=== PATIENT | male | born 1935 | race American Indian/Alaskan Native ===

== ENCOUNTER 2016-12-04 09:32 | Emergency (ER) | payer MEDICARE ==
[2016-12-04 09:52] LABS: BLOOD UREA NITROGEN 25 mg/dL (9-20); CALCIUM 9.3 mg/dL (8.4-10.2); CHLORIDE 109 mmol/L (98-107); CREATINE KINASE 88 U/L (55-170); CREATININE 1.2 mg/dL (0.7-1.3); GLUCOSE 171 mg/dL (70-100); POTASSIUM 4.7 mmol/L (3.5-5.1); SODIUM 138 mmol/L (137-145)
[2016-12-04] MEDS ORDERED: CLOPIDOGREL BISULFATE 75 MG TABLET PO ONE (09:52)
[2016-12-04] MEDS ORDERED: NITROGLYCERIN 0.4 MG TAB.SUBL SUBLINGUAL ONE (09:54)
[2016-12-04 09:55] LABS: BASOPHIL# 0.1 X 10^3uL (0.0-0.1); BASOPHILS 0.8 % (0.0-2.0); EOSINOPHILS 2.2 % (0.0-6.0); EOSINOPHILS# 0.2 X 10^3uL (0.0-0.4); HEMATOCRIT 36.6 % (42.0-54.0); HEMOGLOBIN 12.3 g/dL (14.0-18.0); LYMPHOCYTES 19.5 % (20.0-40.0); LYMPHOCYTES# 1.5 X 10^3uL (0.8-3.8); MEAN CELL VOLUME 93.2 fL (80.0-100.0); MEAN CORPUS. HGB CONCENTRATION 33.5 g/dL (32.0-36.0); MEAN CORPUSCULAR HEMOGLOBIN 31.2 pg (29.0-35.0); MEAN PLATELET VOLUME 8.5 fL (7.4-10.4); MONOCYTES 10.2 % (2.0-10.0); MONOCYTES# 0.8 X 10^3uL (0.2-1.0); NEUTROPHILS 67.3 % (54.0-75.0); NEUTROPHILS# 5.1 X 10^3uL (2.6-6.7); PLATELET COUNT 236 X 10^3uL (130-440); RED BLOOD COUNT 3.92 X 10^6uL (4.20-6.10); RED CELL DISTRIBUTION WIDTH 12.9 % (11.5-14.5); WHITE BLOOD COUNT 7.7 X 10^3uL (3.9-10.7)
[2016-12-04 09:56] LABS: INR 1.1; PARTIAL THROMBOPLASTIN TIME 28 sec (24-38)
[2016-12-04] MEDS ORDERED: ONDANSETRON HCL 4 MG/2 ML VIAL ONE ×2 (09:57→11:15)
[2016-12-04] MEDS ORDERED: MORPHINE SULFATE 2 MG/ML SYR ONE (10:03)
[2016-12-04 10:05] LABS: TROPONIN I < 0.012 ng/mL (0.00-0.034)
[2016-12-04] MEDS ORDERED: HEPARIN SOD PORCINE 5,000 UNITS/ML VIAL ONE (10:09)
--- NOTE | 2016-12-04 10:25 | ER PHYSICIAN DOCUMENTATION ---
Physician Documentation [facility] Name:Micah Diane Age:81 yrs Sex:Male :1935 Arrival Date:12/04/2016 Time:09:32 BedTrauma C Private MD:Milton Martel ED, Scott Disposition: 12/04 10:13 Critical Care: not applicable. nm Disposition: 12/04/16 10:14 Transfer ordered to [facility]. Diagnosis is Chest Pain. - Reason for transfer: Higher level of care. - Accepting physician is Moraima. - Condition is Critical. - Problem is new. - Symptoms are unchanged. COBRA Form completed? Yes Transfer - Mode of Transportation Helicopter HPI: 10:07 This 81 yrs old Male presents to ER with complaints of Chest Pain. sc 10:07 The patient or guardian reports chest pain that is located primarily in the anterior nm chest wall. Onset: 1 hour(s) ago. The pain does not radiate. There has been no movement of pain. Associated signs and symptoms: Pertinent positives: diaphoresis, shortness of breath. The chest pain is described as a pressure. Duration: The patient or guardian reports a single episode, that is still ongoing. Modifying factors: The symptoms are alleviated by nothing. Historical: - Allergies: No known drug Allergies; - Home Meds: 1. meds are not curent 2. Calcium Lactate Oral 3. carvedilol oral 4. Aspirin Oral 5. cholecalciferol (vitamin D3) oral 6. finasteride oral 7. Lisinopril Oral 8. pravastatin oral - PMHx: colon CA; CAD; stent placment; - PSHx: Colon resection; - Tetanus: unable to assess. - Ebola Screening: : Patient denies exposure to infectious person. Patient denies travel to an Ebola-affected area in the 21 days before illness onset. . - Immunization history: Unable to Obtain. - Social history: Smoking status: Patient states was never smoker of tobacco. Patient/guardian denies using alcohol, marijuana. ROS: 10:08 Constitutional: Negative for fever, chills, and weight loss. sc Eyes: Negative for injury, pain, redness, and discharge. ENT: Negative for injury, pain, and discharge. Neck: Negative for injury, pain, and swelling. Respiratory: Negative for shortness of breath, cough, wheezing, and pleuritic chest pain. Abdomen/GI: Negative for abdominal pain, nausea, vomiting, diarrhea, and constipation. Back: Negative for injury and pain. MS/Extremity: Negative for injury and deformity. 10:08 Neuro: Negative for headache, weakness, numbness, tingling, and seizure. sc 10:08 Cardiovascular: Positive for chest pain. 10:08 Skin: Positive for diaphoresis. Exam: Constitutional: This is a well developed, well nourished patient who is awake, alert, and in no acute distress. Head/Face: Normocephalic, atraumatic. Eyes: Pupils equal round and reactive to light, extra-ocular motions intact. Lids and lashes normal. Conjunctiva and sclera are non-icteric and not injected. Cornea within normal limits. Periorbital areas with no swelling, redness, or edema. ENT: Nares patent. No nasal discharge, no septal abnormalities noted. Tympanic membranes are normal and external auditory canals are clear. Oropharynx with no redness, swelling, or masses, exudates, or evidence of obstruction, uvula midline. Mucous membranes moist. Neck: Trachea midline, no thyromegaly or masses palpated, and no cervical lymphadenopathy. Supple, full range of motion without nuchal rigidity, or vertebral point tenderness. No meningismus. Cardiovascular: Regular rate and rhythm with a normal S1 and S2. No gallops, murmurs, or rubs. Normal PMI, no JVD. No pulse deficits. Respiratory: Lungs have equal breath sounds bilaterally, clear to auscultation and percussion. No rales, rhonchi or wheezes noted. No increased work of breathing, no retractions or nasal flaring. Abdomen/GI: Soft, non-tender, with normal bowel sounds. No distension or tympany. No guarding or rebound. No evidence of tenderness throughout. Back: No spinal tenderness. No costovertebral tenderness. Full range of motion. 10:09 Skin: Warm, dry with normal turgor. Normal color with no rashes, no lesions, and no sc evidence of cellulitis. 10:09 Skin: Appearance: normal except for affected area, Temperature: cool, Moisture: diaphoretic. 10:14 Cardiovascular: Rate: bradycardic, Rhythm: regular. nm Vital Signs: 09:37 BP 108 / 44; Pulse 39; st 09:44 BP 93 / 27; Pulse 39; Pulse Ox 93% ; Pain 6/10; st 09:49 BP 96 / 33; Pulse 44; Resp 17; Pulse Ox 93% ; st 09:51 BP 92 / 33; Pulse 40; Pulse Ox 93% ; st 09:54 BP 102 / 39; Pulse 41; Resp 20; Pulse Ox 93% ; st 09:56 Weight 77.11 kg; st 09:58 BP 99 / 38; Pulse 58; Resp 15; Pulse Ox 93% ; Pain 6/10; st 10:01 BP 95 / 35; Pulse 40; Resp 16; Pulse Ox 93% ; Pain 6/10; st MDM: 09:35 Patient medically screened. nm 10:12 Differential diagnosis: abnormal EKG, acute myocardial infarction, anxiety. Patient sc took aspirin per EMS prior to arrival. Patient refused fibrinolytic. Data reviewed: vital signs, nurses notes, lab test result(s), EKG, radiologic studies, and as a result, I will *Transfer Patient. Data interpreted: cardiac monitor technician: rate is 40 beats/min. ECG:. 19:19 EKG attached 12/04 09:54 Order name: BASIC METABOLIC PANEL [facility] 12/04 10:05 Interpretation: Normal Except: BLOOD UREA NITROGEN 25. nm 12/04 09:54 Order name: CREATINE KINASE [facility] 12/04 10:05 Interpretation: Normal. nm 12/04 09:56 Order name: CBC AUTO DIF, MDIF/RMOR IF IND EDAZ 12/04 10:05 Interpretation: Normal Except: HEMOGLOBIN 12.3; HEMATOCRIT 36.6. nm 12/04 09:58 Order name: PROTIME/INR [facility] 12/04 10:05 Interpretation: Normal. nm 12/04 09:58 Order name: PARTIAL THROMBOPLASTIN TIME [facility] 12/04 10:05 Interpretation: Normal. nm 12/04 10:06 Order name: TROPONIN I [facility] 12/04 09:36 Order name: CALL HELICOPTER; Complete Time: 10:43 nm 12/04 09:36 Order name: Continuous Cardiac Monitoring; Complete Time: 10:43 nm 12/04 09:36 Order name: DEFIB PADS - appropriate for specific helicopter nm 12/04 09:36 Order name: EKG - 12 Lead; Complete Time: 10:43 nm 12/04 09:36 Order name: EKG - fax to [phone]; Complete Time: nm 12/04 09:36 Order name: IV saline lock X2; Complete Time: nm 12/04 09:36 Order name: Oxygen; Complete Time: nm 12/04 09:36 Order name: Pulse Ox Continuous; Complete Time: : sc EC:12 Rate is 40 beats/min. Rhythm is regular. QRS [place] is Normal. [place] interval is normal. QRS sc interval is prolonged. QT interval is prolonged. Q waves are Old. T waves are Normal. No ST changes noted. Clinical impression: Abnormal EKG without significant change. Interpreted by me. Reviewed by me. Dispensed Medications: 09:40 Drug: Nitroglycerin 0.4 mg; Route: Sublingual; st 10:45 Follow up: Response: Pain is unchanged, physician notified st 09:40 Drug: Plavix 300 mg PO once for patients <75 years of age - Plavix 300 mg; Route: PO; st 10:45 Follow up: Response: No adverse reaction st 09:45 Drug: Zofran 4 mg; Route: IVP; Infused Over: 2 mins; Site: left antecubital; st 10:46 Follow up: Response: Nausea is decreased st 09:46 Not Given (given airline captain): Aspirin 81 mg, 4 tabs, total of 324 mg - Aspirin 81 mg PO once sc 09:46 Drug: NS 0.9% 500 ml; Route: IV; Rate: bolus; Site: right hand; st 10:46 Follow up: IV Status: Infusing continued upon transfer st 09:50 Drug: morphine 1 mg; Route: IVP; Site: right hand; st 10:46 Follow up: Response: Pain is unchanged, physician notified st 09:55 Drug: heparin 60 units/kg; Route: IVP; Site: right hand; st 10:45 Follow up: Response: No adverse reaction st Signatures: Lali Medina RN RN st Chew, Scott, MD MD sc Bollock, Lynda lb
--- NOTE | 2016-12-04 10:25 | ER NURSING DOCUMENTATION ---
Nurse's Notes [facility] Name:Micah Diane Age:81 yrs Sex:Male :1935 Arrival Date:12/04/2016 Time:09:32 BedTrauma C Private MD:Milton Martel Diagnosis:Chest Pain Presentation: 12/04 09:30 Presenting complaint: EMS states: pt started having chest pain a little before 8:30 st this AM. Chest pain into his back with nausea, SOB and looking pale. Transition of care: Home. AIR CAT ACTIVATION yes. Asprin Given Taken by pt fishing captain 324 mg po. Care prior to arrival: 12 lead EKG IV initiated. gauge and site 20 g in both the left AC and the right hand. Medication(s) given: Zofran 4mg IVP nitro X2. 09:30 Method Of Arrival: EMS: 410 st 09:38 Acuity: TODD 2 st 09:38 Acuity: TODD 1 st Triage Assessment: 09:30 General: Appears ill, Behavior is cooperative, drowsy. Pain: Complains of pain in chest st Pain currently is 6 out of 10 on a pain scale. Pain began 1 hour ago. Neuro: No deficits noted. Cardiovascular: Heart tones present Pulses are all present. Reports lightheadedness, Nausea shortness of breath Rhythm is sinus rhythm BBB. Respiratory: Airway is patent Respiratory effort is even, unlabored, Respiratory pattern is regular, symmetrical, Breath sounds are clear bilaterally. Reports shortness of breath. GI: Reports nausea. Historical: - Allergies: No known drug Allergies; - Home Meds: 1. meds are not curent 2. Calcium Lactate Oral 3. carvedilol oral 4. Aspirin Oral 5. cholecalciferol (vitamin D3) oral 6. finasteride oral 7. Lisinopril Oral 8. pravastatin oral - PMHx: colon CA; CAD; stent placment; - PSHx: Colon resection; - Tetanus: unable to assess. - Ebola Screening: : Patient denies exposure to infectious person. Patient denies travel to an Ebola-affected area in the 21 days before illness onset. . - Immunization history: Unable to Obtain. - Social history: Smoking status: Patient states was never smoker of tobacco. Patient/guardian denies using alcohol, marijuana. Screenin:30 Infectious Disease Risk None. Abuse screen: Unable to Obtain. Nutritional screening: No st deficits noted. Assessment: 09:30 Pain: Pain radiates to back Pain began [address] 09:50 General: pt color is improving sligtly. st Vital Signs: 09:37 BP 108 / 44; Pulse 39; st 09:44 BP 93 / 27; Pulse 39; Pulse Ox 93% ; Pain 6/10; st 09:49 BP 96 / 33; Pulse 44; Resp 17; Pulse Ox 93% ; st 09:51 BP 92 / 33; Pulse 40; Pulse Ox 93% ; st 09:54 BP 102 / 39; Pulse 41; Resp 20; Pulse Ox 93% ; st 09:56 Weight 77.11 kg; st 09:58 BP 99 / 38; Pulse 58; Resp 15; Pulse Ox 93% ; Pain 6/10; st 10:01 BP 95 / 35; Pulse 40; Resp 16; Pulse Ox 93% ; Pain 6/10; st ED Course: 09:30 Valuables Remains with patient Patient has correct armband on for positive st identification. Placed in gown. Bed in low position. Side rails up X2. pvc monitor on. Pulse ox on. NIBP on. Warm blanket given. 09:32 Patient arrived in ED. ama 09:32 Milton Martel MD is Private Physician. ama 09:35 Chaparro Ware MD is Attending Physician. sc 09:38 Lali Medina RN is Primary Nurse. st 09:[address] 09:49 EKG done per protocol. Performed by ED Staff. Shown to ED physician. st 09:50 Oxygen Oxygen administration via nasal cannula @ 2L/min. st 09:52 Port Xray Completed. pm1 17:30 Primary Nurse role handed off by Lali Medina RN st 19:19 EKG attached lb Administered Medications: 09:40 Drug: Nitroglycerin 0.4 mg; Route: Sublingual; st 10:45 Follow up: Response: Pain is unchanged, physician notified st 09:40 Drug: Plavix 300 mg PO once for patients <75 years of age - Plavix 300 mg; Route: PO; st 10:45 Follow up: Response: No adverse reaction st 09:45 Drug: Zofran 4 mg; Route: IVP; Infused Over: 2 mins; Site: left antecubital; st 10:46 Follow up: Response: Nausea is decreased st 09:46 Not Given (given fishing captain): Aspirin 81 mg, 4 tabs, total of 324 mg - Aspirin 81 mg PO once sc 09:46 Drug: NS 0.9% 500 ml; Route: IV; Rate: bolus; Site: right hand; st 10:46 Follow up: IV Status: Infusing continued upon transfer st 09:50 Drug: morphine 1 mg; Route: IVP; Site: right hand; st 10:46 Follow up: Response: Pain is unchanged, physician notified st 09:55 Drug: heparin 60 units/kg; Route: IVP; Site: right hand; st 10:45 Follow up: Response: No adverse reaction st Outcome: 09:32 Report given to Qing REYES st 10:14 ER care complete, transfer ordered by . or 10:21 Transferred: Patient will be transferred to: [facility]. Facility st Acceptance Time: December 04, 2016 at 10:21 Patient will be transported by: [facility]. Report called to: report sheet faxed to labor relations worker Nurse and Physician Charting and Notes were sent to Accepting Facility. All tests and/or procedures with results, if applicable, were sent to accepting facility. 10:21 Condition: guarded 10:21 Instructed on need for transfer 10:24 Patient [address] the ED. st 10:47 Transferred: Report called to: pt did not go to the labor relations worker RN notes faxed to Floor. st Nurse and Physician Charting and Notes were sent to Accepting Facility. 17:32 Patient [address] the ED. st Signatures: Lali Medina, RN RN Chaparro Collado MD MD sc McBride, Philisha pm1 Tip Gordon, Reg Reg Yas Daniels
--- NOTE | 2016-12-07 15:55 | RADIOLOGY REPORT ---
A limited inspiration single portable view of the chest is compared with the prior film dated 04/23/2013. The heart and vessels are stable. Elevation of the right hemidiaphragm is unchanged. The lung asif are otherwise clear. No infiltrate, fluid or pneumothorax is seen. IMPRESSION: Stable elevation of the right hemidiaphragm. No acute cardiopulmonary abnormality is identified. MTDD
== END 2016-12-04 17:32 | disposition short-term general hospital (02) ==
LOC: ER 09:32
DX: R07.9 Chest pain, unspecified (principal); R61 Generalized hyperhidrosis; R06.02 Shortness of breath; R94.31 Abnormal electrocardiogram [ECG] [EKG]; I25.10 Atherosclerotic heart disease of native coronary artery without angina pectoris; Z95.5 Presence of coronary angioplasty implant and graft; Z85.038 Personal history of other malignant neoplasm of large intestine; Z79.899 Other long term (current) drug therapy; Z79.82 Long term (current) use of aspirin; Z74.3 Need for continuous supervision
CPT/HCPCS: 71010; 80048; 82550; 84484; 85025; 85610; 85730; 93005; 96361; 96374; 96375; 99285; A0420; A0425; A0427; J1644; J2270; J2405

== ENCOUNTER 2016-12-14 08:22 | Inpatient (IN) | payer MEDICARE ==
[2017-01-12] MEDS ORDERED: MAG-AL PLUS XS SUSP 30 ML UDC PO PRN (15:54)
[2017-01-12] MEDS ORDERED: MAGNESIUM HYDROXIDE 30 ML UDC PO PRN (15:54)
[2017-01-12] MEDS ORDERED: HOME MEDICATION LIST NEEDED 1 EA EACH MC ONE (15:54)
[2017-01-12] MEDS ORDERED: FAMOTIDINE 20 MG TABLET PO PRN (17:27)
[2017-01-12] MEDS ORDERED: LIDOCAINE HCL 2% 20 ML VIAL MUCOUS MEM PRN (17:27)
[2017-01-12] MEDS ORDERED: DEXTROSE 50% WATER 25 GM/50 ML SYR IV PRN (17:36)
[2017-01-12] MEDS ORDERED: DIPHENHYDRAMINE 25 MG CAPSULE PO PRN (17:38)
[2017-01-12] MEDS ORDERED: NON-FORMULARY MEDICATION (Metolazone 2.5 MG) PO SCH (17:45)
[2017-01-12 18:24] LABS: BLOOD UREA NITROGEN 31 mg/dL (9-20); CALCIUM 8.1 mg/dL (8.4-10.2); CHLORIDE 106 mmol/L (98-107); CREATININE 1.3 mg/dL (0.7-1.3); GLUCOSE 144 mg/dL (70-100); MAGNESIUM 1.8 mg/dL (1.6-2.3); PHOSPHORUS 3.6 mg/dL (2.5-4.5); POTASSIUM 3.3 mmol/L (3.5-5.1); SODIUM 140 mmol/L (137-145)
[2017-01-12] MEDS ORDERED: DEXTROSE 5% IV ONE (18:31)
[2017-01-12] MEDS ORDERED: MAGNESIUM SULFATE IV ONE (18:31)
[2017-01-12] MEDS ORDERED: POTASSIUM CHLORIDE 20 MEQ/15 ML UDC PO ONE (18:32)
[2017-01-12] MEDS: ACETAMINOPHEN 325 MG TABLET PO PRN (18:36)
[2017-01-12] MEDS ORDERED: POTASSIUM CHLORIDE 20 MEQ/100 ML PIGGYBACK IV SCH (19:00)
[2017-01-12 19:04] LABS: ABO GROUP TYPE O; RH TYPE POSITIVE
[2017-01-12 19:05] LABS: ANTIBODY SCREEN NEGATIVE
[2017-01-12] MEDS ORDERED: MAGNESIUM SULFATE 100 ML IV ONE (21:14)
[2017-01-12] MEDS: INSULIN LISPRO 100 UNIT/ML ML SUBCUT SCH (21:17)
[2017-01-12] MEDS: ATORVASTATIN CALCIUIM 40 MG TABLET PO SCH (21:17)
[2017-01-12] MEDS: BISACODYL 10 MG SUPP.RECT PR SCH (21:17)
[2017-01-12] MEDS: metoprolol SUCC ER 25 MG TABLET PO SCH (21:18)
[2017-01-12] MEDS: ASCORBIC ACID 500 MG TABLET PO SCH (21:18)
[2017-01-12] MEDS: MARINOL PO SCH (21:22)
[2017-01-12] MEDS: ELIQUIS 2.5 MG PO SCH (21:22)
[2017-01-12] MEDS ORDERED: NORMAL SALINE 250 ML IV ONE (21:49)
[2017-01-12] MEDS: POTASSIUM CHLORIDE 100 ML IV SCH ×2 (21:50→23:39)
[2017-01-12 22:03] LABS: BASOPHILS 0.3 % (0.0-2.0); EOSINOPHILS 0.7 % (0.0-6.0); EOSINOPHILS# 0.1 X 10^3uL (0.0-0.4); LYMPHOCYTES 4.8 % (20.0-40.0); LYMPHOCYTES# 0.6 X 10^3uL (0.8-3.8); MEAN CELL VOLUME 91.1 fL (80.0-100.0); MEAN PLATELET VOLUME 8.1 fL (7.4-10.4); MONOCYTES 5.5 % (2.0-10.0); MONOCYTES# 0.6 X 10^3uL (0.2-1.0); NEUTROPHILS 88.7 % (54.0-75.0); NEUTROPHILS# 10.3 X 10^3uL (2.6-6.7); RED BLOOD COUNT 2.96 X 10^6uL (4.20-6.10); RED CELL DISTRIBUTION WIDTH 14.8 % (11.5-14.5); WHITE BLOOD COUNT 11.6 X 10^3uL (3.9-10.7)
[2017-01-12 23:20] LABS: HEMOGLOBIN 9.2 g/dL (14.0-18.0)
--- NOTE | 2017-01-13 01:09 | HISTORY & PHYSICAL ---
DATE OF ADMISSION TO SWING BED: 01/12/17 REASON FOR ADMISSION TO SWING BED: Ongoing recovery from protracted hospital course. HISTORY OF PRESENT ILLNESS: Briefly, the patient is an 81-year-old gentleman with past medical history significant for known coronary disease, BPH with lower urinary tract symptoms, anemia, dyslipidemia, hypertension and sleep apnea , as well as prior colon cancer and prior partial small bowel obstructions, who presented to the emergency room December 04 with acute onset of chest pain. His initial troponins were normal. He was subsequently transferred to [facility] where he underwent angiography that demonstrated no left main disease, 40% left anterior descending with 30% left circumflex, 50% RCA and apical hypokinesis. He then underwent evaluations for causes of chest pain which they felt may be pneumonia related and subsequently found that he had biliary colic and acute cholecystitis. He underwent a cholecystectomy which was complicated by an anastomotic leak, then had peritonitis and recurrent partial small bowel obstructions necessitating a right hemicolectomy. He has had persistent fever, high white count and abdominal pain with symptoms of ileus /obstruction. He underwent further imaging which demonstrated abscesses. He has required multiple percutaneous drainages and most recently group Nadia glabrata and was evaluated by both Nolvia Rodríguez, his surgeon, as well Vincenzo Moncada from infectious disease. He initially was on caspofungin but this was changed to Diflucan secondary to sensitivities. His white count has improved though he has become markedly weakened and is being transferred for ongoing physical therapy. What is noted is he has anasarca on presentation today. There is no fever, no rigors. His appetite has improved. He notes fatigue and becomes winded and tachypneic to 30s-40s with mild exertion. Despite this they have been walking 3 times daily and he has remained upright in the chair for an hour 3 times daily as well. He has noted increasing swelling and shortness of breath as well as PND and orthopnea, and is noted to have 3+ edema from his feet through to his midback including his scrotum and on the wounds. Labs on the day of discharged showed that his hemoglobin was 8.2 and white count was 10.5. He was also noted to be hypokalemic at 3.5. No further labs accompany the patient. I did discuss care with Dr. Dobson prior to transfer. The patient does have a right upper quadrant and right lower quadrant drain in place which has been flushed twice daily. A tentative plan was for followup with Dr. Rodríguez and Dr. Moncada in 2 weeks, as well as repeat blood tests with CRP and interval CT scanning in 7-10 days with discontinuation of drains if improvement. The patient also has a right upper extremity power port PICC line with 3 lumens which he has been using for blood draws as well as IV fluids. He denies chest pain or palpitations. He has abdominal pain over the incisions but no else. His last bowel movement was this morning and normal, though he did have a diarrheal stool on presentation to [facility]. There is no dysuria or urinary frequency. PAST MEDICAL HISTORY 1. Bilateral knee arthritis and status post knee arthroplasty. 2. Anemia with prior iron deficiency. 3. Coronary disease on risk modifying medications as described above with an angiogram as described above as well as percutaneous placement in 2010 with stent deployment. 4. Colon cancer status post partial colectomy in 2005 and now status post right hemicolectomy. 5. Umbilical herniorrhaphy. 6. Recurrent partial small bowel obstructions. 7. Left knee replacement. 8. Hypertension. 9. Dyslipidemia. 10. BPH with lower urinary tract symptoms. ALLERGIES: Morphine which causes nightmares. FAMILY HISTORY: Notable for a brother who from leukemia at age 62. His father from colon cancer. His maternal grandmother had rheumatoid arthritis. His mother from coronary disease. SOCIAL HISTORY: He does not drink alcohol. He is . He has 1 son and 3 step children, one of whom from heart disease. 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 He is a nonsmoker. CURRENT MEDICATIONS: Include Aspirin 81 mg daily. Lipitor 80 mg daily. Pepcid 20 mg daily. Fluconazole 400 mg daily. Lantus 10 units nightly with a sliding scale insulin. Lisinopril 20 mg daily. Coreg was recently changed to metoprolol 25 mg twice daily. He is also on vitamin D and vitamin C and B12. He is on apixaban 2.5 mg twice daily. Finasteride 5 mg daily. Marinol 2.5 mg twice daily. REVIEW OF SYSTEMS: Per HPI. PHYSICAL EXAMINATION VITAL SIGNS: Temperature of 36.9, blood pressure 158/54, pulse rate 53, respiratory rate started at 16 but was 30 during my review. Oxygen saturation 92% on room air at rest and currently denies pain. GENERAL: He is pleasant, uncomfortable, laying flat partly from shortness of breath and partly from strain on his wounds. There is no jaundice, cyanosis, clubbing or lymphadenopathy. HEENT: His conjunctiva are pale as well as his oropharynx. NECK: He has jugular venous distention to 4 cm above his clavicle with hepatojugular reflux. CARDIAC: There is a right upper sternal border murmur without radiation and intermittent gallop rhythm. RESPIRATORY: Pressure exam showed good air entry to 2/3 of his lung asif but diminished at the bases. No egophony or adventitial sounds. Percussion note is dull. ABDOMEN: Distended. He has midline dressed wound from prior laparotomy that had been treated partly with wound VAC and drains in his right upper and lower quadrants. There are no masses, no peritonitis. Bowel sounds are active. He does have edema in his lower sternum and midthoracic back that progressively worsens to his buttocks and scrotum down to his feet with 3-4+. IMPRESSION 1. Anasarca. This likely is confounded partly by his anemia as well as malnutrition and the patient will be a risk for repeating syndrome. Will transfuse 2 units and treat with Lasix and metolazone and followup electrolytes including potassium, magnesium and phosphorus for repeating syndrome as well as leaching from diuretics. The patient may require more vigorous replacement of these and may require daily diuretic as well. Will consider additional albumin with a diuretic tomorrow and through there were weekend with more vigorous followup of his electrolytes and replacement as needed. Regarding nutrition, will start a cardiac prudent diet and add whey protein to this and may require a multivitamin and supplementation as well. 2. Noncoronary disease status post stent placement in 2010 and recent angiography showing nonobstructive coronary disease. The patient will continue on medical management. 3. DVT prophylaxis perioperatively. The patient continues on Eliquis with no history of atrial fibrillation. 4. BPH. 5. Hypertension. 6. Dyslipidemia. 7. Sleep apnea. Will continue his CPAP and disease modifying medications as described above. The patient wishes to be a DNR/DNI and this is reflected in the chart and orders. MATT
[2017-01-13] MEDS: ACETAMINOPHEN 325 MG TABLET PO PRN ×2 (03:34→09:12)
[2017-01-13] MEDS: INSULIN LISPRO 100 UNIT/ML ML SUBCUT SCH ×4 (06:10→20:26)
[2017-01-13 06:25] LABS: BASOPHILS 0.2 % (0.0-2.0); EOSINOPHILS 0.4 % (0.0-6.0); EOSINOPHILS# 0.1 X 10^3uL (0.0-0.4); HEMATOCRIT 33.7 % (42.0-54.0); HEMOGLOBIN 11.4 g/dL (14.0-18.0); LYMPHOCYTES 4.4 % (20.0-40.0); LYMPHOCYTES# 0.6 X 10^3uL (0.8-3.8); MEAN CORPUS. HGB CONCENTRATION 33.7 g/dL (32.0-36.0); MEAN PLATELET VOLUME 7.9 fL (7.4-10.4); MONOCYTES 5.6 % (2.0-10.0); MONOCYTES# 0.7 X 10^3uL (0.2-1.0); NEUTROPHILS 89.4 % (54.0-75.0); NEUTROPHILS# 11.1 X 10^3uL (2.6-6.7); PLATELET COUNT 241 X 10^3uL (130-440); RED BLOOD COUNT 3.78 X 10^6uL (4.20-6.10); RED CELL DISTRIBUTION WIDTH 14.5 % (11.5-14.5); WHITE BLOOD COUNT 12.5 X 10^3uL (3.9-10.7)
[2017-01-13 06:27] LABS: ALBUMIN 2.6 g/dL (3.5-5.0); AST 25 U/L (17-59); BILIRUBIN, TOTAL 0.9 mg/dL (0.2-1.3); BLOOD UREA NITROGEN 28 mg/dL (9-20); CREATININE 1.3 mg/dL (0.7-1.3); POTASSIUM 3.7 mmol/L (3.5-5.1)
[2017-01-13 06:49] LABS: ALKALINE PHOSPHATASE 128 U/L (38-126); ALT 25 U/L (21-72); BILIRUBIN, DIRECT 0.2 mg/dL (0.0-0.4); CALCIUM 8.2 mg/dL (8.4-10.2); GLUCOSE 118 mg/dL (70-100); MAGNESIUM 2.1 mg/dL (1.6-2.3); PHOSPHORUS 3.8 mg/dL (2.5-4.5); SODIUM 139 mmol/L (137-145); TOTAL PROTEIN 6.2 g/dL (6.3-8.2)
[2017-01-13 06:54] LABS: CHLORIDE 107 mmol/L (98-107)
[2017-01-13 08:13] LABS: URINE APPEARANCE CLEAR; URINE COLOR YELLOW; URINE LEUKOCYTE ESTERASE NEGATIVE (NEGATIVE); URINE MUCUS NONE SEEN (Up to 25%); URINE NITRITE NEGATIVE (NEGATIVE); URINE PROTEIN NEGATIVE (NEG - TRACE); URINE RBC NONE SEEN (0-5/hpf); URINE SQUAMOUS EPITHELIAL CELL NONE SEEN (<= 15/hpf); URINE WBC NONE SEEN (0-4/hpf)
[2017-01-13 08:14] LABS: URINE BACTERIA NONE SEEN (<10/hpf); URINE BILIRUBIN NEGATIVE (NEGATIVE); URINE BLOOD TRACE (NEGATIVE); URINE GLUCOSE NORMAL (NEGATIVE); URINE KETONE NEGATIVE (NEGATIVE); URINE SPERM NONE SEEN; URINE UROBILINOGEN 0.2mg/dL (Normal) (NEG-1mg/dL)
[2017-01-13] MEDS ORDERED: ALBUMIN HUMAN 12.5 GM/50 ML VIAL IV SCH (09:00)
[2017-01-13] MEDS ORDERED: BUMETANIDE 1 MG TABLET PO SCH (09:00)
[2017-01-13] MEDS ORDERED: HYDROCHLOROTHIAZIDE 25 MG TABLET PO SCH (09:00)
--- NOTE | 2017-01-13 09:09 | PROGRESS NOTE: IM APSO ---
Assessment and Plan - Date of Encounter Date of Encounter: 01/13/17 (1) Anemia Status: Acute Assessment and plan: transfused/diuresed and markedly improved (feels better), likely anemia related to adominal sepsis and difficult surgical course. Current Visit: No (2) CAD in [place] artery Status: Chronic Current Visit: No (3) H/O colon cancer, stage II Status: Chronic Assessment and plan: risk modifying medications with ASA/Eliquis/Lisinopril/Metoprolol/Lipitor, cath in December non obstructive Dz Current Visit: No (4) Generalized edema Status: Acute Assessment and plan: likely from severe malnutrition, mobilized some with transfusion, will give albumin and diuretic today as well, follow electrolytes and replace aggressively Current Visit: Yes (5) Protein-calorie malnutrition, moderate Status: Acute Assessment and plan: starting supplementation and following for refeeding syndrome. Replace potassium/magnesium/phosphorous as needed. Current Visit: Yes (6) Nadia glabrata infection Status: Chronic Assessment and plan: Continue diflucan, suspect improved absorption after anasarca mobiized (help bowel edema) Current Visit: Yes (7) Intra-abdominal abscess post-procedure Status: Acute Assessment and plan: drains place, flushing, will check CRP and CT next week, if improved then request Dr. Esteves to consider removing. Needs f//u Dr.'s Moncada/Marcos in 2 weeks. Current Visit: Yes (8) Generalized weakness Status: Acute Assessment and plan: deconditioning after such long and complicated hospitalization Current Visit: Yes (9) Leukocytosis Status: Acute Assessment and plan: need to follow for sx/sx of infection, will check sputum. Current Visit: Yes - Time Spent With Patient Total time spent with greater than 50% in coordination of care (as documented) at patient's floor/unit and/or counseling patient: Greater than 35 minutes IM: PN Subjective General: fatigue (improved this morning since transfusion), good appetite, no anxiety, no depression, no confusion, no fever, no chills Cardiovascular: no chest pain, no chest pressure, no palpitations Respiratory: cough, sputum (gabriel, started last nocte) Gastrointestinal: abdominal pain (about the same at drain and wound sites), no indigestion, no bloating, no nausea, no diarrhea Genitourinary: other (1500ml in bladder last nocte, requed IO cath, will place dorman with further diuresis. H/O BPH) Musculoskeletal: swelling (both legs but feels less tense today), no pain Integumentary: no rashes Neurological: no headache IM: PN Objective Exam - I&O/Vital Signs I&O: Intake & Output 01/12/17 01/13/17 01/13/17 21:59 05:59 13:59 Intake Total 1650 Output Total 1500 Balance 150 Weight 97 kg 97 kg 97 kg Intake: Oral 250 Blood Product 1400 Output: Urine 1500 Other: Urine Appearance Clear Clear Urine Color Yellow Light Jackie Stool Size Small Stool Characteristics Mucoid Soft Brown Formed Voiding Method Toilet Indwelling Catheter # Voids 3 # Bowel Movements 2 Vital Signs: Last Vital Signs Temp 37.0 C 01/13/17 06:06 Pulse 65 01/13/17 06:06 Resp 22 01/13/17 06:06 BP 158/83 01/13/17 06:06 Pulse Ox 91 01/13/17 08:47 Oxygen Flow Rate 1 Oxygen Delivery Method Nasal Cannula - Lab Labs: Laboratory Last Values WBC 12.5 X 10^3uL (3.9-10.7) H 01/13/17 05:00 RBC 3.78 X 10^6uL (4.20-6.10) L 01/13/17 05:00 Hgb 11.4 g/dL (14.0-18.0) L 01/13/17 05:00 Hct 33.7 % (42.0-54.0) L 01/13/17 05:00 MCV 89.0 fL (80.0-100.0) 01/13/17 05:00 MCH 30.0 pg (29.0-35.0) 01/13/17 05:00 MCHC 33.7 g/dL (32.0-36.0) 01/13/17 05:00 RDW 14.5 % (11.5-14.5) 01/13/17 05:00 Plt Count 241 X 10^3uL (130-440) 01/13/17 05:00 MPV 7.9 fL (7.4-10.4) 01/13/17 05:00 Neutrophils % 89.4 % (54.0-75.0) H 01/13/17 05:00 Lymphocytes % 4.4 % (20.0-40.0) L 01/13/17 05:00 Eosinophils % 0.4 % (0.0-6.0) 01/13/17 05:00 Basophils % 0.2 % (0.0-2.0) 01/13/17 05:00 Neutrophils # 11.1 X 10^3uL (2.6-6.7) H 01/13/17 05:00 Lymphocytes # 0.6 X 10^3uL (0.8-3.8) L 01/13/17 05:00 Monocytes 5.6 % (2.0-10.0) 01/13/17 05:00 Monocytes # 0.7 X 10^3uL (0.2-1.0) 01/13/17 05:00 Eosinophils # 0.1 X 10^3uL (0.0-0.4) 01/13/17 05:00 Basophils # 0.0 X 10^3uL (0.0-0.1) 01/13/17 05:00 Sodium 139 mmol/L (137-145) 01/13/17 05:00 Potassium 3.7 mmol/L (3.5-5.1) 01/13/17 05:00 Chloride 107 mmol/L (98-107) 01/13/17 05:00 Carbon Dioxide 25 mmol/L (22-30) 01/13/17 05:00 BUN 28 mg/dL (9-20) H 01/13/17 05:00 Creatinine 1.3 mg/dL (0.7-1.3) 01/13/17 05:00 GFR Calculation Not Reportable 01/13/17 05:00 Glucose 118 mg/dL (70-100) H 01/13/17 05:00 Calcium 8.2 mg/dL (8.4-10.2) L 01/13/17 05:00 Phosphorus 3.8 mg/dL (2.5-4.5) 01/13/17 05:00 Magnesium 2.1 mg/dL (1.6-2.3) 01/13/17 05:00 Total Bilirubin 0.9 mg/dL (0.2-1.3) 01/13/17 05:00 Direct Bilirubin 0.2 mg/dL (0.0-0.4) 01/13/17 05:00 AST 25 U/L (17-59) 01/13/17 05:00 ALT 25 U/L (21-72) 01/13/17 05:00 Alkaline Phosphatase 128 U/L (38-126) H 01/13/17 05:00 Total Protein 6.2 g/dL (6.3-8.2) L 01/13/17 05:00 Albumin 2.6 g/dL (3.5-5.0) L 01/13/17 05:00 Urine Color Yellow 01/12/17 15:54 Urine Appearance Clear 01/12/17 15:54 Urine pH 6.0 (5-7) 01/12/17 15:54 Ur Specific [place] 1.010 (0.001-1.035) 01/12/17 15:54 Urine Protein Negative (NEG - TRACE) 01/12/17 15:54 Urine Ketones Negative (NEGATIVE) 01/12/17 15:54 Urine Blood Trace (NEGATIVE) A 01/12/17 15:54 Urine Nitrate Negative (NEGATIVE) 01/12/17 15:54 Urine Bilirubin Negative (NEGATIVE) 01/12/17 15:54 Urine Urobilinogen 0.2mg/dl (normal) (NEG-1mg/dL) 01/12/17 15:54 Ur Leukocyte Esterase Negative (NEGATIVE) 01/12/17 15:54 Urine RBC None seen (0-5/hpf) 01/12/17 15:54 Urine WBC None seen (0-4/hpf) 01/12/17 15:54 Ur Squamous Epith Cells None seen (<= 15/hpf) 01/12/17 15:54 Urine Bacteria None seen (<10/hpf) 01/12/17 15:54 Urine Mucus None seen (Up to 25%) 01/12/17 15:54 Urine Sperm None seen 01/12/17 15:54 Urine Glucose Normal (NEGATIVE) 01/12/17 15:54 ABO Group Type o 01/12/17 18:00 Rh Factor Positive 01/12/17 18:00 Antibody Screen Negative 01/12/17 18:00 Quality Questions - VTE Prophylaxis Assessment VTE Present on Admission?: No Patient at risk for venous thromboembolism?: No VTE Risk Level: Very Low Risk Pharmaceutical VTE prophylaxis contraindication reason: N/A- VTE prophylaxsis ordered (7) Intra-abdominal abscess post-procedure Qualifiers: Encounter type: sequela Qualified Code(s): T81.4XXS - Infection following a procedure, sequela; K65.1 - Peritoneal abscess
[2017-01-13] MEDS: ASCORBIC ACID 500 MG TABLET PO SCH ×2 (09:12→20:25)
[2017-01-13] MEDS: LISINOPRIL 20 MG TABLET PO SCH (09:12)
[2017-01-13] MEDS: CYANOCOBALAMIN 1,000 MCG TABLET PO SCH (09:13)
[2017-01-13] MEDS: FINASTERIDE 5 MG TABLET PO SCH (09:13)
[2017-01-13] MEDS: CHOLECALCIFEROL 1,000 UNIT CAPSULE PO SCH (09:14)
[2017-01-13] MEDS: FLUCONAZOLE 100 MG CAPSULE PO SCH (09:14)
[2017-01-13] MEDS: metoprolol SUCC ER 25 MG TABLET PO SCH ×2 (09:27→20:25)
[2017-01-13] MEDS: INSULIN GLARGINE,HUM.REC.ANLOG 100 UNITS/ML ML SUBCUT SCH (09:28)
[2017-01-13] MEDS: BISACODYL 10 MG SUPP.RECT PR SCH ×2 (09:28→20:24)
[2017-01-13] MEDS ORDERED: METALOZONE PO ONE (09:30)
[2017-01-13] MEDS: ELIQUIS 2.5 MG PO SCH ×2 (11:19→20:25)
[2017-01-13] MEDS: MARINOL PO SCH ×2 (11:19→20:25)
[2017-01-13 12:07] LABS: URINE APPEARANCE CLEAR; URINE COLOR YELLOW; URINE LEUKOCYTE ESTERASE NEGATIVE (NEGATIVE); URINE MUCUS NONE SEEN (Up to 25%); URINE NITRITE NEGATIVE (NEGATIVE); URINE SPECIFIC GRAVITY 1.015 (0.001-1.035); URINE SQUAMOUS EPITHELIAL CELL NONE SEEN (<= 15/hpf); URINE WBC NONE SEEN (0-4/hpf)
[2017-01-13 12:08] LABS: URINE BACTERIA NONE SEEN (<10/hpf); URINE BILIRUBIN NEGATIVE (NEGATIVE); URINE BLOOD 250 Ery/uL (3+) (NEGATIVE); URINE GLUCOSE NORMAL (NEGATIVE); URINE KETONE NEGATIVE (NEGATIVE); URINE PH 7.5 (5-7); URINE PROTEIN 30mg/dL (1+) (NEG - TRACE); URINE RBC 50-100/hpf (0-5/hpf); URINE UROBILINOGEN 0.2mg/dL (Normal) (NEG-1mg/dL)
[2017-01-13] MEDS ORDERED: NON-FORMULARY MEDICATION (Eliquis 5 MG) PO ONE (19:45)
[2017-01-13] MEDS: ATORVASTATIN CALCIUIM 40 MG TABLET PO SCH (20:24)
[2017-01-14 05:50] LABS: BASOPHILS 0.3 % (0.0-2.0); EOSINOPHILS 0.4 % (0.0-6.0); HEMATOCRIT 31.4 % (42.0-54.0); HEMOGLOBIN 10.6 g/dL (14.0-18.0); LYMPHOCYTES 6.2 % (20.0-40.0); LYMPHOCYTES# 0.8 X 10^3uL (0.8-3.8); MEAN CELL VOLUME 89.1 fL (80.0-100.0); MEAN CORPUS. HGB CONCENTRATION 33.6 g/dL (32.0-36.0); MEAN PLATELET VOLUME 7.9 fL (7.4-10.4); MONOCYTES 6.5 % (2.0-10.0); MONOCYTES# 0.8 X 10^3uL (0.2-1.0); NEUTROPHILS 86.6 % (54.0-75.0); NEUTROPHILS# 10.8 X 10^3uL (2.6-6.7); PLATELET COUNT 243 X 10^3uL (130-440); RED BLOOD COUNT 3.52 X 10^6uL (4.20-6.10); RED CELL DISTRIBUTION WIDTH 14.5 % (11.5-14.5); WHITE BLOOD COUNT 12.4 X 10^3uL (3.9-10.7)
[2017-01-14 05:54] LABS: BLOOD UREA NITROGEN 25 mg/dL (9-20); CALCIUM 8.2 mg/dL (8.4-10.2); CHLORIDE 105 mmol/L (98-107); CREATININE 1.3 mg/dL (0.7-1.3); GLUCOSE 78 mg/dL (70-100); MAGNESIUM 1.8 mg/dL (1.6-2.3); PHOSPHORUS 4.6 mg/dL (2.5-4.5); POTASSIUM 3.1 mmol/L (3.5-5.1); SODIUM 138 mmol/L (137-145)
[2017-01-14] MEDS: INSULIN LISPRO 100 UNIT/ML ML SUBCUT SCH ×4 (06:06→21:11)
[2017-01-14] MEDS: LISINOPRIL 20 MG TABLET PO SCH (08:33)
[2017-01-14] MEDS: CYANOCOBALAMIN 1,000 MCG TABLET PO SCH (08:33)
[2017-01-14] MEDS: CHOLECALCIFEROL 1,000 UNIT CAPSULE PO SCH (08:34)
[2017-01-14] MEDS: FLUCONAZOLE 100 MG CAPSULE PO SCH (08:35)
[2017-01-14] MEDS: metoprolol SUCC ER 25 MG TABLET PO SCH ×2 (08:35→21:13)
[2017-01-14] MEDS: ASCORBIC ACID 500 MG TABLET PO SCH ×2 (08:36→21:13)
[2017-01-14] MEDS: MARINOL PO SCH ×2 (08:37→21:13)
[2017-01-14] MEDS: FINASTERIDE 5 MG TABLET PO SCH (08:37)
[2017-01-14] MEDS: BISACODYL 10 MG SUPP.RECT PR SCH ×2 (08:38→21:11)
[2017-01-14] MEDS: ELIQUIS 2.5 MG PO SCH (08:39)
[2017-01-14] MEDS: INSULIN GLARGINE,HUM.REC.ANLOG 100 UNITS/ML ML SUBCUT SCH (08:39)
[2017-01-14] MEDS ORDERED: MAGNESIUM SULFATE IV ONE (08:48)
[2017-01-14] MEDS ORDERED: DEXTROSE 5% IV ONE (08:48)
--- NOTE | 2017-01-14 08:59 | PROGRESS NOTE: IM APSO ---
Assessment and Plan - Date of Encounter Date of Encounter: 01/14/17 (1) Anemia Status: Acute Assessment and plan: transfused/diuresed and markedly improved (feels better), likely anemia related to adominal sepsis and difficult surgical course. Current Visit: No (2) CAD in [place] artery Status: Chronic Assessment and plan: risk modifying medications with ASA/Eliquis/Lisinopril/Metoprolol/Lipitor, cath in December non obstructive Dz Current Visit: No (3) H/O colon cancer, stage II Status: Chronic Assessment and plan: then [facility] hospitalization with complicated cholecystectomy and SBO with right hemicolectomy, now drains, protein calorie malnutrition, anemia and anasarca. These risk/issues not conveyed during transfer, adding beneprotein/ensure, diuresing, transfused and f/u studies for CRP and CT next week. Markedly improved but tenuous and low threshold to transfer back to [facility]. Current Visit: No (4) Generalized edema Status: Acute Assessment and plan: likely from severe malnutrition, mobilized some with transfusion, will give albumin and diuretic again today, follow electrolytes and replace aggressively. Has improved pain/drain output and mobility with fluid mobilization Current Visit: Yes (5) Protein-calorie malnutrition, moderate Status: Acute Assessment and plan: starting supplementation and following for refeeding syndrome. Replace potassium/magnesium/phosphorous as needed. Overall very severe malnutrition. Not appear addressed at [facility] and unfortunately, limited parenteral resources at [facility] [place] but attempting to address enterally (limited by poor appetite) Current Visit: Yes (6) Nadia glabrata infection Status: Chronic Assessment and plan: Continue diflucan, suspect improved absorption after anasarca mobiized (help bowel edema) Current Visit: Yes (7) Intra-abdominal abscess post-procedure Status: Acute Assessment and plan: drains place, flushing, will check CRP and CT next week, if improved then request Dr. Esteves to consider removing. Needs f//u Dr.'s Moncada/Marcso in 2 weeks. Persistently elevated WBC concerning though minimal additional symptoms and differential is improving some. Will check CRP tomorrow as baseline before f/u next Wed. Current Visit: Yes (8) Generalized weakness Status: Acute Assessment and plan: deconditioning after such long and complicated hospitalization Current Visit: Yes (9) Leukocytosis Status: Acute Assessment and plan: need to follow for sx/sx of infection, will check sputum. Current Visit: Yes - Time Spent With Patient Total time spent with greater than 50% in coordination of care (as documented) at patient's floor/unit and/or counseling patient: Greater than 35 minutes IM: PN Subjective General: fatigue (improved since transfusion and diuresis), no anxiety, no depression, no confusion, no good appetite (poor appetite but no nausea/ vomiting and pain improving, loose stools, no constipation), no fever, no chills Cardiovascular: other (no PND/orthopnea), no chest pain, no chest pressure, no palpitations Respiratory: cough (almost abated with diuresis for CHF), sputum (cough that is present is largely non produtive now) Gastrointestinal: abdominal pain (about the same at drain and wound sites), no indigestion, no bloating, no nausea, no diarrhea Genitourinary: other (h/o BPH w/ LUTS, had 1.5 liter retention with pain, I&O cath then dorman placed as required continued diuresis, will plan to DC after euvolemic.) Musculoskeletal: swelling (both legs but feels less tense today), no pain Integumentary: no rashes Neurological: no headache IM: PN Objective Exam - I&O/Vital Signs I&O: Intake & Output 01/13/17 01/14/17 01/14/17 21:59 05:59 13:59 Intake Total 540 700 Output Total 4300 1100 Balance -3760 -400 Intake: Oral 540 700 Output: Urine 4300 1100 Other: Urine Appearance Clear Clear Urine Color Yellow Yellow Stool Size Smear Stool Characteristics Soft Voiding Method Indwelling Catheter Indwelling Catheter # Bowel Movements 1 Vital Signs: Last Vital Signs Temp 37.7 C H 01/14/17 06:15 Pulse 59 L 01/14/17 06:15 Resp 26 H 01/14/17 06:15 BP 164/62 01/14/17 06:15 Pulse Ox 86 L 01/14/17 08:19 Oxygen Flow Rate 1 Oxygen Delivery Method Nasal Cannula - Constitutional General appearance: Present: obese - Head Head exam: Present: atraumatic - Eye Eye exam: Present: EOMI, normal appearance - ENT ENT exam: Present: mucous membranes moist - Neck Neck exam: Present: full ROM. Absent: lymphadenopathy - Respiratory Respiratory exam: Present: rales (bases only). Absent: accessory muscle use - Cardiovascular Cardiovascular exam: Present: RRR. Absent: JVD - GI/Abdominal GI/Abdominal exam: Present: hyperactive bowel sounds, soft, tenderness. Absent : organomegaly - External exam: Present: swelling (scrotal and penile edema now improving) - Extremities Exam Extremities exam: Present: edema (to knees but improving, some scrotal edema persists and thoracic/lumbar edema almost abated). Absent: calf tenderness - Neurological Exam Neurological exam: Present: oriented X3 - Allied Health Notes Allied health notes reviewed: nursing - Lab Labs: Laboratory Last Values WBC 12.4 X 10^3uL (3.9-10.7) H 01/14/17 05:25 RBC 3.52 X 10^6uL (4.20-6.10) L 01/14/17 05:25 Hgb 10.6 g/dL (14.0-18.0) L 01/14/17 05:25 Hct 31.4 % (42.0-54.0) L 01/14/17 05:25 MCV 89.1 fL (80.0-100.0) 01/14/17 05:25 MCH 30.0 pg (29.0-35.0) 01/14/17 05:25 MCHC 33.6 g/dL (32.0-36.0) 01/14/17 05:25 RDW 14.5 % (11.5-14.5) 01/14/17 05:25 Plt Count 243 X 10^3uL (130-440) 01/14/17 05:25 MPV 7.9 fL (7.4-10.4) 01/14/17 05:25 Neutrophils % 86.6 % (54.0-75.0) H 01/14/17 05:25 Lymphocytes % 6.2 % (20.0-40.0) L 01/14/17 05:25 Eosinophils % 0.4 % (0.0-6.0) 01/14/17 05:25 Basophils % 0.3 % (0.0-2.0) 01/14/17 05:25 Neutrophils # 10.8 X 10^3uL (2.6-6.7) H 01/14/17 05:25 Lymphocytes # 0.8 X 10^3uL (0.8-3.8) 01/14/17 05:25 Monocytes 6.5 % (2.0-10.0) 01/14/17 05:25 Monocytes # 0.8 X 10^3uL (0.2-1.0) 01/14/17 05:25 Eosinophils # 0.0 X 10^3uL (0.0-0.4) 01/14/17 05:25 Basophils # 0.0 X 10^3uL (0.0-0.1) 01/14/17 05:25 Sodium 138 mmol/L (137-145) 01/14/17 05:25 Potassium 3.1 mmol/L (3.5-5.1) L 01/14/17 05:25 Chloride 105 mmol/L (98-107) 01/14/17 05:25 Carbon Dioxide 29 mmol/L (22-30) 01/14/17 05:25 BUN 25 mg/dL (9-20) H 01/14/17 05:25 Creatinine 1.3 mg/dL (0.7-1.3) 01/14/17 05:25 GFR Calculation Not Reportable 01/14/17 05:25 Glucose 78 mg/dL (70-100) 01/14/17 05:25 Calcium 8.2 mg/dL (8.4-10.2) L 01/14/17 05:25 Phosphorus 4.6 mg/dL (2.5-4.5) H 01/14/17 05:25 Magnesium 1.8 mg/dL (1.6-2.3) 01/14/17 05:25 Total Bilirubin 0.9 mg/dL (0.2-1.3) 01/13/17 05:00 Direct Bilirubin 0.2 mg/dL (0.0-0.4) 01/13/17 05:00 AST 25 U/L (17-59) 01/13/17 05:00 ALT 25 U/L (21-72) 01/13/17 05:00 Alkaline Phosphatase 128 U/L (38-126) H 01/13/17 05:00 Total Protein 6.2 g/dL (6.3-8.2) L 01/13/17 05:00 Albumin 2.6 g/dL (3.5-5.0) L 01/13/17 05:00 Urine Color Yellow 01/13/17 10:49 Urine Appearance Clear 01/13/17 10:49 Urine pH 7.5 (5-7) 01/13/17 10:49 Ur Specific [place] 1.015 (0.001-1.035) 01/13/17 10:49 Urine Protein 30mg/dl (1+) (NEG - TRACE) A 01/13/17 10:49 Urine Ketones Negative (NEGATIVE) 01/13/17 10:49 Urine Blood 250 [place]/ul (3+) (NEGATIVE) A 01/13/17 10:49 Urine Nitrate Negative (NEGATIVE) 01/13/17 10:49 Urine Bilirubin Negative (NEGATIVE) 01/13/17 10:49 Urine Urobilinogen 0.2mg/dl (normal) (NEG-1mg/dL) 01/13/17 10:49 Ur Leukocyte Esterase Negative (NEGATIVE) 01/13/17 10:49 Urine RBC 50-100/hpf (0-5/hpf) 01/13/17 10:49 Urine WBC None seen (0-4/hpf) 01/13/17 10:49 Ur Squamous Epith Cells None seen (<= 15/hpf) 01/13/17 10:49 Urine Bacteria None seen (<10/hpf) 01/13/17 10:49 Urine Mucus None seen (Up to 25%) 01/13/17 10:49 Urine Sperm None seen 01/12/17 15:54 Urine Glucose Normal (NEGATIVE) 01/13/17 10:49 ABO Group Type o 01/12/17 18:00 Rh Factor Positive 01/12/17 18:00 Antibody Screen Negative 01/12/17 18:00 (7) Intra-abdominal abscess post-procedure Qualifiers: Encounter type: sequela Qualified Code(s): T81.4XXS - Infection following a procedure, sequela; K65.1 - Peritoneal abscess
[2017-01-14] MEDS ORDERED: POTASSIUM CHLORIDE 20 MEQ/15 ML UDC PO ONE (09:00)
[2017-01-14] MEDS ORDERED: ALBUMIN HUMAN 12.5 GM/50 ML VIAL IV ONE (10:00)
[2017-01-14] MEDS ORDERED: BUMETANIDE 1 MG TABLET PO ONE (10:00)
[2017-01-14] MEDS ORDERED: POTASSIUM CHLORIDE 20 MEQ/15 ML UDC ONE (10:54)
[2017-01-14] MEDS ORDERED: MAGNESIUM SULFATE 100 ML IV ONE (10:55)
[2017-01-14] MEDS: HYDROCHLOROTHIAZIDE 25 MG TABLET PO SCH (11:03)
[2017-01-14 13:36] LABS: URINE MUCUS NONE SEEN (Up to 25%); URINE SQUAMOUS EPITHELIAL CELL NONE SEEN (<= 15/hpf)
[2017-01-14 13:45] LABS: URINE APPEARANCE SLIGHTLY CLOUDY; URINE COLOR PALE YELLOW
[2017-01-14 13:46] LABS: URINE BACTERIA NONE SEEN (<10/hpf); URINE BILIRUBIN NEGATIVE (NEGATIVE); URINE BLOOD 250 Ery/uL (3+) (NEGATIVE); URINE GLUCOSE NORMAL (NEGATIVE); URINE KETONE NEGATIVE (NEGATIVE); URINE LEUKOCYTE ESTERASE 25 WBC/uL (1+) (NEGATIVE); URINE NITRITE NEGATIVE (NEGATIVE); URINE PROTEIN NEGATIVE (NEG - TRACE); URINE RBC 50-100/hpf (0-5/hpf); URINE UROBILINOGEN 0.2mg/dL (Normal) (NEG-1mg/dL); URINE WBC 0-4/hpf (0-4/hpf)
[2017-01-14] MEDS: APIXABAN 2.5 MG TABLET PO SCH ×2 (14:07→21:11)
[2017-01-14 16:05] LABS: CROSSMATCH IMMEDIATE SPIN COMPATIBLE
[2017-01-14 16:06] LABS: CROSSMATCH IMMEDIATE SPIN COMPATIBLE
[2017-01-14] MEDS: ATORVASTATIN CALCIUIM 40 MG TABLET PO SCH (21:12)
[2017-01-15] MEDS: INSULIN LISPRO 100 UNIT/ML ML SUBCUT SCH ×4 (06:20→20:56)
[2017-01-15 06:29] LABS: BASOPHILS 0.3 % (0.0-2.0); EOSINOPHILS 0.5 % (0.0-6.0); EOSINOPHILS# 0.1 X 10^3uL (0.0-0.4); HEMATOCRIT 34.4 % (42.0-54.0); HEMOGLOBIN 11.7 g/dL (14.0-18.0); LYMPHOCYTES# 0.6 X 10^3uL (0.8-3.8); MEAN CELL VOLUME 88.9 fL (80.0-100.0); MEAN CORPUS. HGB CONCENTRATION 34.1 g/dL (32.0-36.0); MEAN CORPUSCULAR HEMOGLOBIN 30.3 pg (29.0-35.0); MONOCYTES 6.5 % (2.0-10.0); MONOCYTES# 0.8 X 10^3uL (0.2-1.0); NEUTROPHILS# 10.1 X 10^3uL (2.6-6.7); PLATELET COUNT 261 X 10^3uL (130-440); RED BLOOD COUNT 3.87 X 10^6uL (4.20-6.10); RED CELL DISTRIBUTION WIDTH 14.4 % (11.5-14.5); WHITE BLOOD COUNT 11.6 X 10^3uL (3.9-10.7)
[2017-01-15 06:46] LABS: A/G RATIO 0.8; ALBUMIN 2.9 g/dL (3.5-5.0); ALKALINE PHOSPHATASE 143 U/L (38-126); ALT 27 U/L (21-72); AST 25 U/L (17-59); BILIRUBIN, TOTAL 1.1 mg/dL (0.2-1.3); BLOOD UREA NITROGEN 28 mg/dL (9-20); CALCIUM 8.4 mg/dL (8.4-10.2); CHLORIDE 102 mmol/L (98-107); CREATININE 1.8 mg/dL (0.7-1.3); GLUCOSE 94 mg/dL (70-100); MAGNESIUM 1.8 mg/dL (1.6-2.3); POTASSIUM 3.4 mmol/L (3.5-5.1); SODIUM 138 mmol/L (137-145); TOTAL PROTEIN 6.6 g/dL (6.3-8.2)
[2017-01-15 07:05] LABS: NEUTROPHILS 87.7 % (54.0-75.0)
[2017-01-15 07:14] LABS: C-REACTIVE PROTEIN 262.9 mg/L (<10.0)
[2017-01-15] MEDS: BISACODYL 10 MG SUPP.RECT PR SCH ×2 (08:26→21:02)
[2017-01-15] MEDS: FLUCONAZOLE 100 MG CAPSULE PO SCH (08:26)
[2017-01-15] MEDS: APIXABAN 2.5 MG TABLET PO SCH ×2 (08:27→21:00)
[2017-01-15] MEDS: HYDROCHLOROTHIAZIDE 25 MG TABLET PO SCH (08:28)
[2017-01-15] MEDS: INSULIN GLARGINE,HUM.REC.ANLOG 100 UNITS/ML ML SUBCUT SCH ×2 (08:28→20:46)
[2017-01-15] MEDS: LISINOPRIL 20 MG TABLET PO SCH (08:29)
[2017-01-15] MEDS: MARINOL PO SCH ×2 (08:29→20:55)
[2017-01-15] MEDS: FINASTERIDE 5 MG TABLET PO SCH (08:30)
[2017-01-15] MEDS: ASCORBIC ACID 500 MG TABLET PO SCH ×2 (08:31→20:59)
[2017-01-15] MEDS: metoprolol SUCC ER 25 MG TABLET PO SCH ×2 (08:31→20:58)
[2017-01-15] MEDS: CYANOCOBALAMIN 1,000 MCG TABLET PO SCH (08:31)
[2017-01-15] MEDS: CHOLECALCIFEROL 1,000 UNIT CAPSULE PO SCH (08:32)
--- NOTE | 2017-01-15 08:47 | PROGRESS NOTE: IM APSO ---
Assessment and Plan - Date of Encounter Date of Encounter: 01/15/17 (1) Intra-abdominal abscess post-procedure Status: Acute Assessment and plan: Status post cholecystectomy and subsequent hemicolectomy. [address] Afebrile. Mild leukocytosis stable to slightly improved. CRP is elevated as expected and will be followed.He is not currently on antibiotic therapy other than antifungal regimen for Nadia. Continue aggressive supportive care. Reassess labs in the morning. Continues to improve clinically, albeit slowly. Prognosis is improving but still remains high risk. Current Visit: Yes (2) Protein-calorie malnutrition, moderate Status: Acute Assessment and plan: Albumin level remains low, and still with evidence of anasarca with considerable third spacing. Ejection fraction care by recent catheterization. Has responded to administration of IV albumin with concurrent bumetanide. with increase in creatinine today, will administer albumin again and give lower dose of bumetanide. Address blood pressure/afterload as below. Continue to encourage good oral intake. Protein supplementation. Current Visit: Yes (3) Generalized edema Status: Acute Assessment and plan: Considerable third spacing in association with the above. Current Visit: Yes (4) Anemia Status: Acute Assessment and plan: Status post hospitalization at [facility] with multiple procedures/surgeries. Now, status post transfusion. Hematocrit stable.No evidence of acute blood loss. Follow. Current Visit: No (5) CAD in [place] artery Status: Chronic Assessment and plan: No concerning symptoms of ischemia or cardiac decompensation. Recent catheterization showing nonobstructive disease. He remains on aggressive medication regimen. Current Visit: No (6) Hypertension, benign Status: Acute Assessment and plan: Blood pressure remains elevated.Cannot increase RUBÉN inhibitor due to increase in creatinine. Cannot increase beta nir due to relatively low heart rates intermittently. Will add low-dose CCB. Watch for evidence of worsening of bowel function and/or edema. Current Visit: Yes (7) Hypercholesterolemia Status: Acute Assessment and plan: Remains on statin therapy. Current Visit: Yes (8) Hyperglycemia Status: Acute Assessment and plan: I do not see any evidence of history of diabetes. He has had hyperglycemia during his complicated recent medical course. Blood sugars have been normal in the morning for the last 2 days. Decrease Lantus from 10 units to 7 units. Continue supplemental insulin as needed. 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 Remains on Diflucan. Current Visit: Yes (10) H/O colon cancer, stage II Status: Chronic Current Visit: No (11) Generalized weakness Status: Acute Assessment and plan: As above, with complicated medical course. Significant debilitation. Now here for swing bed/rehabilitation stay. He will continue to work with physical therapy. Supportive care. Current Visit: Yes (12) DVT prophylaxis Status: Acute Assessment and plan: He remains on Eliquis. Current Visit: Yes - Time Spent With Patient Total time spent with greater than 50% in coordination of care (as documented) at patient's floor/unit and/or counseling patient: 25 - 35 minutes IM: PN Subjective General: fatigue (improved since transfusion and diuresis), no anxiety, no depression, no confusion, no good appetite (poor appetite but no nausea/vomiting , loose stools, no constipation), no pain, no fever, no chills Cardiovascular: other (no PND/orthopnea), no chest pain, no chest pressure, no palpitations Respiratory: no cough, no sputum, no wheeze Gastrointestinal: diarrhea (yesterday, none yet today), no abdominal pain, no nausea, no vomiting, no constipation Genitourinary: other (Schneider catheter in place) Musculoskeletal: swelling (both legs but feels less tense today), no pain Integumentary: no rashes Neurological: no headache IM: PN Objective Exam - I&O/Vital Signs I&O: Intake & Output 01/14/17 01/15/17 01/15/17 21:59 05:59 13:59 Intake Total 400 200 Output Total 1900 1100 Balance -1500 -900 Weight 97 kg Intake: Oral 400 200 Blood Product 0 Output: Urine 1900 1100 Other: Urine Appearance Clear Urine Color Yellow Stool Size Moderate Stool Characteristics Liquid Brown Voiding Method Indwelling Catheter Indwelling Catheter # Voids 3 # Bowel Movements 0 Vital Signs: Last Vital Signs Temp 37.2 C 01/15/17 06:31 Pulse 74 01/15/17 06:31 Resp 20 01/15/17 06:31 BP 155/90 01/15/17 06:31 Pulse Ox 93 01/15/17 06:31 Oxygen Flow Rate 2 Oxygen Delivery Method Nasal Cannula - Constitutional General appearance: Present: obese. Absent: acute distress - Head Head exam: Present: atraumatic - Eye Eye exam: Present: normal appearance. Absent: scleral icterus - ENT ENT exam: Present: mucous membranes moist - Neck Neck exam: Present: full ROM. Absent: lymphadenopathy - Respiratory Respiratory exam: Present: rales (bases only). Absent: accessory muscle use, rhonchi, wheezes - Cardiovascular Cardiovascular exam: Present: RRR, other (Distant). Absent: JVD, S3, S4 - GI/Abdominal GI/Abdominal exam: Present: distended (Mild), normal bowel sounds, soft, tenderness. Absent: organomegaly - External exam: Present: swelling (scrotal and penile edema now improving) - Extremities Exam Extremities exam: Present: edema (to thighs but improving, some scrotal edema persists and thoracic/lumbar edema almost abated). Absent: calf tenderness - Neurological Exam Neurological exam: Present: alert, oriented X3 - Psychiatric Psychiatric exam: Absent: anxious, depressed - Skin Skin exam: Absent: rash - Allied Health Notes Allied health notes reviewed: nursing - Lab Labs: Laboratory Last Values WBC 11.6 X 10^3uL (3.9-10.7) H 01/15/17 06:05 RBC 3.87 X 10^6uL (4.20-6.10) L 01/15/17 06:05 Hgb 11.7 g/dL (14.0-18.0) L 01/15/17 06:05 Hct 34.4 % (42.0-54.0) L 01/15/17 06:05 MCV 88.9 fL (80.0-100.0) 01/15/17 06:05 MCH 30.3 pg (29.0-35.0) 01/15/17 06:05 MCHC 34.1 g/dL (32.0-36.0) 01/15/17 06:05 RDW 14.4 % (11.5-14.5) 01/15/17 06:05 Plt Count 261 X 10^3uL (130-440) 01/15/17 06:05 MPV 8.0 fL (7.4-10.4) 01/15/17 06:05 Neutrophils % 87.7 % (54.0-75.0) H 01/15/17 06:05 Lymphocytes % 5.0 % (20.0-40.0) L 01/15/17 06:05 Eosinophils % 0.5 % (0.0-6.0) 01/15/17 06:05 Basophils % 0.3 % (0.0-2.0) 01/15/17 06:05 Neutrophils # 10.1 X 10^3uL (2.6-6.7) H 01/15/17 06:05 Lymphocytes # 0.6 X 10^3uL (0.8-3.8) L 01/15/17 06:05 Monocytes 6.5 % (2.0-10.0) 01/15/17 06:05 Monocytes # 0.8 X 10^3uL (0.2-1.0) 01/15/17 06:05 Eosinophils # 0.1 X 10^3uL (0.0-0.4) 01/15/17 06:05 Basophils # 0.0 X 10^3uL (0.0-0.1) 01/15/17 06:05 Sodium 138 mmol/L (137-145) 01/15/17 06:05 Potassium 3.4 mmol/L (3.5-5.1) L 01/15/17 06:05 Chloride 102 mmol/L (98-107) 01/15/17 06:05 Carbon Dioxide 27 mmol/L (22-30) 01/15/17 06:05 BUN 28 mg/dL (9-20) H 01/15/17 06:05 Creatinine 1.8 mg/dL (0.7-1.3) H 01/15/17 06:05 GFR Calculation Not Reportable 01/15/17 06:05 Glucose 94 mg/dL (70-100) 01/15/17 06:05 Calcium 8.4 mg/dL (8.4-10.2) 01/15/17 06:05 Phosphorus 4.6 mg/dL (2.5-4.5) H 01/14/17 05:25 Magnesium 1.8 mg/dL (1.6-2.3) 01/15/17 06:05 Total Bilirubin 1.1 mg/dL (0.2-1.3) 01/15/17 06:05 Direct Bilirubin 0.2 mg/dL (0.0-0.4) 01/13/17 05:00 AST 25 U/L (17-59) 01/15/17 06:05 ALT 27 U/L (21-72) 01/15/17 06:05 Alkaline Phosphatase 143 U/L (38-126) H 01/15/17 06:05 C-Reactive Protein 262.9 mg/L (<10.0) H 01/15/17 06:05 Total Protein 6.6 g/dL (6.3-8.2) 01/15/17 06:05 Albumin 2.9 g/dL (3.5-5.0) L 01/15/17 06:05 Albumin/Globulin Ratio 0.8 01/15/17 06:05 Urine Color Pale yellow 01/14/17 13:25 Urine Appearance Slightly cloudy 01/14/17 13:25 Urine pH 6.0 (5-7) 01/14/17 13:25 Ur Specific [place] 1.010 (0.001-1.035) 01/14/17 13:25 Urine Protein Negative (NEG - TRACE) 01/14/17 13:25 Urine Ketones Negative (NEGATIVE) 01/14/17 13:25 Urine Blood 250 [place]/ul (3+) (NEGATIVE) A 01/14/17 13:25 Urine Nitrate Negative (NEGATIVE) 01/14/17 13:25 Urine Bilirubin Negative (NEGATIVE) 01/14/17 13:25 Urine Urobilinogen 0.2mg/dl (normal) (NEG-1mg/dL) 01/14/17 13:25 Ur Leukocyte Esterase 25 wbc/ul (1+) (NEGATIVE) A 01/14/17 13:25 Urine RBC 50-100/hpf (0-5/hpf) 01/14/17 13:25 Urine WBC 0-4/hpf (0-4/hpf) 01/14/17 13:25 Ur Squamous Epith Cells None seen (<= 15/hpf) 01/14/17 13:25 Urine Bacteria None seen (<10/hpf) 01/14/17 13:25 Urine Mucus None seen (Up to 25%) 01/14/17 13:25 Urine Sperm None seen 01/12/17 15:54 Urine Glucose Normal (NEGATIVE) 01/14/17 13:25 ABO Group Type o 01/12/17 18:00 Rh Factor Positive 01/12/17 18:00 Antibody Screen Negative 01/12/17 18:00 Crossmatch Compatible 01/12/17 10:30 (1) Intra-abdominal abscess post-procedure Qualifiers: Encounter type: sequela Qualified Code(s): T81.4XXS - Infection following a procedure, sequela; K65.1 - Peritoneal abscess (4) Anemia Qualifiers: Anemia type: other cause Other causes of anemia: acute posthemorrhagic Qualified Code(s): D62 - Acute posthemorrhagic anemia
[2017-01-15] MEDS ORDERED: BUMETANIDE 1 MG TABLET PO SCH (09:15)
[2017-01-15] MEDS ORDERED: ALBUMIN HUMAN 12.5 GM/50 ML VIAL IV SCH (10:00)
[2017-01-15] MEDS ORDERED: BUMETANIDE 1 MG TABLET PO ONE (10:37)
[2017-01-15] MEDS: POTASSIUM EFF 25 MEQ TABLET PO SCH ×2 (20:49→20:58)
[2017-01-15] MEDS: ATORVASTATIN CALCIUIM 40 MG TABLET PO SCH (20:59)
[2017-01-15] MEDS: AMLODIPINE BESYLATE 5 MG TABLET PO SCH (21:00)
[2017-01-16 06:34] LABS: BASOPHILS 0.3 % (0.0-2.0); EOSINOPHILS 0.8 % (0.0-6.0); EOSINOPHILS# 0.1 X 10^3uL (0.0-0.4); HEMATOCRIT 32.5 % (42.0-54.0); HEMOGLOBIN 10.9 g/dL (14.0-18.0); LYMPHOCYTES 5.8 % (20.0-40.0); LYMPHOCYTES# 0.6 X 10^3uL (0.8-3.8); MEAN CELL VOLUME 89.1 fL (80.0-100.0); MEAN CORPUS. HGB CONCENTRATION 33.7 g/dL (32.0-36.0); MEAN PLATELET VOLUME 7.7 fL (7.4-10.4); MONOCYTES 6.7 % (2.0-10.0); MONOCYTES# 0.7 X 10^3uL (0.2-1.0); NEUTROPHILS# 9.4 X 10^3uL (2.6-6.7); PLATELET COUNT 289 X 10^3uL (130-440); RED BLOOD COUNT 3.65 X 10^6uL (4.20-6.10); RED CELL DISTRIBUTION WIDTH 14.1 % (11.5-14.5); WHITE BLOOD COUNT 10.8 X 10^3uL (3.9-10.7)
[2017-01-16 06:39] LABS: NEUTROPHILS 86.4 % (54.0-75.0)
[2017-01-16 06:47] LABS: A/G RATIO 0.8; ALBUMIN 2.9 g/dL (3.5-5.0); ALKALINE PHOSPHATASE 119 U/L (38-126); ALT 33 U/L (21-72); AST 25 U/L (17-59); BLOOD UREA NITROGEN 31 mg/dL (9-20); CALCIUM 8.4 mg/dL (8.4-10.2); CHLORIDE 100 mmol/L (98-107); CREATININE 1.9 mg/dL (0.7-1.3); GLUCOSE 103 mg/dL (70-100); POTASSIUM 3.4 mmol/L (3.5-5.1); SODIUM 134 mmol/L (137-145); TOTAL PROTEIN 6.4 g/dL (6.3-8.2)
[2017-01-16] MEDS: INSULIN LISPRO 100 UNIT/ML ML SUBCUT SCH ×4 (06:47→20:36)
[2017-01-16] MEDS: HYDROcodone/APAP 5/325 MG 1 TAB TABLET PO PRN ×2 (08:09→15:07)
[2017-01-16 08:29] VITALS: RESP 18
[2017-01-16] MEDS: MARINOL PO SCH ×2 (08:58→20:35)
[2017-01-16] MEDS: ASCORBIC ACID 500 MG TABLET PO SCH ×2 (09:06→20:35)
[2017-01-16] MEDS: AMLODIPINE BESYLATE 5 MG TABLET PO SCH (09:06)
[2017-01-16] MEDS: metoprolol SUCC ER 25 MG TABLET PO SCH ×2 (09:07→20:34)
[2017-01-16] MEDS: HYDROCHLOROTHIAZIDE 25 MG TABLET PO SCH (09:07)
[2017-01-16] MEDS: LISINOPRIL 20 MG TABLET PO SCH (09:08)
[2017-01-16] MEDS: FINASTERIDE 5 MG TABLET PO SCH (09:08)
[2017-01-16] MEDS: CYANOCOBALAMIN 1,000 MCG TABLET PO SCH (09:08)
[2017-01-16] MEDS: POTASSIUM EFF 25 MEQ TABLET PO SCH ×2 (09:22→20:37)
[2017-01-16] MEDS: APIXABAN 2.5 MG TABLET PO SCH ×2 (09:22→20:36)
[2017-01-16] MEDS: CHOLECALCIFEROL 1,000 UNIT CAPSULE PO SCH (09:23)
[2017-01-16] MEDS: INSULIN GLARGINE,HUM.REC.ANLOG 100 UNITS/ML ML SUBCUT SCH (09:23)
[2017-01-16] MEDS: BISACODYL 10 MG SUPP.RECT PR SCH ×2 (09:23→20:36)
[2017-01-16] MEDS: FLUCONAZOLE 100 MG CAPSULE PO SCH (09:23)
--- NOTE | 2017-01-16 10:02 | PROGRESS NOTE: IM APSO ---
Assessment and Plan - Date of Encounter Date of Encounter: 01/16/17 (1) Intra-abdominal abscess post-procedure Status: Acute Assessment and plan: Status post cholecystectomy and subsequent hemicolectomy. Two pigtail drains in place. Afebrile. Mild leukocytosis stable to slightly improved. CRP is elevated as expected and will be followed. He is not currently on antibiotic therapy other than antifungal regimen for Nadia. Continue aggressive supportive care. Continues to improve clinically, albeit slowly. Prognosis is improving but still remains high risk. Current Visit: Yes (2) Protein-calorie malnutrition, moderate Status: Acute Assessment and plan: Albumin level remains low, and still with evidence of anasarca with considerable third spacing. Ejection fraction fair by recent cardiac catheterization. He has responded to administration of IV albumin with concurrent bumetanide. With Cr still above baseline, will administer albumin again and give lower dose of bumetanide again today. Continue to encourage good oral intake. Protein supplementation. Will check 24-hour calorie intake. May need to consider TPN. Current Visit: Yes (3) Generalized edema Status: Acute Assessment and plan: Considerable third spacing in association with the above. Current Visit: Yes (4) Anemia Status: Acute Assessment and plan: Status post hospitalization at [facility] with multiple procedures/surgeries. Now, status post transfusion. Hematocrit stable. No evidence of acute blood loss. Follow. Current Visit: No (5) CAD in [place] artery Status: Chronic Assessment and plan: No concerning symptoms of ischemia or cardiac decompensation. Recent catheterization showing nonobstructive disease. He remains on appropriate medication regimen. Current Visit: No (6) Hypertension, benign Status: Acute Assessment and plan: Blood pressure better with the addition of low-dose CCB. Cannot increase RUBÉN inhibitor due to increase in creatinine. Cannot increase beta nir due to relatively low heart rates intermittently. Watch for evidence of worsening of bowel function and/or edema with amlodipine. Current Visit: Yes (7) Hypercholesterolemia Status: Acute Assessment and plan: Remains on statin therapy. Current Visit: Yes (8) Hyperglycemia Status: Acute Assessment and plan: I do not see any evidence of history of diabetes. He has had hyperglycemia during his complicated recent medical course. Lantus insulin was decreased slightly yesterday. Blood sugar this morning 103. No changes today. Current Visit: No (9) Nadia glabrata infection Status: Chronic Assessment and plan: Prior cultures showing evidence of Nadia glabrata from one of his pigtail drains. Remains on Diflucan. Current Visit: Yes (10) H/O colon cancer, stage II Status: Chronic Current Visit: No (11) Positive culture findings in sputum Status: Acute Assessment and plan: Sputum culture growing out Klebsiella. However, he remains afebrile, leukocytosis has nearly resolved, and he does not have significant pulmonary symptoms. Based upon this, will follow clinically for now. Current Visit: Yes (12) Generalized weakness Status: Acute Assessment and plan: As above, with complicated medical course. Significant debilitation, but feeling stronger today. Now here for swing bed/rehabilitation stay. He will continue to work with physical therapy. Supportive care. Current Visit: Yes (13) DVT prophylaxis Status: Acute Assessment and plan: He remains on Eliquis. Current Visit: Yes - Time Spent With Patient Total time spent with greater than 50% in coordination of care (as documented) at patient's floor/unit and/or counseling patient: 16-24 minutes IM: PN Subjective General: fatigue (improved since transfusion and diuresis), other (appetite remains poor, tolerating protein shakes), no anxiety, no depression, no confusion, no good appetite (poor appetite but no nausea/vomiting, loose stools , no constipation), no pain, no fever, no chills Cardiovascular: no chest pain, no chest pressure, no palpitations Respiratory: SOB (with exertion), no cough, no sputum, no wheeze Gastrointestinal: no abdominal pain, no nausea, no vomiting, no diarrhea, no constipation (with bowel regimen) Genitourinary: other (Dorman catheter in place) Musculoskeletal: swelling (BLE), no pain Integumentary: no rashes Neurological: no headache IM: PN Objective Exam - I&O/Vital Signs I&O: Intake & Output 01/15/17 01/16/17 01/16/17 21:59 05:59 13:59 Intake Total 420 290 120 Output Total 1950 1050 Balance -1530 -760 120 Intake: Oral 420 290 Oral Supplement 120 Output: Urine 1950 1050 Other: Urine Appearance Clear Clear Clear Urine Color Yellow Yellow Yellow Stool Size Moderate Moderate Stool Characteristics Liquid Liquid Brown Brown Voiding Method Indwelling Catheter Indwelling Catheter Indwelling Catheter # Bowel Movements 3 Vital Signs: Last Vital Signs Temp 37.1 C 01/16/17 08:27 Pulse 78 01/16/17 08:27 Resp 18 01/16/17 09:00 BP 130/52 01/16/17 08:27 Pulse Ox 92 01/16/17 09:00 Oxygen Flow Rate 2 Oxygen Delivery Method Nasal Cannula - Constitutional General appearance: Absent: acute distress - Head Head exam: Present: atraumatic - Eye Eye exam: Present: normal appearance. Absent: scleral icterus - ENT ENT exam: Present: mucous membranes dry - Neck Neck exam: Present: full ROM. Absent: lymphadenopathy - Respiratory Respiratory exam: Present: rales (bibasilar). Absent: accessory muscle use, rhonchi, wheezes - Cardiovascular Cardiovascular exam: Present: RRR, systolic murmur. Absent: JVD, S3 - GI/Abdominal GI/Abdominal exam: Present: distended (Mild), normal bowel sounds, soft, tenderness. Absent: organomegaly - External exam: Present: swelling (scrotal and penile edema now improving), other (dorman) - Extremities Exam Extremities exam: Present: edema (to thighs but improving, some scrotal edema persists and thoracic/lumbar edema almost abated). Absent: calf tenderness - Neurological Exam Neurological exam: Present: alert, oriented X3 - Psychiatric Psychiatric exam: Absent: anxious, depressed - Skin Skin exam: Absent: rash - Allied Health Notes Allied health notes reviewed: nursing - Lab Labs: Laboratory Last Values WBC 10.8 X 10^3uL (3.9-10.7) H 01/16/17 06:10 RBC 3.65 X 10^6uL (4.20-6.10) L 01/16/17 06:10 Hgb 10.9 g/dL (14.0-18.0) L 01/16/17 06:10 Hct 32.5 % (42.0-54.0) L 01/16/17 06:10 MCV 89.1 fL (80.0-100.0) 01/16/17 06:10 MCH 30.0 pg (29.0-35.0) 01/16/17 06:10 MCHC 33.7 g/dL (32.0-36.0) 01/16/17 06:10 RDW 14.1 % (11.5-14.5) 01/16/17 06:10 Plt Count 289 X 10^3uL (130-440) 01/16/17 06:10 MPV 7.7 fL (7.4-10.4) 01/16/17 06:10 Neutrophils % 86.4 % (54.0-75.0) H 01/16/17 06:10 Lymphocytes % 5.8 % (20.0-40.0) L 01/16/17 06:10 Eosinophils % 0.8 % (0.0-6.0) 01/16/17 06:10 Basophils % 0.3 % (0.0-2.0) 01/16/17 06:10 Neutrophils # 9.4 X 10^3uL (2.6-6.7) H 01/16/17 06:10 Lymphocytes # 0.6 X 10^3uL (0.8-3.8) L 01/16/17 06:10 Monocytes 6.7 % (2.0-10.0) 01/16/17 06:10 Monocytes # 0.7 X 10^3uL (0.2-1.0) 01/16/17 06:10 Eosinophils # 0.1 X 10^3uL (0.0-0.4) 01/16/17 06:10 Basophils # 0.0 X 10^3uL (0.0-0.1) 01/16/17 06:10 Sodium 134 mmol/L (137-145) L 01/16/17 06:10 Potassium 3.4 mmol/L (3.5-5.1) L 01/16/17 06:10 Chloride 100 mmol/L (98-107) 01/16/17 06:10 Carbon Dioxide 30 mmol/L (22-30) 01/16/17 06:10 BUN 31 mg/dL (9-20) H 01/16/17 06:10 Creatinine 1.9 mg/dL (0.7-1.3) H 01/16/17 06:10 GFR Calculation Not Reportable 01/16/17 06:10 Glucose 103 mg/dL (70-100) H 01/16/17 06:10 Calcium 8.4 mg/dL (8.4-10.2) 01/16/17 06:10 Phosphorus 4.6 mg/dL (2.5-4.5) H 01/14/17 05:25 Magnesium 1.8 mg/dL (1.6-2.3) 01/15/17 06:05 Total Bilirubin 1.0 mg/dL (0.2-1.3) 01/16/17 06:10 Direct Bilirubin 0.2 mg/dL (0.0-0.4) 01/13/17 05:00 AST 25 U/L (17-59) 01/16/17 06:10 ALT 33 U/L (21-72) 01/16/17 06:10 Alkaline Phosphatase 119 U/L (38-126) 01/16/17 06:10 C-Reactive Protein 262.9 mg/L (<10.0) H 01/15/17 06:05 Total Protein 6.4 g/dL (6.3-8.2) 01/16/17 06:10 Albumin 2.9 g/dL (3.5-5.0) L 01/16/17 06:10 Albumin/Globulin Ratio 0.8 01/16/17 06:10 Urine Color Pale yellow 01/14/17 13:25 Urine Appearance Slightly cloudy 01/14/17 13:25 Urine pH 6.0 (5-7) 01/14/17 13:25 Ur Specific [place] 1.010 (0.001-1.035) 01/14/17 13:25 Urine Protein Negative (NEG - TRACE) 01/14/17 13:25 Urine Ketones Negative (NEGATIVE) 01/14/17 13:25 Urine Blood 250 aleksander/ul (3+) (NEGATIVE) A 01/14/17 13:25 Urine Nitrate Negative (NEGATIVE) 01/14/17 13:25 Urine Bilirubin Negative (NEGATIVE) 01/14/17 13:25 Urine Urobilinogen 0.2mg/dl (normal) (NEG-1mg/dL) 01/14/17 13:25 Ur Leukocyte Esterase 25 wbc/ul (1+) (NEGATIVE) A 01/14/17 13:25 Urine RBC 50-100/hpf (0-5/hpf) 01/14/17 13:25 Urine WBC 0-4/hpf (0-4/hpf) 01/14/17 13:25 Ur Squamous Epith Cells None seen (<= 15/hpf) 01/14/17 13:25 Urine Bacteria None seen (<10/hpf) 01/14/17 13:25 Urine Mucus None seen (Up to 25%) 01/14/17 13:25 Urine Sperm None seen 01/12/17 15:54 Urine Glucose Normal (NEGATIVE) 01/14/17 13:25 ABO Group Type o 01/12/17 18:00 Rh Factor Positive 01/12/17 18:00 Antibody Screen Negative 01/12/17 18:00 Crossmatch Compatible 01/12/17 10:30 (1) Intra-abdominal abscess post-procedure Qualifiers: Encounter type: sequela Qualified Code(s): T81.4XXS - Infection following a procedure, sequela; K65.1 - Peritoneal abscess (4) Anemia Qualifiers: Anemia type: other cause Other causes of anemia: acute posthemorrhagic Qualified Code(s): D62 - Acute posthemorrhagic anemia
[2017-01-16] MEDS ORDERED: ALBUMIN HUMAN 12.5 GM/50 ML VIAL IV SCH (11:00)
[2017-01-16] MEDS ORDERED: BUMETANIDE 1 MG TABLET PO SCH (11:00)
[2017-01-16] MEDS ORDERED: ONDANSETRON HCL 4 MG/2 ML VIAL IV PRN (17:01)
[2017-01-16] MEDS ORDERED: ONDANSETRON HCL 4 MG/2 ML VIAL ONE (17:05)
[2017-01-16] MEDS: ATORVASTATIN CALCIUIM 40 MG TABLET PO SCH (20:35)
[2017-01-17] MEDS: INSULIN LISPRO 100 UNIT/ML ML SUBCUT SCH (06:27)
[2017-01-17 06:47] LABS: BASOPHILS 0.4 % (0.0-2.0); EOSINOPHILS 0.9 % (0.0-6.0); EOSINOPHILS# 0.1 X 10^3uL (0.0-0.4); HEMATOCRIT 33.9 % (42.0-54.0); HEMOGLOBIN 11.1 g/dL (14.0-18.0); LYMPHOCYTES# 0.6 X 10^3uL (0.8-3.8); MEAN CELL VOLUME 89.4 fL (80.0-100.0); MEAN CORPUS. HGB CONCENTRATION 32.8 g/dL (32.0-36.0); MEAN CORPUSCULAR HEMOGLOBIN 29.3 pg (29.0-35.0); MEAN PLATELET VOLUME 7.7 fL (7.4-10.4); MONOCYTES 6.7 % (2.0-10.0); MONOCYTES# 0.8 X 10^3uL (0.2-1.0); NEUTROPHILS# 10.8 X 10^3uL (2.6-6.7); PLATELET COUNT 325 X 10^3uL (130-440); RED BLOOD COUNT 3.79 X 10^6uL (4.20-6.10); RED CELL DISTRIBUTION WIDTH 14.2 % (11.5-14.5)
[2017-01-17 06:54] VITALS: BP 134/79; PULSE 77; TEMP 98.2; O2SAT 929
[2017-01-17 06:58] LABS: WHITE BLOOD COUNT 12.3 X 10^3uL (3.9-10.7)
[2017-01-17 07:14] LABS: BLOOD UREA NITROGEN 32 mg/dL (9-20); CALCIUM 8.2 mg/dL (8.4-10.2); CHLORIDE 97 mmol/L (98-107); CREATININE 1.9 mg/dL (0.7-1.3); GLUCOSE 118 mg/dL (70-100); MAGNESIUM 1.7 mg/dL (1.6-2.3); POTASSIUM 3.9 mmol/L (3.5-5.1); SODIUM 136 mmol/L (137-145)
[2017-01-17] MEDS ORDERED: DEXTROSE 5% IV ONE (08:35)
[2017-01-17] MEDS ORDERED: MAGNESIUM SULFATE IV ONE (08:35)
--- NOTE | 2017-01-17 08:41 | PROGRESS NOTE: IM APSO ---
Assessment and Plan - Date of Encounter Date of Encounter: 01/17/17 (1) Anemia Status: Acute Assessment and plan: transfused/diuresed and markedly improved (feels better), likely anemia related to abdominal sepsis and difficult surgical course. Current Visit: No (2) CAD in [place] artery Status: Chronic Assessment and plan: risk modifying medications with ASA/Eliquis/Lisinopril/Metoprolol/Lipitor, cath in December non obstructive Dz Current Visit: No (3) H/O colon cancer, stage II Status: Chronic Current Visit: No (4) Generalized edema Status: Acute Assessment and plan: likely from severe malnutrition, mobilized some with transfusion, will give albumin, following electrolytes and replacing aggressively. Has improved pain/ drain output (issues right upper quadrat leakage) and mobility with fluid mobilization Current Visit: Yes (5) Protein-calorie malnutrition, moderate Status: Acute Assessment and plan: starting supplementation and following for refeeding syndrome. Replace potassium/magnesium/phosphorous as needed. Overall very severe malnutrition. Not appear addressed at [facility] and unfortunately, limited parenteral resources at [facility] but attempting to address enterally (limited by poor appetite), with family wishes and patient illness, may need transfer to [facility] and TPN Current Visit: Yes (6) Nadia glabrata infection Status: Chronic Assessment and plan: Continue diflucan, suspect improved absorption after anasarca mobiized (help bowel edema) Current Visit: Yes (7) Intra-abdominal abscess post-procedure Status: Acute Assessment and plan: request Dr. Esteves to consult, CT today. Needs f//u 's [facility] but if needed may transfer to [facility] for continuity. Persistently elevated WBC concerning though minimal additional symptoms note tubular BS, broaden Abx for nosocomial pneumnonia, cultures pending and CXR pending. Current Visit: Yes (8) Generalized weakness Status: Acute Assessment and plan: deconditioning after such long and complicated hospitalization Current Visit: Yes (9) Leukocytosis Status: Acute Assessment and plan: CT and CXR, cultures, broaden Abx Current Visit: Yes - Time Spent With Patient Total time spent with greater than 50% in coordination of care (as documented) at patient's floor/unit and/or counseling patient: IM: PN Subjective General: fatigue (still believes he is stronger but frustrated by only able to walk to door and is tired at that point.), other (difficult as presented after complicated hospitalization with cholecstectomy and leak, drain, SBO and right hemicolectomy, leak and then wound dihiscience with wound vac. Presented to [facility] with anasarca/anemia/protein calorie malnutrition. Now eating poorly and nauseated. Pain better. Drains leaking and lap wound no tunnel and ?at risk tissue near umbilicus. Soft mucoid stools though Cdiff negative. Cough now worse and grew klebsiella and white count starting to climb. Family wishes TPN (unable to add at [facility]) and may need transfer for complexity of care and really for continuity.), no anxiety, no depression, no confusion, no good appetite ( poor appetite but no nausea/vomiting, loose stools, no constipation), no pain, no fever, no chills Cardiovascular: no chest pain, no chest pressure, no palpitations Respiratory: cough, SOB (with exertion), no sputum, no wheeze Gastrointestinal: bloating, nausea, diarrhea (soft and mucus), no abdominal pain , no vomiting, no constipation (with bowel regimen) Genitourinary: other (Dorman catheter in place) Musculoskeletal: swelling (BLE and scrotum/back), no pain Integumentary: no rashes Neurological: no headache IM: PN Objective Exam - I&O/Vital Signs I&O: Intake & Output 01/16/17 01/17/17 01/17/17 21:59 05:59 13:59 Intake Total 670 280 Output Total 530 765 Balance 140 -485 Weight 84 kg Intake: IV 100 30 Right Proximal Port Upper 100 30 arm Oral 450 250 Oral Supplement 120 Blood Product 0 Output: Drainage 30 15 Right Lower Lateral 30 15 Abdomen Urine 500 750 Other: Urine Appearance Clear Clear Urine Color Yellow Yellow Stool Size Small Stool Characteristics Soft Soft Voiding Method Indwelling Catheter Indwelling Catheter # Bowel Movements 1 0 Vital Signs: Last Vital Signs Temp 36.8 C 01/17/17 06:53 Pulse 77 01/17/17 06:53 Resp 18 01/17/17 06:53 BP 134/79 01/17/17 06:53 Pulse Ox 929 H 01/17/17 06:53 Oxygen Flow Rate 2 Oxygen Delivery Method Nasal Cannula - Constitutional General appearance: Absent: acute distress - Head Head exam: Present: atraumatic - Eye Eye exam: Present: normal appearance. Absent: scleral icterus - ENT ENT exam: Present: mucous membranes moist - Neck Neck exam: Present: full ROM. Absent: lymphadenopathy - Respiratory Respiratory exam: Present: rales (bibasilar with tubular quality left base and aegophony). Absent: accessory muscle use, rhonchi, wheezes - Cardiovascular Cardiovascular exam: Present: RRR, systolic murmur. Absent: JVD, S3 - GI/Abdominal GI/Abdominal exam: Present: distended (Mild), normal bowel sounds, soft, tenderness. Absent: organomegaly - External exam: Present: swelling (scrotal and penile edema now improving), other (dorman) - Extremities Exam Extremities exam: Present: edema (to thighs but improving, some scrotal edema persists and thoracic/lumbar edema almost abated). Absent: calf tenderness - Neurological Exam Neurological exam: Present: alert, oriented X3 - Psychiatric Psychiatric exam: Absent: anxious, depressed - Skin Skin exam: Absent: rash - Allied Health Notes Allied health notes reviewed: nursing, RT, social work - Lab Labs: Laboratory Last Values WBC 12.3 X 10^3uL (3.9-10.7) H 01/17/17 06:15 RBC 3.79 X 10^6uL (4.20-6.10) L 01/17/17 06:15 Hgb 11.1 g/dL (14.0-18.0) L 01/17/17 06:15 Hct 33.9 % (42.0-54.0) L 01/17/17 06:15 MCV 89.4 fL (80.0-100.0) 01/17/17 06:15 MCH 29.3 pg (29.0-35.0) 01/17/17 06:15 MCHC 32.8 g/dL (32.0-36.0) 01/17/17 06:15 RDW 14.2 % (11.5-14.5) 01/17/17 06:15 Plt Count 325 X 10^3uL (130-440) 01/17/17 06:15 MPV 7.7 fL (7.4-10.4) 01/17/17 06:15 Neutrophils % 87.0 % (54.0-75.0) H 01/17/17 06:15 Lymphocytes % 5.0 % (20.0-40.0) L 01/17/17 06:15 Eosinophils % 0.9 % (0.0-6.0) 01/17/17 06:15 Basophils % 0.4 % (0.0-2.0) 01/17/17 06:15 Neutrophils # 10.8 X 10^3uL (2.6-6.7) H 01/17/17 06:15 Lymphocytes # 0.6 X 10^3uL (0.8-3.8) L 01/17/17 06:15 Monocytes 6.7 % (2.0-10.0) 01/17/17 06:15 Monocytes # 0.8 X 10^3uL (0.2-1.0) 01/17/17 06:15 Eosinophils # 0.1 X 10^3uL (0.0-0.4) 01/17/17 06:15 Basophils # 0.0 X 10^3uL (0.0-0.1) 01/17/17 06:15 Sodium 136 mmol/L (137-145) L 01/17/17 06:15 Potassium 3.9 mmol/L (3.5-5.1) 01/17/17 06:15 Chloride 97 mmol/L (98-107) L 01/17/17 06:15 Carbon Dioxide 33 mmol/L (22-30) H 01/17/17 06:15 BUN 32 mg/dL (9-20) H 01/17/17 06:15 Creatinine 1.9 mg/dL (0.7-1.3) H 01/17/17 06:15 GFR Calculation Not Reportable 01/17/17 06:15 Glucose 118 mg/dL (70-100) H 01/17/17 06:15 Calcium 8.2 mg/dL (8.4-10.2) L 01/17/17 06:15 Phosphorus 4.6 mg/dL (2.5-4.5) H 01/14/17 05:25 Magnesium 1.7 mg/dL (1.6-2.3) 01/17/17 06:15 Total Bilirubin 1.0 mg/dL (0.2-1.3) 01/16/17 06:10 Direct Bilirubin 0.2 mg/dL (0.0-0.4) 01/13/17 05:00 AST 25 U/L (17-59) 01/16/17 06:10 ALT 33 U/L (21-72) 01/16/17 06:10 Alkaline Phosphatase 119 U/L (38-126) 01/16/17 06:10 C-Reactive Protein 262.9 mg/L (<10.0) H 01/15/17 06:05 Total Protein 6.4 g/dL (6.3-8.2) 01/16/17 06:10 Albumin 2.9 g/dL (3.5-5.0) L 01/16/17 06:10 Albumin/Globulin Ratio 0.8 01/16/17 06:10 Urine Color Pale yellow 01/14/17 13:25 Urine Appearance Slightly cloudy 01/14/17 13:25 Urine pH 6.0 (5-7) 01/14/17 13:25 Ur Specific [place] 1.010 (0.001-1.035) 01/14/17 13:25 Urine Protein Negative (NEG - TRACE) 01/14/17 13:25 Urine Ketones Negative (NEGATIVE) 01/14/17 13:25 Urine Blood 250 aleksander/ul (3+) (NEGATIVE) A 01/14/17 13:25 Urine Nitrate Negative (NEGATIVE) 01/14/17 13:25 Urine Bilirubin Negative (NEGATIVE) 01/14/17 13:25 Urine Urobilinogen 0.2mg/dl (normal) (NEG-1mg/dL) 01/14/17 13:25 Ur Leukocyte Esterase 25 wbc/ul (1+) (NEGATIVE) A 01/14/17 13:25 Urine RBC 50-100/hpf (0-5/hpf) 01/14/17 13:25 Urine WBC 0-4/hpf (0-4/hpf) 01/14/17 13:25 Ur Squamous Epith Cells None seen (<= 15/hpf) 01/14/17 13:25 Urine Bacteria None seen (<10/hpf) 01/14/17 13:25 Urine Mucus None seen (Up to 25%) 01/14/17 13:25 Urine Sperm None seen 01/12/17 15:54 Urine Glucose Normal (NEGATIVE) 01/14/17 13:25 ABO Group Type o 01/12/17 18:00 Rh Factor Positive 01/12/17 18:00 Antibody Screen Negative 01/12/17 18:00 Crossmatch Compatible 01/12/17 10:30 (1) Anemia Qualifiers: Anemia type: other cause Other causes of anemia: acute posthemorrhagic Qualified Code(s): D62 - Acute posthemorrhagic anemia (7) Intra-abdominal abscess post-procedure Qualifiers: Encounter type: sequela Qualified Code(s): T81.4XXS - Infection following a procedure, sequela; K65.1 - Peritoneal abscess
[2017-01-17 08:45] LABS: PHOSPHORUS 4.4 mg/dL (2.5-4.5)
[2017-01-17 08:55] LABS: TRANSFERRIN < 80 mg/dL (206-381)
[2017-01-17] MEDS ORDERED: NORMAL SALINE IV SCH (09:00)
[2017-01-17] MEDS ORDERED: VANCOMYCIN HCL IV SCH (09:00)
[2017-01-17] MEDS ORDERED: PIPERACILLIN /TAZO 2.25 GM/10 ML VIAL IV SCH (09:00)
[2017-01-17] MEDS ORDERED: ALBUMIN HUMAN 12.5 GM/50 ML VIAL IV ONE (10:00)
--- NOTE | 2017-01-17 10:24 | DC SUMMARY: IM Note ---
Discharge Summary: IM/Peds Provider: Date of Admission: 01/12/17 Admitting Provider: ARLETTE CAO Attending Provider: ARLETTE CAO Discharging Provider: ARLETTE CAO Primary Care Provider: Discharge Date: 01/17/17 Consults: 01/12/17 15:54 Nutrition/Dietary Consult [CONS] Routine Reason: Swingbed Admission Protocol 01/15/17 13:47 Nutrition/Dietary Consult [CONS] Routine Reason: post-op abdominal surgery, poor intake 01/17/17 08:31 Surgical Consult [CONS] Routine Reason: Please see this gentleman with complicated surgical course at [facility] with cholecystectomy and leak and then SBO required right hemicolectomy, drains now leaking, and lap incision prior dihiscience with wound vac therapy now drainage and tunnel. Protein calorie malnutrition and anasarca. Please assist with evaluation and therapy, CT abdomen pending. - Diagnosis (1) Anemia Status: Acute Qualifiers: Anemia type: other cause Other causes of anemia: acute posthemorrhagic Qualified Code(s): D62 - Acute posthemorrhagic anemia (2) CAD in [place] artery Status: Chronic (3) H/O colon cancer, stage II Status: Chronic (4) Generalized edema Status: Acute (5) Protein-calorie malnutrition, moderate Status: Acute (6) Nadia glabrata infection Status: Chronic (7) Intra-abdominal abscess post-procedure Status: Acute Qualifiers: Encounter type: sequela Qualified Code(s): T81.4XXS - Infection following a procedure, sequela; K65.1 - Peritoneal abscess (8) Generalized weakness Status: Acute (9) Leukocytosis Status: Acute - Time Spent with Patient Total time spent providing and/or coordinating discharge services: Discharge Overall discharge status: patient is not back to baseline Disposition: [facility] Discharge Summary Data - Medication History Medication History: Home Medications Famotidine [Pepcid] 20 mg PO BID 12/14/16 Finasteride [Finasteride*] 5 mg PO DAILY 12/14/16 aspirin CHEW [Aspirin Chew*] 81 mg PO DAILY 12/14/16 Apixaban [Eliquis] 2.5 mg PO BID 01/11/17 Dronabinol [Marinol] 2.5 mg PO BID 01/11/17 Fluconazole* 400 mg PO DAILY 01/11/17 Insulin Glargine,Hum.rec.anlog [Lantus*] 10 unit SUBCUT DAILY 01/11/17 Insulin Lispro [HumaLOG] 1 - 3 unit SUBCUT HS 01/11/17 Insulin Lispro [HumaLOG] 1 - 6 unit SUBCUT 3X DAILY WITH MEALS 01/11/17 metoprolol TARTRATE [Metoprolol Tartrate*] 25 mg PO BID 01/11/17 Procedures and tests throughout hospitalization: Completed Lab Orders 01/12/17 10:30 CROSSMATCH IMMEDIATE SPIN [HEM] Stat CROSSMATCH IMMEDIATE SPIN [HEM] Stat PRBC WITH STORAGE [HEM] Stat PRBC WITH STORAGE [HEM] Stat 01/12/17 15:54 UA W/ MICRO -CULTURE IF IND [URINE] Routine 01/12/17 18:00 ABO GROUP [HEM] Stat ANTIBODY SCREEN [HEM] Stat BASIC METABOLIC PANEL [CHEM] Routine MAGNESIUM [CHEM] Routine PHOSPHORUS [CHEM] Routine RH TYPE [HEM] Stat 01/12/17 21:47 CBC AUTO DIF, MDIF/RMOR IF IND [HEM] Urgent 01/13/17 05:00 BASIC METABOLIC PANEL [CHEM] AMDRAW CBC AUTO DIF, MDIF/RMOR IF IND [HEM] AMDRAW HEPATIC PANEL [CHEM] AMDRAW MAGNESIUM [CHEM] Routine PHOSPHORUS [CHEM] Routine 01/13/17 10:49 UA W/ MICRO -CULTURE IF IND [URINE] Routine 01/14/17 05:25 BASIC METABOLIC PANEL [CHEM] AMDRAW CBC AUTO DIF, MDIF/RMOR IF IND [HEM] AMDRAW MAGNESIUM [CHEM] AMDRAW PHOSPHORUS [CHEM] AMDRAW 01/14/17 13:25 urinalysis [UA W/ MICRO -CULTURE IF IND] [URINE] Routine 01/15/17 06:05 C-REACTIVE PROTEIN [CHEM] Routine CBC AUTO DIF, MDIF/RMOR IF IND [HEM] AMDRAW COMPREHENSIVE METABOLIC PANEL [CHEM] AMDRAW MAGNESIUM [CHEM] AMDRAW 01/16/17 06:10 CBC AUTO DIF, MDIF/RMOR IF IND [HEM] AMDRAW cmp [COMPREHENSIVE METABOLIC PANEL] [CHEM] AMDRAW 01/17/17 06:15 BMP [BASIC METABOLIC PANEL] [CHEM] AMDRAW CBC AUTO DIF, MDIF/RMOR IF IND [HEM] AMDRAW PHOSPHORUS [CHEM] Stat PREALBUMIN [CHEM] Stat TRANSFERRIN [CHEM] Stat mag [MAGNESIUM] [CHEM] AMDRAW Completed Microbiology Orders 01/14/17 09:00 SPUTUM CULTURE AND GRAM STAIN [RM] Routine 01/14/17 13:00 CDIFF [C DIFFICILE BY PCR] [RM] Routine Pending Orders 01/12/17 15:54 Admit: Swing Bed Routine Activity: Ambulate with Assist TID Cleanse minor skin tears w/NS DAILY Obtain weight Q7D Resuscitation Status Routine Titrate Oxygen TITRATE TO >90% Vital Signs DAILY Wedge cushion for positioning PRN Tape Recorder Mechanic Consult [CM] Routine 01/12/17 15:55 Cover minor skin tears with DAILYPRN 01/12/17 17:36 Finger Stick Blood Sugar ACHS FINGER STICK Hypoglycemia treatment... PER PROTOCOL Notify Physician . 01/12/17 17:37 Beneprotein Supplement . 01/12/17 17:42 Flush feeding tube with water. TID 01/12/17 18:06 Miscellaneous Care Order . 01/13/17 08:54 Sputum Specimen Collection by RT [RT] . 01/13/17 08:58 Maintain [place] to [place] . 01/13/17 12:22 Physical Therapy Plan of Care [PT] Routine 01/14/17 08:51 Ensure Plus Supplement . 01/14/17 11:23 Ensure Enlive (Clear) Suppl TID 01/15/17 13:47 Nutrition/Dietary Consult [CONS] Routine 01/16/17 10:12 Dressing Change DAILY 01/17/17 08:31 Surgical Consult [CONS] Routine 01/17/17 09:09 Discharge ONCE Labs on day of discharge: Labs from last 24 hours 01/17/17 01/17/17 01/17/17 06:15 06:15 06:15 WBC 12.3 H RBC 3.79 L Hgb 11.1 L Hct 33.9 L MCV 89.4 MCH 29.3 MCHC 32.8 RDW 14.2 Plt Count 325 MPV 7.7 Neutrophils % 87.0 H Lymphocytes % 5.0 L Eosinophils % 0.9 Basophils % 0.4 Neutrophils # 10.8 H Lymphocytes # 0.6 L Monocytes 6.7 Monocytes # 0.8 Eosinophils # 0.1 Basophils # 0.0 Sodium 136 L Potassium 3.9 Chloride 97 L Carbon Dioxide 33 H BUN 32 H Creatinine 1.9 H GFR Calculation Not Reportable Glucose 118 H Calcium 8.2 L Phosphorus 4.4 Magnesium 1.7 Iron Cancelled TIBC Cancelled Transferrin Cancelled < 80 L Transferrin % Sat Cancelled Ferritin Cancelled Prealbumin 8.6 L IM: Discharge Physical Exam - I&O/Vital Signs I&O: Intake & Output 01/16/17 01/17/17 01/17/17 21:59 05:59 13:59 Intake Total 670 280 Output Total 530 765 Balance 140 -485 Weight 84 kg Intake: IV 100 30 Right Proximal Port Upper 100 30 arm Oral 450 250 Oral Supplement 120 Blood Product 0 Output: Drainage 30 15 Right Lower Lateral 30 15 Abdomen Urine 500 750 Other: Urine Appearance Clear Clear Urine Color Yellow Yellow Stool Size Small Stool Characteristics Soft Soft Voiding Method Indwelling Catheter Indwelling Catheter # Bowel Movements 1 0 Vital Signs: Last Vital Signs Temp 36.8 C 01/17/17 06:53 Pulse 77 01/17/17 06:53 Resp 18 01/17/17 06:53 BP 134/79 01/17/17 06:53 Pulse Ox 929 H 01/17/17 06:53 Oxygen Flow Rate 2 Oxygen Delivery Method Nasal Cannula - Constitutional General appearance: Absent: acute distress - Head Head exam: Present: atraumatic - Eye Eye exam: Present: normal appearance. Absent: scleral icterus - ENT ENT exam: Present: mucous membranes moist - Neck Neck exam: Present: full ROM. Absent: lymphadenopathy - Respiratory Respiratory exam: Present: rales (bibasilar with tubular quality left base and aegophony). Absent: accessory muscle use, rhonchi, wheezes - Cardiovascular Cardiovascular exam: Present: RRR, systolic murmur. Absent: JVD, S3 - GI/Abdominal GI/Abdominal exam: Present: distended (Mild), normal bowel sounds, soft, tenderness. Absent: organomegaly - External exam: Present: swelling (scrotal and penile edema now improving), other ([place]orman) - Extremities Exam Extremities exam: Present: edema (to thighs but improving, some scrotal edema persists and thoracic/lumbar edema almost abated). Absent: calf tenderness - Neurological Exam Neurological exam: Present: alert, oriented X3 - Psychiatric Psychiatric exam: Absent: anxious, depressed - Skin Skin exam: Absent: rash - Allied Health Notes Allied health notes reviewed: nursing, RT, social work
== END 2017-01-17 09:10 | disposition admitted as inpatient to this hospital (09) | DRG 949 ==
LOC: IN 01-12 15:55
PROVIDERS: ADMIT Hospitalist; ATTEND Hospitalist
DX: Z48.812 Encounter for surgical aftercare following surgery on the circulatory system (principal); R53.1 Weakness; E44.0 Moderate protein-calorie malnutrition; B37.89 Other sites of candidiasis; I10 Essential (primary) hypertension; E78.5 Hyperlipidemia, unspecified; I25.10 Atherosclerotic heart disease of native coronary artery without angina pectoris; D50.9 Iron deficiency anemia, unspecified; G47.30 Sleep apnea, unspecified; Z85.038 Personal history of other malignant neoplasm of large intestine; N40.1 Benign prostatic hyperplasia with lower urinary tract symptoms; R60.1 Generalized edema; E87.6 Hypokalemia; D72.829 Elevated white blood cell count, unspecified; Z79.899 Other long term (current) drug therapy
CPT/HCPCS: 36430; 51701; 51702; 80048; 80053; 80076; 81001; 83735; 84100; 84134; 84466; 85025; 86140; 86850; 86900; 86901; 86920; 87070; 87077; 87186; 87205; 87493; J1642; J1815; J2405; J3475; J3480; J7050; P9040-BL; P9047

== ENCOUNTER 2017-01-17 08:49 | Inpatient (IN) | payer MEDICARE ==
[2017-01-17 09:20] LABS: PHOSPHORUS 4.4 mg/dL (2.5-4.5); TRANSFERRIN < 80 mg/dL (206-381)
[2017-01-17] MEDS ORDERED: PIPERACILLIN /TAZO 2.25 GM/10 ML VIAL IV SCH (10:00)
[2017-01-17] MEDS ORDERED: ALBUMIN HUMAN 12.5 GM/50 ML VIAL IV ONE (10:00)
[2017-01-17] MEDS ORDERED: FAMOTIDINE 20 MG TABLET PO PRN (10:08)
[2017-01-17] MEDS ORDERED: DEXTROSE 50% WATER 25 GM/50 ML SYR IV PRN (10:08)
[2017-01-17 10:10] LABS: IRON 13 ug/dL (49-181)
[2017-01-17] MEDS ORDERED: MAGNESIUM SULFATE 100 ML IV ONE (10:18)
[2017-01-17 10:50] LABS: FERRITIN 1240 ng/mL (18-464)
[2017-01-17] MEDS: PIPERACILLIN /TAZO 3.375 GM in NORMAL SALINE MINI-BAG+ 100 ML IV SCH ×2 (10:53→18:04)
[2017-01-17] MEDS ORDERED: MAGNESIUM SULFATE IV ONE (11:00)
[2017-01-17] MEDS ORDERED: NORMAL SALINE IV SCH (11:00)
[2017-01-17] MEDS ORDERED: DEXTROSE 5% IV ONE (11:00)
[2017-01-17] MEDS ORDERED: VANCOMYCIN HCL IV SCH (11:00)
[2017-01-17] MEDS: VANCOMYCIN HCL 1,250 MG in NORMAL SALINE 250 ML IV SCH (13:21)
--- NOTE | 2017-01-17 13:42 | CT REPORT ---
HISTORY: Increasing abdominal pain, question abscess. COMPARISON: 05/31/2016. TECHNIQUE: This examination was performed using automated exposure control, adjustment of mA or kV according to patient size, and/or use of iterative reconstruction technique. Axial contiguous images of the abdome n and pelvis were obtained without oral or IV contrast, coronal reformat images also performed. FINDINGS: There is bilateral lower lobe atelectasis or consolidation with moderate bilateral pleural effusions. Trace pericardial effusion is noted, cardiac structures are otherwise unremarkable. There is a 4 mm right-sided proximal ureteral calculus seen on image 48 of series 2 with moderate pro ximal hydronephrosis and hydroureter. The right and left kidneys are otherwise unremarkable, there is no mass lesion, there is no contralateral calculus. There is a Schneider catheter noted in the lumen of the urinary bladder. There is moderate prostatic enlargement There is a percutaneous drain identified in the right pelvic retroperitoneum with the tip adjacent to the internal iliac vessels, there is no adjacent fluid. There is a percutaneous drain noted in the right upper abdomen with some adjacent gas and fluid adjac ent to the tip of the catheter, the collection is approximately 3.1 x 2.0 cm in dimension on noncontr ast imaging and is seen on image 29 of series 2. There is evidence of previous distal sigmoid colon surgery. There is evidence of right hemicolectomy. There is cholecystectomy, there is a biliary stent present, there is fluid and gas noted in the expec barry location of the gallbladder fossa, correlation with the operative history is advised, the gas and fluid collection noted adjacent to the gallbladder fossa is seen on image 16 of series 2, and is 1.8 x 1.4 cm in dimension. There is a well-circumscribed fluid attenuation structure in the periphery of the liver which is 1.7 cm in dimension, and is also identified on previous imaging, consistent with simple cyst. Spleen, pancreas, adrenal glands, vascularity of the abdomen and pelvis unremarkable, there is no franki e intraperitoneal gas, there is no free intraperitoneal fluid. There is no pathologic adenopathy, no bone lesion is identified. IMPRESSION: Bilateral pleural effusions and trace pericardial effusion with lower lobe consolidation or atelectas is bilaterally. Percutaneous abdominal and pelvic drains as discussed above, with a 3.1 cm gas and fluid collection a djacent to the tip of the abdominal drain. Previous cholecystectomy with 1.8 cm fluid and gas noted in the operative bed. Common duct stent present. Evidence of previous bowel surgery as discussed above. 4 mm right-sided proximal ureteral calculus with hydronephrosis and hydroureter. Final Electronic Signature: This report was electronically signed by Mohsen Griffin MD, FACR on 2016 1:40 PM. viri /
[2017-01-17] MEDS: IRON SUCROSE COMPLEX 100 MG in NORMAL SALINE 100 ML IV SCH (14:01)
[2017-01-17] MEDS: INSULIN LISPRO 100 UNIT/ML ML SUBCUT SCH ×3 (15:13→21:12)
[2017-01-17] MEDS ORDERED: COLLAGENASE OINT 30 APP/30 GM TUBE TOPICAL ONE (15:38)
[2017-01-17] MEDS: COLLAGENASE OINT 30 APP/30 GM TUBE TOPICAL SCH (15:39)
--- NOTE | 2017-01-17 16:57 | HISTORY & PHYSICAL ---
DATE OF ADMISSION: 01/17/17 Recent admission from [facility] December 04 through January 12 and swing bed admission to [facility] from 01/12 to 01/17. HISTORY OF PRESENT ILLNESS: Briefly, the patient is an 81-year-old gentleman with past medical history notable for known coronary disease status post stenting, BPH with lower urinary tract symptoms, prior iron deficiency anemia, dyslipidemia, hypertension and sleep apnea. He also has a prior history of partial small bowel obstructions related to surgery for colon cancer, and presented to the [facility] Emergency Department December 04 with acute onset of chest pain. His troponins were normal. He was subsequently transferred though to [facility] where he underwent angiography and at that time he was noted by coronary angiography to have nonobstructive coronary disease with no left main disease, 40% left anterior descending lesion with 30% left circ lesion and 50% RCA lesion and an apical hypokinesis. It was felt his pain was not cardiac in etiology and he underwent further evaluation and subsequently was diagnosed with cholecystitis. He underwent a cholecystectomy that was complicated by anastomotic leak, had peritonitis and small bowel obstruction, required right hemicolectomy complicated by further leak and wound dehiscence and required wound VAC therapy. Over the course of that hospitalization he had poor oral intake, had not been on TPN and developed severe protein calorie malnutrition with anasarca. He was also diagnosed with multiple intraabdominal abscesses and cultures from drains showed Nadia glabrata. He was started on caspofungin and subsequently changed to Diflucan. He was evaluated by both Nolvia Rodríguez his surgeon, as well as Vincenzo Moncada from infectious disease, and when he was felt to be stable from a surgical standpoint, was subsequently transferred to swing bed. Unfortunately during that initial evaluation at [facility] he was noted to be horribly anemic at 8 with respiratory distress and mild pulmonary edema as well as concomitant anasarca with 3+ pitting edema between his shoulder blades. The edema was significant enough that it exacerbated his lower urinary tract symptoms and he did have an obstructive uropathy as a consequence to penal edema. He required Schneider placement, transfusion, diuretics and subsequent albumin infusion, marked improvement in his edema though continues to have pitting edema in his lower back through scrotum, penis and lower extremities, and Schneider catheter has been continued. He had an initial elevated white count. This improved some though now was exacerbated and he has no fever but feels fatigued. There is a cough that initially was productive and grew klebsiella, then attenuated and now is productive again with new onset left tubular breath sounds as well as a leukocytosis with marked neutrophilia. He initially stated no nausea but does have nausea when he smells food. He notes that his abdominal pain is improved specifically at the right upper and right lower quadrant drain sites wound and his midline laparotomy scar shows a 2 cm tumbling lesion near the umbilicus with some fibrinous exudate and Dr. Esteves has been consulted regarding further evaluation and a CT has been requested, but because of the patients elevated creatinine he will not receive IV contrast and only oral contrast. He continues to have mucoid soft stools but no blood and remainder of review of systems is otherwise unremarkable. PAST MEDICAL HISTORY: Significant for 1. Bilateral knee arthritis and status post left knee arthroplasty. 2. Prior history of iron deficiency anemia. 3. Coronary artery disease status post percutaneous intervention in 2010 and repeat angiography in December of 2016 showing nonobstructive disease as above. 4. Colon cancer status post partial colectomy in 2005 and now status post right hemicolectomy for small bowel obstruction. 5. Umbilical herniorrhaphy. 6. Recurrent partial small bowel obstructions. 7. Left knee replacement. 8. Hypertension. 9. Dyslipidemia. 10. Prostatic hypertrophy with lower urinary tract symptoms. ALLERGIES: Morphine which causes nightmares but does tolerate oral narcotics. FAMILY HISTORY: Notable for his brother passing away from leukemia at age 62 and his father passing away from colon cancer. His maternal grandmother had rheumatoid arthritis and his mother from coronary disease. SOCIAL HISTORY: Does not drink alcohol. He is . He has one son with his Camryn and 3 step children, one of whom from heart disease. 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 He is a life long nonsmoker. CURRENT MEDICATIONS: Include Aspirin 81 mg per day. Lipitor 80 mg per day. Pepcid 20 mg daily. Fluconazole 40 mg daily. Lantus 10 units at night. Lisinopril 20 mg daily. Metoprolol 25 mg b.i.d. Eliquis 2.5 mg twice daily. Finasteride 5 mg daily. Marinol 2.5 mg daily. PHYSICAL EXAMINATION VITAL SIGNS: His blood pressures have ranged 130s-150s systolic/50s-80s diastolic. Heart rate is in the 50s-80s, respiratory rate is 18. He is afebrile at 98.8, and oxygen saturations are largely 88-92% on room air to 2 liters by nasal cannula. GENERAL: He is pleasant though does appear uncomfortable. He is seated, not dyspneic. There is no jaundice, no anemia, cyanosis, clubbing or lymphadenopathy. NECK: Supple. He does have mild jugular venous distention. There is no bruits. CARDIAC: S1, S2 with murmur in the right upper sternal border but without radiation. RESPIRATORY: Shows good air entry to the bases but tubular quality breath sounds with egophony in the left lower third of his lung field. He has 2+ sacral edema but no edema in the thoracic vertebra. ABDOMEN: Distended. He has his midline dressing placed from prior laparotomy and wound dehiscence that required wound VAC. Ninety percent of the wound does look like the granulation tissue though closer to the umbilicus he has some fibrinous exudate and discharge and a small tunnel that is probable at 2-2.5 cm. Bowel sounds are active. He does have scrotal and penal edema as well as lower extremity edema. IMPRESSION 1. Probable nosocomial pneumonia with increasing leukocytosis and worsening fatigue as well as clinical findings. Will request a chest x-ray and have started vancomycin and Zosyn. Will check sputum cultures again as he did grow klebsiella previously and blood cultures. Will continue nebs, incentive spirometry and consider flutter valve treatment. 2. Anasarca likely related to protein calorie malnutrition with markedly low prealbumin and transferrin. A portion of this has been mobilized with diuretics including Lasix, hydrochlorothiazide and bumetanide at a cost of increasing his creatinine. Will continue to encourage enteral diet with additional protein, zinc and vitamin C, however, have a low threshold to transfer the patient with consideration of TPN. We can given D10 Aminosine though this would be insufficient for total caloric needs at [facility]. 3. Nonobstructive coronary disease as described above on medical management. 4. DVT. 5. BPH with obstruction partly related to BPH as well as penal edema with his anasarca fully placed and will surveil for risk of infection. 6. Sleep apnea. Will continue CPAP. 7. Hypertension. 8. Dyslipidemia. Will continue his usual medications for modification of his atherosclerotic coronary disease. 9. Intra-abdominal sepsis with prior wound dehiscence and complicated anastomotic leaks, now growing Nadia glabrata. Will request a CT scan today and continue to flush drains and have requested Dr. Esteves consult as the patient may require further wound management and possible interventional management regarding his prior abscesses. A low threshold for transferring back to the patients primary surgeons as well. Zosyn should cover anaerobes as well as vancomycin for gram positive and will continue the current Diflucan dose. The patient is a DNR. MTDD
[2017-01-17] MEDS ORDERED: MULTIVITAMINS IV SCH (17:00)
[2017-01-17] MEDS ORDERED: [UNRECOGNIZED DRUG - OTHER] IV SCH (17:00)
[2017-01-17] MEDS ORDERED: LYTES IV SCH (17:00)
[2017-01-17] MEDS ORDERED: INSULIN REGULAR HUMAN 100 UNITS/ML ML SUBCUT SCH (17:00)
[2017-01-17] MEDS: ATORVASTATIN CALCIUM 10 MG TABLET PO SCH (21:07)
[2017-01-17] MEDS: APIXABAN 2.5 MG TABLET PO SCH (21:07)
[2017-01-17] MEDS: TAMSULOSIN HCL 0.4 MG CAPSULE PO SCH (21:07)
[2017-01-18] MEDS: PIPERACILLIN /TAZO 3.375 GM in NORMAL SALINE MINI-BAG+ 100 ML IV SCH ×5 (00:21→23:21)
[2017-01-18] MEDS: ACETAMINOPHEN 325 MG TABLET PO PRN ×2 (00:21→12:47)
--- NOTE | 2017-01-18 06:00 | CONSULTATION ---
DATE OF CONSULTATION: 01/17/17 CLINICAL TRIAL ASSISTANT: Chaparro Esteves MD CHIEF COMPLAINT: Multiple medical issues. HISTORY OF PRESENT ILLNESS: I was asked to evaluate this 81-year-old male with a recent complex medical history. Around 12/04/16, he was transferred to [facility] with acute onset of chest pain. He had a previous history of coronary artery disease. He underwent evaluation with angiography and had some findings but none significant to explain his chest pain. He later was found to have acute cholecystitis. He underwent cholecystectomy which was complicated by a bile leak. He later underwent ERCP and placement of a biliary stent. As he was progressing and improving, he developed ischemic colitis and had perforation of the right colon. He subsequently underwent a right hemicolectomy. He had a difficult postoperative course with a right upper quadrant abscess treated with percutaneous drainage. His drains grew out a michelle species. He was treated by his surgeon and the infectious disease financial operations consultant with antifungal therapy. He was improving and it was felt that he was stable enough to come back up here to [place]. On 01/12/17 he was transferred here. It was noted that he had a moderate amount of anasarca. He also was anemic. Today consultation was asked for by Dr. Martel who felt that his status may be worsening. It was noted that his white count had increased from 10.8 to 12.3 today. He has also been noted to have increasing respiratory difficulty and has a Klebsiella pneumonia growing on sputum culture. He underwent CT scanning today which showed large bilateral pleural effusions, a small pericardial effusion, but intraabdominally, he has fairly normal findings. His percutaneous drain in the pelvic region shows no extra fluid. He does have drain in the right upper quadrant, which unfortunately I tried to flush prior to him going over for the CT scan. I therefore, think that the flushing of the drain caused a 2-3 cm area of fluid noted on the CT scan. I was able to get some return of fluid but not the total return of the fluid I flushed. Some of this fluid drained around the catheter. There was only bloody fluid noted. Today he says he is feeling fairly well. He is sore on the right side of the abdomen. He has been able to ambulate. He has not been able to get his bowels to work on a consistent basis. He is not hungry either. He says the thought of food has made him sick. PAST MEDICAL HISTORY 1. Bilateral knee arthritis and has undergone arthroplasties. 2. Iron-deficiency anemia. 3. He has had coronary artery disease and stent placed in 2010. 4. He had colon cancer 2005 and underwent a laparoscopic assisted sigmoid colectomy. 5. History of umbilical herniorrhaphy. 6. History of recurrent small bowel obstruction, he has been able to be treated nonoperatively. 7. Left knee replacement. 8. Hypertension. 9. Dyslipidemia. 10. Benign prostatic hypertrophy. 11. History of laparoscopic cholecystectomy with cystic duct stump leak and biliary stent placement. 12. History of ischemic colitis with right colon perforation, status post right colectomy. ALLERGIES: Morphine. FAMILY HISTORY: Brother with leukemia in his 60s. Father had colon cancer. Mother had coronary artery disease. SOCIAL HISTORY: Does not drink. 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 MEDICATIONS Aspirin 81 mg p.o. daily. Lipitor 80 mg daily. Pepcid 20 mg daily. Fluconazole 400 mg daily. Lantus 10 units each night with a sliding scale. Lisinopril 20 mg daily. Metoprolol 25 mg p.o. b.i.d. Eliquis 2.5 mg b.i.d. Finasteride 5 mg daily. Marinol 2.5 mg b.i.d. REVIEW OF SYSTEMS CONSTITUTIONAL: Right now he feels weak. HEENT: Has no complaints. CARDIAC: Denies chest pain. He is also being treated for his atrial fibrillation with Eliquis. PULMONARY: Slightly short of breath. GI: He is sore on the right side of the abdomen. ABDOMEN: He has very little appetite. : He has a Schneider catheter in place. EXTREMITIES: Has been with peripheral edema which is improving. NEUROLOGIC: No recent new difficulties. ANEMIA: He has been anemic and transfused recently. PHYSICAL EXAMINATION VITAL SIGNS: His temperature is 36.8, blood pressure 134/79. His pulse is 77. His respiratory rate is 18. Saturation 92% on 2 liters nasal cannula. He is awake and alert and does not appear in acute distress. SKIN: Does not appear jaundice. It is mat[place]. NECK: No masses. There is no jugular venous distention noted. HEART: regular rate and rhythm LUNGS: Clear but definitely diminished bilaterally at both bases. ABDOMEN: Hypoactive bowel sounds. There is a midline wound which shows some necrosis in the region of the umbilicus, there was also a small fluid pocket noted in the upper wound. This was opened up and bloody fluid was obtained. There was no evidence of other any dehiscence. There is a percutaneous drain in the right upper quadrant which goes between the rib space. There is also a right lower quadrant percutaneous drain and is putting out an acidic-appearing fluid. The right upper quadrant drain has bloody fluid. EXTREMITIES: Slightly edematous but warm. NEUROLOGIC: Alert and oriented to person, place and time. No gross motor or sensory deficits are elicited. LABS: Todays white count is slightly elevated at 12.3, hemoglobin is 11.1, hematocrit 33.9, platelet count is 325. Chemistries show a BMP which is fairly unchanged in the last few days in the chart. IMAGING: Chest x-ray today shows bilateral pleural effusions and some consolidations in both his bases bilaterally. CT scan shows that there is a percutaneous drain in the right upper quadrant which has about a 2-3 cm of fluid collection associated with it. There is percutaneous drain in the pelvis which shows no fluid collection associated with it. There is air and a slight amount of fluid in the gallbladder fossa with a biliary stent in place. There is a right renal stone. There are no other acute abnormalities viewed. IMPRESSION 1. Anasarca secondary to recent surgery and fluid overload. He is also malnourished, which is contributing to this. 2. History of abscess in the right upper quadrant. A drain is in place at this time. I believe it is close to being able to be removed. Unfortunately I flushed the drain right before he went over for his CT scan. I think the fluid in question is probably when I flushing this, I was not getting a complete return. Plan would be to repeat the abdominal portion of the CT on Tuesday, and if it appears stable to improve, then perhaps discuss the possibility of removal at that time. . 3. History of ischemic colitis of the right colon. 4. History of acute cholecystitis complicated by cystic duct stump leak and a biliary drain placement. Will discuss with Dr. Martel and we will see about buffing up his nutrition, perhaps with TPN. Continue antibiotics as per Dr. Martel. I have ordered a repeat CT scan to evaluate the status of the drain in the right upper quadrant. I am unsure if the residual air in the region of the gallbladder surgery is related to the drains or not. This would seem to be a long time to have this air still present. This may be related to the drains though. We will also begin a modification of the wound care. MATT
[2017-01-18 06:11] LABS: BLOOD UREA NITROGEN 31 mg/dL (9-20); CALCIUM 7.6 mg/dL (8.4-10.2); CHLORIDE 99 mmol/L (98-107); CREATININE 1.9 mg/dL (0.7-1.3); GLUCOSE 97 mg/dL (70-100); MAGNESIUM 1.7 mg/dL (1.6-2.3); PHOSPHORUS 3.8 mg/dL (2.5-4.5); SODIUM 136 mmol/L (137-145)
[2017-01-18] MEDS: INSULIN LISPRO 100 UNIT/ML ML SUBCUT SCH ×4 (06:27→22:14)
--- NOTE | 2017-01-18 07:08 | RADIOLOGY REPORT ---
Two views of the chest are compared with prior films dated 12/04/2016. Examination demonstrates a limited degree of inspiration. Considering this the heart and vessels are stable. There is stable elevation of the right hemidiaphragm. There has been interval development of bibasilar atelectasis and a small amount of bilateral pleural fluid. The mid and upper lung asif are clear. No pneumothorax is seen. IMPRESSION: Limited inspiration examination demonstrates interval development of bibasilar atelectasis and a small amount of bilateral pleural fluid. MTDD
[2017-01-18] MEDS: FLUCONAZOLE 100 MG CAPSULE PO SCH (08:27)
[2017-01-18] MEDS: APIXABAN 2.5 MG TABLET PO SCH ×2 (08:27→20:28)
[2017-01-18] MEDS: FINASTERIDE 5 MG TABLET PO SCH (08:28)
[2017-01-18] MEDS: LISINOPRIL 20 MG TABLET PO SCH (08:28)
[2017-01-18] MEDS: INSULIN GLARGINE,HUM.REC.ANLOG 100 UNITS/ML ML SUBCUT SCH (08:28)
[2017-01-18] MEDS: COLLAGENASE OINT 30 APP/30 GM TUBE TOPICAL SCH (08:30)
[2017-01-18] MEDS: IRON SUCROSE COMPLEX 100 MG in NORMAL SALINE 100 ML IV SCH (08:30)
[2017-01-18] MEDS ORDERED: FAT EMULSION 20% 250 ML BAG IV SCH (09:00)
[2017-01-18] MEDS ORDERED: IRON SUCROSE COMPLEX 100 MG in NORMAL SALINE 100 ML IV SCH (09:00)
--- NOTE | 2017-01-18 09:13 | PROGRESS NOTE: IM APSO ---
Assessment and Plan - Date of Encounter Date of Encounter: 01/18/17 (1) Right upper quadrant abdominal abscess Status: Chronic Assessment and plan: Percutaneous drains Consult Dr Esteves Current Visit: Yes (2) Ischemic colitis Status: Acute Assessment and plan: Right colon with perforation and RUQ abd abscess, Post R Hemicolectomy Consult Dr Esteves Current Visit: Yes (3) Generalized weakness Status: Chronic Assessment and plan: PT, OT Current Visit: Yes (4) Malnutrition Status: Acute Assessment and plan: TPN Dietary consult Current Visit: Yes (5) Hypoalbuminemia Status: Acute Current Visit: Yes (6) Iron deficiency anemia Status: Acute Assessment and plan: Venofer Current Visit: Yes (7) Hypokalemia Status: Acute Assessment and plan: KCl 40meqv PO x2 Current Visit: Yes (8) Generalized edema Status: Chronic Assessment and plan: Anasarca due to malnutrition TPN Dietary consult Current Visit: Yes (9) Pleural effusion, bilateral Status: Acute Assessment and plan: Will need to monitor for now. Hopefully will improve with improved nutrition. Current Visit: Yes (10) CAD in [place] artery Status: Chronic Current Visit: Yes - Time Spent With Patient Total time spent with greater than 50% in coordination of care (as documented) at patient's floor/unit and/or counseling patient: IM: PN Subjective General: fatigue, malaise, no fever, no chills Cardiovascular: no chest pain, no chest pressure, no palpitations Respiratory: no cough, no SOB Gastrointestinal: other (Poor appetite), no abdominal pain, no nausea, no vomiting, no diarrhea, no constipation (Large soft BM) Musculoskeletal: weakness (2 person transfer from bed to chair) IM: PN Objective Exam - I&O/Vital Signs I&O: Intake & Output 01/17/17 01/18/17 01/18/17 21:59 05:59 13:59 Intake Total 870 500 Output Total 750 710 Balance 120 -210 Weight 83.75 kg Intake: IV 650 200 Right Upper arm 650 200 Oral 120 200 Albumin 100 100 Output: Drainage 10 Right Lower Abdomen 10 Urine 750 700 Other: Urine Appearance Clear Cloudy Urine Color Yellow Yellow Stool Size Small Stool Characteristics Soft Voiding Method Indwelling Catheter Indwelling Catheter # Bowel Movements 0 1 Vital Signs: Last Vital Signs Temp 36.9 C 01/18/17 05:23 Pulse 70 01/18/17 05:23 Resp 18 01/18/17 05:23 BP 116/71 01/18/17 05:23 Pulse Ox 92 01/18/17 05:23 Oxygen Flow Rate 2 Oxygen Delivery Method Nasal Cannula - Neck Neck exam: Present: full ROM. Absent: tenderness - Respiratory Respiratory exam: Present: decreased breath sounds (bibasilar), rales (bibasilar ). Absent: rhonchi, wheezes - Cardiovascular Cardiovascular exam: Present: RRR. Absent: systolic murmur - GI/Abdominal GI/Abdominal exam: Present: hypoactive bowel sounds, soft, other (Two percutaneous drains). Absent: tenderness - Extremities Exam Extremities exam: Absent: calf tenderness, Dusty's Sign, edema - Lab Labs: Laboratory Last Values Sodium 136 mmol/L (137-145) L 01/18/17 05:00 Potassium 3.0 mmol/L (3.5-5.1) L D 01/18/17 05:00 Chloride 99 mmol/L (98-107) 01/18/17 05:00 Carbon Dioxide 31 mmol/L (22-30) H 01/18/17 05:00 BUN 31 mg/dL (9-20) H 01/18/17 05:00 Creatinine 1.9 mg/dL (0.7-1.3) H 01/18/17 05:00 GFR Calculation Not Reportable 01/18/17 05:00 Glucose 97 mg/dL (70-100) 01/18/17 05:00 Lactic Acid 0.8 mmol/L (0.7-2.1) 01/17/17 20:10 Calcium 7.6 mg/dL (8.4-10.2) L 01/18/17 05:00 Phosphorus 3.8 mg/dL (2.5-4.5) 01/18/17 05:00 Magnesium 1.7 mg/dL (1.6-2.3) 01/18/17 05:00 Iron 13 ug/dL (49-181) L 01/17/17 06:15 Transferrin < 80 mg/dL (206-381) L 01/17/17 06:15 Ferritin 1240 ng/mL (18-464) H 01/17/17 06:15 Prealbumin 8.6 mg/dL (17.6-36.0) L 01/17/17 06:15
--- NOTE | 2017-01-18 09:57 | PROGRESS NOTE:General Surgery ---
Assessment and Plan - Date of Encounter Date of Encounter: 01/18/17 (1) Right upper quadrant abdominal abscess Status: Chronic Assessment and plan: Will repeat CT tomorrow and see about pulling his drain. Current Visit: Yes (2) Protein-calorie malnutrition, moderate Status: Acute Assessment and plan: I discussed placing a feeding tube. He will try to take in enough calories over the next few days. Dietary has given us recommendations and we will follow these. If this is not working he may need a feeding tube placed. Current Visit: Yes (3) Pleural effusion, bilateral Status: Acute Assessment and plan: Hopefully these will improve but he seems to have worse breathsounds on the right. Will continue to follow Current Visit: Yes - Time Spent With Patient Total time spent with greater than 50% in coordination of care (as documented) at patient's floor/unit and/or counseling patient: ANEL: Gen Surg PN Subjective Patient reports: afebrile, bowel movement, tolerating liquids well (so far has had minimal input), no fever, no nausea, no still having pain ANEL: Gen Surgery PN Obj Exam - Latest Vital Signs and I&O Latest Vital Signs/I&O: Vital Signs Temp 36.9 C 01/18/17 05:23 Pulse 70 01/18/17 05:23 Resp 18 01/18/17 05:23 BP 116/71 01/18/17 05:23 Pulse Ox 87 L 01/18/17 09:25 Intake & Output 01/17/17 01/18/17 01/18/17 17:59 05:59 17:59 Intake Total 1370 Output Total 1460 Balance -90 Weight 84 kg 83.75 kg Intake: IV 850 Right Upper arm 850 Oral 320 Albumin 200 Output: Drainage 10 Right Lower Abdomen 10 Urine 1450 Other: Urine Appearance Cloudy Urine Color Yellow Stool Size Small Stool Characteristics Soft Voiding Method Indwelling Catheter # Bowel Movements 1 - Exam General physical exam: chronically ill Respiratory exam: clear to auscultation, other (breath sounds diminished bilaterally but worse on the right.) Abdomen exam: bowel sounds (hyperactive), distended (seems less distended) - Lab Labs: Laboratory Last Values Sodium 136 mmol/L (137-145) L 01/18/17 05:00 Potassium 3.0 mmol/L (3.5-5.1) L D 01/18/17 05:00 Chloride 99 mmol/L (98-107) 01/18/17 05:00 Carbon Dioxide 31 mmol/L (22-30) H 01/18/17 05:00 BUN 31 mg/dL (9-20) H 01/18/17 05:00 Creatinine 1.9 mg/dL (0.7-1.3) H 01/18/17 05:00 GFR Calculation Not Reportable 01/18/17 05:00 Glucose 97 mg/dL (70-100) 01/18/17 05:00 Lactic Acid 0.8 mmol/L (0.7-2.1) 01/17/17 20:10 Calcium 7.6 mg/dL (8.4-10.2) L 01/18/17 05:00 Phosphorus 3.8 mg/dL (2.5-4.5) 01/18/17 05:00 Magnesium 1.7 mg/dL (1.6-2.3) 01/18/17 05:00 Iron 13 ug/dL (49-181) L 01/17/17 06:15 Transferrin < 80 mg/dL (206-381) L 01/17/17 06:15 Ferritin 1240 ng/mL (18-464) H 01/17/17 06:15 Prealbumin 8.6 mg/dL (17.6-36.0) L 01/17/17 06:15 Quality Questions - VTE Prophylaxis Assessment VTE Present on Admission?: No Patient at risk for venous thromboembolism?: Yes VTE Risk Level: Moderate Risk Pharmaceutical VTE prophylaxis contraindication reason: N/A- VTE prophylaxsis ordered Mechanical VTE prophylaxis contraindication reason: not indicated
[2017-01-18] MEDS: VANCOMYCIN HCL 1,250 MG in NORMAL SALINE 250 ML IV SCH (10:18)
[2017-01-18] MEDS: POTASSIUM CHLORIDE 20 MEQ/15 ML UDC PO SCH ×2 (10:18→15:52)
[2017-01-18] MEDS ORDERED: O2 HUMIDIFIER 650 ML BOTTLE INHALATION ONE (15:05)
[2017-01-18] MEDS: ATORVASTATIN CALCIUM 10 MG TABLET PO SCH (20:29)
[2017-01-18] MEDS: TAMSULOSIN HCL 0.4 MG CAPSULE PO SCH (20:29)
[2017-01-19] MEDS: PIPERACILLIN /TAZO 3.375 GM in NORMAL SALINE MINI-BAG+ 100 ML IV SCH ×4 (04:24→23:58)
[2017-01-19] MEDS: INSULIN LISPRO 100 UNIT/ML ML SUBCUT SCH ×4 (06:00→21:57)
[2017-01-19 06:18] LABS: BASOPHIL# 0.1 X 10^3uL (0.0-0.1); EOSINOPHILS 0.8 % (0.0-6.0); EOSINOPHILS# 0.1 X 10^3uL (0.0-0.4); HEMATOCRIT 29.3 % (42.0-54.0); HEMOGLOBIN 9.3 g/dL (14.0-18.0); LYMPHOCYTES 3.8 % (20.0-40.0); LYMPHOCYTES# 0.5 X 10^3uL (0.8-3.8); MEAN CELL VOLUME 89.3 fL (80.0-100.0); MEAN CORPUS. HGB CONCENTRATION 31.7 g/dL (32.0-36.0); MEAN CORPUSCULAR HEMOGLOBIN 28.4 pg (29.0-35.0); MEAN PLATELET VOLUME 7.8 fL (7.4-10.4); MONOCYTES 5.5 % (2.0-10.0); MONOCYTES# 0.7 X 10^3uL (0.2-1.0); NEUTROPHILS 88.9 % (54.0-75.0); NEUTROPHILS# 10.5 X 10^3uL (2.6-6.7); PLATELET COUNT 274 X 10^3uL (130-440); RED CELL DISTRIBUTION WIDTH 14.7 % (11.5-14.5)
[2017-01-19 06:33] LABS: RED BLOOD COUNT 3.28 X 10^6uL (4.20-6.10); WHITE BLOOD COUNT 11.9 X 10^3uL (3.9-10.7)
[2017-01-19 06:40] LABS: A/G RATIO 0.7; ALBUMIN 2.5 g/dL (3.5-5.0); ALKALINE PHOSPHATASE 144 U/L (38-126); ALT 28 U/L (21-72); AST 25 U/L (17-59); BILIRUBIN, TOTAL 0.4 mg/dL (0.2-1.3); BLOOD UREA NITROGEN 40 mg/dL (9-20); CALCIUM 8.1 mg/dL (8.4-10.2); CHLORIDE 101 mmol/L (98-107); GLUCOSE 146 mg/dL (70-100); SODIUM 136 mmol/L (137-145)
--- NOTE | 2017-01-19 08:43 | PROGRESS NOTE: IM APSO ---
Assessment and Plan - Date of Encounter Date of Encounter: 01/19/17 (1) Protein-calorie malnutrition, moderate Status: Chronic Assessment and plan: likely related to protracted hospital/complicated hospital course with armando/ ischemic bowel/right hemicolectomy and now causing anemia/anasarca. Encourage Ensure, tried to order TPN but wrought with complications and patient not wish Duotube. As starts to improve, will have issues with refeeding syndrome and will require electrolyte adjustment. Current Visit: Yes (2) Generalized weakness Status: Chronic Assessment and plan: from protracted hospitalization/deconditioning and concurrent anemia Current Visit: Yes (3) Pneumonia Status: Suspected Current Visit: Yes (4) Hypoalbuminemia Status: Chronic Current Visit: Yes (5) Hypokalemia Status: Acute Current Visit: Yes (6) Ischemic colitis Status: Resolved Current Visit: Yes (7) Leukocytosis Status: Acute Current Visit: Yes (8) Right nephrolithiasis Status: Chronic Assessment and plan: urine output picking up, flomax started and repeat CT today. Likely DC dorman as well. Current Visit: Yes (9) Anemia Status: Chronic Assessment and plan: on AC for CAD, will check stool guaiac and transfuse today. 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 Moncada next week. Current Visit: Yes (12) Generalized edema Status: Chronic Assessment and plan: and improving Current Visit: Yes (13) H/O colon cancer, stage II Status: Chronic Current Visit: Yes (14) Hypercholesterolemia Status: Chronic Current Visit: Yes (15) Hypertension, benign Status: Chronic Current Visit: Yes (16) Hyperglycemia Status: Suspected Current Visit: Yes (17) Intra-abdominal abscess post-procedure Status: Resolved Current Visit: Yes (18) Periumbilical pain Status: Chronic Current Visit: No - Time Spent With Patient Total time spent with greater than 50% in coordination of care (as documented) at patient's floor/unit and/or counseling patient: IM: PN Subjective General: fatigue (States he is feeling stronger but "just got worked over" with OT), malaise, no fever, no chills Cardiovascular: no chest pain, no chest pressure, no palpitations Respiratory: cough (improving), no SOB Gastrointestinal: other (Poor appetite and only took 2 cans ensure yesterday), no abdominal pain, no nausea, no vomiting, no diarrhea, no constipation (Large soft BM) Musculoskeletal: weakness (2 person transfer from bed to chair) IM: PN Objective Exam - I&O/Vital Signs I&O: Intake & Output 01/18/17 01/19/17 01/19/17 21:59 05:59 13:59 Intake Total 861 250 Output Total 500 310 Balance 361 -60 Weight 83.75 kg Intake: Oral 861 250 Output: Drainage 10 Right Lower Abdomen 10 Urine 500 300 Other: Urine Appearance Cloudy Cloudy Urine Color Yellow Yellow Stool Size Small Small Stool Characteristics Soft Soft Voiding Method Indwelling Catheter Indwelling Catheter Vital Signs: Last Vital Signs Temp 36.3 C L 01/19/17 06:24 Pulse 66 01/19/17 06:24 Resp 16 01/19/17 06:24 BP 137/66 01/19/17 06:24 Pulse Ox 90 01/19/17 06:24 Oxygen Flow Rate 2.5 Oxygen Delivery Method Nasal Cannula - Constitutional General appearance: Present: obese - Head Head exam: Present: atraumatic - Eye Eye exam: Present: EOMI, normal appearance, PERRL - ENT ENT exam: Present: mucous membranes moist - Neck Neck exam: Present: full ROM. Absent: tenderness - Respiratory Respiratory exam: Present: decreased breath sounds (bibasilar with tubular quality and some aegophony right), rales (bibasilar). Absent: rhonchi, wheezes - Cardiovascular Cardiovascular exam: Present: RRR. Absent: systolic murmur - GI/Abdominal GI/Abdominal exam: Present: hypoactive bowel sounds, soft, other (Two percutaneous drains). Absent: tenderness - Extremities Exam Extremities exam: Present: edema (1+ at ankles currently and nil/trace lower back). Absent: calf tenderness, Dusty's Sign - Neurological Exam Neurological exam: Present: alert, oriented X3 - Lab Labs: Laboratory Last Values WBC 11.9 X 10^3uL (3.9-10.7) H 01/19/17 05:00 RBC 3.28 X 10^6uL (4.20-6.10) L 01/19/17 05:00 Hgb 9.3 g/dL (14.0-18.0) L 01/19/17 05:00 Hct 29.3 % (42.0-54.0) L 01/19/17 05:00 MCV 89.3 fL (80.0-100.0) 01/19/17 05:00 MCH 28.4 pg (29.0-35.0) L 01/19/17 05:00 MCHC 31.7 g/dL (32.0-36.0) L 01/19/17 05:00 RDW 14.7 % (11.5-14.5) H 01/19/17 05:00 Plt Count 274 X 10^3uL (130-440) 01/19/17 05:00 MPV 7.8 fL (7.4-10.4) 01/19/17 05:00 Neutrophils % 88.9 % (54.0-75.0) H 01/19/17 05:00 Lymphocytes % 3.8 % (20.0-40.0) L 01/19/17 05:00 Eosinophils % 0.8 % (0.0-6.0) 01/19/17 05:00 Basophils % 1.0 % (0.0-2.0) 01/19/17 05:00 Neutrophils # 10.5 X 10^3uL (2.6-6.7) H 01/19/17 05:00 Lymphocytes # 0.5 X 10^3uL (0.8-3.8) L 01/19/17 05:00 Monocytes 5.5 % (2.0-10.0) 01/19/17 05:00 Monocytes # 0.7 X 10^3uL (0.2-1.0) 01/19/17 05:00 Eosinophils # 0.1 X 10^3uL (0.0-0.4) 01/19/17 05:00 Basophils # 0.1 X 10^3uL (0.0-0.1) 01/19/17 05:00 Sodium 136 mmol/L (137-145) L 01/19/17 05:00 Potassium 4.0 mmol/L (3.5-5.1) D 01/19/17 05:00 Chloride 101 mmol/L (98-107) 01/19/17 05:00 Carbon Dioxide 29 mmol/L (22-30) 01/19/17 05:00 BUN 40 mg/dL (9-20) H 01/19/17 05:00 Creatinine 2.0 mg/dL (0.7-1.3) H 01/19/17 05:00 GFR Calculation Not Reportable 01/19/17 05:00 Glucose 146 mg/dL (70-100) H 01/19/17 05:00 Lactic Acid 0.8 mmol/L (0.7-2.1) 01/17/17 20:10 Calcium 8.1 mg/dL (8.4-10.2) L 01/19/17 05:00 Phosphorus 3.8 mg/dL (2.5-4.5) 01/18/17 05:00 Magnesium 1.7 mg/dL (1.6-2.3) 01/18/17 05:00 Iron 13 ug/dL (49-181) L 01/17/17 06:15 Transferrin < 80 mg/dL (206-381) L 01/17/17 06:15 Ferritin 1240 ng/mL (18-464) H 01/17/17 06:15 Total Bilirubin 0.4 mg/dL (0.2-1.3) D 01/19/17 05:00 AST 25 U/L (17-59) 01/19/17 05:00 ALT 28 U/L (21-72) 01/19/17 05:00 Alkaline Phosphatase 144 U/L (38-126) H 01/19/17 05:00 Total Protein 6.0 g/dL (6.3-8.2) L 01/19/17 05:00 Albumin 2.5 g/dL (3.5-5.0) L 01/19/17 05:00 Albumin/Globulin Ratio 0.7 01/19/17 05:00 Prealbumin 8.6 mg/dL (17.6-36.0) L 01/17/17 06:15 (3) Pneumonia Qualifiers: Pneumonia type: due to Klebsiella pneumoniae Laterality: bilateral (9) Anemia Qualifiers: Anemia type: other cause Other causes of anemia: acute posthemorrhagic Qualified Code(s): D62 - Acute posthemorrhagic anemia (17) Intra-abdominal abscess post-procedure Qualifiers: Encounter type: sequela Qualified Code(s): T81.4XXS - Infection following a procedure, sequela; K65.1 - Peritoneal abscess
[2017-01-19] MEDS ORDERED: FUROSEMIDE 20 MG/2 ML VIAL IV PRN (08:51)
[2017-01-19] MEDS ORDERED: ACETAMINOPHEN 325 MG TABLET PO PRN (08:51)
--- NOTE | 2017-01-19 10:39 | CT REPORT ---
HISTORY: Abdominal pain. History of cholecystectomy with subsequent bile leak and ischemic colitis, status pos t right hemicolectomy, with subsequent percutaneous drainage of abdominal abscesses. Follow-up. COMPARISON: 01/17/2017 TECHNIQUE: This examination was performed using automated exposure control, adjustment of mA or kV according to patient size, and/or use of iterative reconstruction technique. Axial images of the abdomen obtained from dome of the diaphragm through the iliac crest. FINDINGS: LUNGS: There are small to moderate bilateral pleural effusions, with associated dependent airspace op acities in the lower lobes bilaterally, which may reflect relaxation atelectasis or pneumonia. Patchy groundglass opacities in the right middle lobe and lingula appear increased, and may reflect atelect asis or pneumonia. The heart is stable in size. Hepatobiliary:Subcapsular 2.3 cm hypodense lesion in segment 7 of liver appears stable. The patient i s status post cholecystectomy. There is diffuse periportal edema which appears stable. There is no ev idence of biliary ductal dilatation. There is a plastic stent within the common bile duct which exten ds into the duodenum. There is a lentiform 6.4 x 1.0 between segment 8 of the liver and the right hem idiaphragm which may be subcapsular, or may reflect loculated extrahepatic fluid. Spleen: Normal in size and radiographic appearance. Pancreas: No focal pancreatic lesion or pancreatic ductal dilatation. Adrenals:Unremarkable. Kidneys: The kidneys are normal in size bilaterally. There is mild to moderate right hydroureteroneph rosis. Calcifications within the right renal pelvis are likely vascular. There is a 4 mm calculus wit hin the proximal right ureter at the level of the right L5 transverse process, which is advanced slig htly in comparison with the prior study, best seen image 64 of series 2. There is a tiny right renal lower pole calyceal calculus anteriorly. No left renal or ureteral calculus is seen. Peritoneum: There is a small amount of free fluid within the abdomen. There is a right midabdominal p ercutaneous drainage catheter within a right midabdominal abscess cavity which is stable in size and morphology in comparison with the prior study. Pelvic percutaneous drainage catheter is not visualize d on today's examination. 1.8 cm collection of air and fluid in the subhepatic space appears unchange d in comparison with the prior study, best seen image 28 of series 2. No new intra-abdominal collecti on is seen. The stomach is distended with contrast. The visualized small bowel and colon appear unremarkable. Retroperitoneum: Aorta and IVC appear unremarkable except for moderate atherosclerotic disease. There is no evidence of lymphadenopathy. Bones/soft tissues: The vertebral body height and alignment is well maintained. There is no acute fra cture or dislocation. There is diffuse and homogeneous edema. The soft tissues appear otherwise unrem arkable. IMPRESSION: 1. Status post percutaneous drainage of a right midabdominal fluid collection. Catheter in good posit ion with a small amount of associated residual air and phlegmon. No evidence of residual fluid collec tion. 2. 1.8 cm air-fluid collection in the subhepatic space appears stable. 3. 4 mm proximal right ureteral calculus with mild to moderate associated right hydroureteronephrosis , similar the prior study. 4. Juxtadiaphragmatic perihepatic fluid may be loculated or free. Trace free fluid within the abdomen is probably reactive. 5. Stable bilateral pleural effusions and dependent airspace opacities, likely relaxation atelectasis . 6. Subhepatic 2.3 cm hypodensity in the liver is incompletely characterized in this examination. Final Electronic Signature: This report was electronically signed by Rdoo Pierce MD on 01/20/20 17 10:37 AM. marvel /
[2017-01-19] MEDS: IRON SUCROSE COMPLEX 100 MG in NORMAL SALINE 100 ML IV SCH (10:43)
[2017-01-19] MEDS: VANCOMYCIN HCL 1,250 MG in NORMAL SALINE 250 ML IV SCH (10:43)
[2017-01-19] MEDS: APIXABAN 2.5 MG TABLET PO SCH ×2 (10:45→21:20)
[2017-01-19] MEDS: FINASTERIDE 5 MG TABLET PO SCH (10:45)
[2017-01-19] MEDS: FLUCONAZOLE 100 MG CAPSULE PO SCH (10:45)
[2017-01-19] MEDS: LISINOPRIL 20 MG TABLET PO SCH (10:46)
[2017-01-19] MEDS: COLLAGENASE OINT 30 APP/30 GM TUBE TOPICAL SCH (10:46)
[2017-01-19] MEDS: DRONABINOL 2.5 MG CAPSULE PO SCH ×2 (10:46→21:20)
[2017-01-19] MEDS: INSULIN GLARGINE,HUM.REC.ANLOG 100 UNITS/ML ML SUBCUT SCH (10:47)
[2017-01-19 11:04] LABS: ABO GROUP TYPE O; ANTIBODY SCREEN NEGATIVE; RH TYPE POSITIVE
--- NOTE | 2017-01-19 11:04 | PROGRESS NOTE:General Surgery ---
Assessment and Plan - Date of Encounter Date of Encounter: 01/19/17 (1) Right upper quadrant abdominal abscess Status: Resolved Assessment and plan: The area today is stable. There is residual phlegmon but no fluid. The drain was removed. Current Visit: Yes (2) Protein-calorie malnutrition, moderate Status: Chronic Assessment and plan: Will start appetite stimulant and push for 5 cans a day of ensure. He got 3 down yesterday. Current Visit: Yes (3) Pleural effusion, bilateral Status: Chronic Assessment and plan: Noted to be stable on todays CT. Current Visit: Yes (4) Positive culture findings in sputum Status: Acute Assessment and plan: Findings consistent with pneumonia noted on CT today. Current Visit: Yes (5) Renal calculus or stone Status: Acute Assessment and plan: right ureteral stone has moved about a 1cm according to todays CT. Some hydronephrosis noted on the CT but judged to be mild. Current Visit: Yes - Time Spent With Patient Total time spent with greater than 50% in coordination of care (as documented) at patient's floor/unit and/or counseling patient: ANEL: Gen Surg PN Subjective Patient reports: afebrile (was able to drink 3 cans of ensure yesterday. Our goal is 5 per day.), bowel movement, tolerating liquids well (so far has had minimal input), no fever, no nausea, no still having pain ANEL: Gen Surgery PN Obj Exam - Latest Vital Signs and I&O Latest Vital Signs/I&O: Vital Signs Temp 36.3 C L 01/19/17 06:24 Pulse 66 01/19/17 06:24 Resp 16 01/19/17 06:24 BP 137/66 01/19/17 06:24 Pulse Ox 94 01/19/17 09:43 Intake & Output 01/18/17 01/19/17 01/19/17 17:59 05:59 17:59 Intake Total 861 250 Output Total 500 310 Balance 361 -60 Weight 83.75 kg Intake: Oral 861 250 Output: Drainage 10 Right Lower Abdomen 10 Urine 500 300 Other: Urine Appearance Cloudy Cloudy Urine Color Yellow Yellow Stool Size Small Small Stool Characteristics Soft Soft Voiding Method Indwelling Catheter Indwelling Catheter - Exam General physical exam: chronically ill, no distress Respiratory exam: clear to auscultation, other (breath sounds diminished bilaterally but worse on the right.) Abdomen exam: bowel sounds (active), wound (stable ), other (RUQ drain with no output.) - Lab Labs: Laboratory Last Values WBC 11.9 X 10^3uL (3.9-10.7) H 01/19/17 05:00 RBC 3.28 X 10^6uL (4.20-6.10) L 01/19/17 05:00 Hgb 9.3 g/dL (14.0-18.0) L 01/19/17 05:00 Hct 29.3 % (42.0-54.0) L 01/19/17 05:00 MCV 89.3 fL (80.0-100.0) 01/19/17 05:00 MCH 28.4 pg (29.0-35.0) L 01/19/17 05:00 MCHC 31.7 g/dL (32.0-36.0) L 01/19/17 05:00 RDW 14.7 % (11.5-14.5) H 01/19/17 05:00 Plt Count 274 X 10^3uL (130-440) 01/19/17 05:00 MPV 7.8 fL (7.4-10.4) 01/19/17 05:00 Neutrophils % 88.9 % (54.0-75.0) H 01/19/17 05:00 Lymphocytes % 3.8 % (20.0-40.0) L 01/19/17 05:00 Eosinophils % 0.8 % (0.0-6.0) 01/19/17 05:00 Basophils % 1.0 % (0.0-2.0) 01/19/17 05:00 Neutrophils # 10.5 X 10^3uL (2.6-6.7) H 01/19/17 05:00 Lymphocytes # 0.5 X 10^3uL (0.8-3.8) L 01/19/17 05:00 Monocytes 5.5 % (2.0-10.0) 01/19/17 05:00 Monocytes # 0.7 X 10^3uL (0.2-1.0) 01/19/17 05:00 Eosinophils # 0.1 X 10^3uL (0.0-0.4) 01/19/17 05:00 Basophils # 0.1 X 10^3uL (0.0-0.1) 01/19/17 05:00 Sodium 136 mmol/L (137-145) L 01/19/17 05:00 Potassium 4.0 mmol/L (3.5-5.1) D 01/19/17 05:00 Chloride 101 mmol/L (98-107) 01/19/17 05:00 Carbon Dioxide 29 mmol/L (22-30) 01/19/17 05:00 BUN 40 mg/dL (9-20) H 01/19/17 05:00 Creatinine 2.0 mg/dL (0.7-1.3) H 01/19/17 05:00 GFR Calculation Not Reportable 01/19/17 05:00 Glucose 146 mg/dL (70-100) H 01/19/17 05:00 Lactic Acid 0.8 mmol/L (0.7-2.1) 01/17/17 20:10 Calcium 8.1 mg/dL (8.4-10.2) L 01/19/17 05:00 Phosphorus 3.8 mg/dL (2.5-4.5) 01/18/17 05:00 Magnesium 1.7 mg/dL (1.6-2.3) 01/18/17 05:00 Iron 13 ug/dL (49-181) L 01/17/17 06:15 Transferrin < 80 mg/dL (206-381) L 01/17/17 06:15 Ferritin 1240 ng/mL (18-464) H 01/17/17 06:15 Total Bilirubin 0.4 mg/dL (0.2-1.3) D 01/19/17 05:00 AST 25 U/L (17-59) 01/19/17 05:00 ALT 28 U/L (21-72) 01/19/17 05:00 Alkaline Phosphatase 144 U/L (38-126) H 01/19/17 05:00 Total Protein 6.0 g/dL (6.3-8.2) L 01/19/17 05:00 Albumin 2.5 g/dL (3.5-5.0) L 01/19/17 05:00 Albumin/Globulin Ratio 0.7 01/19/17 05:00 Prealbumin 8.6 mg/dL (17.6-36.0) L 01/17/17 06:15 - Imaging CT scan - abdomen: report reviewed (discussed findings with the radiologist)
[2017-01-19] MEDS ORDERED: NORMAL SALINE 250 ML IV ONE ×2 (11:07→11:15)
[2017-01-19] MEDS ORDERED: NORMAL SALINE FLUSH 250 ML ONE (12:57)
[2017-01-19 15:34] LABS: MAGNESIUM 1.7 mg/dL (1.6-2.3); PHOSPHORUS 3.1 mg/dL (2.5-4.5)
[2017-01-19] MEDS: TAMSULOSIN HCL 0.4 MG CAPSULE PO SCH (21:20)
[2017-01-19] MEDS: ATORVASTATIN CALCIUM 10 MG TABLET PO SCH (21:20)
[2017-01-20] MEDS: PIPERACILLIN /TAZO 3.375 GM in NORMAL SALINE MINI-BAG+ 100 ML IV SCH ×4 (05:20→23:33)
[2017-01-20 05:28] LABS: CROSSMATCH IMMEDIATE SPIN COMPATIBLE
[2017-01-20 06:00] LABS: BASOPHIL# 0.1 X 10^3uL (0.0-0.1); BASOPHILS 0.4 % (0.0-2.0); EOSINOPHILS 0.8 % (0.0-6.0); EOSINOPHILS# 0.1 X 10^3uL (0.0-0.4); HEMATOCRIT 30.8 % (42.0-54.0); HEMOGLOBIN 10.2 g/dL (14.0-18.0); LYMPHOCYTES 4.1 % (20.0-40.0); LYMPHOCYTES# 0.5 X 10^3uL (0.8-3.8); MEAN CELL VOLUME 89.2 fL (80.0-100.0); MEAN CORPUSCULAR HEMOGLOBIN 29.5 pg (29.0-35.0); MEAN PLATELET VOLUME 7.7 fL (7.4-10.4); MONOCYTES 5.6 % (2.0-10.0); MONOCYTES# 0.7 X 10^3uL (0.2-1.0); NEUTROPHILS# 11.5 X 10^3uL (2.6-6.7); PLATELET COUNT 320 X 10^3uL (130-440); RED BLOOD COUNT 3.45 X 10^6uL (4.20-6.10); RED CELL DISTRIBUTION WIDTH 14.4 % (11.5-14.5); WHITE BLOOD COUNT 12.9 X 10^3uL (3.9-10.7)
[2017-01-20] MEDS ORDERED: NORMAL SALINE 500 ML IV ONE (06:01)
[2017-01-20 06:19] LABS: BLOOD UREA NITROGEN 41 mg/dL (9-20); CALCIUM 8.1 mg/dL (8.4-10.2); CHLORIDE 101 mmol/L (98-107); CREATININE 1.9 mg/dL (0.7-1.3); GLUCOSE 95 mg/dL (70-100); MAGNESIUM 1.7 mg/dL (1.6-2.3); PHOSPHORUS 2.8 mg/dL (2.5-4.5); POTASSIUM 3.7 mmol/L (3.5-5.1); SODIUM 137 mmol/L (137-145)
[2017-01-20 06:24] LABS: NEUTROPHILS 89.1 % (54.0-75.0)
[2017-01-20] MEDS: INSULIN LISPRO 100 UNIT/ML ML SUBCUT SCH ×4 (08:29→21:58)
--- NOTE | 2017-01-20 08:39 | PROGRESS NOTE: IM APSO ---
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 Encouraged Ensure and did take 3 cans with extra protein, peanut butter sandwich and does have component refeeding syndrome Current Visit: Yes (2) Generalized weakness Status: Chronic Assessment and plan: from protracted hospitalization/deconditioning and concurrent anemia as well malnutrition and now refeeding syndrome Current Visit: Yes (3) Pneumonia Status: Suspected Assessment and plan: Vanco/Zosyn, cough improved, surrogate markers infection not markedly improved but will trend, plan 7 days IV ABX Current Visit: Yes (4) Hypoalbuminemia Status: Chronic Current Visit: Yes (5) Hypokalemia Status: Acute Assessment and plan: part of refeeding syndrome Current Visit: Yes (6) Ischemic colitis Status: Resolved Current Visit: Yes (7) Leukocytosis Status: Acute Current Visit: Yes (8) Right nephrolithiasis Status: Chronic Assessment and plan: urine output picking up, flomax started and repeat CT today. Likely DC dorman as well. f/u CT showed some stone migration and less hydronephrosis Current Visit: Yes (9) Anemia Status: Chronic Assessment and plan: on AC for CAD, will check stool guaiac and transfuse today. (Missed PRBC's yesterday), nutritional and surgical related. 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 Moncada next week. Current Visit: Yes (12) Generalized edema Status: Chronic Assessment and plan: and improving (truly related to Kwashiokor) Current Visit: Yes (13) H/O colon cancer, stage II Status: Chronic Current Visit: Yes (14) Hypercholesterolemia Status: Chronic Current Visit: Yes (15) Hypertension, benign Status: Chronic Current Visit: Yes (16) Hyperglycemia Status: Acute Assessment and plan: likely exacerbated by stress and attempts at hyperalimentation on baseline impaired glucose tolerance Current Visit: Yes (17) Intra-abdominal abscess post-procedure Status: Resolved Current Visit: Yes (18) Periumbilical pain Status: Chronic Current Visit: No (19) Electrolyte disorder Status: Acute Assessment and plan: related to refeeding syndrome, replace and f/u labs Current Visit: Yes - Time Spent With Patient Total time spent with greater than 50% in coordination of care (as documented) at patient's floor/unit and/or counseling patient: Greater than 35 minutes IM: PN Subjective General: fatigue (States he is feeling stronger up with OT), malaise, no fever, no chills Cardiovascular: no chest pain, no chest pressure, no palpitations Respiratory: cough (almost resolved), no SOB Gastrointestinal: other (ate 3 cans Ensure w/ Beneprotein and a peanut butter sandwich yesterday), no abdominal pain, no nausea, no vomiting, no diarrhea, no constipation (Large soft BM) Musculoskeletal: weakness (up with minimal assistance (needed standby)) Neurological: other (spoke about Kwashiorkor and Refeeding syndrome) IM: PN Objective Exam - I&O/Vital Signs I&O: Intake & Output 01/19/17 01/20/17 01/20/17 21:59 05:59 13:59 Intake Total 1550 899 Output Total 500 750 Balance 1050 149 Intake: IV 459 Right Upper arm 459 Oral 1430 120 Oral Supplement 120 Blood Product 320 Output: Urine 500 750 Other: Urine Appearance Clear Clear Urine Color Yellow Yellow Stool Size Large Large Stool Characteristics Soft Soft Liquid Liquid Brown Brown Green Green Voiding Method Indwelling Catheter Indwelling Catheter # Voids 1 # Bowel Movements 5 1 Vital Signs: Last Vital Signs Temp 36.2 C L 01/20/17 07:04 Pulse 93 H 01/20/17 07:04 Resp 24 01/20/17 07:04 BP 126/76 01/20/17 07:04 Pulse Ox 91 01/20/17 07:04 Oxygen Flow Rate 1 Oxygen Delivery Method Nasal Cannula - Constitutional General appearance: Present: obese - Head Head exam: Present: atraumatic - Eye Eye exam: Present: EOMI, normal appearance, PERRL - ENT ENT exam: Present: mucous membranes moist - Neck Neck exam: Present: full ROM. Absent: tenderness - Respiratory Respiratory exam: Present: decreased breath sounds (right with tubular quality but improve), rales (right base). Absent: rhonchi, wheezes - Cardiovascular Cardiovascular exam: Present: RRR. Absent: systolic murmur - GI/Abdominal GI/Abdominal exam: Present: hypoactive bowel sounds, soft, tenderness (left upper quadrant felt from midline wound), other (midline wound dressed, right upper quad drain DC'd and right lower quad drain in place without erythema) - Extremities Exam Extremities exam: Present: edema (1+ at ankles currently and nil/trace lower back persists). Absent: calf tenderness, Dusty's Sign - Neurological Exam Neurological exam: Present: alert, oriented X3 - Lab Labs: Laboratory Last Values WBC 12.9 X 10^3uL (3.9-10.7) H 01/20/17 05:20 RBC 3.45 X 10^6uL (4.20-6.10) L 01/20/17 05:20 Hgb 10.2 g/dL (14.0-18.0) L 01/20/17 05:20 Hct 30.8 % (42.0-54.0) L 01/20/17 05:20 MCV 89.2 fL (80.0-100.0) 01/20/17 05:20 MCH 29.5 pg (29.0-35.0) 01/20/17 05:20 MCHC 33.0 g/dL (32.0-36.0) 01/20/17 05:20 RDW 14.4 % (11.5-14.5) 01/20/17 05:20 Plt Count 320 X 10^3uL (130-440) 01/20/17 05:20 MPV 7.7 fL (7.4-10.4) 01/20/17 05:20 Neutrophils % 89.1 % (54.0-75.0) H 01/20/17 05:20 Lymphocytes % 4.1 % (20.0-40.0) L 01/20/17 05:20 Eosinophils % 0.8 % (0.0-6.0) 01/20/17 05:20 Basophils % 0.4 % (0.0-2.0) 01/20/17 05:20 Neutrophils # 11.5 X 10^3uL (2.6-6.7) H 01/20/17 05:20 Lymphocytes # 0.5 X 10^3uL (0.8-3.8) L 01/20/17 05:20 Monocytes 5.6 % (2.0-10.0) 01/20/17 05:20 Monocytes # 0.7 X 10^3uL (0.2-1.0) 01/20/17 05:20 Eosinophils # 0.1 X 10^3uL (0.0-0.4) 01/20/17 05:20 Basophils # 0.1 X 10^3uL (0.0-0.1) 01/20/17 05:20 Sodium 137 mmol/L (137-145) 01/20/17 05:20 Potassium 3.7 mmol/L (3.5-5.1) 01/20/17 05:20 Chloride 101 mmol/L (98-107) 01/20/17 05:20 Carbon Dioxide 29 mmol/L (22-30) 01/20/17 05:20 BUN 41 mg/dL (9-20) H 01/20/17 05:20 Creatinine 1.9 mg/dL (0.7-1.3) H 01/20/17 05:20 GFR Calculation Not Reportable 01/20/17 05:20 Glucose 95 mg/dL (70-100) 01/20/17 05:20 Lactic Acid 0.8 mmol/L (0.7-2.1) 01/17/17 20:10 Calcium 8.1 mg/dL (8.4-10.2) L 01/20/17 05:20 Phosphorus 2.8 mg/dL (2.5-4.5) 01/20/17 05:20 Magnesium 1.7 mg/dL (1.6-2.3) 01/20/17 05:20 Iron 13 ug/dL (49-181) L 01/17/17 06:15 Transferrin < 80 mg/dL (206-381) L 01/17/17 06:15 Ferritin 1240 ng/mL (18-464) H 01/17/17 06:15 Total Bilirubin 0.4 mg/dL (0.2-1.3) D 01/19/17 05:00 AST 25 U/L (17-59) 01/19/17 05:00 ALT 28 U/L (21-72) 01/19/17 05:00 Alkaline Phosphatase 144 U/L (38-126) H 01/19/17 05:00 Lactate Dehydrogenase See comments (()) 01/18/17 05:00 Total Protein 6.0 g/dL (6.3-8.2) L 01/19/17 05:00 Albumin 2.5 g/dL (3.5-5.0) L 01/19/17 05:00 Albumin/Globulin Ratio 0.7 01/19/17 05:00 Prealbumin 8.6 mg/dL (17.6-36.0) L 01/17/17 06:15 ABO Group Type o 01/19/17 10:20 Rh Factor Positive 01/19/17 10:20 Antibody Screen Negative 01/19/17 10:20 Crossmatch Cancelled 01/20/17 10:20 (3) Pneumonia Qualifiers: Pneumonia type: due to Klebsiella pneumoniae Laterality: bilateral (9) Anemia Qualifiers: Anemia type: other cause Other causes of anemia: acute posthemorrhagic Qualified Code(s): D62 - Acute posthemorrhagic anemia (17) Intra-abdominal abscess post-procedure Qualifiers: Encounter type: sequela Qualified Code(s): T81.4XXS - Infection following a procedure, sequela; K65.1 - Peritoneal abscess
[2017-01-20] MEDS: FLUCONAZOLE 100 MG CAPSULE PO SCH (08:50)
[2017-01-20] MEDS: APIXABAN 2.5 MG TABLET PO SCH ×2 (08:50→21:30)
[2017-01-20] MEDS: DRONABINOL 2.5 MG CAPSULE PO SCH ×2 (08:51→21:30)
[2017-01-20] MEDS: LISINOPRIL 20 MG TABLET PO SCH (08:51)
[2017-01-20] MEDS: FINASTERIDE 5 MG TABLET PO SCH (08:51)
[2017-01-20] MEDS: COLLAGENASE OINT 30 APP/30 GM TUBE TOPICAL SCH (08:52)
[2017-01-20] MEDS: INSULIN GLARGINE,HUM.REC.ANLOG 100 UNITS/ML ML SUBCUT SCH (08:52)
[2017-01-20] MEDS ORDERED: BUMETANIDE 1 MG TABLET PO ONE (08:55)
[2017-01-20] MEDS ORDERED: BUMETANIDE 1 MG TABLET PO SCH (09:00)
[2017-01-20] MEDS ORDERED: DEXTROSE 5% IV SCH (10:00)
[2017-01-20] MEDS ORDERED: MAGNESIUM SULFATE IV SCH (10:00)
[2017-01-20] MEDS: PHOSPHORUS 250 MG TABLET PO SCH ×2 (10:50→21:30)
[2017-01-20] MEDS ORDERED: MAGNESIUM SULFATE 100 ML IV ONE (11:00)
--- NOTE | 2017-01-20 12:13 | PROGRESS NOTE:General Surgery ---
Assessment and Plan - Date of Encounter Date of Encounter: 01/20/17 (1) Protein-calorie malnutrition, moderate Status: Chronic Current Visit: Yes (2) Pleural effusion, bilateral Status: Chronic Current Visit: Yes (3) Positive culture findings in sputum Status: Acute Current Visit: Yes (4) Renal calculus or stone Status: Acute Current Visit: Yes (5) Bile leak, postoperative Status: Resolved Assessment and plan: He will need to have his stent removed in the next few weeks. We will plan to get this scheduled. I discussed with Dr. Bustillo who felt he could do this up here in [facility] [place]. Current Visit: Yes - Time Spent With Patient Total time spent with greater than 50% in coordination of care (as documented) at patient's floor/unit and/or counseling patient: ANEL: Gen Surg PN Subjective Patient reports: afebrile (better po intake), bowel movement, tolerating liquids well (so far has had minimal input), no fever, no nausea, no still having pain ANEL: Gen Surgery PN Obj Exam - Latest Vital Signs and I&O Latest Vital Signs/I&O: Vital Signs Temp 36.6 C 01/20/17 11:00 Pulse 59 L 01/20/17 11:00 Resp 20 01/20/17 11:00 BP 148/40 01/20/17 11:00 Pulse Ox 96 01/20/17 11:00 Intake & Output 01/19/17 01/20/17 01/20/17 17:59 05:59 17:59 Intake Total 480 2449 375 Output Total 1250 Balance 480 1199 375 Intake: IV 459 Right Upper arm 459 Oral 1550 Oral Supplement 480 120 Blood Product 320 375 Output: Urine 1250 Other: Urine Appearance Cloudy Clear Urine Color Yellow Yellow Stool Size Small Large Stool Characteristics Soft Soft Liquid Brown Green Voiding Method Indwelling Catheter Indwelling Catheter # Voids 1 # Bowel Movements 1 - Exam Respiratory exam: clear to auscultation, other (breath sounds diminished bilaterally but worse on the right.) Abdomen exam: bowel sounds (active), wound (stable ), other (LLQ drain with minimal output which continues to be clear and straw colored. The drain was removed at the bedside.) - Lab Labs: Laboratory Last Values WBC 12.9 X 10^3uL (3.9-10.7) H 01/20/17 05:20 RBC 3.45 X 10^6uL (4.20-6.10) L 01/20/17 05:20 Hgb 10.2 g/dL (14.0-18.0) L 01/20/17 05:20 Hct 30.8 % (42.0-54.0) L 01/20/17 05:20 MCV 89.2 fL (80.0-100.0) 01/20/17 05:20 MCH 29.5 pg (29.0-35.0) 01/20/17 05:20 MCHC 33.0 g/dL (32.0-36.0) 01/20/17 05:20 RDW 14.4 % (11.5-14.5) 01/20/17 05:20 Plt Count 320 X 10^3uL (130-440) 01/20/17 05:20 MPV 7.7 fL (7.4-10.4) 01/20/17 05:20 Neutrophils % 89.1 % (54.0-75.0) H 01/20/17 05:20 Lymphocytes % 4.1 % (20.0-40.0) L 01/20/17 05:20 Eosinophils % 0.8 % (0.0-6.0) 01/20/17 05:20 Basophils % 0.4 % (0.0-2.0) 01/20/17 05:20 Neutrophils # 11.5 X 10^3uL (2.6-6.7) H 01/20/17 05:20 Lymphocytes # 0.5 X 10^3uL (0.8-3.8) L 01/20/17 05:20 Monocytes 5.6 % (2.0-10.0) 01/20/17 05:20 Monocytes # 0.7 X 10^3uL (0.2-1.0) 01/20/17 05:20 Eosinophils # 0.1 X 10^3uL (0.0-0.4) 01/20/17 05:20 Basophils # 0.1 X 10^3uL (0.0-0.1) 01/20/17 05:20 Sodium 137 mmol/L (137-145) 01/20/17 05:20 Potassium 3.7 mmol/L (3.5-5.1) 01/20/17 05:20 Chloride 101 mmol/L (98-107) 01/20/17 05:20 Carbon Dioxide 29 mmol/L (22-30) 01/20/17 05:20 BUN 41 mg/dL (9-20) H 01/20/17 05:20 Creatinine 1.9 mg/dL (0.7-1.3) H 01/20/17 05:20 GFR Calculation Not Reportable 01/20/17 05:20 Glucose 95 mg/dL (70-100) 01/20/17 05:20 Lactic Acid 0.8 mmol/L (0.7-2.1) 01/17/17 20:10 Calcium 8.1 mg/dL (8.4-10.2) L 01/20/17 05:20 Phosphorus 2.8 mg/dL (2.5-4.5) 01/20/17 05:20 Magnesium 1.7 mg/dL (1.6-2.3) 01/20/17 05:20 Iron 13 ug/dL (49-181) L 01/17/17 06:15 Transferrin < 80 mg/dL (206-381) L 01/17/17 06:15 Ferritin 1240 ng/mL (18-464) H 01/17/17 06:15 Total Bilirubin 0.4 mg/dL (0.2-1.3) D 01/19/17 05:00 AST 25 U/L (17-59) 01/19/17 05:00 ALT 28 U/L (21-72) 01/19/17 05:00 Alkaline Phosphatase 144 U/L (38-126) H 01/19/17 05:00 Lactate Dehydrogenase See comments (()) 01/18/17 05:00 Total Protein 6.0 g/dL (6.3-8.2) L 01/19/17 05:00 Albumin 2.5 g/dL (3.5-5.0) L 01/19/17 05:00 Albumin/Globulin Ratio 0.7 01/19/17 05:00 Prealbumin 8.6 mg/dL (17.6-36.0) L 01/17/17 06:15 ABO Group Type o 01/19/17 10:20 Rh Factor Positive 01/19/17 10:20 Antibody Screen Negative 01/19/17 10:20 Crossmatch Cancelled 01/20/17 10:20
[2017-01-20] MEDS ORDERED: NORMAL SALINE FLUSH 250 ML ONE (12:30)
[2017-01-20] MEDS: VANCOMYCIN HCL 1,250 MG in NORMAL SALINE 250 ML IV SCH (12:32)
[2017-01-20] MEDS: TAMSULOSIN HCL 0.4 MG CAPSULE PO SCH (21:30)
[2017-01-20] MEDS: ATORVASTATIN CALCIUM 10 MG TABLET PO SCH (21:30)
[2017-01-20] MEDS: VANCOMYCIN HCL 1,000 MG in NORMAL SALINE ADDVANTAGE 250 ML IV SCH (21:34)
[2017-01-21] MEDS: PIPERACILLIN /TAZO 3.375 GM in NORMAL SALINE MINI-BAG+ 100 ML IV SCH ×4 (05:16→23:14)
[2017-01-21 05:27] LABS: BASOPHIL# 0.1 X 10^3uL (0.0-0.1); BASOPHILS 0.5 % (0.0-2.0); EOSINOPHILS 0.6 % (0.0-6.0); EOSINOPHILS# 0.1 X 10^3uL (0.0-0.4); HEMATOCRIT 36.1 % (42.0-54.0); HEMOGLOBIN 12.1 g/dL (14.0-18.0); LYMPHOCYTES# 0.7 X 10^3uL (0.8-3.8); MEAN CELL VOLUME 88.7 fL (80.0-100.0); MEAN CORPUS. HGB CONCENTRATION 33.4 g/dL (32.0-36.0); MEAN CORPUSCULAR HEMOGLOBIN 29.6 pg (29.0-35.0); MEAN PLATELET VOLUME 7.6 fL (7.4-10.4); MONOCYTES 6.1 % (2.0-10.0); MONOCYTES# 0.9 X 10^3uL (0.2-1.0); NEUTROPHILS# 12.3 X 10^3uL (2.6-6.7); PLATELET COUNT 285 X 10^3uL (130-440); RED BLOOD COUNT 4.07 X 10^6uL (4.20-6.10); RED CELL DISTRIBUTION WIDTH 14.8 % (11.5-14.5); WHITE BLOOD COUNT 14.1 X 10^3uL (3.9-10.7)
[2017-01-21 05:28] LABS: NEUTROPHILS 87.8 % (54.0-75.0)
[2017-01-21 05:37] LABS: A/G RATIO 0.7; ALBUMIN 2.7 g/dL (3.5-5.0); ALKALINE PHOSPHATASE 162 U/L (38-126); ALT 35 U/L (21-72); AST 27 U/L (17-59); BILIRUBIN, TOTAL 0.8 mg/dL (0.2-1.3); BLOOD UREA NITROGEN 42 mg/dL (9-20); CALCIUM 8.3 mg/dL (8.4-10.2); CHLORIDE 103 mmol/L (98-107); GLUCOSE 94 mg/dL (70-100); MAGNESIUM 1.9 mg/dL (1.6-2.3); PHOSPHORUS 3.4 mg/dL (2.5-4.5); POTASSIUM 3.7 mmol/L (3.5-5.1); SODIUM 137 mmol/L (137-145); TOTAL PROTEIN 6.4 g/dL (6.3-8.2)
[2017-01-21] MEDS: INSULIN LISPRO 100 UNIT/ML ML SUBCUT SCH ×4 (07:53→20:50)
[2017-01-21] MEDS: FLUCONAZOLE 100 MG CAPSULE PO SCH (08:16)
[2017-01-21] MEDS: LISINOPRIL 20 MG TABLET PO SCH (08:16)
[2017-01-21] MEDS: FINASTERIDE 5 MG TABLET PO SCH (08:16)
[2017-01-21] MEDS: PHOSPHORUS 250 MG TABLET PO SCH ×2 (08:16→20:50)
[2017-01-21] MEDS: APIXABAN 2.5 MG TABLET PO SCH ×2 (08:17→20:50)
[2017-01-21] MEDS: ACETAMINOPHEN 325 MG TABLET PO PRN (08:17)
[2017-01-21] MEDS: DRONABINOL 2.5 MG CAPSULE PO SCH ×2 (08:17→20:49)
[2017-01-21] MEDS: INSULIN GLARGINE,HUM.REC.ANLOG 100 UNITS/ML ML SUBCUT SCH (08:19)
[2017-01-21] MEDS: COLLAGENASE OINT 30 APP/30 GM TUBE TOPICAL SCH (10:44)
[2017-01-21] MEDS ORDERED: [UNRECOGNIZED DRUG - OTHER] IV ONE (11:00)
--- NOTE | 2017-01-21 12:45 | PROGRESS NOTE: IM APSO ---
Assessment and Plan - Date of Encounter Date of Encounter: 01/21/17 (1) Generalized weakness Status: Chronic Assessment and plan: PT, OT Improving Current Visit: Yes (2) Malnutrition Status: Acute Assessment and plan: Dietary consult Shakes, beneprotein, yoghurt, eating some off plate Current Visit: Yes (3) Hypoalbuminemia Status: Chronic Current Visit: Yes (4) Iron deficiency anemia Status: Acute Assessment and plan: Venofer Post transfusion Current Visit: Yes (5) Hypokalemia Status: Resolved Current Visit: Yes (6) Generalized edema Status: Chronic Assessment and plan: Anasarca due to malnutrition Dietary consult Consider Alfredo wraps for legs. Not tolerant of barry hose Current Visit: Yes (7) Pleural effusion, bilateral Status: Chronic Assessment and plan: Will need to monitor for now. Hopefully will improve with improved nutrition. There is concern for possible pneumonia and pt on Vanco and Zosyn. 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 Eat shakes, beneprotein, yoghurt. General: fatigue, no fever, no chills Cardiovascular: no chest pain, no chest pressure, no palpitations Respiratory: no cough, no SOB Gastrointestinal: no abdominal pain, no nausea, no vomiting, no diarrhea (loose stool), no constipation Genitourinary: other (Urinary retention requiring straight caths - pt decline dorman) Musculoskeletal: weakness (Walking with PT into hallway) IM: PN Objective Exam - I&O/Vital Signs I&O: Intake & Output 01/20/17 01/21/17 01/21/17 21:59 05:59 13:59 Intake Total 1446 465 Output Total 200 820 Balance 1246 -355 Intake: IV 1196 105 Right Upper arm 1196 105 Oral 250 Oral Supplement 360 Output: Urine 200 820 Other: Urine Appearance Clear Clear Sediment Urine Color Yellow Yellow Straw [place] Stool Size Small Large Large Stool Characteristics Soft Soft Soft Brown [place] Voiding Method Urinal Diaper Self-Catheterization # Voids 2 1 # Bowel Movements 1 2 Vital Signs: Last Vital Signs Temp 37.0 C 01/21/17 06:52 Pulse 60 01/21/17 06:52 Resp 22 01/21/17 09:00 BP 163/70 01/21/17 06:52 Pulse Ox 93 01/21/17 09:00 Oxygen Flow Rate 2 Oxygen Delivery Method Nasal Cannula - Respiratory Respiratory exam: Present: clear. Absent: rales, rhonchi, wheezes - Cardiovascular Cardiovascular exam: Present: RRR. Absent: systolic murmur - GI/Abdominal GI/Abdominal exam: Present: normal bowel sounds, soft, tenderness (midline wound ), other (drains out, dorman out) - Extremities Exam Extremities exam: Present: edema (2+ edema 3/4 up shins bilat). Absent: calf tenderness, Dusty's Sign - Lab Labs: Laboratory Last Values WBC 14.1 X 10^3uL (3.9-10.7) H 01/21/17 05:10 RBC 4.07 X 10^6uL (4.20-6.10) L 01/21/17 05:10 Hgb 12.1 g/dL (14.0-18.0) L 01/21/17 05:10 Hct 36.1 % (42.0-54.0) L 01/21/17 05:10 MCV 88.7 fL (80.0-100.0) 01/21/17 05:10 MCH 29.6 pg (29.0-35.0) 01/21/17 05:10 MCHC 33.4 g/dL (32.0-36.0) 01/21/17 05:10 RDW 14.8 % (11.5-14.5) H 01/21/17 05:10 Plt Count 285 X 10^3uL (130-440) 01/21/17 05:10 MPV 7.6 fL (7.4-10.4) 01/21/17 05:10 Neutrophils % 87.8 % (54.0-75.0) H 01/21/17 05:10 Lymphocytes % 5.0 % (20.0-40.0) L 01/21/17 05:10 Eosinophils % 0.6 % (0.0-6.0) 01/21/17 05:10 Basophils % 0.5 % (0.0-2.0) 01/21/17 05:10 Neutrophils # 12.3 X 10^3uL (2.6-6.7) H 01/21/17 05:10 Lymphocytes # 0.7 X 10^3uL (0.8-3.8) L 01/21/17 05:10 Monocytes 6.1 % (2.0-10.0) 01/21/17 05:10 Monocytes # 0.9 X 10^3uL (0.2-1.0) 01/21/17 05:10 Eosinophils # 0.1 X 10^3uL (0.0-0.4) 01/21/17 05:10 Basophils # 0.1 X 10^3uL (0.0-0.1) 01/21/17 05:10 Sodium 137 mmol/L (137-145) 01/21/17 05:10 Potassium 3.7 mmol/L (3.5-5.1) 01/21/17 05:10 Chloride 103 mmol/L (98-107) 01/21/17 05:10 Carbon Dioxide 28 mmol/L (22-30) 01/21/17 05:10 BUN 42 mg/dL (9-20) H 01/21/17 05:10 Creatinine 2.0 mg/dL (0.7-1.3) H 01/21/17 05:10 GFR Calculation Not Reportable 01/21/17 05:10 Glucose 94 mg/dL (70-100) 01/21/17 05:10 Lactic Acid 0.8 mmol/L (0.7-2.1) 01/17/17 20:10 Calcium 8.3 mg/dL (8.4-10.2) L 01/21/17 05:10 Phosphorus 3.4 mg/dL (2.5-4.5) 01/21/17 05:10 Magnesium 1.9 mg/dL (1.6-2.3) 01/21/17 05:10 Iron 13 ug/dL (49-181) L 01/17/17 06:15 Transferrin < 80 mg/dL (206-381) L 01/17/17 06:15 Ferritin 1240 ng/mL (18-464) H 01/17/17 06:15 Total Bilirubin 0.8 mg/dL (0.2-1.3) D 01/21/17 05:10 AST 27 U/L (17-59) 01/21/17 05:10 ALT 35 U/L (21-72) 01/21/17 05:10 Alkaline Phosphatase 162 U/L (38-126) H 01/21/17 05:10 Lactate Dehydrogenase See comments (()) 01/18/17 05:00 Total Protein 6.4 g/dL (6.3-8.2) 01/21/17 05:10 Albumin 2.7 g/dL (3.5-5.0) L 01/21/17 05:10 Albumin/Globulin Ratio 0.7 01/21/17 05:10 Prealbumin 8.6 mg/dL (17.6-36.0) L 01/17/17 06:15 Vancomycin Trough 20.2 ug/mL (5.0-20.0) H* 01/20/17 11:45 ABO Group Type o 01/19/17 10:20 Rh Factor Positive 01/19/17 10:20 Antibody Screen Negative 01/19/17 10:20 Crossmatch Cancelled 01/20/17 10:20 (10) Intra-abdominal abscess post-procedure Qualifiers: Encounter type: sequela Qualified Code(s): T81.4XXS - Infection following a procedure, sequela; K65.1 - Peritoneal abscess
[2017-01-21] MEDS: TAMSULOSIN HCL 0.4 MG CAPSULE PO SCH (20:49)
[2017-01-21] MEDS: ATORVASTATIN CALCIUM 10 MG TABLET PO SCH (20:50)
[2017-01-21] MEDS ORDERED: NORMAL SALINE ADDVANTAGE IV ONE (21:24)
[2017-01-21] MEDS ORDERED: VANCOMYCIN HCL IV ONE (21:24)
[2017-01-21] MEDS ORDERED: NORMAL SALINE 250 ML IV ONE (21:44)
[2017-01-21] MEDS ORDERED: VANCOMYCIN HCL 1,000 MG/20 ML VIAL ONE (21:44)
[2017-01-21] MEDS: VANCOMYCIN HCL 1,000 MG in NORMAL SALINE ADDVANTAGE 250 ML IV SCH (21:45)
[2017-01-22] MEDS: PIPERACILLIN /TAZO 3.375 GM in NORMAL SALINE MINI-BAG+ 100 ML IV SCH ×4 (05:48→23:13)
[2017-01-22 06:22] LABS: HEMOGLOBIN 11.7 g/dL (14.0-18.0); MEAN CELL VOLUME 88.4 fL (80.0-100.0); MEAN CORPUS. HGB CONCENTRATION 33.5 g/dL (32.0-36.0); MEAN CORPUSCULAR HEMOGLOBIN 29.6 pg (29.0-35.0); MEAN PLATELET VOLUME 7.3 fL (7.4-10.4); PLATELET COUNT 257 X 10^3uL (130-440); RED BLOOD COUNT 3.96 X 10^6uL (4.20-6.10); WHITE BLOOD COUNT 14.8 X 10^3uL (3.9-10.7)
[2017-01-22 06:52] LABS: A/G RATIO 0.7; ALBUMIN 2.7 g/dL (3.5-5.0); ALKALINE PHOSPHATASE 153 U/L (38-126); ALT 29 U/L (21-72); AST 27 U/L (17-59); BILIRUBIN, TOTAL 0.6 mg/dL (0.2-1.3); BLOOD UREA NITROGEN 40 mg/dL (9-20); CALCIUM 8.5 mg/dL (8.4-10.2); CHLORIDE 105 mmol/L (98-107); CREATININE 1.9 mg/dL (0.7-1.3); GLUCOSE 89 mg/dL (70-100); MAGNESIUM 1.8 mg/dL (1.6-2.3); PHOSPHORUS 3.4 mg/dL (2.5-4.5); POTASSIUM 3.8 mmol/L (3.5-5.1); SODIUM 138 mmol/L (137-145); TOTAL PROTEIN 6.5 g/dL (6.3-8.2)
[2017-01-22 07:10] LABS: BAND% (Manual) 2 % (0.0-1.0); BASOPHIL % (Manual) 2 % (0.0-2.0); EOSINOPHIL % (Manual) 1 % (0.0-6.0); MONOCYTE % (Manual) 2 % (2.0-10.0); NEUTROPHIL % (Manual) 85 % (54.0-75.0)
[2017-01-22 07:11] LABS: PLATELET ESTIMATE ADEQUATE
[2017-01-22] MEDS: INSULIN LISPRO 100 UNIT/ML ML SUBCUT SCH ×4 (07:33→21:31)
[2017-01-22] MEDS: FLUCONAZOLE 100 MG CAPSULE PO SCH (09:10)
[2017-01-22] MEDS: FINASTERIDE 5 MG TABLET PO SCH (09:10)
[2017-01-22] MEDS: DRONABINOL 2.5 MG CAPSULE PO SCH ×2 (09:10→21:43)
[2017-01-22] MEDS: LISINOPRIL 20 MG TABLET PO SCH (09:11)
[2017-01-22] MEDS: APIXABAN 2.5 MG TABLET PO SCH ×2 (09:11→21:41)
[2017-01-22] MEDS: INSULIN GLARGINE,HUM.REC.ANLOG 100 UNITS/ML ML SUBCUT SCH (09:14)
[2017-01-22] MEDS: COLLAGENASE OINT 30 APP/30 GM TUBE TOPICAL SCH (09:36)
--- NOTE | 2017-01-22 13:04 | PROGRESS NOTE: IM APSO ---
Assessment and Plan - Date of Encounter Date of Encounter: 01/22/17 (1) Generalized weakness Status: Chronic Assessment and plan: PT, OT Improving Current Visit: Yes (2) Malnutrition Status: Acute Assessment and plan: Dietary consult Shakes, beneprotein, yoghurt, eating some off plate Improving Current Visit: Yes (3) Hypoalbuminemia Status: Chronic Current Visit: Yes (4) Iron deficiency anemia Status: Acute Assessment and plan: Venofer Post transfusion Current Visit: Yes (5) Generalized edema Status: Chronic Assessment and plan: Anasarca due to malnutrition Dietary consult Consider Alfredo wraps for legs. Not tolerant of barry hose Current Visit: Yes (6) Pleural effusion, bilateral Status: Chronic Assessment and plan: Will need to monitor for now. Hopefully will improve with improved nutrition. There is concern for possible pneumonia and pt on Vanco and Zosyn. Current Visit: Yes (7) CAD in [place] artery Status: Chronic Current Visit: Yes (8) Urinary retention Status: Acute Assessment and plan: Straight caths - pt agreeable to Schneider On proscar and tamsulosin Consider bladder training in one week Current Visit: Yes (9) Leukocytosis Status: Acute Assessment and plan: No left shift. Will monitor for now. Trial of Schneider, IS, ambulation, etc. Current Visit: Yes - Time Spent With Patient Total time spent with greater than 50% in coordination of care (as documented) at patient's floor/unit and/or counseling patient: IM: PN Subjective General: fatigue, no fever, no chills Cardiovascular: no chest pain, no chest pressure, no palpitations Respiratory: no cough, no SOB Gastrointestinal: no abdominal pain, no nausea, no vomiting, no diarrhea, no constipation Genitourinary: other (Urinary retention requiring straight caths - pt agreeable to Schneider) Musculoskeletal: weakness (Walking with PT into hallway) IM: PN Objective Exam - I&O/Vital Signs I&O: Intake & Output 01/21/17 01/22/17 01/22/17 21:59 05:59 13:59 Intake Total 1370 1070 320 Output Total 475 650 Balance 895 420 320 Intake: IV 720 Right Upper arm 720 Oral 1050 350 Oral Supplement 320 320 Output: Urine 475 650 Other: Urine Appearance Clear Clear Urine Color Dark Jackie Dark Jackie Stool Size Moderate Large Stool Characteristics Soft Soft Brown Liquid Brown Green Voiding Method Self-Catheterization Self-Catheterization # Bowel Movements 3 3 Vital Signs: Last Vital Signs Temp 36.5 C 01/22/17 11:00 Pulse 60 01/22/17 11:00 Resp 24 01/22/17 11:00 BP 140/68 01/22/17 11:00 Pulse Ox 95 01/22/17 11:00 Oxygen Flow Rate 1 Oxygen Delivery Method Nasal Cannula - Respiratory Respiratory exam: Present: clear. Absent: rales, rhonchi, wheezes - Cardiovascular Cardiovascular exam: Present: RRR. Absent: systolic murmur - GI/Abdominal GI/Abdominal exam: Present: normal bowel sounds, soft, tenderness (midline wound ) - Extremities Exam Extremities exam: Present: edema (2+ edema 3/4 up shins bilat). Absent: calf tenderness, Dusty's Sign - Lab Labs: Laboratory Last Values WBC 14.8 X 10^3uL (3.9-10.7) H 01/22/17 06:00 RBC 3.96 X 10^6uL (4.20-6.10) L 01/22/17 06:00 Hgb 11.7 g/dL (14.0-18.0) L 01/22/17 06:00 Hct 35.0 % (42.0-54.0) L 01/22/17 06:00 MCV 88.4 fL (80.0-100.0) 01/22/17 06:00 MCH 29.6 pg (29.0-35.0) 01/22/17 06:00 MCHC 33.5 g/dL (32.0-36.0) 01/22/17 06:00 RDW 14.0 % (11.5-14.5) 01/22/17 06:00 Plt Count 257 X 10^3uL (130-440) 01/22/17 06:00 MPV 7.3 fL (7.4-10.4) L 01/22/17 06:00 Total Counted 100 01/22/17 06:00 Neutrophils % 87.8 % (54.0-75.0) H 01/21/17 05:10 Neutrophils % (Manual) 85 % (54.0-75.0) H 01/22/17 06:00 Band Neuts % (Manual) 2 % (0.0-1.0) H 01/22/17 06:00 Lymphocytes % 5.0 % (20.0-40.0) L 01/21/17 05:10 Atypical Lymphs % (Man) 8 % 01/22/17 06:00 Monocytes % (Manual) 2 % (2.0-10.0) 01/22/17 06:00 Eosinophils % 0.6 % (0.0-6.0) 01/21/17 05:10 Eosinophils % (Manual) 1 % (0.0-6.0) 01/22/17 06:00 Basophils % 0.5 % (0.0-2.0) 01/21/17 05:10 Basophils % (Manual) 2 % (0.0-2.0) 01/22/17 06:00 Neutrophils # 12.3 X 10^3uL (2.6-6.7) H 01/21/17 05:10 Lymphocytes # 0.7 X 10^3uL (0.8-3.8) L 01/21/17 05:10 Monocytes 6.1 % (2.0-10.0) 01/21/17 05:10 Monocytes # 0.9 X 10^3uL (0.2-1.0) 01/21/17 05:10 Eosinophils # 0.1 X 10^3uL (0.0-0.4) 01/21/17 05:10 Basophils # 0.1 X 10^3uL (0.0-0.1) 01/21/17 05:10 Platelet Estimate Adequate 01/22/17 06:00 Hypochromic-Microcytic 10-19% of cells 01/22/17 06:00 Anisocytosis 10-19% of cells 01/22/17 06:00 Macrocytosis 10-19% of cells 01/22/17 06:00 Sodium 138 mmol/L (137-145) 01/22/17 06:00 Potassium 3.8 mmol/L (3.5-5.1) 01/22/17 06:00 Chloride 105 mmol/L (98-107) 01/22/17 06:00 Carbon Dioxide 27 mmol/L (22-30) 01/22/17 06:00 BUN 40 mg/dL (9-20) H 01/22/17 06:00 Creatinine 1.9 mg/dL (0.7-1.3) H 01/22/17 06:00 GFR Calculation Not Reportable 01/22/17 06:00 Glucose 89 mg/dL (70-100) 01/22/17 06:00 Lactic Acid 0.8 mmol/L (0.7-2.1) 01/17/17 20:10 Calcium 8.5 mg/dL (8.4-10.2) 01/22/17 06:00 Phosphorus 3.4 mg/dL (2.5-4.5) 01/22/17 06:00 Magnesium 1.8 mg/dL (1.6-2.3) 01/22/17 06:00 Iron 13 ug/dL (49-181) L 01/17/17 06:15 Transferrin < 80 mg/dL (206-381) L 01/17/17 06:15 Ferritin 1240 ng/mL (18-464) H 01/17/17 06:15 Total Bilirubin 0.6 mg/dL (0.2-1.3) 01/22/17 06:00 AST 27 U/L (17-59) 01/22/17 06:00 ALT 29 U/L (21-72) 01/22/17 06:00 Alkaline Phosphatase 153 U/L (38-126) H 01/22/17 06:00 Lactate Dehydrogenase See comments (()) 01/18/17 05:00 Total Protein 6.5 g/dL (6.3-8.2) 01/22/17 06:00 Albumin 2.7 g/dL (3.5-5.0) L 01/22/17 06:00 Albumin/Globulin Ratio 0.7 01/22/17 06:00 Prealbumin 8.6 mg/dL (17.6-36.0) L 01/17/17 06:15 Vancomycin Trough 21.0 ug/mL (5.0-20.0) H* 01/21/17 20:30 ABO Group Type o 01/19/17 10:20 Rh Factor Positive 01/19/17 10:20 Antibody Screen Negative 01/19/17 10:20 Crossmatch Cancelled 01/20/17 10:20
[2017-01-22 14:27] LABS: URINE APPEARANCE SLIGHTLY CLOUDY; URINE COLOR YELLOW; URINE LEUKOCYTE ESTERASE NEGATIVE (NEGATIVE); URINE MUCUS NONE SEEN (Up to 25%); URINE NITRITE NEGATIVE (NEGATIVE); URINE SPECIFIC GRAVITY 1.015 (0.001-1.035)
[2017-01-22 14:28] LABS: URINE BACTERIA NONE SEEN (<10/hpf); URINE BILIRUBIN NEGATIVE (NEGATIVE); URINE BLOOD 250 Ery/uL (3+) (NEGATIVE); URINE GLUCOSE NORMAL (NEGATIVE); URINE KETONE NEGATIVE (NEGATIVE); URINE PROTEIN 100mg/dL (2+) (NEG - TRACE); URINE SQUAMOUS EPITHELIAL CELL 0-5/hpf (<= 15/hpf); URINE UROBILINOGEN NORMAL (NEG-1mg/dL); URINE WBC 0-4/hpf (0-4/hpf)
[2017-01-22] MEDS: ATORVASTATIN CALCIUM 10 MG TABLET PO SCH (21:42)
[2017-01-22] MEDS: TAMSULOSIN HCL 0.4 MG CAPSULE PO SCH (21:42)
[2017-01-22] MEDS: NORMAL SALINE MINI IV SCH (21:43)
[2017-01-22] MEDS: VANCOMYCIN HCL IV SCH (21:43)
[2017-01-22] MEDS ORDERED: NORMAL SALINE 100 ML IV ONE (21:57)
[2017-01-23] MEDS: PIPERACILLIN /TAZO 3.375 GM in NORMAL SALINE MINI-BAG+ 100 ML IV SCH ×4 (05:02→23:29)
[2017-01-23 06:52] LABS: HEMATOCRIT 31.5 % (42.0-54.0); HEMOGLOBIN 10.3 g/dL (14.0-18.0); MEAN CELL VOLUME 88.5 fL (80.0-100.0); MEAN CORPUS. HGB CONCENTRATION 32.7 g/dL (32.0-36.0); MEAN PLATELET VOLUME 7.3 fL (7.4-10.4); PLATELET COUNT 220 X 10^3uL (130-440); RED BLOOD COUNT 3.56 X 10^6uL (4.20-6.10); RED CELL DISTRIBUTION WIDTH 14.2 % (11.5-14.5); WHITE BLOOD COUNT 12.5 X 10^3uL (3.9-10.7)
[2017-01-23 07:12] LABS: A/G RATIO 0.7; ALBUMIN 2.7 g/dL (3.5-5.0); ALKALINE PHOSPHATASE 159 U/L (38-126); ALT 33 U/L (21-72); AST 28 U/L (17-59); BILIRUBIN, TOTAL 0.8 mg/dL (0.2-1.3); BLOOD UREA NITROGEN 34 mg/dL (9-20); CALCIUM 8.3 mg/dL (8.4-10.2); CHLORIDE 108 mmol/L (98-107); CREATININE 1.7 mg/dL (0.7-1.3); GLUCOSE 86 mg/dL (70-100); MAGNESIUM 1.7 mg/dL (1.6-2.3); POTASSIUM 3.5 mmol/L (3.5-5.1); SODIUM 141 mmol/L (137-145); TOTAL PROTEIN 6.6 g/dL (6.3-8.2)
[2017-01-23 08:32] LABS: BAND% (Manual) 3 % (0.0-1.0); LYMPHOCYTE % (Manual) 7 % (20.0-40.0); MONOCYTE % (Manual) 5 % (2.0-10.0); NEUTROPHIL % (Manual) 85 % (54.0-75.0); PLATELET ESTIMATE ADEQUATE
[2017-01-23] MEDS: INSULIN LISPRO 100 UNIT/ML ML SUBCUT SCH ×4 (09:19→21:08)
[2017-01-23] MEDS: FLUCONAZOLE 100 MG CAPSULE PO SCH (09:19)
[2017-01-23] MEDS: DRONABINOL 2.5 MG CAPSULE PO SCH ×2 (09:19→20:58)
[2017-01-23] MEDS: INSULIN GLARGINE,HUM.REC.ANLOG 100 UNITS/ML ML SUBCUT SCH (09:20)
[2017-01-23] MEDS: LISINOPRIL 20 MG TABLET PO SCH (09:20)
[2017-01-23] MEDS: APIXABAN 2.5 MG TABLET PO SCH ×2 (09:20→20:58)
[2017-01-23] MEDS: FINASTERIDE 5 MG TABLET PO SCH (09:20)
[2017-01-23] MEDS: COLLAGENASE OINT 30 APP/30 GM TUBE TOPICAL SCH (09:22)
[2017-01-23] MEDS ORDERED: NORMAL SALINE FLUSH 250 ML ONE (13:56)
--- NOTE | 2017-01-23 14:02 | PROGRESS NOTE: IM APSO ---
Assessment and Plan - Date of Encounter Date of Encounter: 01/23/17 (1) Generalized weakness Status: Chronic Assessment and plan: PT, OT Improving Current Visit: Yes (2) Malnutrition Status: Acute Assessment and plan: Dietary consult Shakes, beneprotein, yoghurt, eating some off plate Improving Current Visit: Yes (3) Hypoalbuminemia Status: Chronic Current Visit: Yes (4) Iron deficiency anemia Status: Acute Assessment and plan: Venofer Post transfusion Current Visit: Yes (5) Generalized edema Status: Chronic Assessment and plan: Anasarca due to malnutrition Dietary consult Consider Alfredo wraps for legs. Not tolerant of barry hose Current Visit: Yes (6) Pleural effusion, bilateral Status: Chronic Assessment and plan: Will need to monitor for now. Hopefully will improve with improved nutrition. There is concern for possible pneumonia and pt on Vanco and Zosyn. IS Current Visit: Yes (7) CAD in [place] artery Status: Chronic Current Visit: Yes (8) Urinary retention Status: Acute Assessment and plan: Schneider On proscar and tamsulosin Consider bladder training in one week Current Visit: Yes (9) Leukocytosis Status: Acute Assessment and plan: Improving No left shift. Will monitor for now. Trial of Schneider, IS, ambulation, etc. may be helping. Current Visit: Yes - Time Spent With Patient Total time spent with greater than 50% in coordination of care (as documented) at patient's floor/unit and/or counseling patient: IM: PN Subjective General: fatigue, no fever, no chills Cardiovascular: no chest pain, no chest pressure, no palpitations Respiratory: no cough, no SOB Gastrointestinal: no abdominal pain, no nausea, no vomiting, no diarrhea, no constipation Genitourinary: other (Schneider for urinary retention) Musculoskeletal: weakness (Walking with PT down hallway) IM: PN Objective Exam - I&O/Vital Signs I&O: Intake & Output 01/22/17 01/23/17 01/23/17 21:59 05:59 13:59 Intake Total 900 800 360 Output Total 1050 850 Balance -150 -50 360 Intake: IV 800 Right Upper arm 800 Oral 900 Oral Supplement 360 Output: Urine 1050 850 Other: Urine Appearance Clear Clear Clear Urine Color Yellow Dark Jackie Yellow Uretheral (Schneider) Yellow Yellow Stool Size Large Stool Characteristics Green Voiding Method Indwelling Catheter Indwelling Catheter Indwelling Catheter # Voids 1 # Bowel Movements 3 Vital Signs: Last Vital Signs Temp 36.6 C 01/23/17 11:00 Pulse 97 H 01/23/17 11:00 Resp 32 H 01/23/17 11:00 BP 163/86 01/23/17 11:00 Pulse Ox 92 01/23/17 11:00 Oxygen Flow Rate 1 Oxygen Delivery Method Nasal Cannula - Respiratory Respiratory exam: Present: clear. Absent: rales, rhonchi, wheezes - Cardiovascular Cardiovascular exam: Present: RRR. Absent: systolic murmur - GI/Abdominal GI/Abdominal exam: Present: normal bowel sounds, soft, tenderness (midline wound ) - Extremities Exam Extremities exam: Present: edema (1+ edema ). Absent: calf tenderness, Dusty's Sign - Lab Labs: Laboratory Last Values WBC 12.5 X 10^3uL (3.9-10.7) H 01/23/17 06:25 RBC 3.56 X 10^6uL (4.20-6.10) L 01/23/17 06:25 Hgb 10.3 g/dL (14.0-18.0) L 01/23/17 06:25 Hct 31.5 % (42.0-54.0) L 01/23/17 06:25 MCV 88.5 fL (80.0-100.0) 01/23/17 06:25 MCH 29.0 pg (29.0-35.0) 01/23/17 06:25 MCHC 32.7 g/dL (32.0-36.0) 01/23/17 06:25 RDW 14.2 % (11.5-14.5) 01/23/17 06:25 Plt Count 220 X 10^3uL (130-440) 01/23/17 06:25 MPV 7.3 fL (7.4-10.4) L 01/23/17 06:25 Total Counted 100 01/23/17 06:25 Neutrophils % 87.8 % (54.0-75.0) H 01/21/17 05:10 Neutrophils % (Manual) 85 % (54.0-75.0) H 01/23/17 06:25 Band Neuts % (Manual) 3 % (0.0-1.0) H 01/23/17 06:25 Lymphocytes % 5.0 % (20.0-40.0) L 01/21/17 05:10 Lymphocytes % (Manual) 7 % (20.0-40.0) L 01/23/17 06:25 Atypical Lymphs % (Man) 8 % 01/22/17 06:00 Monocytes % (Manual) 5 % (2.0-10.0) 01/23/17 06:25 Eosinophils % 0.6 % (0.0-6.0) 01/21/17 05:10 Eosinophils % (Manual) 1 % (0.0-6.0) 01/22/17 06:00 Basophils % 0.5 % (0.0-2.0) 01/21/17 05:10 Basophils % (Manual) 2 % (0.0-2.0) 01/22/17 06:00 Neutrophils # 12.3 X 10^3uL (2.6-6.7) H 01/21/17 05:10 Lymphocytes # 0.7 X 10^3uL (0.8-3.8) L 01/21/17 05:10 Monocytes 6.1 % (2.0-10.0) 01/21/17 05:10 Monocytes # 0.9 X 10^3uL (0.2-1.0) 01/21/17 05:10 Eosinophils # 0.1 X 10^3uL (0.0-0.4) 01/21/17 05:10 Basophils # 0.1 X 10^3uL (0.0-0.1) 01/21/17 05:10 Platelet Estimate Adequate 01/23/17 06:25 Hypochromic-Microcytic 10-19% of cells 01/22/17 06:00 Anisocytosis 10-19% of cells 01/22/17 06:00 Macrocytosis 10-19% of cells 01/22/17 06:00 Sodium 141 mmol/L (137-145) 01/23/17 06:25 Potassium 3.5 mmol/L (3.5-5.1) 01/23/17 06:25 Chloride 108 mmol/L (98-107) H 01/23/17 06:25 Carbon Dioxide 26 mmol/L (22-30) 01/23/17 06:25 BUN 34 mg/dL (9-20) H 01/23/17 06:25 Creatinine 1.7 mg/dL (0.7-1.3) H 01/23/17 06:25 GFR Calculation Not Reportable 01/23/17 06:25 Glucose 86 mg/dL (70-100) 01/23/17 06:25 Lactic Acid 0.8 mmol/L (0.7-2.1) 01/17/17 20:10 Calcium 8.3 mg/dL (8.4-10.2) L 01/23/17 06:25 Phosphorus 3.0 mg/dL (2.5-4.5) 01/23/17 06:25 Magnesium 1.7 mg/dL (1.6-2.3) 01/23/17 06:25 Iron 13 ug/dL (49-181) L 01/17/17 06:15 Transferrin < 80 mg/dL (206-381) L 01/17/17 06:15 Ferritin 1240 ng/mL (18-464) H 01/17/17 06:15 Total Bilirubin 0.8 mg/dL (0.2-1.3) 01/23/17 06:25 AST 28 U/L (17-59) 01/23/17 06:25 ALT 33 U/L (21-72) 01/23/17 06:25 Alkaline Phosphatase 159 U/L (38-126) H 01/23/17 06:25 Lactate Dehydrogenase See comments (()) 01/18/17 05:00 Total Protein 6.6 g/dL (6.3-8.2) 01/23/17 06:25 Albumin 2.7 g/dL (3.5-5.0) L 01/23/17 06:25 Albumin/Globulin Ratio 0.7 01/23/17 06:25 Prealbumin 8.6 mg/dL (17.6-36.0) L 01/17/17 06:15 Urine Color Yellow 01/22/17 13:05 Urine Appearance Slightly cloudy 01/22/17 13:05 Urine pH 7.0 (5-7) 01/22/17 13:05 Ur Specific [place] 1.015 (0.001-1.035) 01/22/17 13:05 Urine Protein 100mg/dl (2+) (NEG - TRACE) A 01/22/17 13:05 Urine Ketones Negative (NEGATIVE) 01/22/17 13:05 Urine Blood 250 [place]/ul (3+) (NEGATIVE) A 01/22/17 13:05 Urine Nitrate Negative (NEGATIVE) 01/22/17 13:05 Urine Bilirubin Negative (NEGATIVE) 01/22/17 13:05 Urine Urobilinogen Normal (NEG-1mg/dL) 01/22/17 13:05 Ur Leukocyte Esterase Negative (NEGATIVE) 01/22/17 13:05 Urine RBC 25-50/hpf (0-5/hpf) 01/22/17 13:05 Urine WBC 0-4/hpf (0-4/hpf) 01/22/17 13:05 Ur Squamous Epith Cells 0-5/hpf (<= 15/hpf) 01/22/17 13:05 Urine Bacteria None seen (<10/hpf) 01/22/17 13:05 Hyaline Casts 0-2/lpf (0-5/lpf) 01/22/17 13:05 Urine Mucus None seen (Up to 25%) 01/22/17 13:05 Urine Glucose Normal (NEGATIVE) 01/22/17 13:05 Vancomycin Trough 21.0 ug/mL (5.0-20.0) H* 01/21/17 20:30 ABO Group Type o 01/19/17 10:20 Rh Factor Positive 01/19/17 10:20 Antibody Screen Negative 01/19/17 10:20 Crossmatch Cancelled 01/20/17 10:20
[2017-01-23] MEDS: TAMSULOSIN HCL 0.4 MG CAPSULE PO SCH (20:58)
[2017-01-23] MEDS: ATORVASTATIN CALCIUM 10 MG TABLET PO SCH (20:59)
[2017-01-23] MEDS: NORMAL SALINE MINI IV SCH (21:35)
[2017-01-23] MEDS: VANCOMYCIN HCL IV SCH (21:35)
[2017-01-23] MEDS ORDERED: NORMAL SALINE 250 ML IV ONE (23:36)
[2017-01-24] MEDS: PIPERACILLIN /TAZO 3.375 GM in NORMAL SALINE MINI-BAG+ 100 ML IV SCH (05:06)
[2017-01-24 06:14] LABS: A/G RATIO 0.7; ALBUMIN 2.9 g/dL (3.5-5.0); ALKALINE PHOSPHATASE 192 U/L (38-126); ALT 30 U/L (21-72); AST 28 U/L (17-59); BILIRUBIN, TOTAL 0.7 mg/dL (0.2-1.3); BLOOD UREA NITROGEN 33 mg/dL (9-20); CALCIUM 8.7 mg/dL (8.4-10.2); CHLORIDE 108 mmol/L (98-107); CREATININE 1.8 mg/dL (0.7-1.3); GLUCOSE 120 mg/dL (70-100); MAGNESIUM 1.8 mg/dL (1.6-2.3); POTASSIUM 3.5 mmol/L (3.5-5.1); SODIUM 139 mmol/L (137-145); TOTAL PROTEIN 6.9 g/dL (6.3-8.2)
[2017-01-24] MEDS: INSULIN LISPRO 100 UNIT/ML ML SUBCUT SCH ×4 (08:08→22:10)
[2017-01-24] MEDS: FLUCONAZOLE 100 MG CAPSULE PO SCH (08:37)
[2017-01-24] MEDS: LISINOPRIL 20 MG TABLET PO SCH (08:37)
[2017-01-24] MEDS: INSULIN GLARGINE,HUM.REC.ANLOG 100 UNITS/ML ML SUBCUT SCH (08:38)
[2017-01-24] MEDS: APIXABAN 2.5 MG TABLET PO SCH ×2 (08:38→22:10)
[2017-01-24] MEDS: DRONABINOL 2.5 MG CAPSULE PO SCH ×2 (08:38→22:10)
[2017-01-24] MEDS: FINASTERIDE 5 MG TABLET PO SCH (08:38)
[2017-01-24] MEDS: COLLAGENASE OINT 30 APP/30 GM TUBE TOPICAL SCH (08:39)
--- NOTE | 2017-01-24 08:41 | PROGRESS NOTE: IM APSO ---
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 Encouraged nutrition with yogurt/Ensure w component refeeding syndrome will replace lytes Current Visit: Yes (2) Generalized weakness Status: Chronic Assessment and plan: from protracted hospitalization/deconditioning and concurrent anemia as well malnutrition and now refeeding syndrome Current Visit: Yes (3) Pneumonia Status: Suspected Assessment and plan: Vanco/Zosyn, cough improved, surrogate markers infection not markedly improved but symptoms completely abated, stop Abx Current Visit: Yes (4) Hypoalbuminemia Status: Chronic Assessment and plan: malnutrition Current Visit: Yes (5) Hypokalemia Status: Resolved Assessment and plan: part of refeeding syndrome along with hypomagnesemia/hypophosphotemia Current Visit: Yes (6) Ischemic colitis Status: Resolved Current Visit: Yes (7) Leukocytosis Status: Chronic Assessment and plan: not much change, does have hydronephrosis left but without flank pain and stone did move some. May need urology consult (will request) and may need cystoscopy. Current Visit: Yes (8) Right nephrolithiasis Status: Chronic Assessment and plan: urine output picking up, flomax started and repeat CT showed some migration in stone. Current Visit: Yes (9) Anemia Status: Chronic Assessment and plan: on AC for CAD, will check stool guaiac and transfuse today. (Missed PRBC's yesterday), nutritional and surgical related. 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 Moncada next week. Current Visit: Yes (12) Generalized edema Status: Chronic Assessment and plan: and improving (truly related to Kwashiokor) Current Visit: Yes (13) H/O colon cancer, stage II Status: Chronic Current Visit: Yes (14) Hypercholesterolemia Status: Chronic Current Visit: Yes (15) Hypertension, benign Status: Chronic Current Visit: Yes (16) Hyperglycemia Status: Acute Assessment and plan: likely exacerbated by stress and attempts at hyperalimentation on baseline impaired glucose tolerance Current Visit: Yes (17) Intra-abdominal abscess post-procedure Status: Resolved Current Visit: Yes (18) Periumbilical pain Status: Chronic Current Visit: No (19) Electrolyte disorder Status: Acute Assessment and plan: related to refeeding syndrome, replace and f/u labs Current Visit: Yes - Time Spent With Patient Total time spent with greater than 50% in coordination of care (as documented) at patient's floor/unit and/or counseling patient: Greater than 35 minutes IM: PN Subjective General: fatigue (Patient notes that he was improving then night had vague abdominal complaint/fullness that "just sapped my energy", couldn't eat well and was tired/fatigued overnight and through most of weekend, then yesterday, he had improved appetite and was able to walk. he notes he is better than when he came up from [facility] but more weak than last week. No fever/ cough/CP/palp. No vomiting, some nausea AP improved but water diarrhea without blood/mucus, no cramps/tenesmus. Slept well without PND/orthopnea.), no fever, no chills Cardiovascular: no chest pain, no chest pressure, no palpitations Respiratory: no cough, no SOB Gastrointestinal: nausea, no abdominal pain, no vomiting, no diarrhea, no constipation Genitourinary: other (Schneider for urinary retention) Musculoskeletal: weakness (had been doing better but weak over weekend) IM: PN Objective Exam - I&O/Vital Signs I&O: Intake & Output 01/23/17 01/24/17 01/24/17 21:59 05:59 13:59 Intake Total 870 670 Output Total 1350 950 Balance -480 -280 Intake: IV 420 Right Upper arm 420 Oral 870 250 Output: Urine 1350 950 Other: Urine Appearance Clear Clear Urine Color Yellow Yellow Uretheral (Schneider) Straw Yellow Stool Size Large Stool Characteristics Soft Soft Voiding Method Indwelling Catheter Indwelling Catheter # Bowel Movements 1 2 Vital Signs: Last Vital Signs Temp 36.5 C 01/24/17 06:37 Pulse 79 01/24/17 06:37 Resp 32 H 01/24/17 06:37 BP 162/79 01/24/17 06:37 Pulse Ox 93 01/24/17 06:37 Oxygen Flow Rate 1 Oxygen Delivery Method Nasal Cannula - Constitutional General appearance: Present: obese - Head Head exam: Present: atraumatic - Eye Eye exam: Present: EOMI, normal appearance, PERRL - ENT ENT exam: Present: mucous membranes moist - Neck Neck exam: Present: full ROM. Absent: tenderness - Respiratory Respiratory exam: Present: clear (diminished at bases). Absent: rales, rhonchi , wheezes - Cardiovascular Cardiovascular exam: Present: RRR (intermittent skipped beat). Absent: systolic murmur - GI/Abdominal GI/Abdominal exam: Present: normal bowel sounds, soft, tenderness (midline wound ) - Extremities Exam Extremities exam: Present: edema (sacral edema 2+ and 1+ pedal edema with TEDS in placed). Absent: calf tenderness, Dusty's Sign - Neurological Exam Neurological exam: Present: alert, oriented X3 - Lab Labs: Laboratory Last Values WBC 12.5 X 10^3uL (3.9-10.7) H 01/23/17 06:25 RBC 3.56 X 10^6uL (4.20-6.10) L 01/23/17 06:25 Hgb 10.3 g/dL (14.0-18.0) L 01/23/17 06:25 Hct 31.5 % (42.0-54.0) L 01/23/17 06:25 MCV 88.5 fL (80.0-100.0) 01/23/17 06:25 MCH 29.0 pg (29.0-35.0) 01/23/17 06:25 MCHC 32.7 g/dL (32.0-36.0) 01/23/17 06:25 RDW 14.2 % (11.5-14.5) 01/23/17 06:25 Plt Count 220 X 10^3uL (130-440) 01/23/17 06:25 MPV 7.3 fL (7.4-10.4) L 01/23/17 06:25 Total Counted 100 01/23/17 06:25 Neutrophils % 87.8 % (54.0-75.0) H 01/21/17 05:10 Neutrophils % (Manual) 85 % (54.0-75.0) H 01/23/17 06:25 Band Neuts % (Manual) 3 % (0.0-1.0) H 01/23/17 06:25 Lymphocytes % 5.0 % (20.0-40.0) L 01/21/17 05:10 Lymphocytes % (Manual) 7 % (20.0-40.0) L 01/23/17 06:25 Atypical Lymphs % (Man) 8 % 01/22/17 06:00 Monocytes % (Manual) 5 % (2.0-10.0) 01/23/17 06:25 Eosinophils % 0.6 % (0.0-6.0) 01/21/17 05:10 Eosinophils % (Manual) 1 % (0.0-6.0) 01/22/17 06:00 Basophils % 0.5 % (0.0-2.0) 01/21/17 05:10 Basophils % (Manual) 2 % (0.0-2.0) 01/22/17 06:00 Neutrophils # 12.3 X 10^3uL (2.6-6.7) H 01/21/17 05:10 Lymphocytes # 0.7 X 10^3uL (0.8-3.8) L 01/21/17 05:10 Monocytes 6.1 % (2.0-10.0) 01/21/17 05:10 Monocytes # 0.9 X 10^3uL (0.2-1.0) 01/21/17 05:10 Eosinophils # 0.1 X 10^3uL (0.0-0.4) 01/21/17 05:10 Basophils # 0.1 X 10^3uL (0.0-0.1) 01/21/17 05:10 Platelet Estimate Adequate 01/23/17 06:25 Hypochromic-Microcytic 10-19% of cells 01/22/17 06:00 Anisocytosis 10-19% of cells 01/22/17 06:00 Macrocytosis 10-19% of cells 01/22/17 06:00 Sodium 139 mmol/L (137-145) 01/24/17 05:05 Potassium 3.5 mmol/L (3.5-5.1) 01/24/17 05:05 Chloride 108 mmol/L (98-107) H 01/24/17 05:05 Carbon Dioxide 25 mmol/L (22-30) 01/24/17 05:05 BUN 33 mg/dL (9-20) H 01/24/17 05:05 Creatinine 1.8 mg/dL (0.7-1.3) H 01/24/17 05:05 GFR Calculation Not Reportable 01/24/17 05:05 Glucose 120 mg/dL (70-100) H 01/24/17 05:05 Lactic Acid 0.8 mmol/L (0.7-2.1) 01/17/17 20:10 Calcium 8.7 mg/dL (8.4-10.2) 01/24/17 05:05 Phosphorus 3.0 mg/dL (2.5-4.5) 01/24/17 05:05 Magnesium 1.8 mg/dL (1.6-2.3) 01/24/17 05:05 Iron 13 ug/dL (49-181) L 01/17/17 06:15 Transferrin < 80 mg/dL (206-381) L 01/17/17 06:15 Ferritin 1240 ng/mL (18-464) H 01/17/17 06:15 Total Bilirubin 0.7 mg/dL (0.2-1.3) 01/24/17 05:05 AST 28 U/L (17-59) 01/24/17 05:05 ALT 30 U/L (21-72) 01/24/17 05:05 Alkaline Phosphatase 192 U/L (38-126) H 01/24/17 05:05 Lactate Dehydrogenase See comments (()) 01/18/17 05:00 Total Protein 6.9 g/dL (6.3-8.2) 01/24/17 05:05 Albumin 2.9 g/dL (3.5-5.0) L 01/24/17 05:05 Albumin/Globulin Ratio 0.7 01/24/17 05:05 Prealbumin 8.6 mg/dL (17.6-36.0) L 01/17/17 06:15 Urine Color Yellow 01/22/17 13:05 Urine Appearance Slightly cloudy 01/22/17 13:05 Urine pH 7.0 (5-7) 01/22/17 13:05 Ur Specific [place] 1.015 (0.001-1.035) 01/22/17 13:05 Urine Protein 100mg/dl (2+) (NEG - TRACE) A 01/22/17 13:05 Urine Ketones Negative (NEGATIVE) 01/22/17 13:05 Urine Blood 250 aleksander/ul (3+) (NEGATIVE) A 01/22/17 13:05 Urine Nitrate Negative (NEGATIVE) 01/22/17 13:05 Urine Bilirubin Negative (NEGATIVE) 01/22/17 13:05 Urine Urobilinogen Normal (NEG-1mg/dL) 01/22/17 13:05 Ur Leukocyte Esterase Negative (NEGATIVE) 01/22/17 13:05 Urine RBC 25-50/hpf (0-5/hpf) 01/22/17 13:05 Urine WBC 0-4/hpf (0-4/hpf) 01/22/17 13:05 Ur Squamous Epith Cells 0-5/hpf (<= 15/hpf) 01/22/17 13:05 Urine Bacteria None seen (<10/hpf) 01/22/17 13:05 Hyaline Casts 0-2/lpf (0-5/lpf) 01/22/17 13:05 Urine Mucus None seen (Up to 25%) 01/22/17 13:05 Urine Glucose Normal (NEGATIVE) 01/22/17 13:05 Vancomycin Trough 22.3 ug/mL (5.0-20.0) H* 01/23/17 20:40 ABO Group Type o 01/19/17 10:20 Rh Factor Positive 01/19/17 10:20 Antibody Screen Negative 01/19/17 10:20 Crossmatch Cancelled 01/20/17 10:20 (3) Pneumonia Qualifiers: Pneumonia type: due to Klebsiella pneumoniae Laterality: bilateral (9) Anemia Qualifiers: Anemia type: other cause Other causes of anemia: acute posthemorrhagic Qualified Code(s): D62 - Acute posthemorrhagic anemia (17) Intra-abdominal abscess post-procedure Qualifiers: Encounter type: sequela Qualified Code(s): T81.4XXS - Infection following a procedure, sequela; K65.1 - Peritoneal abscess
[2017-01-24] MEDS ORDERED: BUMETANIDE 1 MG TABLET PO ONE (09:00)
[2017-01-24] MEDS: HYDROCHLOROTHIAZIDE 25 MG TABLET PO SCH (09:24)
[2017-01-24] MEDS ORDERED: MAGNESIUM SULFATE 100 ML IV ONE (09:35)
[2017-01-24] MEDS ORDERED: MAGNESIUM SULFATE IV ONE (10:00)
[2017-01-24] MEDS ORDERED: DEXTROSE 5% IV ONE (10:00)
[2017-01-24] MEDS ORDERED: SILVER NITRATE 1 APP APP TOPICAL ONE (10:46)
[2017-01-24] MEDS ORDERED: POTASSIUM PHOSPHATE IV ONE (11:00)
[2017-01-24] MEDS ORDERED: NORMAL SALINE IV ONE (11:00)
--- NOTE | 2017-01-24 13:22 | PROGRESS NOTE:General Surgery ---
Assessment and Plan - Date of Encounter Date of Encounter: 01/24/17 (1) Protein-calorie malnutrition, moderate Status: Chronic Current Visit: Yes (2) Pleural effusion, bilateral Status: Chronic Current Visit: Yes (3) Positive culture findings in sputum Status: Acute Current Visit: Yes (4) Renal calculus or stone Status: Acute Current Visit: Yes (5) Non-healing surgical wound Status: Acute Assessment and plan: The wound is better. The upper wound has nearly healed in. There was necrosis of the wound near the umbilicus. The lower wound is granulating but has more separation. Will continue using silver nitrate M-F of each week. Current Visit: Yes - Time Spent With Patient Total time spent with greater than 50% in coordination of care (as documented) at patient's floor/unit and/or counseling patient: ANEL: Gen Surg PN Subjective Patient reports: afebrile (still not taking adequate amounts but closer.), bowel movement, tolerating liquids well (so far has had minimal input), no fever , no nausea, no still having pain ANEL: Gen Surgery PN Obj Exam - Latest Vital Signs and I&O Latest Vital Signs/I&O: Vital Signs Temp 97.3 C H 01/24/17 11:00 Pulse 51 L 01/24/17 11:00 Resp 24 01/24/17 11:00 BP 154/72 01/24/17 11:00 Pulse Ox 98 01/24/17 12:33 Intake & Output 01/23/17 01/24/17 01/24/17 17:59 05:59 17:59 Intake Total 1590 670 480 Output Total 1350 950 Balance 240 -280 480 Weight 83.5 kg Intake: IV 420 Right Upper arm 420 Oral 870 250 Oral Supplement 720 480 Output: Urine 1350 950 Other: Urine Appearance Clear Clear Clear Urine Color Dark Jackie Yellow Yellow Uretheral (Schneider) Straw Yellow Yellow Stool Size Large Large Stool Characteristics Soft Soft Soft Voiding Method Indwelling Catheter Indwelling Catheter Indwelling Catheter # Bowel Movements 1 2 - Exam Respiratory exam: clear to auscultation, other (breath sounds diminished bilaterally but worse on the right.) Abdomen exam: bowel sounds (active), wound (The wound is granulating in well. It has been treated with silver nitrate and almost closed above the umbilicus. Around the umbilicus was necrosis of about 1cm by 3cm. This was debrided. The lower wound is granulating well. The entire wound was treated with silver nitrate.), other (LLQ drain with minimal output which continues to be clear and straw colored. The drain was removed at the bedside.) - Lab Labs: Laboratory Last Values WBC 12.5 X 10^3uL (3.9-10.7) H 01/23/17 06:25 RBC 3.56 X 10^6uL (4.20-6.10) L 01/23/17 06:25 Hgb 10.3 g/dL (14.0-18.0) L 01/23/17 06:25 Hct 31.5 % (42.0-54.0) L 01/23/17 06:25 MCV 88.5 fL (80.0-100.0) 01/23/17 06:25 MCH 29.0 pg (29.0-35.0) 01/23/17 06:25 MCHC 32.7 g/dL (32.0-36.0) 01/23/17 06:25 RDW 14.2 % (11.5-14.5) 01/23/17 06:25 Plt Count 220 X 10^3uL (130-440) 01/23/17 06:25 MPV 7.3 fL (7.4-10.4) L 01/23/17 06:25 Total Counted 100 01/23/17 06:25 Neutrophils % 87.8 % (54.0-75.0) H 01/21/17 05:10 Neutrophils % (Manual) 85 % (54.0-75.0) H 01/23/17 06:25 Band Neuts % (Manual) 3 % (0.0-1.0) H 01/23/17 06:25 Lymphocytes % 5.0 % (20.0-40.0) L 01/21/17 05:10 Lymphocytes % (Manual) 7 % (20.0-40.0) L 01/23/17 06:25 Atypical Lymphs % (Man) 8 % 01/22/17 06:00 Monocytes % (Manual) 5 % (2.0-10.0) 01/23/17 06:25 Eosinophils % 0.6 % (0.0-6.0) 01/21/17 05:10 Eosinophils % (Manual) 1 % (0.0-6.0) 01/22/17 06:00 Basophils % 0.5 % (0.0-2.0) 01/21/17 05:10 Basophils % (Manual) 2 % (0.0-2.0) 01/22/17 06:00 Neutrophils # 12.3 X 10^3uL (2.6-6.7) H 01/21/17 05:10 Lymphocytes # 0.7 X 10^3uL (0.8-3.8) L 01/21/17 05:10 Monocytes 6.1 % (2.0-10.0) 01/21/17 05:10 Monocytes # 0.9 X 10^3uL (0.2-1.0) 01/21/17 05:10 Eosinophils # 0.1 X 10^3uL (0.0-0.4) 01/21/17 05:10 Basophils # 0.1 X 10^3uL (0.0-0.1) 01/21/17 05:10 Platelet Estimate Adequate 01/23/17 06:25 Hypochromic-Microcytic 10-19% of cells 01/22/17 06:00 Anisocytosis 10-19% of cells 01/22/17 06:00 Macrocytosis 10-19% of cells 01/22/17 06:00 Sodium 139 mmol/L (137-145) 01/24/17 05:05 Potassium 3.5 mmol/L (3.5-5.1) 01/24/17 05:05 Chloride 108 mmol/L (98-107) H 01/24/17 05:05 Carbon Dioxide 25 mmol/L (22-30) 01/24/17 05:05 BUN 33 mg/dL (9-20) H 01/24/17 05:05 Creatinine 1.8 mg/dL (0.7-1.3) H 01/24/17 05:05 GFR Calculation Not Reportable 01/24/17 05:05 Glucose 120 mg/dL (70-100) H 01/24/17 05:05 Lactic Acid 0.8 mmol/L (0.7-2.1) 01/17/17 20:10 Calcium 8.7 mg/dL (8.4-10.2) 01/24/17 05:05 Phosphorus 3.0 mg/dL (2.5-4.5) 01/24/17 05:05 Magnesium 1.8 mg/dL (1.6-2.3) 01/24/17 05:05 Iron 13 ug/dL (49-181) L 01/17/17 06:15 Transferrin < 80 mg/dL (206-381) L 01/17/17 06:15 Ferritin 1240 ng/mL (18-464) H 01/17/17 06:15 Total Bilirubin 0.7 mg/dL (0.2-1.3) 01/24/17 05:05 AST 28 U/L (17-59) 01/24/17 05:05 ALT 30 U/L (21-72) 01/24/17 05:05 Alkaline Phosphatase 192 U/L (38-126) H 01/24/17 05:05 Lactate Dehydrogenase See comments (()) 01/18/17 05:00 Total Protein 6.9 g/dL (6.3-8.2) 01/24/17 05:05 Albumin 2.9 g/dL (3.5-5.0) L 01/24/17 05:05 Albumin/Globulin Ratio 0.7 01/24/17 05:05 Prealbumin 8.6 mg/dL (17.6-36.0) L 01/17/17 06:15 Urine Color Yellow 01/22/17 13:05 Urine Appearance Slightly cloudy 01/22/17 13:05 Urine pH 7.0 (5-7) 01/22/17 13:05 Ur Specific [place] 1.015 (0.001-1.035) 01/22/17 13:05 Urine Protein 100mg/dl (2+) (NEG - TRACE) A 01/22/17 13:05 Urine Ketones Negative (NEGATIVE) 01/22/17 13:05 Urine Blood 250 aleksander/ul (3+) (NEGATIVE) A 01/22/17 13:05 Urine Nitrate Negative (NEGATIVE) 01/22/17 13:05 Urine Bilirubin Negative (NEGATIVE) 01/22/17 13:05 Urine Urobilinogen Normal (NEG-1mg/dL) 01/22/17 13:05 Ur Leukocyte Esterase Negative (NEGATIVE) 01/22/17 13:05 Urine RBC 25-50/hpf (0-5/hpf) 01/22/17 13:05 Urine WBC 0-4/hpf (0-4/hpf) 01/22/17 13:05 Ur Squamous Epith Cells 0-5/hpf (<= 15/hpf) 01/22/17 13:05 Urine Bacteria None seen (<10/hpf) 01/22/17 13:05 Hyaline Casts 0-2/lpf (0-5/lpf) 01/22/17 13:05 Urine Mucus None seen (Up to 25%) 01/22/17 13:05 Urine Glucose Normal (NEGATIVE) 01/22/17 13:05 Vancomycin Trough 22.3 ug/mL (5.0-20.0) H* 01/23/17 20:40 ABO Group Type o 01/19/17 10:20 Rh Factor Positive 01/19/17 10:20 Antibody Screen Negative 01/19/17 10:20 Crossmatch Cancelled 01/20/17 10:20
[2017-01-24] MEDS: ATORVASTATIN CALCIUM 10 MG TABLET PO SCH (22:10)
[2017-01-24] MEDS: TAMSULOSIN HCL 0.4 MG CAPSULE PO SCH (22:10)
[2017-01-25 06:42] LABS: BASOPHIL# 0.1 X 10^3uL (0.0-0.1); BASOPHILS 0.4 % (0.0-2.0); EOSINOPHILS 1.1 % (0.0-6.0); EOSINOPHILS# 0.1 X 10^3uL (0.0-0.4); HEMATOCRIT 35.8 % (42.0-54.0); HEMOGLOBIN 12.1 g/dL (14.0-18.0); LYMPHOCYTES 5.4 % (20.0-40.0); LYMPHOCYTES# 0.7 X 10^3uL (0.8-3.8); MEAN CELL VOLUME 88.4 fL (80.0-100.0); MEAN CORPUS. HGB CONCENTRATION 33.9 g/dL (32.0-36.0); MEAN PLATELET VOLUME 7.9 fL (7.4-10.4); MONOCYTES 6.2 % (2.0-10.0); MONOCYTES# 0.8 X 10^3uL (0.2-1.0); NEUTROPHILS# 11.3 X 10^3uL (2.6-6.7); PLATELET COUNT 247 X 10^3uL (130-440); RED BLOOD COUNT 4.05 X 10^6uL (4.20-6.10); RED CELL DISTRIBUTION WIDTH 14.3 % (11.5-14.5)
[2017-01-25 06:45] LABS: A/G RATIO 0.7; ALBUMIN 2.9 g/dL (3.5-5.0); ALKALINE PHOSPHATASE 169 U/L (38-126); ALT 34 U/L (21-72); AST 28 U/L (17-59); BILIRUBIN, TOTAL 0.6 mg/dL (0.2-1.3); BLOOD UREA NITROGEN 33 mg/dL (9-20); CHLORIDE 104 mmol/L (98-107); CREATININE 1.4 mg/dL (0.7-1.3); GLUCOSE 103 mg/dL (70-100); MAGNESIUM 1.9 mg/dL (1.6-2.3); PHOSPHORUS 3.9 mg/dL (2.5-4.5); POTASSIUM 3.5 mmol/L (3.5-5.1); SODIUM 139 mmol/L (137-145); TOTAL PROTEIN 6.8 g/dL (6.3-8.2)
[2017-01-25 06:49] LABS: NEUTROPHILS 86.9 % (54.0-75.0)
[2017-01-25] MEDS: HYDROCHLOROTHIAZIDE 25 MG TABLET PO SCH (08:46)
[2017-01-25] MEDS: DRONABINOL 2.5 MG CAPSULE PO SCH ×2 (08:46→20:47)
[2017-01-25] MEDS: INSULIN GLARGINE,HUM.REC.ANLOG 100 UNITS/ML ML SUBCUT SCH (08:46)
[2017-01-25] MEDS: APIXABAN 2.5 MG TABLET PO SCH ×2 (08:46→20:49)
[2017-01-25] MEDS: FINASTERIDE 5 MG TABLET PO SCH (08:46)
[2017-01-25] MEDS: FLUCONAZOLE 100 MG CAPSULE PO SCH (08:46)
[2017-01-25] MEDS: LISINOPRIL 20 MG TABLET PO SCH (08:46)
[2017-01-25] MEDS: INSULIN LISPRO 100 UNIT/ML ML SUBCUT SCH ×4 (08:47→20:54)
--- NOTE | 2017-01-25 10:12 | PROGRESS NOTE: IM APSO ---
Assessment and Plan - Date of Encounter Date of Encounter: 01/25/17 (1) Generalized weakness Status: Chronic Assessment and plan: PT, OT Improving Current Visit: Yes (2) Malnutrition Status: Acute Assessment and plan: Dietary consult Shakes, beneprotein, yoghurt, improving appetite Improving Current Visit: Yes (3) Hypoalbuminemia Status: Chronic Current Visit: Yes (4) Iron deficiency anemia Status: Acute Assessment and plan: Venofer Post transfusion for 2 additional units pRBC yest Current Visit: Yes (5) Generalized edema Status: Chronic Assessment and plan: Anasarca due to malnutrition Dietary consult Stephon hosyoel Good diuresis last 24 hrs Current Visit: Yes (6) Pleural effusion, bilateral Status: Chronic Assessment and plan: Will need to monitor for now. Hopefully will improve with improved nutrition. IS Off oxygen. RA pulse ox 92%. Current Visit: Yes (7) CAD in [place] artery Status: Chronic Current Visit: Yes (8) Urinary retention Status: Acute Assessment and plan: Schneider On proscar and tamsulosin Consider bladder training in next week Current Visit: Yes (9) Leukocytosis Status: Chronic Assessment and plan: Improving Off antibiotics No left shift. Will monitor for now. Trial of Schneider, IS, ambulation, etc. may be helping. Current Visit: Yes - Time Spent With Patient Total time spent with greater than 50% in coordination of care (as documented) at patient's floor/unit and/or counseling patient: IM: PN Subjective General: fatigue (improving), no fever, no chills Cardiovascular: no chest pain, no chest pressure, no palpitations Respiratory: no cough, no SOB Gastrointestinal: no abdominal pain, no nausea, no vomiting, no diarrhea, no constipation Genitourinary: other (Schneider for urinary retention) Musculoskeletal: weakness (improving) IM: PN Objective Exam - I&O/Vital Signs I&O: Intake & Output 01/24/17 01/25/17 01/25/17 21:59 05:59 13:59 Intake Total 730 350 Output Total 2049 2079 Balance -1320 -1730 Intake: Oral 730 350 Output: Urine 2049 2079 Other: Urine Appearance Clear Clear Clear Urine Color Yellow Yellow Yellow Uretheral (Schneider) Yellow Yellow Yellow Stool Size Copious Stool Characteristics Soft Formed Liquid Green Voiding Method Indwelling Catheter Indwelling Catheter Indwelling Catheter # Bowel Movements 1 Vital Signs: Last Vital Signs Temp 36.5 C 01/25/17 06:26 Pulse 64 01/25/17 06:26 Resp 30 H 01/25/17 09:00 BP 156/69 01/25/17 06:26 Pulse Ox 92 01/25/17 09:00 Oxygen Flow Rate 1.5 Oxygen Delivery Method Room Air - Neck Neck exam: Absent: tenderness - Respiratory Respiratory exam: Present: clear (diminished at bases). Absent: rales, rhonchi , wheezes - Cardiovascular Cardiovascular exam: Present: RRR. Absent: systolic murmur - GI/Abdominal GI/Abdominal exam: Present: normal bowel sounds, soft, tenderness, other ( surgical wounds followed by Dr Esteves) - Extremities Exam Extremities exam: Absent: calf tenderness, Dusty's Sign, edema - Lab Labs: Laboratory Last Values WBC 13.0 X 10^3uL (3.9-10.7) H 01/25/17 05:00 RBC 4.05 X 10^6uL (4.20-6.10) L 01/25/17 05:00 Hgb 12.1 g/dL (14.0-18.0) L 01/25/17 05:00 Hct 35.8 % (42.0-54.0) L 01/25/17 05:00 MCV 88.4 fL (80.0-100.0) 01/25/17 05:00 MCH 30.0 pg (29.0-35.0) 01/25/17 05:00 MCHC 33.9 g/dL (32.0-36.0) 01/25/17 05:00 RDW 14.3 % (11.5-14.5) 01/25/17 05:00 Plt Count 247 X 10^3uL (130-440) 01/25/17 05:00 MPV 7.9 fL (7.4-10.4) 01/25/17 05:00 Total Counted 100 01/23/17 06:25 Neutrophils % 86.9 % (54.0-75.0) H 01/25/17 05:00 Neutrophils % (Manual) 85 % (54.0-75.0) H 01/23/17 06:25 Band Neuts % (Manual) 3 % (0.0-1.0) H 01/23/17 06:25 Lymphocytes % 5.4 % (20.0-40.0) L 01/25/17 05:00 Lymphocytes % (Manual) 7 % (20.0-40.0) L 01/23/17 06:25 Atypical Lymphs % (Man) 8 % 01/22/17 06:00 Monocytes % (Manual) 5 % (2.0-10.0) 01/23/17 06:25 Eosinophils % 1.1 % (0.0-6.0) 01/25/17 05:00 Eosinophils % (Manual) 1 % (0.0-6.0) 01/22/17 06:00 Basophils % 0.4 % (0.0-2.0) 01/25/17 05:00 Basophils % (Manual) 2 % (0.0-2.0) 01/22/17 06:00 Neutrophils # 11.3 X 10^3uL (2.6-6.7) H 01/25/17 05:00 Lymphocytes # 0.7 X 10^3uL (0.8-3.8) L 01/25/17 05:00 Monocytes 6.2 % (2.0-10.0) 01/25/17 05:00 Monocytes # 0.8 X 10^3uL (0.2-1.0) 01/25/17 05:00 Eosinophils # 0.1 X 10^3uL (0.0-0.4) 01/25/17 05:00 Basophils # 0.1 X 10^3uL (0.0-0.1) 01/25/17 05:00 Platelet Estimate Adequate 01/23/17 06:25 Hypochromic-Microcytic 10-19% of cells 01/22/17 06:00 Anisocytosis 10-19% of cells 01/22/17 06:00 Macrocytosis 10-19% of cells 01/22/17 06:00 Sodium 139 mmol/L (137-145) 01/25/17 05:00 Potassium 3.5 mmol/L (3.5-5.1) 01/25/17 05:00 Chloride 104 mmol/L (98-107) 01/25/17 05:00 Carbon Dioxide 27 mmol/L (22-30) 01/25/17 05:00 BUN 33 mg/dL (9-20) H 01/25/17 05:00 Creatinine 1.4 mg/dL (0.7-1.3) H 01/25/17 05:00 GFR Calculation Not Reportable 01/25/17 05:00 Glucose 103 mg/dL (70-100) H 01/25/17 05:00 Lactic Acid 0.8 mmol/L (0.7-2.1) 01/17/17 20:10 Calcium 9.0 mg/dL (8.4-10.2) 01/25/17 05:00 Phosphorus 3.9 mg/dL (2.5-4.5) 01/25/17 05:00 Magnesium 1.9 mg/dL (1.6-2.3) 01/25/17 05:00 Iron 13 ug/dL (49-181) L 01/17/17 06:15 Transferrin < 80 mg/dL (206-381) L 01/17/17 06:15 Ferritin 1240 ng/mL (18-464) H 01/17/17 06:15 Total Bilirubin 0.6 mg/dL (0.2-1.3) 01/25/17 05:00 AST 28 U/L (17-59) 01/25/17 05:00 ALT 34 U/L (21-72) 01/25/17 05:00 Alkaline Phosphatase 169 U/L (38-126) H 01/25/17 05:00 Lactate Dehydrogenase See comments (()) 01/18/17 05:00 Total Protein 6.8 g/dL (6.3-8.2) 01/25/17 05:00 Albumin 2.9 g/dL (3.5-5.0) L 01/25/17 05:00 Albumin/Globulin Ratio 0.7 01/25/17 05:00 Prealbumin 8.6 mg/dL (17.6-36.0) L 01/17/17 06:15 Urine Color Yellow 01/22/17 13:05 Urine Appearance Slightly cloudy 01/22/17 13:05 Urine pH 7.0 (5-7) 01/22/17 13:05 Ur Specific [place] 1.015 (0.001-1.035) 01/22/17 13:05 Urine Protein 100mg/dl (2+) (NEG - TRACE) A 01/22/17 13:05 Urine Ketones Negative (NEGATIVE) 01/22/17 13:05 Urine Blood 250 [place]/ul (3+) (NEGATIVE) A 01/22/17 13:05 Urine Nitrate Negative (NEGATIVE) 01/22/17 13:05 Urine Bilirubin Negative (NEGATIVE) 01/22/17 13:05 Urine Urobilinogen Normal (NEG-1mg/dL) 01/22/17 13:05 Ur Leukocyte Esterase Negative (NEGATIVE) 01/22/17 13:05 Urine RBC 25-50/hpf (0-5/hpf) 01/22/17 13:05 Urine WBC 0-4/hpf (0-4/hpf) 01/22/17 13:05 Ur Squamous Epith Cells 0-5/hpf (<= 15/hpf) 01/22/17 13:05 Urine Bacteria None seen (<10/hpf) 01/22/17 13:05 Hyaline Casts 0-2/lpf (0-5/lpf) 01/22/17 13:05 Urine Mucus None seen (Up to 25%) 01/22/17 13:05 Urine Glucose Normal (NEGATIVE) 01/22/17 13:05 Vancomycin Trough 22.3 ug/mL (5.0-20.0) H* 01/23/17 20:40 ABO Group Type o 01/19/17 10:20 Rh Factor Positive 01/19/17 10:20 Antibody Screen Negative 01/19/17 10:20 Crossmatch Cancelled 01/20/17 10:20
[2017-01-25] MEDS: ACETAMINOPHEN 325 MG TABLET PO PRN (14:19)
[2017-01-25 19:00] LABS: BASOPHIL# 0.1 X 10^3uL (0.0-0.1); BASOPHILS 0.4 % (0.0-2.0); EOSINOPHILS 0.8 % (0.0-6.0); EOSINOPHILS# 0.1 X 10^3uL (0.0-0.4); HEMATOCRIT 38.1 % (42.0-54.0); HEMOGLOBIN 12.7 g/dL (14.0-18.0); LYMPHOCYTES# 0.8 X 10^3uL (0.8-3.8); MEAN CELL VOLUME 89.6 fL (80.0-100.0); MEAN CORPUS. HGB CONCENTRATION 33.3 g/dL (32.0-36.0); MEAN CORPUSCULAR HEMOGLOBIN 29.9 pg (29.0-35.0); MONOCYTES 3.5 % (2.0-10.0); MONOCYTES# 0.5 X 10^3uL (0.2-1.0); NEUTROPHILS 90.3 % (54.0-75.0); NEUTROPHILS# 14.1 X 10^3uL (2.6-6.7); PLATELET COUNT 239 X 10^3uL (130-440); RED BLOOD COUNT 4.25 X 10^6uL (4.20-6.10); RED CELL DISTRIBUTION WIDTH 14.9 % (11.5-14.5); WHITE BLOOD COUNT 15.6 X 10^3uL (3.9-10.7)
[2017-01-25] MEDS: ATORVASTATIN CALCIUM 10 MG TABLET PO SCH (20:48)
[2017-01-25] MEDS: TAMSULOSIN HCL 0.4 MG CAPSULE PO SCH (20:48)
[2017-01-26] MEDS: INSULIN LISPRO 100 UNIT/ML ML SUBCUT SCH ×4 (06:22→21:02)
[2017-01-26] MEDS: LISINOPRIL 20 MG TABLET PO SCH (08:48)
[2017-01-26] MEDS: DRONABINOL 2.5 MG CAPSULE PO SCH ×2 (08:48→20:46)
[2017-01-26] MEDS: APIXABAN 2.5 MG TABLET PO SCH (08:49)
[2017-01-26] MEDS: FINASTERIDE 5 MG TABLET PO SCH (08:49)
[2017-01-26] MEDS: HYDROCHLOROTHIAZIDE 25 MG TABLET PO SCH (08:49)
[2017-01-26] MEDS: FLUCONAZOLE 100 MG CAPSULE PO SCH (08:50)
[2017-01-26] MEDS: INSULIN GLARGINE,HUM.REC.ANLOG 100 UNITS/ML ML SUBCUT SCH (08:51)
--- NOTE | 2017-01-26 08:57 | PROGRESS NOTE: IM APSO ---
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 Encouraged nutrition with yogurt/Ensure w component refeeding syndrome will replace lytes, overall markedly improved and will recheck surrogate markers (prealbumin and transferrin tomorrow) Current Visit: Yes (2) Generalized weakness Status: Chronic Assessment and plan: from protracted hospitalization/deconditioning and concurrent anemia as well malnutrition and now refeeding syndrome (nutrition and refeeding improving) Current Visit: Yes (3) Pneumonia Status: Suspected Assessment and plan: Vanco/Zosyn, cough improved, surrogate markers infection not markedly improved ( white count still elevated though CRP improved from 260 to 80) but symptoms completely abated, Ax stopped though will need area operations manager Abx for stent removal tomorrow. Current Visit: Yes (4) Hypoalbuminemia Status: Chronic Assessment and plan: malnutrition related but improving Current Visit: Yes (5) Hypokalemia Status: Resolved Assessment and plan: part of refeeding syndrome along with hypomagnesemia/hypophosphotemia, seems to be attenuating but will continue to monitor Current Visit: Yes (6) Ischemic colitis Status: Resolved Current Visit: Yes (7) Leukocytosis Status: Chronic Assessment and plan: not much change, did have hydronephrosis left but without flank pain and stone did move some on interval CT scan. May need urology consult (will request) and may need cystoscopy. Will consider repeat CT before transferring back to [facility] Current Visit: Yes (8) Right nephrolithiasis Status: Chronic Assessment and plan: urine output picking up, flomax started and repeat CT showed some migration in stone and symptoms abated, likely passed stone Current Visit: Yes (9) Anemia Status: Chronic Assessment and plan: on AC for CAD, stool guaiac negative and Hgb stable. nutritional and surgical related. 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 Current Visit: Yes (12) Generalized edema Status: Chronic Assessment and plan: and improving (truly related to Kwashiokor) Current Visit: Yes (13) H/O colon cancer, stage II Status: Chronic Current Visit: Yes (14) Hypercholesterolemia Status: Chronic Current Visit: Yes (15) Hypertension, benign Status: Chronic Current Visit: Yes (16) Hyperglycemia Status: Acute Assessment and plan: likely exacerbated by stress and attempts at hyperalimentation on baseline impaired glucose tolerance but have been able to wean lantus and may be able to DC altogether Current Visit: Yes (17) Intra-abdominal abscess post-procedure Status: Resolved Assessment and plan: complicated armando and stenting, will make npo tongiht for stent extraction tomorrow, should have area operations manager abx, may have fever after procedure and is risk for cholangits, low threshold to resume Zosyn and may delay transition back to [facility]. Current Visit: Yes (18) Periumbilical pain Status: Chronic Current Visit: No (19) Electrolyte disorder Status: Acute Assessment and plan: related to refeeding syndrome, replacing and following labs Current Visit: Yes - Time Spent With Patient Total time spent with greater than 50% in coordination of care (as documented) at patient's floor/unit and/or counseling patient: Greater than 35 minutes IM: PN Subjective General: fatigue (improving, he was able to ambulate the length of hallway several times and states he feels stronger.), no fever, no chills Cardiovascular: no chest pain, no chest pressure, no palpitations Respiratory: no cough, no SOB Gastrointestinal: no abdominal pain (had abdominal fullness but this radiated to groin then abated and may have been nephrolithiasis related and c/w passing the stone), no nausea, no vomiting, no diarrhea, no constipation Genitourinary: other (Schneider for urinary retention) Musculoskeletal: weakness (improving, as above for fatigue, markedly improved) Neurological: other (multiple caregivers concerned about apthetic appearance, he states his mood is good, he has less stress as Camryn () has care/support at home, sleeping well, not feelingsad, feels as he improves he has less worry/ concern.) IM: PN Objective Exam - I&O/Vital Signs I&O: Intake & Output 01/25/17 01/26/17 01/26/17 21:59 05:59 13:59 Intake Total 1632 390 Output Total 2950 1550 Balance -1318 -1160 Weight 78.5 kg 78.5 kg Intake: Oral 1632 150 Oral Supplement 240 Output: Urine 2950 1550 Uretheral (Schneider) 1425 Other: Urine Appearance Clear Clear Urine Color Yellow Yellow Uretheral (Schneider) Yellow Yellow Stool Size Small Large Stool Characteristics Soft Soft Liquid Brown Voiding Method Indwelling Catheter Indwelling Catheter # Voids 2 # Bowel Movements 1 2 Vital Signs: Last Vital Signs Temp 36.6 C 01/26/17 08:20 Pulse 85 01/26/17 08:20 Resp 28 H 01/26/17 08:20 BP 131/72 01/26/17 08:20 Pulse Ox 91 01/26/17 08:20 Oxygen Flow Rate 0.5 Oxygen Delivery Method Nasal Cannula - Constitutional General appearance: Present: obese - Head Head exam: Present: atraumatic - Eye Eye exam: Present: EOMI, normal appearance, PERRL - ENT ENT exam: Present: mucous membranes moist - Neck Neck exam: Absent: tenderness - Respiratory Respiratory exam: Present: clear (diminished at bases). Absent: rales, rhonchi , wheezes - Cardiovascular Cardiovascular exam: Present: RRR (occasional skipped beat). Absent: systolic murmur - GI/Abdominal GI/Abdominal exam: Present: normal bowel sounds, soft, tenderness, other ( surgical wounds improving per nursing/Dr Esteves, did not remove dressing this morning) - Extremities Exam Extremities exam: Present: edema (1+ at bases). Absent: calf tenderness, Dusty' s Sign - Neurological Exam Neurological exam: Present: alert, oriented X3 - Psychiatric Psychiatric exam: Present: flat affect - Allied Health Notes Allied health notes reviewed: case management, nursing - Lab Labs: Laboratory Last Values WBC 13.0 X 10^3uL (3.9-10.7) H 01/25/17 05:00 RBC 4.05 X 10^6uL (4.20-6.10) L 01/25/17 05:00 Hgb 12.1 g/dL (14.0-18.0) L 01/25/17 05:00 Hct 35.8 % (42.0-54.0) L 01/25/17 05:00 MCV 88.4 fL (80.0-100.0) 01/25/17 05:00 MCH 30.0 pg (29.0-35.0) 01/25/17 05:00 MCHC 33.9 g/dL (32.0-36.0) 01/25/17 05:00 RDW 14.3 % (11.5-14.5) 01/25/17 05:00 Plt Count 247 X 10^3uL (130-440) 01/25/17 05:00 MPV 7.9 fL (7.4-10.4) 01/25/17 05:00 Total Counted 100 01/23/17 06:25 Neutrophils % 86.9 % (54.0-75.0) H 01/25/17 05:00 Neutrophils % (Manual) 85 % (54.0-75.0) H 01/23/17 06:25 Band Neuts % (Manual) 3 % (0.0-1.0) H 01/23/17 06:25 Lymphocytes % 5.4 % (20.0-40.0) L 01/25/17 05:00 Lymphocytes % (Manual) 7 % (20.0-40.0) L 01/23/17 06:25 Atypical Lymphs % (Man) 8 % 01/22/17 06:00 Monocytes % (Manual) 5 % (2.0-10.0) 01/23/17 06:25 Eosinophils % 1.1 % (0.0-6.0) 01/25/17 05:00 Eosinophils % (Manual) 1 % (0.0-6.0) 01/22/17 06:00 Basophils % 0.4 % (0.0-2.0) 01/25/17 05:00 Basophils % (Manual) 2 % (0.0-2.0) 01/22/17 06:00 Neutrophils # 11.3 X 10^3uL (2.6-6.7) H 01/25/17 05:00 Lymphocytes # 0.7 X 10^3uL (0.8-3.8) L 01/25/17 05:00 Monocytes 6.2 % (2.0-10.0) 01/25/17 05:00 Monocytes # 0.8 X 10^3uL (0.2-1.0) 01/25/17 05:00 Eosinophils # 0.1 X 10^3uL (0.0-0.4) 01/25/17 05:00 Basophils # 0.1 X 10^3uL (0.0-0.1) 01/25/17 05:00 Platelet Estimate Adequate 01/23/17 06:25 Hypochromic-Microcytic 10-19% of cells 01/22/17 06:00 Anisocytosis 10-19% of cells 01/22/17 06:00 Macrocytosis 10-19% of cells 01/22/17 06:00 Sodium 139 mmol/L (137-145) 01/25/17 05:00 Potassium 3.5 mmol/L (3.5-5.1) 01/25/17 05:00 Chloride 104 mmol/L (98-107) 01/25/17 05:00 Carbon Dioxide 27 mmol/L (22-30) 01/25/17 05:00 BUN 33 mg/dL (9-20) H 01/25/17 05:00 Creatinine 1.4 mg/dL (0.7-1.3) H 01/25/17 05:00 GFR Calculation Not Reportable 01/25/17 05:00 Glucose 103 mg/dL (70-100) H 01/25/17 05:00 Lactic Acid 0.8 mmol/L (0.7-2.1) 01/17/17 20:10 Calcium 9.0 mg/dL (8.4-10.2) 01/25/17 05:00 Phosphorus 3.9 mg/dL (2.5-4.5) 01/25/17 05:00 Magnesium 1.9 mg/dL (1.6-2.3) 01/25/17 05:00 Iron 13 ug/dL (49-181) L 01/17/17 06:15 Transferrin < 80 mg/dL (206-381) L 01/17/17 06:15 Ferritin 1240 ng/mL (18-464) H 01/17/17 06:15 Total Bilirubin 0.6 mg/dL (0.2-1.3) 01/25/17 05:00 AST 28 U/L (17-59) 01/25/17 05:00 ALT 34 U/L (21-72) 01/25/17 05:00 Alkaline Phosphatase 169 U/L (38-126) H 01/25/17 05:00 Lactate Dehydrogenase See comments (()) 01/18/17 05:00 C-Reactive Protein 85.9 mg/L (<10.0) H 01/26/17 05:05 Total Protein 6.8 g/dL (6.3-8.2) 01/25/17 05:00 Albumin 2.9 g/dL (3.5-5.0) L 01/25/17 05:00 Albumin/Globulin Ratio 0.7 01/25/17 05:00 Prealbumin 8.6 mg/dL (17.6-36.0) L 01/17/17 06:15 Urine Color Yellow 01/22/17 13:05 Urine Appearance Slightly cloudy 01/22/17 13:05 Urine pH 7.0 (5-7) 01/22/17 13:05 Ur Specific Ama 1.015 (0.001-1.035) 01/22/17 13:05 Urine Protein 100mg/dl (2+) (NEG - TRACE) A 01/22/17 13:05 Urine Ketones Negative (NEGATIVE) 01/22/17 13:05 Urine Blood 250 aleksander/ul (3+) (NEGATIVE) A 01/22/17 13:05 Urine Nitrate Negative (NEGATIVE) 01/22/17 13:05 Urine Bilirubin Negative (NEGATIVE) 01/22/17 13:05 Urine Urobilinogen Normal (NEG-1mg/dL) 01/22/17 13:05 Ur Leukocyte Esterase Negative (NEGATIVE) 01/22/17 13:05 Urine RBC 25-50/hpf (0-5/hpf) 01/22/17 13:05 Urine WBC 0-4/hpf (0-4/hpf) 01/22/17 13:05 Ur Squamous Epith Cells 0-5/hpf (<= 15/hpf) 01/22/17 13:05 Urine Bacteria None seen (<10/hpf) 01/22/17 13:05 Hyaline Casts 0-2/lpf (0-5/lpf) 01/22/17 13:05 Urine Mucus None seen (Up to 25%) 01/22/17 13:05 Urine Glucose Normal (NEGATIVE) 01/22/17 13:05 Vancomycin Trough 22.3 ug/mL (5.0-20.0) H* 01/23/17 20:40 ABO Group Type o 01/19/17 10:20 Rh Factor Positive 01/19/17 10:20 Antibody Screen Negative 01/19/17 10:20 Crossmatch Cancelled 01/20/17 10:20 (3) Pneumonia Qualifiers: Pneumonia type: due to Klebsiella pneumoniae Laterality: bilateral (9) Anemia Qualifiers: Anemia type: other cause Other causes of anemia: acute posthemorrhagic Qualified Code(s): D62 - Acute posthemorrhagic anemia (17) Intra-abdominal abscess post-procedure Qualifiers: Encounter type: sequela Qualified Code(s): T81.4XXS - Infection following a procedure, sequela; K65.1 - Peritoneal abscess
[2017-01-26] MEDS: TAMSULOSIN HCL 0.4 MG CAPSULE PO SCH (20:46)
[2017-01-26] MEDS: ATORVASTATIN CALCIUM 10 MG TABLET PO SCH (20:47)
[2017-01-27 05:34] LABS: BASOPHIL# 0.1 X 10^3uL (0.0-0.1); BASOPHILS 0.6 % (0.0-2.0); EOSINOPHILS 0.8 % (0.0-6.0); EOSINOPHILS# 0.1 X 10^3uL (0.0-0.4); HEMATOCRIT 35.3 % (42.0-54.0); HEMOGLOBIN 11.8 g/dL (14.0-18.0); LYMPHOCYTES 7.6 % (20.0-40.0); MEAN CELL VOLUME 88.2 fL (80.0-100.0); MEAN CORPUS. HGB CONCENTRATION 33.4 g/dL (32.0-36.0); MEAN CORPUSCULAR HEMOGLOBIN 29.5 pg (29.0-35.0); MEAN PLATELET VOLUME 7.8 fL (7.4-10.4); MONOCYTES 6.9 % (2.0-10.0); MONOCYTES# 0.9 X 10^3uL (0.2-1.0); NEUTROPHILS 84.1 % (54.0-75.0); NEUTROPHILS# 10.6 X 10^3uL (2.6-6.7); PLATELET COUNT 262 X 10^3uL (130-440); RED CELL DISTRIBUTION WIDTH 14.2 % (11.5-14.5); WHITE BLOOD COUNT 12.7 X 10^3uL (3.9-10.7)
[2017-01-27 05:42] LABS: A/G RATIO 0.8; ALKALINE PHOSPHATASE 150 U/L (38-126); ALT 38 U/L (21-72); AST 27 U/L (17-59); BILIRUBIN, TOTAL 0.6 mg/dL (0.2-1.3); BLOOD UREA NITROGEN 36 mg/dL (9-20); CALCIUM 9.1 mg/dL (8.4-10.2); CHLORIDE 103 mmol/L (98-107); CREATININE 1.3 mg/dL (0.7-1.3); GLUCOSE 99 mg/dL (70-100); POTASSIUM 3.3 mmol/L (3.5-5.1); SODIUM 141 mmol/L (137-145); TOTAL PROTEIN 6.9 g/dL (6.3-8.2)
[2017-01-27 05:58] LABS: TRANSFERRIN 113 mg/dL (206-381)
[2017-01-27] MEDS ORDERED: NORMAL SALINE FLUSH 40 ML ONE (08:17)
--- NOTE | 2017-01-27 08:33 | PROGRESS NOTE: IM APSO ---
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 Encouraged nutrition with yogurt/Ensure w component refeeding syndrome will replace lytes (potassium today) overall markedly improved and will recheck surrogate markers (prealbumin has improved to almost 13 and transferrin pending) Current Visit: Yes (2) Generalized weakness Status: Chronic Assessment and plan: from protracted hospitalization/deconditioning and concurrent anemia as well malnutrition and now refeeding syndrome (nutrition and refeeding improving) Current Visit: Yes (3) Pneumonia Status: Resolved Assessment and plan: Vanco/Zosyn, cough improved, surrogate markers infection not markedly improved ( white count still elevated though CRP improved from 260 to 80) but symptoms completely abated, Ax stopped though will need salesperson sheet music Abx for stent removal today and culture and resume Abx if spikes temp. Current Visit: Yes (4) Hypoalbuminemia Status: Chronic Assessment and plan: malnutrition related but improving with prealbumin now almost 13 Current Visit: Yes (5) Hypokalemia Status: Resolved Assessment and plan: part of refeeding syndrome along with hypomagnesemia/hypophosphotemia, seems to be attenuating but will continue to monitor Current Visit: Yes (6) Ischemic colitis Status: Resolved Current Visit: Yes (7) Leukocytosis Status: Chronic Assessment and plan: not much change, did have hydronephrosis but without flank pain and stone did move some on interval CT scan. May need urology consult (will request) and may need cystoscopy. Will consider repeat CT before transferring back to [facility]. Pain today in flank is new and could be related to procedure, urine output has improved and likely related to stone passing. Current Visit: Yes (8) Right nephrolithiasis Status: Chronic Assessment and plan: urine output picking up, flomax started and repeat CT showed some migration in stone and symptoms abated, likely passed stone Current Visit: Yes (9) Anemia Status: Chronic Assessment and plan: on AC for CAD, stool guaiac negative and Hgb stable. nutritional and surgical related. 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 Moncada next week. Current Visit: Yes (12) Generalized edema Status: Chronic Assessment and plan: and improving (truly related to Kwashiokor) Current Visit: Yes (13) H/O colon cancer, stage II Status: Chronic Current Visit: Yes (14) Hypercholesterolemia Status: Chronic Current Visit: Yes (15) Hypertension, benign Status: Chronic Current Visit: Yes (16) Hyperglycemia Status: Acute Assessment and plan: likely exacerbated by stress and attempts at hyperalimentation on baseline impaired glucose tolerance but have been able to wean lantus and may be able to DC altogether Current Visit: Yes (17) Intra-abdominal abscess post-procedure Status: Resolved Assessment and plan: may have fever after procedure and is risk for cholangits, low threshold to resume Zosyn and may delay transition back to [facility]. Current Visit: Yes (18) Periumbilical pain Status: Chronic Current Visit: No (19) Electrolyte disorder Status: Acute Assessment and plan: related to refeeding syndrome, replacing and following labs Current Visit: Yes - Time Spent With Patient Total time spent with greater than 50% in coordination of care (as documented) at patient's floor/unit and/or counseling patient: Greater than 35 minutes IM: PN Subjective General: fatigue (Post Procedure, stent extraction this morning, no fever/rigors , feels well and able to hold congent conversation, denies pain to history but exam with pain right flank), no fever, no chills Cardiovascular: no chest pain, no chest pressure, no palpitations Respiratory: no cough, no SOB Gastrointestinal: no abdominal pain (had abdominal fullness but this radiated to groin then abated and may have been nephrolithiasis related and c/w passing the stone), no nausea, no vomiting, no diarrhea, no constipation Genitourinary: other (Schneider for urinary retention, urine concentrated and cloudy ) Musculoskeletal: weakness (improving, as above for fatigue, markedly improved) Neurological: other (multiple caregivers concerned about apthetic appearance, he states his mood is good, he has less stress as Camryn () has care/support at home, sleeping well, not feelingsad, feels as he improves he has less worry/ concern.) IM: PN Objective Exam - I&O/Vital Signs I&O: Intake & Output 01/26/17 01/27/17 01/27/17 21:59 05:59 13:59 Intake Total 857 230 Output Total 1200 800 Balance -343 -570 Intake: IV 30 Right Upper arm 30 Oral 857 200 Output: Urine 1200 800 Uretheral (Schneider) 400 Other: Urine Appearance Clear Clear Urine Color Yellow Yellow Uretheral (Schneider) Yellow Yellow Stool Size Moderate Stool Characteristics Soft Brown Voiding Method Indwelling Catheter Indwelling Catheter # Bowel Movements 1 Vital Signs: Last Vital Signs Temp 36.6 C 01/26/17 22:55 Pulse 58 L 01/26/17 22:55 Resp 16 01/26/17 22:55 BP 109/52 01/26/17 22:55 Pulse Ox 92 01/26/17 22:55 Oxygen Flow Rate 1 Oxygen Delivery Method Nasal Cannula - Constitutional General appearance: Present: obese - Head Head exam: Present: atraumatic - Eye Eye exam: Present: EOMI, normal appearance, PERRL - ENT ENT exam: Present: mucous membranes moist - Neck Neck exam: Absent: tenderness - Respiratory Respiratory exam: Present: clear (diminished right base). Absent: rales, rhonchi, wheezes - Cardiovascular Cardiovascular exam: Present: RRR (occasional skipped beat). Absent: systolic murmur - GI/Abdominal GI/Abdominal exam: Present: normal bowel sounds, soft, tenderness (right flank) , other (surgical wounds improving per nursing/Dr Esteves, did not remove dressing this morning) - Extremities Exam Extremities exam: Present: edema (trace sacral and pedal). Absent: calf tenderness, Dusty's Sign - Back Exam Back exam: Present: CVA tenderness (R) - Neurological Exam Neurological exam: Present: alert, oriented X3 - Psychiatric Psychiatric exam: Present: flat affect - Allied Health Notes Allied health notes reviewed: case management, nursing - Lab Labs: Laboratory Last Values WBC 12.7 X 10^3uL (3.9-10.7) H 01/27/17 05:15 RBC 4.00 X 10^6uL (4.20-6.10) L 01/27/17 05:15 Hgb 11.8 g/dL (14.0-18.0) L 01/27/17 05:15 Hct 35.3 % (42.0-54.0) L 01/27/17 05:15 MCV 88.2 fL (80.0-100.0) 01/27/17 05:15 MCH 29.5 pg (29.0-35.0) 01/27/17 05:15 MCHC 33.4 g/dL (32.0-36.0) 01/27/17 05:15 RDW 14.2 % (11.5-14.5) 01/27/17 05:15 Plt Count 262 X 10^3uL (130-440) 01/27/17 05:15 MPV 7.8 fL (7.4-10.4) 01/27/17 05:15 Total Counted 100 01/23/17 06:25 Neutrophils % 84.1 % (54.0-75.0) H 01/27/17 05:15 Neutrophils % (Manual) 85 % (54.0-75.0) H 01/23/17 06:25 Band Neuts % (Manual) 3 % (0.0-1.0) H 01/23/17 06:25 Lymphocytes % 7.6 % (20.0-40.0) L 01/27/17 05:15 Lymphocytes % (Manual) 7 % (20.0-40.0) L 01/23/17 06:25 Atypical Lymphs % (Man) 8 % 01/22/17 06:00 Monocytes % (Manual) 5 % (2.0-10.0) 01/23/17 06:25 Eosinophils % 0.8 % (0.0-6.0) 01/27/17 05:15 Eosinophils % (Manual) 1 % (0.0-6.0) 01/22/17 06:00 Basophils % 0.6 % (0.0-2.0) 01/27/17 05:15 Basophils % (Manual) 2 % (0.0-2.0) 01/22/17 06:00 Neutrophils # 10.6 X 10^3uL (2.6-6.7) H 01/27/17 05:15 Lymphocytes # 1.0 X 10^3uL (0.8-3.8) 01/27/17 05:15 Monocytes 6.9 % (2.0-10.0) 01/27/17 05:15 Monocytes # 0.9 X 10^3uL (0.2-1.0) 01/27/17 05:15 Eosinophils # 0.1 X 10^3uL (0.0-0.4) 01/27/17 05:15 Basophils # 0.1 X 10^3uL (0.0-0.1) 01/27/17 05:15 Platelet Estimate Adequate 01/23/17 06:25 Hypochromic-Microcytic 10-19% of cells 01/22/17 06:00 Anisocytosis 10-19% of cells 01/22/17 06:00 Macrocytosis 10-19% of cells 01/22/17 06:00 Sodium 141 mmol/L (137-145) 01/27/17 05:15 Potassium 3.3 mmol/L (3.5-5.1) L 01/27/17 05:15 Chloride 103 mmol/L (98-107) 01/27/17 05:15 Carbon Dioxide 26 mmol/L (22-30) 01/27/17 05:15 BUN 36 mg/dL (9-20) H 01/27/17 05:15 Creatinine 1.3 mg/dL (0.7-1.3) 01/27/17 05:15 GFR Calculation Not Reportable 01/27/17 05:15 Glucose 99 mg/dL (70-100) 01/27/17 05:15 Lactic Acid 0.8 mmol/L (0.7-2.1) 01/17/17 20:10 Calcium 9.1 mg/dL (8.4-10.2) 01/27/17 05:15 Phosphorus 3.9 mg/dL (2.5-4.5) 01/25/17 05:00 Magnesium 1.9 mg/dL (1.6-2.3) 01/25/17 05:00 Iron 13 ug/dL (49-181) L 01/17/17 06:15 Transferrin 113 mg/dL (206-381) L 01/27/17 05:15 Ferritin 1240 ng/mL (18-464) H 01/17/17 06:15 Total Bilirubin 0.6 mg/dL (0.2-1.3) 01/27/17 05:15 AST 27 U/L (17-59) 01/27/17 05:15 ALT 38 U/L (21-72) 01/27/17 05:15 Alkaline Phosphatase 150 U/L (38-126) H 01/27/17 05:15 Lactate Dehydrogenase See comments (()) 01/18/17 05:00 C-Reactive Protein 85.9 mg/L (<10.0) H 01/26/17 05:05 Total Protein 6.9 g/dL (6.3-8.2) 01/27/17 05:15 Albumin 3.0 g/dL (3.5-5.0) L 01/27/17 05:15 Albumin/Globulin Ratio 0.8 01/27/17 05:15 Prealbumin 12.8 mg/dL (17.6-36.0) L 01/27/17 05:15 Urine Color Yellow 01/22/17 13:05 Urine Appearance Slightly cloudy 01/22/17 13:05 Urine pH 7.0 (5-7) 01/22/17 13:05 Ur Specific Tyler 1.015 (0.001-1.035) 01/22/17 13:05 Urine Protein 100mg/dl (2+) (NEG - TRACE) A 01/22/17 13:05 Urine Ketones Negative (NEGATIVE) 01/22/17 13:05 Urine Blood 250 aleksander/ul (3+) (NEGATIVE) A 01/22/17 13:05 Urine Nitrate Negative (NEGATIVE) 01/22/17 13:05 Urine Bilirubin Negative (NEGATIVE) 01/22/17 13:05 Urine Urobilinogen Normal (NEG-1mg/dL) 01/22/17 13:05 Ur Leukocyte Esterase Negative (NEGATIVE) 01/22/17 13:05 Urine RBC 25-50/hpf (0-5/hpf) 01/22/17 13:05 Urine WBC 0-4/hpf (0-4/hpf) 01/22/17 13:05 Ur Squamous Epith Cells 0-5/hpf (<= 15/hpf) 01/22/17 13:05 Urine Bacteria None seen (<10/hpf) 01/22/17 13:05 Hyaline Casts 0-2/lpf (0-5/lpf) 01/22/17 13:05 Urine Mucus None seen (Up to 25%) 01/22/17 13:05 Urine Glucose Normal (NEGATIVE) 01/22/17 13:05 Vancomycin Trough 22.3 ug/mL (5.0-20.0) H* 01/23/17 20:40 ABO Group Type o 01/19/17 10:20 Rh Factor Positive 01/19/17 10:20 Antibody Screen Negative 01/19/17 10:20 Crossmatch Cancelled 01/20/17 10:20 (3) Pneumonia Qualifiers: Pneumonia type: due to Klebsiella pneumoniae Laterality: bilateral (9) Anemia Qualifiers: Anemia type: other cause Other causes of anemia: acute posthemorrhagic Qualified Code(s): D62 - Acute posthemorrhagic anemia (17) Intra-abdominal abscess post-procedure Qualifiers: Encounter type: sequela Qualified Code(s): T81.4XXS - Infection following a procedure, sequela; K65.1 - Peritoneal abscess
[2017-01-27] MEDS ORDERED: POTASSIUM CHLORIDE 20 MEQ/15 ML UDC PO SCH (09:00)
[2017-01-27] MEDS: INSULIN LISPRO 100 UNIT/ML ML SUBCUT SCH ×4 (09:20→21:04)
[2017-01-27] MEDS: FINASTERIDE 5 MG TABLET PO SCH (09:54)
[2017-01-27] MEDS: DRONABINOL 2.5 MG CAPSULE PO SCH ×2 (09:54→21:08)
[2017-01-27] MEDS: HYDROCHLOROTHIAZIDE 25 MG TABLET PO SCH (09:54)
[2017-01-27] MEDS: FLUCONAZOLE 100 MG CAPSULE PO SCH (09:54)
[2017-01-27] MEDS: LISINOPRIL 20 MG TABLET PO SCH (09:54)
[2017-01-27] MEDS: INSULIN GLARGINE,HUM.REC.ANLOG 100 UNITS/ML ML SUBCUT SCH (09:55)
[2017-01-27] MEDS ORDERED: POTASSIUM CHLORIDE ER 20 MEQ TABLET PO SCH (10:00)
--- NOTE | 2017-01-27 10:36 | CT REPORT ---
HISTORY: Abdominal pain. TECHNIQUE: Contiguous axial images were acquired from the lung bases to the ischial tuberosities without the adm inistration of oral and IV contrast. Lack of IV contrast limits evaluation of solid organs. Lack of e nteric contrast limits evaluation of bowel. Coronal reformatted images were also acquired. This exam ination was performed using automated exposure control, adjustment of mA or kV according to patient s ize, and/or use of iterative reconstruction technique. FINDINGS: Comparison: Comparison is made to prior exam dated January 19, 2017. Nuclear Weapons Specialist localizer shows postoperative change within the right upper quadrant. There has been interval r emoval of right upper quadrant multipurpose drainage catheter. Lungs show persistent layering bilateral pleural effusions with bibasilar consolidations. Coronary ar jules disease is noted. Liver shows an oval subcapsular hypodensity within the dome, unchanged. Intrahepatic lesions cannot b e assessed on noncontrast enhanced exam. Trace free fluid is seen within the right upper quadrant con sistent with ascites. Gallbladder is surgically absent. Irregular hypodensity is seen within the gall bladder fossa, unchanged. No fluid collections are seen adjacent to the spleen or pancreas. The stomach is intact. Kidneys show no nephrolithiasis. There is persistent right hydronephrosis and hydroureter. Adrenal gl ands are anatomically normal. Focal calcification is seen within the dependent portion the urinary bl adder, best demonstrated on series 2 image 125. It measures 6 mm. Schneider catheter is also noted. Prost atic hypertrophy is noted. Bowel shows no obstruction. There is no discrete drainable collection within the limits of a noncontr ast enhanced exam. Surgical suture with mesenteric stranding is seen within the right upper quadrant consistent with iatrogenic change. Retroperitoneum shows aortoiliac atherosclerotic disease, without aneurysm. Osseous structures show stable degenerative change within the lumbar spine. Results were communicated to the referring care provider concerning these findings at the time of dic tation. IMPRESSION: 1. Interval removal of right upper quadrant multipurpose drainage catheter, with no new discrete connie inable collections within the limits of a noncontrast enhanced exam. 2. Persistent right hydronephrosis and hydroureter with findings consistent with bladder calculus. 3. Persistent bilateral pleural effusions with consolidation. 4. Trace ascites. Final Electronic Signature: This report was electronically signed by Albino Ortega MD on 01/27/2017 1 0:33 AM. shumes /
[2017-01-27] MEDS: APIXABAN 2.5 MG TABLET PO SCH ×2 (12:15→21:09)
[2017-01-27] MEDS: TAMSULOSIN HCL 0.4 MG CAPSULE PO SCH (21:08)
[2017-01-27] MEDS: ATORVASTATIN CALCIUM 10 MG TABLET PO SCH (21:08)
[2017-01-28 05:12] LABS: BASOPHIL# 0.1 X 10^3uL (0.0-0.1); BASOPHILS 0.6 % (0.0-2.0); EOSINOPHILS 0.8 % (0.0-6.0); EOSINOPHILS# 0.1 X 10^3uL (0.0-0.4); HEMATOCRIT 34.4 % (42.0-54.0); HEMOGLOBIN 11.7 g/dL (14.0-18.0); LYMPHOCYTES 6.1 % (20.0-40.0); LYMPHOCYTES# 0.8 X 10^3uL (0.8-3.8); MEAN CELL VOLUME 87.5 fL (80.0-100.0); MEAN CORPUSCULAR HEMOGLOBIN 29.8 pg (29.0-35.0); MEAN PLATELET VOLUME 7.9 fL (7.4-10.4); MONOCYTES 6.4 % (2.0-10.0); MONOCYTES# 0.8 X 10^3uL (0.2-1.0); NEUTROPHILS 86.1 % (54.0-75.0); NEUTROPHILS# 11.2 X 10^3uL (2.6-6.7); PLATELET COUNT 233 X 10^3uL (130-440); RED BLOOD COUNT 3.93 X 10^6uL (4.20-6.10); RED CELL DISTRIBUTION WIDTH 14.2 % (11.5-14.5)
[2017-01-28 05:51] LABS: CHLORIDE 102 mmol/L (98-107); POTASSIUM 3.3 mmol/L (3.5-5.1); SODIUM 142 mmol/L (137-145)
[2017-01-28 05:52] LABS: BLOOD UREA NITROGEN 39 mg/dL (9-20); CALCIUM 12.3 mg/dL (8.4-10.2); CREATININE 1.2 mg/dL (0.7-1.3); GLUCOSE 94 mg/dL (70-100)
[2017-01-28 06:57] VITALS: BP 140/64; PULSE 53; RESP 18; TEMP 97.3
[2017-01-28] MEDS: INSULIN LISPRO 100 UNIT/ML ML SUBCUT SCH (07:54)
--- NOTE | 2017-01-28 08:42 | PROGRESS NOTE: IM APSO ---
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 Encouraged nutrition with yogurt/Ensure w component refeeding syndrome will replace lytes (potassium today) overall markedly improved and will recheck surrogate markers (prealbumin has improved to almost 13 and transferrin pending) Current Visit: Yes (2) Generalized weakness Status: Chronic Assessment and plan: from protracted hospitalization/deconditioning and concurrent anemia as well malnutrition and now refeeding syndrome (nutrition and refeeding improving) Current Visit: Yes (3) Pneumonia Status: Resolved Assessment and plan: Vanco/Zosyn, cough improved, surrogate markers infection not markedly improved ( white count still elevated though CRP improved from 260 to 80) but symptoms completely abated Current Visit: Yes (4) Hypoalbuminemia Status: Chronic Assessment and plan: malnutrition related but improving with prealbumin now almost 13 Current Visit: Yes (5) Hypokalemia Status: Resolved Assessment and plan: part of refeeding syndrome along with hypomagnesemia/hypophosphotemia, seems to be attenuating but will continue to monitor Current Visit: Yes (6) Ischemic colitis Status: Resolved Current Visit: Yes (7) Leukocytosis Status: Chronic Assessment and plan: persists but without symptoms of infection, did pass kidney stone by CT and did note stranding in FAY by CT that has persisted Current Visit: Yes (8) Right nephrolithiasis Status: Chronic Assessment and plan: stone now in bladder Current Visit: Yes (9) Anemia Status: Chronic Assessment and plan: on AC for CAD, stool guaiac negative and Hgb stable. nutritional and surgical related. 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 Assessment and plan: follow up labs and continue diflucan, missed f/u with Dr Moncada will need to reschedule Current Visit: Yes (12) Generalized edema Status: Chronic Assessment and plan: markedl improved (truly related to Kwashiokor) Current Visit: Yes (13) H/O colon cancer, stage II Status: Chronic Current Visit: Yes (14) Hypercholesterolemia Status: Chronic Current Visit: Yes (15) Hypertension, benign Status: Chronic Current Visit: Yes (16) Hyperglycemia Status: Acute Assessment and plan: likely exacerbated by stress and attempts at hyperalimentation on baseline impaired glucose tolerance but have been able to wean lantus and may be able to DC altogether Current Visit: Yes (17) Intra-abdominal abscess post-procedure Status: Resolved Assessment and plan: Improving symptoms though inflammatory stranding persists Current Visit: Yes (18) Periumbilical pain Status: Chronic Current Visit: No (19) Electrolyte disorder Status: Acute Assessment and plan: related to refeeding syndrome, replacing and following labs Current Visit: Yes (20) Urinary retention due to benign prostatic hyperplasia Status: Chronic Assessment and plan: Noted 1.5 liter residual without much urge/discomfort, likely chronic issue. DC dorman, scheduled and prompted voiding with bladder scan after and if residual is persistently elevated will need to teach I&O cath bid. Current Visit: Yes - Time Spent With Patient Total time spent with greater than 50% in coordination of care (as documented) at patient's floor/unit and/or counseling patient: Greater than 35 minutes IM: PN Subjective General: fatigue (Post Procedure, stent extraction this morning, no fever/rigors , feels well and able to hold congent conversation, denies pain to history but exam with pain right flank), no fever, no chills Cardiovascular: no chest pain, no chest pressure, no palpitations Respiratory: no cough, no SOB Gastrointestinal: no abdominal pain (had abdominal fullness but this radiated to groin then abated and may have been nephrolithiasis related and c/w passing the stone), no nausea, no vomiting, no diarrhea, no constipation Genitourinary: other (Dorman for urinary retention, urine concentrated and cloudy ) Musculoskeletal: weakness (improving, as above for fatigue, markedly improved) Neurological: other (multiple caregivers concerned about apthetic appearance, he states his mood is good, he has less stress as Camryn () has care/support at home, sleeping well, not feelingsad, feels as he improves he has less worry/ concern.) IM: PN Objective Exam - I&O/Vital Signs I&O: Intake & Output 01/27/17 01/28/17 01/28/17 21:59 05:59 13:59 Intake Total 800 650 Output Total 1100 800 Balance -300 -150 Intake: Oral 800 650 Output: Urine 1100 800 Other: Urine Appearance Clear Clear Urine Color Yellow Yellow Uretheral (Dorman) Yellow Yellow Voiding Method Indwelling Catheter Vital Signs: Last Vital Signs Temp 36.3 C L 01/28/17 06:55 Pulse 53 L 01/28/17 06:55 Resp 18 01/28/17 06:55 BP 140/64 01/28/17 06:55 Pulse Ox 95 01/28/17 06:55 Oxygen Flow Rate 1.5 Oxygen Delivery Method Nasal Cannula - Constitutional General appearance: Present: obese - Head Head exam: Present: atraumatic - Eye Eye exam: Present: EOMI, normal appearance, PERRL - ENT ENT exam: Present: mucous membranes moist - Neck Neck exam: Absent: tenderness - Respiratory Respiratory exam: Present: clear (diminished right base). Absent: rales, rhonchi, wheezes - Cardiovascular Cardiovascular exam: Present: RRR (occasional skipped beat). Absent: systolic murmur - GI/Abdominal GI/Abdominal exam: Present: normal bowel sounds, soft, tenderness (right flank) , other (increased bloody drainage from wound, scant fibous exudate at umbilicus , remainder of wound closing nicely with some granulation and bloody discharge, no cellulitis) - Extremities Exam Extremities exam: Present: edema (trace sacral and pedal). Absent: calf tenderness, Dusty's Sign - Back Exam Back exam: Present: CVA tenderness (R) - Neurological Exam Neurological exam: Present: alert, oriented X3 - Psychiatric Psychiatric exam: Present: normal affect, normal mood - Allied Health Notes Allied health notes reviewed: case management, nursing - Lab Labs: Laboratory Last Values WBC 13.0 X 10^3uL (3.9-10.7) H 01/28/17 05:00 RBC 3.93 X 10^6uL (4.20-6.10) L 01/28/17 05:00 Hgb 11.7 g/dL (14.0-18.0) L 01/28/17 05:00 Hct 34.4 % (42.0-54.0) L 01/28/17 05:00 MCV 87.5 fL (80.0-100.0) 01/28/17 05:00 MCH 29.8 pg (29.0-35.0) 01/28/17 05:00 MCHC 34.0 g/dL (32.0-36.0) 01/28/17 05:00 RDW 14.2 % (11.5-14.5) 01/28/17 05:00 Plt Count 233 X 10^3uL (130-440) 01/28/17 05:00 MPV 7.9 fL (7.4-10.4) 01/28/17 05:00 Total Counted 100 01/23/17 06:25 Neutrophils % 86.1 % (54.0-75.0) H 01/28/17 05:00 Neutrophils % (Manual) 85 % (54.0-75.0) H 01/23/17 06:25 Band Neuts % (Manual) 3 % (0.0-1.0) H 01/23/17 06:25 Lymphocytes % 6.1 % (20.0-40.0) L 01/28/17 05:00 Lymphocytes % (Manual) 7 % (20.0-40.0) L 01/23/17 06:25 Atypical Lymphs % (Man) 8 % 01/22/17 06:00 Monocytes % (Manual) 5 % (2.0-10.0) 01/23/17 06:25 Eosinophils % 0.8 % (0.0-6.0) 01/28/17 05:00 Eosinophils % (Manual) 1 % (0.0-6.0) 01/22/17 06:00 Basophils % 0.6 % (0.0-2.0) 01/28/17 05:00 Basophils % (Manual) 2 % (0.0-2.0) 01/22/17 06:00 Neutrophils # 11.2 X 10^3uL (2.6-6.7) H 01/28/17 05:00 Lymphocytes # 0.8 X 10^3uL (0.8-3.8) 01/28/17 05:00 Monocytes 6.4 % (2.0-10.0) 01/28/17 05:00 Monocytes # 0.8 X 10^3uL (0.2-1.0) 01/28/17 05:00 Eosinophils # 0.1 X 10^3uL (0.0-0.4) 01/28/17 05:00 Basophils # 0.1 X 10^3uL (0.0-0.1) 01/28/17 05:00 Platelet Estimate Adequate 01/23/17 06:25 Hypochromic-Microcytic 10-19% of cells 01/22/17 06:00 Anisocytosis 10-19% of cells 01/22/17 06:00 Macrocytosis 10-19% of cells 01/22/17 06:00 Sodium 142 mmol/L (137-145) 01/28/17 05:00 Potassium 3.3 mmol/L (3.5-5.1) L 01/28/17 05:00 Chloride 102 mmol/L (98-107) 01/28/17 05:00 Carbon Dioxide 27 mmol/L (22-30) 01/28/17 05:00 BUN 39 mg/dL (9-20) H 01/28/17 05:00 Creatinine 1.2 mg/dL (0.7-1.3) 01/28/17 05:00 GFR Calculation Not Reportable 01/28/17 05:00 Glucose 94 mg/dL (70-100) 01/28/17 05:00 Lactic Acid 0.8 mmol/L (0.7-2.1) 01/17/17 20:10 Calcium 12.3 mg/dL (8.4-10.2) H 01/28/17 05:00 Phosphorus 3.9 mg/dL (2.5-4.5) 01/25/17 05:00 Magnesium 1.9 mg/dL (1.6-2.3) 01/25/17 05:00 Iron 13 ug/dL (49-181) L 01/17/17 06:15 Transferrin 113 mg/dL (206-381) L 01/27/17 05:15 Ferritin 1240 ng/mL (18-464) H 01/17/17 06:15 Total Bilirubin 0.6 mg/dL (0.2-1.3) 01/27/17 05:15 AST 27 U/L (17-59) 01/27/17 05:15 ALT 38 U/L (21-72) 01/27/17 05:15 Alkaline Phosphatase 150 U/L (38-126) H 01/27/17 05:15 Lactate Dehydrogenase See comments (()) 01/18/17 05:00 C-Reactive Protein 85.9 mg/L (<10.0) H 01/26/17 05:05 Total Protein 6.9 g/dL (6.3-8.2) 01/27/17 05:15 Albumin 3.0 g/dL (3.5-5.0) L 01/27/17 05:15 Albumin/Globulin Ratio 0.8 01/27/17 05:15 Prealbumin 12.8 mg/dL (17.6-36.0) L 01/27/17 05:15 Urine Color Yellow 01/22/17 13:05 Urine Appearance Slightly cloudy 01/22/17 13:05 Urine pH 7.0 (5-7) 01/22/17 13:05 Ur Specific [place] 1.015 (0.001-1.035) 01/22/17 13:05 Urine Protein 100mg/dl (2+) (NEG - TRACE) A 01/22/17 13:05 Urine Ketones Negative (NEGATIVE) 01/22/17 13:05 Urine Blood 250 aleksander/ul (3+) (NEGATIVE) A 01/22/17 13:05 Urine Nitrate Negative (NEGATIVE) 01/22/17 13:05 Urine Bilirubin Negative (NEGATIVE) 01/22/17 13:05 Urine Urobilinogen Normal (NEG-1mg/dL) 01/22/17 13:05 Ur Leukocyte Esterase Negative (NEGATIVE) 01/22/17 13:05 Urine RBC 25-50/hpf (0-5/hpf) 01/22/17 13:05 Urine WBC 0-4/hpf (0-4/hpf) 01/22/17 13:05 Ur Squamous Epith Cells 0-5/hpf (<= 15/hpf) 01/22/17 13:05 Urine Bacteria None seen (<10/hpf) 01/22/17 13:05 Hyaline Casts 0-2/lpf (0-5/lpf) 01/22/17 13:05 Urine Mucus None seen (Up to 25%) 01/22/17 13:05 Urine Glucose Normal (NEGATIVE) 01/22/17 13:05 Vancomycin Trough 22.3 ug/mL (5.0-20.0) H* 01/23/17 20:40 ABO Group Type o 01/19/17 10:20 Rh Factor Positive 01/19/17 10:20 Antibody Screen Negative 01/19/17 10:20 Crossmatch Cancelled 01/20/17 10:20 (3) Pneumonia Qualifiers: Pneumonia type: due to Klebsiella pneumoniae Laterality: bilateral (9) Anemia Qualifiers: Anemia type: other cause Other causes of anemia: acute posthemorrhagic Qualified Code(s): D62 - Acute posthemorrhagic anemia (17) Intra-abdominal abscess post-procedure Qualifiers: Encounter type: sequela Qualified Code(s): T81.4XXS - Infection following a procedure, sequela; K65.1 - Peritoneal abscess
[2017-01-28] MEDS ORDERED: POTASSIUM CHLORIDE 20 MEQ/15 ML UDC PO ONE (09:00)
[2017-01-28] MEDS ORDERED: POTASSIUM CHLORIDE 20 MEQ/15 ML UDC PO SCH (09:00)
--- NOTE | 2017-01-28 09:11 | DC SUMMARY: IM Note ---
Discharge Summary: IM/Peds Provider: Date of Admission: 01/17/17 Admitting Provider: ARLETTE CAO Attending Provider: ARLETTE CAO Discharging Provider: ARLETTE CAO Primary Care Provider: Discharge Date: 01/28/17 - Diagnosis (1) Protein-calorie malnutrition, moderate Status: Chronic (2) Generalized weakness Status: Chronic (3) Pneumonia Status: Resolved Qualifiers: Pneumonia type: due to Klebsiella pneumoniae Laterality: bilateral (4) Hypoalbuminemia Status: Chronic (5) Hypokalemia Status: Resolved (6) Ischemic colitis Status: Resolved (7) Leukocytosis Status: Chronic (8) Right nephrolithiasis Status: Chronic (9) Anemia Status: Chronic Qualifiers: Anemia type: other cause Other causes of anemia: acute posthemorrhagic Qualified Code(s): D62 - Acute posthemorrhagic anemia (10) CAD in [place] artery Status: Chronic (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 (12) Generalized edema Status: Chronic (13) H/O colon cancer, stage II Status: Chronic (14) Hypercholesterolemia Status: Chronic (15) Hypertension, benign Status: Chronic (16) Hyperglycemia Status: Acute (17) Intra-abdominal abscess post-procedure Status: Resolved Qualifiers: Encounter type: sequela Qualified Code(s): T81.4XXS - Infection following a procedure, sequela; K65.1 - Peritoneal abscess (18) Periumbilical pain Status: Chronic (19) Electrolyte disorder Status: Acute (20) Urinary retention due to benign prostatic hyperplasia Status: Chronic - Time Spent with Patient Total time spent providing and/or coordinating discharge services: Discharge Overall discharge status: patient is progressing back to baseline Disposition: [facility] Discharge Summary Data - Medication History Medication History: Home Medications Finasteride [Finasteride*] 5 mg PO DAILY 12/14/16 Apixaban [Eliquis] 2.5 mg PO BID 01/11/17 Dronabinol [Marinol] 2.5 mg PO BID 01/11/17 Insulin Glargine,Hum.rec.anlog [Lantus*] 8 unit SUBCUT DAILY 01/11/17 Insulin Lispro [Humalog*] 0 unit SUBCUT ACHS 01/11/17 metoprolol TARTRATE [Metoprolol Tartrate*] 25 mg PO BID 01/11/17 Acetaminophen [Tylenol*] 650 mg PO Q6H PRN 01/17/17 Amlodipine Besylate [Norvasc*] 2.5 mg PO DAILY 01/17/17 Ascorbic Acid [Vitamin C*] 500 mg PO BID 01/17/17 Cholecalciferol [Vitamin D*] 2,000 unit PO DAILY 01/17/17 Cyanocobalamin [VITAMIN B-12*] 1,000 mcg PO DAILY 01/17/17 Fluconazole [Diflucan] 400 mg PO DAILY 01/17/17 Lisinopril [Prinivil*] 20 mg PO DAILY 01/17/17 Atorvastatin Calcium [Lipitor*] 20 mg PO HS 01/27/17 Dextrose 50 % in Water [Dextrose 50%-Water Syringe] 50 ml IV PRN PRN 01/27/17 Famotidine [Pepcid] 20 mg PO Q12H PRN 01/27/17 Hydrochlorothiazide [Hydrodiuril*] 25 mg PO DAILY 01/27/17 Tamsulosin HCl [Flomax*] 0.4 mg PO HS 01/27/17 aspirin EC [Aspirin EC*] 81 mg PO DAILY 01/27/17 proMETHazine HCL [Phenergan Inj*] 12.5 mg IV Q6H PRN 01/27/17 Acetaminophen [Tylenol*] 650 mg PO Q6H PRN #0 tablet 01/28/17 Apixaban [Eliquis] 2.5 mg PO BID tablet 01/28/17 Atorvastatin Calcium [Lipitor*] 20 mg PO HS tablet 01/28/17 Dextrose 50% Water [D50%*] 50 gm IV PRN PRN #0 syr 01/28/17 Dronabinol [Marinol] 2.5 mg PO BID capsule 01/28/17 Famotidine [Pepcid] 20 mg PO Q12H PRN #0 tablet 01/28/17 Finasteride [Finasteride*] 5 mg PO DAILY tablet 01/28/17 Fluconazole [Fluconazole*] 400 mg PO DAILY capsule 01/28/17 Hydrochlorothiazide [Hydrodiuril*] 25 mg PO DAILY tablet 01/28/17 Insulin Glargine,Hum.rec.anlog [Lantus*] 8 units SUBCUT DAILY ml 01/28/17 Insulin Lispro [Humalog*] 0 unit SUBCUT ACHS ml 01/28/17 Lisinopril [Prinivil*] 20 mg PO DAILY tablet 01/28/17 Potassium Chloride [KCl Oral Nae*] 80 meq PO ONCE@0900 udc 01/28/17 Tamsulosin HCl [Flomax*] 0.4 mg PO HS cap 01/28/17 aspirin EC [Aspirin EC*] 81 mg PO DAILY tablet 01/28/17 metoprolol TARTRATE [Metoprolol Tartrate*] 25 mg PO BID tablet 01/28/17 proMETHazine HCL [Phenergan Inj*] 12.5 mg IV Q6H PRN #0 vial 01/28/17 Inpatient Medications 01/17/17 09:04 proMETHazine HCL [Phenergan Inj] 12.5 mg IV Q6H PRN 01/17/17 10:08 Dextrose 50% Water [D50%] 50 gm IV PRN PRN Famotidine [Pepcid] 20 mg PO Q12H PRN 01/17/17 11:30 Insulin Lispro [HumaLOG] See Protocol SUBCUT ACHS 01/17/17 21:00 Atorvastatin Calcium [Lipitor] 20 mg PO HS Tamsulosin HCl [Flomax] 0.4 mg PO HS metoprolol TARTRATE [Lopressor] 25 mg PO BID 01/17/17 21:06 Acetaminophen [Tylenol] 650 mg PO Q6H PRN 01/18/17 09:00 Finasteride [Proscar] 5 mg PO DAILY Fluconazole [Diflucan] 400 mg PO DAILY Lisinopril [Prinivil] 20 mg PO DAILY 01/19/17 10:00 Dronabinol [Marinol] 2.5 mg PO BID 01/24/17 09:00 Hydrochlorothiazide [Hydrodiuril] 25 mg PO DAILY 01/25/17 10:24 Insulin Glargine,Hum.rec.anlog [Lantus] 8 units SUBCUT DAILY 01/27/17 12:00 Apixaban [Eliquis] 2.5 mg PO BID aspirin EC [Ecotrin 81 mg] 81 mg PO DAILY 01/28/17 09:00 Potassium Chloride [KCl Soln] 80 meq PO ONCE@0900 Procedures and tests throughout hospitalization: Completed Lab Orders 01/17/17 06:15 FERRITIN [CHEM] Stat IRON [CHEM] Stat PHOSPHORUS [CHEM] Stat PREALBUMIN [CHEM] Stat TRANSFERRIN [CHEM] Stat 01/17/17 20:10 LACTATE [CHEM] DAILY 01/18/17 05:00 BMP [BASIC METABOLIC PANEL] [CHEM] AMDRAW LDH [SEND] AMDRAW MAGNESIUM [CHEM] Routine PHOSPHORUS [CHEM] Routine 01/19/17 05:00 CBC AUTO DIF, MDIF/RMOR IF IND [HEM] AMDRAW cmp [COMPREHENSIVE METABOLIC PANEL] [CHEM] AMDRAW 01/19/17 10:20 ABO GROUP [HEM] Routine ANTIBODY SCREEN [HEM] Routine CROSSMATCH IMMEDIATE SPIN [HEM] Routine CROSSMATCH IMMEDIATE SPIN [HEM] Routine PRBC WITH STORAGE [HEM] Routine PRBC WITH STORAGE [HEM] Routine RH TYPE [HEM] Routine 01/19/17 14:59 MAGNESIUM [CHEM] Routine PHOSPHORUS [CHEM] Routine 01/20/17 05:20 BASIC METABOLIC PANEL [CHEM] AMDRAW CBC AUTO DIF, MDIF/RMOR IF IND [HEM] AMDRAW MAGNESIUM [CHEM] AMDRAW PHOSPHORUS [CHEM] AMDRAW 01/20/17 11:45 vanco tr [VANCOMYCIN TROUGH] [CHEM] Routine 01/21/17 05:10 CBC AUTO DIF, MDIF/RMOR IF IND [HEM] AMDRAW COMPREHENSIVE METABOLIC PANEL [CHEM] AMDRAW MAGNESIUM [CHEM] AMDRAW PHOSPHORUS [CHEM] AMDRAW 01/21/17 20:30 VANCOMYCIN TROUGH [CHEM] Routine 01/22/17 06:00 CBC W/ MANUAL DIFFERENTIAL [HEM] AMDRAW COMPREHENSIVE METABOLIC PANEL [CHEM] AMDRAW MAGNESIUM [CHEM] AMDRAW PHOSPHORUS [CHEM] AMDRAW 01/22/17 13:05 UA W/ MICRO -CULTURE IF IND [URINE] Routine 01/23/17 06:25 CBC W/ MANUAL DIFFERENTIAL [HEM] AMDRAW COMPREHENSIVE METABOLIC PANEL [CHEM] AMDRAW MAGNESIUM [CHEM] AMDRAW PHOSPHORUS [CHEM] AMDRAW 01/23/17 20:40 VANCOMYCIN TROUGH [CHEM] Routine 01/24/17 05:05 CBC AUTO DIF, MDIF/RMOR IF IND [HEM] AMDRAW COMPREHENSIVE METABOLIC PANEL [CHEM] AMDRAW MAGNESIUM [CHEM] AMDRAW PHOSPHORUS [CHEM] AMDRAW 01/25/17 05:00 CBC AUTO DIF, MDIF/RMOR IF IND [HEM] AMDRAW COMPREHENSIVE METABOLIC PANEL [CHEM] AMDRAW MAGNESIUM [CHEM] AMDRAW PHOSPHORUS [CHEM] AMDRAW 01/26/17 05:05 crp [C-REACTIVE PROTEIN] [CHEM] AMDRAW 01/27/17 05:15 CBC AUTO DIF, MDIF/RMOR IF IND [HEM] AMDRAW COMPREHENSIVE METABOLIC PANEL [CHEM] AMDRAW PREALBUMIN [CHEM] AMDRAW TRANSFERRIN [CHEM] AMDRAW Completed Imaging Orders 01/17/17 08:59 CAT SCAN; [place] [address] [CT] Stat 01/17/17 09:00 CXR 2V 40552 [RAD] Stat 01/19/17 09:00 ct [CAT SCAN; ABDOMEN W/JOHN 85763] [CT] Stat 01/27/17 08:36 ct [CAT SCAN; [place] [address]] [CT] Stat Completed Microbiology Orders 01/17/17 09:01 BLOOD CULTURE [BC] Routine 01/19/17 17:21 SPUTUM CULTURE AND GRAM STAIN [RM] Stat 01/20/17 21:36 Hemoccult [OCCULT BLOOD (1-3 SAMPLES)] [RM] Pending Orders 01/17/17 09:04 proMETHazine HCL [Phenergan Inj] 12.5 mg IV Q6H PRN 01/17/17 09:05 Admit: Inpatient Routine 01/17/17 09:23 Resuscitation Status Routine Occupation Therapy Eval and Treat [OT] Routine Physical Therapy Eval and Treatment [PT] Routine 01/17/17 09:30 Hypoglycemia treatment... PER PROTOCOL 01/17/17 09:43 Miscellaneous Care Order ACHS FINGER STICK 01/17/17 09:49 Finger Stick Blood Sugar ACHS FINGER STICK 01/17/17 10:08 Dextrose 50% Water [D50%] 50 gm IV PRN PRN Famotidine [Pepcid] 20 mg PO Q12H PRN 01/17/17 11:30 Insulin Lispro [HumaLOG] See Protocol SUBCUT ACHS 01/17/17 14:05 Occupational Therapy Plan of Care [OT] Routine 01/17/17 18:15 Intake and Output QSHIFT I&O 01/17/17 21:00 Atorvastatin Calcium [Lipitor] 20 mg PO HS Tamsulosin HCl [Flomax] 0.4 mg PO HS metoprolol TARTRATE [Lopressor] 25 mg PO BID 01/17/17 21:06 Acetaminophen [Tylenol] 650 mg PO Q6H PRN 01/17/17 Lunch High Protein Low Salt (2 gm Na) 01/18/17 09:00 Finasteride [Proscar] 5 mg PO DAILY Fluconazole [Diflucan] 400 mg PO DAILY Lisinopril [Prinivil] 20 mg PO DAILY 01/18/17 12:35 Beneprotein Supplement TID Ensure Plus Supplement TID 01/19/17 10:00 Dronabinol [Marinol] 2.5 mg PO BID 01/21/17 13:40 NARDA Hose . 01/22/17 13:04 Schneider [Maintain Schneider to [place]] . 01/22/17 13:05 IS [Incentive Spirometry] Q12H 01/24/17 09:00 Hydrochlorothiazide [Hydrodiuril] 25 mg PO DAILY 01/24/17 11:11 Wound Care [Dressing Change] DAILY 01/25/17 10:17 Obtain weight 0600 01/25/17 10:24 Insulin Glargine,Hum.rec.anlog [Lantus] 8 units SUBCUT DAILY 01/27/17 07:00 Miscellaneous Care Order . 01/27/17 12:00 Apixaban [Eliquis] 2.5 mg PO BID aspirin EC [Ecotrin 81 mg] 81 mg PO DAILY 01/28/17 05:00 BASIC METABOLIC PANEL [CHEM] AMDRAW CBC AUTO DIF, MDIF/RMOR IF IND [HEM] AMDRAW HEPATIC PANEL [CHEM] AMDRAW LIPASE [CHEM] AMDRAW 01/28/17 08:54 Bladder Scan/ PVR . Remove urinary catheter ONCE 01/28/17 09:00 Potassium Chloride [KCl Soln] 80 meq PO ONCE@0900 01/31/17 06:00 crp [C-REACTIVE PROTEIN] [CHEM] Routine Labs on day of discharge: Labs from last 24 hours 01/28/17 05:00 WBC 13.0 H RBC 3.93 L Hgb 11.7 L Hct 34.4 L MCV 87.5 MCH 29.8 MCHC 34.0 RDW 14.2 Plt Count 233 MPV 7.9 Neutrophils % 86.1 H Lymphocytes % 6.1 L Eosinophils % 0.8 Basophils % 0.6 Neutrophils # 11.2 H Lymphocytes # 0.8 Monocytes 6.4 Monocytes # 0.8 Eosinophils # 0.1 Basophils # 0.1 Sodium 142 Potassium 3.3 L Chloride 102 Carbon Dioxide 27 BUN 39 H Creatinine 1.2 GFR Calculation Not Reportable Glucose 94 Calcium 12.3 H Total Bilirubin Pending Direct Bilirubin Pending AST Pending ALT Pending Alkaline Phosphatase Pending Total Protein Pending Albumin Pending Lipase Pending IM: Discharge Physical Exam - I&O/Vital Signs I&O: Intake & Output 01/27/17 01/28/17 01/28/17 21:59 05:59 13:59 Intake Total 800 650 Output Total 1100 800 Balance -300 -150 Intake: Oral 800 650 Output: Urine 1100 800 Other: Urine Appearance Clear Clear Urine Color Yellow Yellow Uretheral (Schneider) Yellow Yellow Voiding Method Indwelling Catheter Vital Signs: Last Vital Signs Temp 36.3 C L 01/28/17 06:55 Pulse 53 L 01/28/17 06:55 Resp 18 01/28/17 06:55 BP 140/64 01/28/17 06:55 Pulse Ox 95 01/28/17 06:55 Oxygen Flow Rate 1.5 Oxygen Delivery Method Nasal Cannula - Constitutional General appearance: Present: obese - Head Head exam: Present: atraumatic - Eye Eye exam: Present: EOMI, normal appearance, PERRL - ENT ENT exam: Present: mucous membranes moist - Neck Neck exam: Absent: tenderness - Respiratory Respiratory exam: Present: clear (diminished right base). Absent: rales, rhonchi, wheezes - Cardiovascular Cardiovascular exam: Present: RRR (occasional skipped beat). Absent: systolic murmur - GI/Abdominal GI/Abdominal exam: Present: normal bowel sounds, soft, tenderness (right flank) , other (increased bloody drainage from wound, scant fibous exudate at umbilicus , remainder of wound closing nicely with some granulation and bloody discharge, no cellulitis) - Extremities Exam Extremities exam: Present: edema (trace sacral and pedal). Absent: calf tenderness, Dusty's Sign - Back Exam Back exam: Present: CVA tenderness (R) - Neurological Exam Neurological exam: Present: alert, oriented X3 - Psychiatric Psychiatric exam: Present: normal affect, normal mood - Allied Health Notes Allied health notes reviewed: case management, nursing
[2017-01-28] MEDS ORDERED: POTASSIUM CHLORIDE ER 20 MEQ TABLET PO SCH (09:30)
[2017-01-28] MEDS: FLUCONAZOLE 100 MG CAPSULE PO SCH (09:32)
[2017-01-28] MEDS: INSULIN GLARGINE,HUM.REC.ANLOG 100 UNITS/ML ML SUBCUT SCH (09:33)
[2017-01-28] MEDS: DRONABINOL 2.5 MG CAPSULE PO SCH (09:33)
[2017-01-28] MEDS: APIXABAN 2.5 MG TABLET PO SCH (09:34)
[2017-01-28] MEDS: FINASTERIDE 5 MG TABLET PO SCH (09:34)
[2017-01-28] MEDS: HYDROCHLOROTHIAZIDE 25 MG TABLET PO SCH (09:34)
[2017-01-28] MEDS: LISINOPRIL 20 MG TABLET PO SCH (09:34)
[2017-01-28 10:33] LABS: ALKALINE PHOSPHATASE 160 U/L (38-126); ALT 43 U/L (21-72); AST 37 U/L (17-59); BILIRUBIN, DIRECT 0.1 mg/dL (0.0-0.4); BILIRUBIN, TOTAL 0.6 mg/dL (0.2-1.3); LIPASE 199 U/L (23-300); TOTAL PROTEIN 6.8 g/dL (6.3-8.2)
[2017-01-28 10:35] VITALS: O2SAT 94
== END 2017-01-28 10:46 | disposition swing bed (61) | DRG 922 ==
LOC: IN 09:11
PROVIDERS: ADMIT Hospitalist; ATTEND Hospitalist
PROC: 0DC98ZZ Extirpation of Matter from Duodenum, Via Natural or Artificial Opening Endoscopic (ICD-10-PCS; principal; 2017-01-27)
DX: T81.4XXS Infection following a procedure, sequela (principal); K65.1 Peritoneal abscess; J15.8 Pneumonia due to other specified bacteria; E44.0 Moderate protein-calorie malnutrition; C18.9 Malignant neoplasm of colon, unspecified; T18.2XXA Foreign body in stomach, initial encounter; D50.0 Iron deficiency anemia secondary to blood loss (chronic); E88.09 Other disorders of plasma-protein metabolism, not elsewhere classified; N20.0 Calculus of kidney; B99.8 Other infectious disease; R53.1 Weakness; R73.9 Hyperglycemia, unspecified; N40.1 Benign prostatic hyperplasia with lower urinary tract symptoms; E87.8 Other disorders of electrolyte and fluid balance, not elsewhere classified; R33.8 Other retention of urine; I12.9 Hypertensive chronic kidney disease with stage 1 through stage 4 chronic kidney disease, or unspecified chronic kidney disease; I25.10 Atherosclerotic heart disease of native coronary artery without angina pectoris; Z95.5 Presence of coronary angioplasty implant and graft; G47.30 Sleep apnea, unspecified; Z79.82 Long term (current) use of aspirin; Z79.899 Other long term (current) drug therapy
CPT/HCPCS: 36415; 36430; 43251; 71020; 74150; 74176; 80048; 80053; 80076; 80202; 81001; 82270; 82728; 83540; 83605; 83615; 83690; 83735; 84100; 84134; 84466; 85007; 85025; 85027; 86140; 86850; 86900; 86901; 86920; 87040; 87070; 87205; 94760; E0555; J1642; J1756; J1815; J2543; J2550; J3370; J3475; J7040; J7050; P9040-BL; P9047

== ENCOUNTER 2017-01-28 08:52 | Inpatient (IN) | payer MEDICARE ==
[2017-01-28] MEDS ORDERED: HOME MEDICATION LIST NEEDED 1 EA EACH MC ONE (08:59)
[2017-01-28] MEDS ORDERED: DEXTROSE 50% WATER 25 GM/50 ML SYR IV PRN (09:05)
[2017-01-28] MEDS ORDERED: FAMOTIDINE 20 MG TABLET PO PRN (09:05)
[2017-01-28] MEDS ORDERED: LISINOPRIL 20 MG TABLET PO SCH (10:00)
[2017-01-28] MEDS ORDERED: POTASSIUM CHLORIDE 20 MEQ/15 ML UDC PO SCH (10:00)
[2017-01-28] MEDS ORDERED: INSULIN LISPRO 100 UNIT/ML ML SUBCUT SCH (11:30)
--- NOTE | 2017-01-28 12:20 | HISTORY & PHYSICAL ---
DATE OF ADMISSION TO SWING BED: 01/28/17 ATTENDING PHYSICIAN: Milton Martel MD HISTORY OF PRESENT ILLNESS: Patient admitted to [facility] -01/12/17 with unstable angina, subsequent angiography showing a nonobstructive coronary disease and medically managed. He subsequently was diagnosed with acute cholecystitis, underwent a complicated laparoscopic cholecystectomy with biliary leak requiring ERCP and stent placement as well percutaneous drainage after he developed peritonitis and abscesses. He then developed ischemic colitis and underwent a right hemicolectomy. During that 5 week hospital course, he received optimal nutrition and was noted to have kwashiorkor on presentation for swing bed admission to [facility] on 01/12/17. Because of complications on swing bed he was subsequently transferred to inpatient hospitalization 01/17/17, underwent multiple CT scans, wound care for midline laparotomy scar that was dehiscing, reconstitution of his nutrition, management of his electrolytes with refeeding syndrome, a hospital-acquired pneumonia and urinary retention. At this time, his Schneider is being discontinued. His nutrition is markedly improved with prealbumin of 13 and transferrin of 120, which both markedly increased his anasarca. He now has trace sacral and pedal edema. A kidney stone has passed into his bladder, and he has had increased urinary output, though on most recent CT scan did have persistent hydronephrosis that is excepted to improve. He had continued right upper quadrant inflammatory stranding at place of prior biliary drain. Both his right upper and lower quadrant drains have been removed without evidence of recurrence and effusions. He has been ambulating with standby assistance 3 times daily. Nutrition has improved with Ensure and added Beneprotein as well as Japanese yogurt and appetite has improved to solid foods as well. He continues on Diflucan for michelle infection, but because of his hospitalization, did miss follow up with Dr. Vincenzo Moncada his infectious disease specialist. He has no fever. No cough, cold, congestion. His weakness is markedly attenuated. He is less apathetic in ambulating or participating with therapy services including Occupational Therapy and Physical Therapy. At this time he is felt stable for transition back to swing bed status. PAST MEDICAL HISTORY 1. Knee arthritis and status post left knee arthroplasty. 2. Prior history of iron-deficiency anemia. 3. Coronary artery disease with percutaneous intervention in 2010 and repeat angiography in 12/2016 showing nonobstructive coronary disease, now with medical management. 4. History of colon cancer and was status post left hemicolectomy 2005 and now is status post right hemicolectomy for ischemic colitis. 5. Umbilical herniorrhaphy and most recently had a midline laparotomy scar for his hemicolectomy with wound dehiscence and tunneling at the distal umbilical portion of the open wound. This is growing by secondary intention and is markedly improved with minimal fibrinous exudate at the umbilicus and no further tunneling. 6. He has recurrent small bowel obstructions. 7. Hypertension. 8. Dyslipidemia. 9. Benign prostatic hypertrophy with lower urinary tract symptoms. ALLERGIES: Morphine which causes nightmares, but does tolerate other oral narcotics. FAMILY HISTORY: Notable for leukemia in his brother who at age 62 and his father passing away from colon cancer. He has a family history of rheumatoid arthritis in his paternal grandmother and she subsequently from coronary disease. SOCIAL HISTORY: He does not drink alcohol. He is to [place] who has increased medical complications and is home bound with home health care. In the interim, their son Micah has been caring for both Camryn and assisting with his management. 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 He is a life long nonsmoker. MEDICATIONS Aspirin 81 mg p.o. daily. Lipitor 80 mg per day. Pepcid 20 mg daily. Fluconazole 400 mg daily. Lantus 8 units nightly. Novolin sliding scale. Lisinopril 20 mg daily. Metoprolol 25 mg b.i.d. Eliquis 2.5 mg daily. Finasteride 5 mg daily. Marinol 2.5 mg daily. Flomax 0.4 mg daily. PHYSICAL EXAMINATION VITAL SIGNS: His blood pressures have ranged in the 120s-150s/50s-80s, heart rate 50s-80s, respiratory rate 14. He is afebrile at 98.8. Oxygen saturations are largely above 90% with 0-1 liter of nasal cannula. GENERAL: Pleasant. In no apparent distress. No jaundice, anemia, cyanosis, clubbing or lymphadenopathy. NECK: supple. No masses or bruits appreciated. CARDIAC: S1, S2 without murmur. No gallops or rhythm appreciated. RESPIRATORY: Good air entry in the upper 2/3 of his lung field and somewhat diminished in the lower 1/3 of his lung asif but without egophony or adventitial sounds. ABDOMEN: Distended. Soft. Nontender. He has 2 percutaneous ostomies from drainages with no exudate and no surrounding erythema. Shows a midline laparotomy scar. Shows granulation tissue throughout. Minimal fibrinous exudate at the umbilicus. He has trace sacral and pedal edema. ASSESSMENT 1. Deconditioning with prolonged hospitalization and protein-calorie malnutrition. This is improving with Physical Therapy, Occupational Therapy and nutritional management with Ensure and added Beneprotein as well as Japanese yogurt. Patient's appetite as started to improve, and he is tolerating some of his regularly scheduled diet, amenable to wean his Marinol off prior to transition home. 2. Generalized edema with anasarca. This was related to kwashiorkor and has improved with improvement in his malnutrition. 3. Nonobstructive coronary disease on medical management with aspirin, statin, beta-nir and Alfredo inhibitor as well as concomitant Eliquis for history of paroxysmal atrial fibrillation. 4. Benign prostatic hypertrophy with urinary retention. Patient was noted to have 1.5 liters of urinary retention without discomfort. This was likely a component of chronic urinary retention. A Schneider catheter had been placed, but will be discontinued. Will bladder scan q.2-3 hours after prompted voids and teach patient I&O catheterization twice daily. 5. Sleep apnea. Will continue his CPAP. 6. Hypertension. 7. Dyslipidemia. 8. Intraabdominal sepsis with michelle glabrata, now on Diflucan. Will continue patients Diflucan and follow up with Dr. Moncada. Have requested CRP next week. Noted the CRP had decreased from 260 to 80 with marked improvement. He has a persistent leukocytosis, though differential is starting to improve in his anemia. Has required transfusions, but hemoglobin is currently stable. Will continue therapy services, nutritional management, will reconstitute his nutrition prior to discharge home. Will continue to monitor electrolytes and replace with refeeding syndrome and persistent hypokalemia likely related to refeeding syndrome. [facility]
[2017-01-28] MEDS: INSULIN LISPRO 100 UNIT/ML ML SUBCUT SCH ×3 (13:00→21:09)
[2017-01-28] MEDS: FLUCONAZOLE 100 MG CAPSULE PO SCH (13:00)
[2017-01-28] MEDS: HYDROCHLOROTHIAZIDE 25 MG TABLET PO SCH (13:00)
[2017-01-28] MEDS ORDERED: NON-FORMULARY MEDICATION (Apixaban [Eliquis] 2.5 MG) PO SCH (21:00)
[2017-01-28] MEDS: ATORVASTATIN CALCIUM 10 MG TABLET PO SCH (21:00)
[2017-01-28] MEDS ORDERED: DRONABINOL 2.5 MG PO SCH (21:00)
[2017-01-28] MEDS ORDERED: TAMSULOSIN HCL 0.4 MG CAPSULE PO SCH (21:00)
[2017-01-28] MEDS: TAMSULOSIN HCL 0.4 MG CAPSULE PO SCH (21:08)
[2017-01-28] MEDS: ASCORBIC ACID 500 MG TABLET PO SCH (21:08)
[2017-01-29 06:01] LABS: BASOPHIL# 0.1 X 10^3uL (0.0-0.1); BASOPHILS 0.8 % (0.0-2.0); EOSINOPHILS 0.7 % (0.0-6.0); EOSINOPHILS# 0.1 X 10^3uL (0.0-0.4); HEMATOCRIT 36.5 % (42.0-54.0); HEMOGLOBIN 12.3 g/dL (14.0-18.0); LYMPHOCYTES 6.2 % (20.0-40.0); LYMPHOCYTES# 0.9 X 10^3uL (0.8-3.8); MEAN CELL VOLUME 87.9 fL (80.0-100.0); MEAN CORPUS. HGB CONCENTRATION 33.7 g/dL (32.0-36.0); MEAN CORPUSCULAR HEMOGLOBIN 29.6 pg (29.0-35.0); MEAN PLATELET VOLUME 7.9 fL (7.4-10.4); MONOCYTES 5.8 % (2.0-10.0); MONOCYTES# 0.8 X 10^3uL (0.2-1.0); NEUTROPHILS# 11.9 X 10^3uL (2.6-6.7); PLATELET COUNT 280 X 10^3uL (130-440); RED BLOOD COUNT 4.15 X 10^6uL (4.20-6.10); RED CELL DISTRIBUTION WIDTH 14.1 % (11.5-14.5); WHITE BLOOD COUNT 13.8 X 10^3uL (3.9-10.7)
[2017-01-29 06:04] LABS: NEUTROPHILS 86.5 % (54.0-75.0)
[2017-01-29 06:13] LABS: ALBUMIN 3.2 g/dL (3.5-5.0); ALKALINE PHOSPHATASE 169 U/L (38-126); ALT 44 U/L (21-72); AST 36 U/L (17-59); BILIRUBIN, DIRECT 0.1 mg/dL (0.0-0.4); BILIRUBIN, TOTAL 0.7 mg/dL (0.2-1.3); BLOOD UREA NITROGEN 32 mg/dL (9-20); CALCIUM 9.5 mg/dL (8.4-10.2); CHLORIDE 103 mmol/L (98-107); CREATININE 1.1 mg/dL (0.7-1.3); GLUCOSE 100 mg/dL (70-100); SODIUM 141 mmol/L (137-145); TOTAL PROTEIN 7.4 g/dL (6.3-8.2)
[2017-01-29] MEDS: INSULIN LISPRO 100 UNIT/ML ML SUBCUT SCH ×4 (08:18→21:33)
[2017-01-29] MEDS: AMLODIPINE BESYLATE 5 MG TABLET PO SCH (08:37)
[2017-01-29] MEDS: ASCORBIC ACID 500 MG TABLET PO SCH ×2 (08:39→21:01)
[2017-01-29] MEDS: CYANOCOBALAMIN 1,000 MCG TABLET PO SCH (08:39)
[2017-01-29] MEDS: LISINOPRIL 20 MG TABLET PO SCH (08:39)
[2017-01-29] MEDS: CHOLECALCIFEROL 1,000 UNIT CAPSULE PO SCH (08:39)
[2017-01-29] MEDS: FINASTERIDE 5 MG TABLET PO SCH (08:39)
[2017-01-29] MEDS: HYDROCHLOROTHIAZIDE 25 MG TABLET PO SCH ×2 (08:39→13:51)
[2017-01-29] MEDS: FLUCONAZOLE 100 MG CAPSULE PO SCH (08:39)
[2017-01-29] MEDS: INSULIN GLARGINE,HUM.REC.ANLOG 100 UNITS/ML ML SUBCUT SCH (08:40)
[2017-01-29] MEDS ORDERED: FLUCONAZOLE 400 MG PO SCH (09:00)
[2017-01-29] MEDS: DRONABINOL 2.5 MG CAPSULE PO SCH ×2 (09:20→21:02)
[2017-01-29] MEDS: APIXABAN 2.5 MG TABLET PO SCH ×2 (09:20→21:01)
--- NOTE | 2017-01-29 10:27 | PROGRESS NOTE: IM APSO ---
Assessment and Plan - Date of Encounter Date of Encounter: 01/29/17 (1) Protein-calorie malnutrition, moderate Status: Chronic Assessment and plan: improving and refeeding syndrome now attenuating, continue to monitor but less frequently and replace lytes as indicated Current Visit: No (2) Urinary retention due to benign prostatic hyperplasia Status: Chronic Assessment and plan: will need I&O cath, if unable to perform safely/sterile fashion by self may need dorman (silver impregnated) and f/u urology for consideration of TURP as he continues to improve from such a protracted and complicated hospital course. Already takes flomax and finasteride. Current Visit: No (3) Electrolyte disorder Status: Acute Assessment and plan: improving and partly post obstructive diuresis and refeeding syndrome. Current Visit: No (4) Hyperglycemia Status: Acute Assessment and plan: improving and may be able to DC lantus Current Visit: No (5) Non-healing surgical wound Status: Acute Assessment and plan: improving, continue nutrition and wound care/dressings. some granulation and serosanguinous drainage Current Visit: No (6) Urinary retention Status: Acute Current Visit: No (7) Anemia Status: Chronic Current Visit: No (8) CAD in [place] artery Status: Chronic Assessment and plan: med management, recent cath with non obstructive dz Current Visit: No (9) Nadia glabrata infection Status: Chronic Current Visit: No (10) Hypercholesterolemia Status: Chronic Current Visit: No (11) Hypertension, benign Status: Chronic Current Visit: No - Time Spent With Patient Total time spent with greater than 50% in coordination of care (as documented) at patient's floor/unit and/or counseling patient: Greater than 35 minutes IM: PN Subjective General: good appetite, no fatigue, no anxiety, no depression, no confusion, no fever, no chills Cardiovascular: no chest pain, no chest pressure, no palpitations Respiratory: no cough, no sputum Gastrointestinal: no abdominal pain, no nausea, no vomiting, no diarrhea Genitourinary: other (feels full and can't void, did require strait cath, spoke about probable TURP but for now I&O cath verses dorman with leg bag and risk/ benefit of each. he wishes to try to learn I&O cath but amenable to Dorman if too difficult and understands risks etc, discussed with Katrina randhawa patients nurse) Musculoskeletal: no pain, no swelling Integumentary: no rashes Neurological: other (feels stronger) IM: PN Objective Exam - I&O/Vital Signs I&O: Intake & Output 01/28/17 01/29/17 01/29/17 21:59 05:59 13:59 Intake Total 1170 400 Output Total 550 0 1175 Balance 620 0 -775 Weight 76.5 kg Intake: Oral 1170 200 Oral Supplement 200 Output: Urine 550 0 1175 Other: Urine Appearance Clear Clear Urine Color Yellow Yellow Stool Size Smear Voiding Method Indwelling Catheter Self-Catheterization # Voids 1 Vital Signs: Last Vital Signs Temp 36.4 C L 01/29/17 06:21 Pulse 70 01/29/17 09:00 Resp 16 01/29/17 06:21 BP 121/79 01/29/17 06:21 Pulse Ox 93 01/29/17 06:21 Oxygen Delivery Method Room Air - Constitutional General appearance: Present: cooperative, obese - Head Head exam: Present: atraumatic, normal inspection - Eye Eye exam: Present: normal appearance - ENT ENT exam: Present: mucous membranes moist - Neck Neck exam: Present: full ROM - Respiratory Respiratory exam: Present: CTAB (diminished in bases but improving) - Cardiovascular Cardiovascular exam: Present: RRR - GI/Abdominal GI/Abdominal exam: Present: normal bowel sounds, soft, tenderness (right upper quad), other (did not take down dressing today) - Extremities Exam Extremities exam: Present: edema (trace). Absent: calf tenderness - Psychiatric Psychiatric exam: Present: normal mood - Allied Health Notes Allied health notes reviewed: nursing - Lab Labs: Laboratory Last Values WBC 13.8 X 10^3uL (3.9-10.7) H 01/29/17 05:40 RBC 4.15 X 10^6uL (4.20-6.10) L 01/29/17 05:40 Hgb 12.3 g/dL (14.0-18.0) L 01/29/17 05:40 Hct 36.5 % (42.0-54.0) L 01/29/17 05:40 MCV 87.9 fL (80.0-100.0) 01/29/17 05:40 MCH 29.6 pg (29.0-35.0) 01/29/17 05:40 MCHC 33.7 g/dL (32.0-36.0) 01/29/17 05:40 RDW 14.1 % (11.5-14.5) 01/29/17 05:40 Plt Count 280 X 10^3uL (130-440) 01/29/17 05:40 MPV 7.9 fL (7.4-10.4) 01/29/17 05:40 Neutrophils % 86.5 % (54.0-75.0) H 01/29/17 05:40 Lymphocytes % 6.2 % (20.0-40.0) L 01/29/17 05:40 Eosinophils % 0.7 % (0.0-6.0) 01/29/17 05:40 Basophils % 0.8 % (0.0-2.0) 01/29/17 05:40 Neutrophils # 11.9 X 10^3uL (2.6-6.7) H 01/29/17 05:40 Lymphocytes # 0.9 X 10^3uL (0.8-3.8) 01/29/17 05:40 Monocytes 5.8 % (2.0-10.0) 01/29/17 05:40 Monocytes # 0.8 X 10^3uL (0.2-1.0) 01/29/17 05:40 Eosinophils # 0.1 X 10^3uL (0.0-0.4) 01/29/17 05:40 Basophils # 0.1 X 10^3uL (0.0-0.1) 01/29/17 05:40 Sodium 141 mmol/L (137-145) 01/29/17 05:40 Potassium 4.0 mmol/L (3.5-5.1) D 01/29/17 05:40 Chloride 103 mmol/L (98-107) 01/29/17 05:40 Carbon Dioxide 27 mmol/L (22-30) 01/29/17 05:40 BUN 32 mg/dL (9-20) H 01/29/17 05:40 Creatinine 1.1 mg/dL (0.7-1.3) 01/29/17 05:40 GFR Calculation Not Reportable 01/29/17 05:40 Glucose 100 mg/dL (70-100) 01/29/17 05:40 Calcium 9.5 mg/dL (8.4-10.2) 01/29/17 05:40 Total Bilirubin 0.7 mg/dL (0.2-1.3) 01/29/17 05:40 Direct Bilirubin 0.1 mg/dL (0.0-0.4) 01/29/17 05:40 AST 36 U/L (17-59) 01/29/17 05:40 ALT 44 U/L (21-72) 01/29/17 05:40 Alkaline Phosphatase 169 U/L (38-126) H 01/29/17 05:40 Total Protein 7.4 g/dL (6.3-8.2) 01/29/17 05:40 Albumin 3.2 g/dL (3.5-5.0) L 01/29/17 05:40 Quality Questions - VTE Prophylaxis Assessment VTE Present on Admission?: No Patient at risk for venous thromboembolism?: Yes VTE Risk Level: Low Risk Pharmaceutical VTE prophylaxis contraindication reason: N/A- VTE prophylaxsis ordered Mechanical VTE prophylaxis contraindication reason: N/A- VTE prophylaxsis ordered (5) Non-healing surgical wound Qualifiers: Encounter type: sequela Qualified Code(s): T81.89XS - Other complications of procedures, not elsewhere classified, sequela (7) Anemia Qualifiers: Anemia type: other cause Other causes of anemia: acute posthemorrhagic Qualified Code(s): D62 - Acute posthemorrhagic anemia
[2017-01-29 13:11] LABS: URINE APPEARANCE SLIGHTLY CLOUDY; URINE COLOR YELLOW; URINE GLUCOSE NORMAL (NEGATIVE); URINE KETONE NEGATIVE (NEGATIVE); URINE LEUKOCYTE ESTERASE NEGATIVE (NEGATIVE); URINE MUCUS NONE SEEN (Up to 25%); URINE NITRITE NEGATIVE (NEGATIVE); URINE PROTEIN 30mg/dL (1+) (NEG - TRACE); URINE RBC NONE SEEN (0-5/hpf); URINE SPECIFIC GRAVITY 1.015 (0.001-1.035); URINE SQUAMOUS EPITHELIAL CELL NONE SEEN (<= 15/hpf)
[2017-01-29 13:12] LABS: URINE BACTERIA NONE SEEN (<10/hpf); URINE BILIRUBIN NEGATIVE (NEGATIVE); URINE BLOOD 50 Ery/uL (2+) (NEGATIVE); URINE SPERM NONE SEEN; URINE UROBILINOGEN 0.2mg/dL (Normal) (NEG-1mg/dL); URINE WBC 0-4/hpf (0-4/hpf)
[2017-01-29] MEDS: TAMSULOSIN HCL 0.4 MG CAPSULE PO SCH (21:00)
[2017-01-29] MEDS ORDERED: ATORVASTATIN CALCIUIM 40 MG TABLET ONE (21:26)
[2017-01-29] MEDS: ATORVASTATIN CALCIUM 10 MG TABLET PO SCH (21:32)
[2017-01-30] MEDS: INSULIN LISPRO 100 UNIT/ML ML SUBCUT SCH ×4 (06:49→20:57)
[2017-01-30] MEDS: INSULIN GLARGINE,HUM.REC.ANLOG 100 UNITS/ML ML SUBCUT SCH (09:18)
[2017-01-30] MEDS: ASCORBIC ACID 500 MG TABLET PO SCH ×2 (09:19→20:31)
[2017-01-30] MEDS: FLUCONAZOLE 100 MG CAPSULE PO SCH (09:19)
[2017-01-30] MEDS: LISINOPRIL 20 MG TABLET PO SCH (09:20)
[2017-01-30] MEDS: HYDROCHLOROTHIAZIDE 25 MG TABLET PO SCH (09:20)
[2017-01-30] MEDS: APIXABAN 2.5 MG TABLET PO SCH ×2 (09:21→20:33)
[2017-01-30] MEDS: AMLODIPINE BESYLATE 5 MG TABLET PO SCH (09:21)
[2017-01-30] MEDS: DRONABINOL 2.5 MG CAPSULE PO SCH ×2 (09:21→20:32)
[2017-01-30] MEDS: CHOLECALCIFEROL 1,000 UNIT CAPSULE PO SCH (09:21)
[2017-01-30] MEDS: FINASTERIDE 5 MG TABLET PO SCH (09:22)
[2017-01-30] MEDS: CYANOCOBALAMIN 1,000 MCG TABLET PO SCH (09:22)
[2017-01-30] MEDS: ATORVASTATIN CALCIUM 10 MG TABLET PO SCH (20:31)
[2017-01-30] MEDS: TAMSULOSIN HCL 0.4 MG CAPSULE PO SCH (20:32)
[2017-01-30] MEDS ORDERED: ATORVASTATIN CALCIUIM 40 MG TABLET ONE (20:40)
[2017-01-31 05:20] LABS: MEAN PLATELET VOLUME 8.3 fL (7.4-10.4)
[2017-01-31 05:25] LABS: EOSINOPHILS# 0.1 X 10^3uL (0.0-0.4); LYMPHOCYTES# 0.9 X 10^3uL (0.8-3.8); MONOCYTES# 0.8 X 10^3uL (0.2-1.0)
[2017-01-31 05:28] LABS: BASOPHILS 0.2 % (0.0-2.0); EOSINOPHILS 0.7 % (0.0-6.0); HEMATOCRIT 36.3 % (42.0-54.0); HEMOGLOBIN 12.5 g/dL (14.0-18.0); LYMPHOCYTES 7.1 % (20.0-40.0); MEAN CELL VOLUME 87.4 fL (80.0-100.0); MEAN CORPUS. HGB CONCENTRATION 34.4 g/dL (32.0-36.0); MONOCYTES 5.9 % (2.0-10.0); NEUTROPHILS# 11.1 X 10^3uL (2.6-6.7); PLATELET COUNT 307 X 10^3uL (130-440); RED BLOOD COUNT 4.15 X 10^6uL (4.20-6.10); RED CELL DISTRIBUTION WIDTH 14.2 % (11.5-14.5); WHITE BLOOD COUNT 12.9 X 10^3uL (3.9-10.7)
[2017-01-31 05:32] LABS: BLOOD UREA NITROGEN 38 mg/dL (9-20); CALCIUM 9.7 mg/dL (8.4-10.2); CHLORIDE 102 mmol/L (98-107); CREATININE 1.1 mg/dL (0.7-1.3); GLUCOSE 103 mg/dL (70-100); POTASSIUM 3.7 mmol/L (3.5-5.1); SODIUM 140 mmol/L (137-145)
[2017-01-31 06:33] LABS: NEUTROPHILS 86.1 % (54.0-75.0)
[2017-01-31] MEDS: INSULIN LISPRO 100 UNIT/ML ML SUBCUT SCH ×4 (06:34→20:36)
--- NOTE | 2017-01-31 08:44 | PROGRESS NOTE: IM APSO ---
Assessment and Plan - Date of Encounter Date of Encounter: 01/31/17 (1) Physical deconditioning Status: Acute Assessment and plan: Markedly improving, still need some therapy and if DC'd to home will need HHC with RN or mediation management, teach and monitor of I&O cath, cardiopulm assessments as well PT/OT for gait training/strengthening and functional mobility as well ?assess for DME; may DC to [place] sister Amanda to [place] though he is reticent. Current Visit: Yes (2) Protein-calorie malnutrition, moderate Status: Chronic Assessment and plan: improving and refeeding syndrome now attenuating, continue to monitor but less frequently and replace lytes as indicated Current Visit: No (3) Urinary retention due to benign prostatic hyperplasia Status: Chronic Assessment and plan: will need I&O cath, if unable to perform safely/sterile fashion by self may need dorman (silver impregnated) and f/u urology for consideration of TURP as he continues to improve from such a protracted and complicated hospital course. Already takes flomax and finasteride. Current Visit: No (4) Electrolyte disorder Status: Acute Assessment and plan: improving and partly post obstructive diuresis and refeeding syndrome. Current Visit: No (5) Hyperglycemia Status: Acute Assessment and plan: improving and may be able to DC lantus, will start metformin low doses with recent renal issues and soft stools, if this improves glycemic control, will wean lantus Current Visit: No (6) Non-healing surgical wound Status: Acute Assessment and plan: improving, continue nutrition and wound care/dressings. 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 Current Visit: No (11) Hypercholesterolemia Status: Chronic Current Visit: No (12) Hypertension, benign Status: Chronic Current Visit: No - Time Spent With Patient Total time spent with greater than 50% in coordination of care (as documented) at patient's floor/unit and/or counseling patient: IM: PN Subjective General: good appetite (appetite improved though not great, he is making himself eat and take health/protein shakes, no nausea), no fatigue, no anxiety, no depression, no confusion, no fever, no chills Cardiovascular: no chest pain, no chest pressure, no palpitations Respiratory: no cough, no sputum Gastrointestinal: diarrhea (No cramping/pain wiht BM, now emiformed with some urgency but no blood/mucus), no abdominal pain, no nausea, no vomiting Genitourinary: other (He is learning to do self cath and was able to insert cath this morning with some assistance, massage bladder and empty bladder as well removed and clean afterward, needing only help with nsertion, Twin RN feels patient will be able to manage this wiht a bit more education/tteaching over next day or so) Musculoskeletal: no pain, no swelling Integumentary: no rashes Neurological: other (feels stronger) IM: PN Objective Exam - I&O/Vital Signs I&O: Intake & Output 01/30/17 01/31/17 01/31/17 21:59 05:59 13:59 Intake Total 1532 200 Output Total 1500 750 Balance 32 -550 Weight 75.5 kg Intake: Oral 1292 200 Oral Supplement 240 Output: Urine 1500 750 Straight 750 Other: Urine Appearance Clear Urine Color Straw Straw Straight Yellow Stool Size Moderate Stool Characteristics Formed Voiding Method Self-Catheterization Self-Catheterization # Voids 1 # Bowel Movements 1 Vital Signs: Last Vital Signs Temp 36.2 C L 01/31/17 06:00 Pulse 58 L 01/31/17 06:00 Resp 21 01/31/17 06:00 BP 133/58 01/31/17 06:00 Pulse Ox 90 01/31/17 06:00 Oxygen Delivery Method Room Air - Constitutional General appearance: Present: cooperative, obese - Head Head exam: Present: atraumatic, normal inspection - Eye Eye exam: Present: normal appearance - ENT ENT exam: Present: mucous membranes moist - Neck Neck exam: Present: full ROM - Respiratory Respiratory exam: Present: CTAB (left side good air entry to base, right markedly improved though diminished at base) - Cardiovascular Cardiovascular exam: Present: RRR - GI/Abdominal GI/Abdominal exam: Present: normal bowel sounds, soft, tenderness (right upper quad), other (did not take down dressing today) - Extremities Exam Extremities exam: Present: edema (trace at sacrum a leg but markedly improved). Absent: calf tenderness - Psychiatric Psychiatric exam: Present: normal mood - Allied Health Notes Allied health notes reviewed: nursing - Lab Labs: Laboratory Last Values WBC 12.9 X 10^3uL (3.9-10.7) H 01/31/17 05:00 RBC 4.15 X 10^6uL (4.20-6.10) L 01/31/17 05:00 Hgb 12.5 g/dL (14.0-18.0) L 01/31/17 05:00 Hct 36.3 % (42.0-54.0) L 01/31/17 05:00 MCV 87.4 fL (80.0-100.0) 01/31/17 05:00 MCH 30.0 pg (29.0-35.0) 01/31/17 05:00 MCHC 34.4 g/dL (32.0-36.0) 01/31/17 05:00 RDW 14.2 % (11.5-14.5) 01/31/17 05:00 Plt Count 307 X 10^3uL (130-440) 01/31/17 05:00 MPV 8.3 fL (7.4-10.4) 01/31/17 05:00 Neutrophils % 86.1 % (54.0-75.0) H 01/31/17 05:00 Lymphocytes % 7.1 % (20.0-40.0) L 01/31/17 05:00 Eosinophils % 0.7 % (0.0-6.0) 01/31/17 05:00 Basophils % 0.2 % (0.0-2.0) 01/31/17 05:00 Neutrophils # 11.1 X 10^3uL (2.6-6.7) H 01/31/17 05:00 Lymphocytes # 0.9 X 10^3uL (0.8-3.8) 01/31/17 05:00 Monocytes 5.9 % (2.0-10.0) 01/31/17 05:00 Monocytes # 0.8 X 10^3uL (0.2-1.0) 01/31/17 05:00 Eosinophils # 0.1 X 10^3uL (0.0-0.4) 01/31/17 05:00 Basophils # 0.0 X 10^3uL (0.0-0.1) 01/31/17 05:00 Sodium 140 mmol/L (137-145) 01/31/17 05:00 Potassium 3.7 mmol/L (3.5-5.1) 01/31/17 05:00 Chloride 102 mmol/L (98-107) 01/31/17 05:00 Carbon Dioxide 26 mmol/L (22-30) 01/31/17 05:00 BUN 38 mg/dL (9-20) H 01/31/17 05:00 Creatinine 1.1 mg/dL (0.7-1.3) 01/31/17 05:00 GFR Calculation Not Reportable 01/31/17 05:00 Glucose 103 mg/dL (70-100) H 01/31/17 05:00 Calcium 9.7 mg/dL (8.4-10.2) 01/31/17 05:00 Total Bilirubin 0.7 mg/dL (0.2-1.3) 01/29/17 05:40 Direct Bilirubin 0.1 mg/dL (0.0-0.4) 01/29/17 05:40 AST 36 U/L (17-59) 01/29/17 05:40 ALT 44 U/L (21-72) 01/29/17 05:40 Alkaline Phosphatase 169 U/L (38-126) H 01/29/17 05:40 Total Protein 7.4 g/dL (6.3-8.2) 01/29/17 05:40 Albumin 3.2 g/dL (3.5-5.0) L 01/29/17 05:40 Urine Color Yellow 01/29/17 10:45 Urine Appearance Slightly cloudy 01/29/17 10:45 Urine pH 7.0 (5-7) 01/29/17 10:45 Ur Specific [place] 1.015 (0.001-1.035) 01/29/17 10:45 Urine Protein 30mg/dl (1+) (NEG - TRACE) A 01/29/17 10:45 Urine Ketones Negative (NEGATIVE) 01/29/17 10:45 Urine Blood 50 aleksander/ul (2+) (NEGATIVE) A 01/29/17 10:45 Urine Nitrate Negative (NEGATIVE) 01/29/17 10:45 Urine Bilirubin Negative (NEGATIVE) 01/29/17 10:45 Urine Urobilinogen 0.2mg/dl (normal) (NEG-1mg/dL) 01/29/17 10:45 Ur Leukocyte Esterase Negative (NEGATIVE) 01/29/17 10:45 Urine RBC None seen (0-5/hpf) 01/29/17 10:45 Urine WBC 0-4/hpf (0-4/hpf) 01/29/17 10:45 Ur Squamous Epith Cells None seen (<= 15/hpf) 01/29/17 10:45 Urine Bacteria None seen (<10/hpf) 01/29/17 10:45 Urine Mucus None seen (Up to 25%) 01/29/17 10:45 Urine Sperm None seen 01/29/17 10:45 Urine Glucose Normal (NEGATIVE) 01/29/17 10:45 (6) Non-healing surgical wound Qualifiers: Encounter type: sequela Qualified Code(s): T81.89XS - Other complications of procedures, not elsewhere classified, sequela (8) Anemia Qualifiers: Anemia type: other cause Other causes of anemia: acute posthemorrhagic Qualified Code(s): D62 - Acute posthemorrhagic anemia
[2017-01-31] MEDS: FLUCONAZOLE 100 MG CAPSULE PO SCH (09:04)
[2017-01-31] MEDS: APIXABAN 2.5 MG TABLET PO SCH ×2 (09:05→20:33)
[2017-01-31] MEDS: CHOLECALCIFEROL 1,000 UNIT CAPSULE PO SCH (09:05)
[2017-01-31] MEDS: FINASTERIDE 5 MG TABLET PO SCH (09:05)
[2017-01-31] MEDS: DRONABINOL 2.5 MG CAPSULE PO SCH ×2 (09:06→20:34)
[2017-01-31] MEDS: metFORMIN 500 MG TABLET PO SCH ×2 (09:06→20:35)
[2017-01-31] MEDS: CYANOCOBALAMIN 1,000 MCG TABLET PO SCH (09:06)
[2017-01-31] MEDS: LISINOPRIL 20 MG TABLET PO SCH (09:06)
[2017-01-31] MEDS: HYDROCHLOROTHIAZIDE 25 MG TABLET PO SCH (09:08)
[2017-01-31] MEDS: AMLODIPINE BESYLATE 5 MG TABLET PO SCH (09:09)
[2017-01-31] MEDS: ASCORBIC ACID 500 MG TABLET PO SCH ×2 (09:10→20:34)
[2017-01-31] MEDS: INSULIN GLARGINE,HUM.REC.ANLOG 100 UNITS/ML ML SUBCUT SCH (09:11)
[2017-01-31] MEDS ORDERED: SODIUM CHLORIDE ONE (16:26)
[2017-01-31] MEDS ORDERED: NORMAL SALINE FLUSH ONE (16:27)
[2017-01-31] MEDS: TAMSULOSIN HCL 0.4 MG CAPSULE PO SCH (20:34)
[2017-01-31] MEDS: ATORVASTATIN CALCIUM 10 MG TABLET PO SCH (20:35)
[2017-02-01] MEDS: INSULIN LISPRO 100 UNIT/ML ML SUBCUT SCH ×4 (06:38→21:45)
[2017-02-01] MEDS: FLUCONAZOLE 100 MG CAPSULE PO SCH (08:19)
[2017-02-01] MEDS: AMLODIPINE BESYLATE 5 MG TABLET PO SCH (08:20)
[2017-02-01] MEDS: CYANOCOBALAMIN 1,000 MCG TABLET PO SCH (08:20)
[2017-02-01] MEDS: APIXABAN 2.5 MG TABLET PO SCH ×2 (08:21→21:45)
[2017-02-01] MEDS: metFORMIN 500 MG TABLET PO SCH ×2 (08:21→21:44)
[2017-02-01] MEDS: HYDROCHLOROTHIAZIDE 25 MG TABLET PO SCH (08:22)
[2017-02-01] MEDS: CHOLECALCIFEROL 1,000 UNIT CAPSULE PO SCH (08:22)
[2017-02-01] MEDS: LISINOPRIL 20 MG TABLET PO SCH (08:23)
[2017-02-01] MEDS: FINASTERIDE 5 MG TABLET PO SCH (08:23)
[2017-02-01] MEDS: ASCORBIC ACID 500 MG TABLET PO SCH ×2 (08:23→21:43)
[2017-02-01] MEDS: DRONABINOL 2.5 MG CAPSULE PO SCH ×2 (08:23→21:43)
[2017-02-01] MEDS: INSULIN GLARGINE,HUM.REC.ANLOG 100 UNITS/ML ML SUBCUT SCH (08:24)
[2017-02-01] MEDS: TAMSULOSIN HCL 0.4 MG CAPSULE PO SCH (21:44)
[2017-02-01] MEDS: ATORVASTATIN CALCIUM 10 MG TABLET PO SCH (21:45)
[2017-02-02 05:58] LABS: BLOOD UREA NITROGEN 57 mg/dL (9-20); CALCIUM 9.7 mg/dL (8.4-10.2); CHLORIDE 100 mmol/L (98-107); CREATININE 1.4 mg/dL (0.7-1.3); GLUCOSE 130 mg/dL (70-100); POTASSIUM 3.7 mmol/L (3.5-5.1); SODIUM 139 mmol/L (137-145)
[2017-02-02] MEDS: INSULIN LISPRO 100 UNIT/ML ML SUBCUT SCH ×4 (06:38→22:13)
--- NOTE | 2017-02-02 08:40 | PROGRESS NOTE: IM APSO ---
Assessment and Plan - Date of Encounter Date of Encounter: 02/02/17 (1) Physical deconditioning Status: Acute Assessment and plan: Markedly improving, still need some therapy and if DC'd to home will need HHC with RN for medication management, teach and monitor of I&O cath, cardiopulm assessments as well PT/OT for gait training/strengthening and functional mobility as well ?assess for DME; may DC to Priti sister Amanda to [place] Tuesday morning. Current Visit: Yes (2) Protein-calorie malnutrition, moderate Status: Chronic Assessment and plan: improving and refeeding syndrome now attenuating, continue to monitor but less frequently and replace lytes as indicated. Prealbumin now almost 15 Current Visit: No (3) Urinary retention due to benign prostatic hyperplasia Status: Chronic Assessment and plan: will need I&O cath, if unable to perform safely/sterile fashion by self may need dorman (silver impregnated) and f/u urology for consideration of TURP as he continues to improve from such a protracted and complicated hospital course. Already takes flomax and finasteride. Does seem to be gaining proficiency with I&O cath Current Visit: No (4) Electrolyte disorder Status: Acute Assessment and plan: improving and partly post obstructive diuresis and refeeding syndrome. Current Visit: No (5) Hyperglycemia Status: Acute Assessment and plan: improving and may be able to DC lantus, will start metformin low doses with recent renal issues and soft stools, if this improves glycemic control, will wean lantus Current Visit: No (6) Non-healing surgical wound Status: Acute Assessment and plan: improving, continue nutrition and wound care/dressings. 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 Current Visit: No (11) Hypercholesterolemia Status: Chronic Current Visit: No (12) Hypertension, benign Status: Chronic Current Visit: No (13) Acute renal failure (ARF) Status: Acute Assessment and plan: gassy, watery diarrhea and queasy, increased bun/creatine coincides with starting low dose metformin, will DC metformin and plan for home with insulin, recheck labs in morning Current Visit: Yes - Time Spent With Patient Total time spent with greater than 50% in coordination of care (as documented) at patient's floor/unit and/or counseling patient: Greater than 35 minutes IM: PN Subjective General: good appetite (he has persistently poor appetite but eating some and drinking ensure, prealbumin up to almost 15. Notes some nausea this morning, some queasy in tummy and watery stool without tenesum/pain/blood/mucus), no fatigue, no anxiety, no depression, no confusion, no fever, no chills Cardiovascular: no chest pain, no chest pressure, no palpitations Respiratory: no cough, no sputum Gastrointestinal: diarrhea (No cramping/pain with BM, semiformed with some urgency ), no abdominal pain, no nausea, no vomiting Genitourinary: other (he did self cath this morning) Musculoskeletal: no pain, no swelling Integumentary: no rashes Neurological: other (feels stronger) IM: PN Objective Exam - I&O/Vital Signs I&O: Intake & Output 02/01/17 02/02/17 02/02/17 21:59 05:59 13:59 Intake Total 634 590 Output Total 1100 Balance -466 590 Weight 74.5 kg Intake: Oral 474 590 Oral Supplement 160 Output: Urine 1100 Straight 500 Other: Urine Color Evangelista Straight Evangelista Stool Size Small Stool Characteristics Soft Formed Liquid Brown Voiding Method Self-Catheterization # Voids 1 Vital Signs: Last Vital Signs Temp 36.3 C L 02/02/17 05:30 Pulse 65 02/02/17 05:30 Resp 32 H 02/02/17 05:30 BP 123/59 02/02/17 05:30 Pulse Ox 93 02/02/17 05:30 Oxygen Delivery Method Room Air - Constitutional General appearance: Present: cooperative, obese - Head Head exam: Present: atraumatic, normal inspection - Eye Eye exam: Present: normal appearance - ENT ENT exam: Present: mucous membranes moist - Neck Neck exam: Present: full ROM - Respiratory Respiratory exam: Present: CTAB (left side good air entry to base, right markedly improved though diminished at base) - Cardiovascular Cardiovascular exam: Present: RRR - GI/Abdominal GI/Abdominal exam: Present: hyperactive bowel sounds, soft, tenderness (right upper quad), other (did not take down dressing today) - Extremities Exam Extremities exam: Present: edema (trace at sacrum a leg but markedly improved). Absent: calf tenderness - Psychiatric Psychiatric exam: Present: normal mood - Allied Health Notes Allied health notes reviewed: nursing - Lab Labs: Laboratory Last Values WBC 12.9 X 10^3uL (3.9-10.7) H 01/31/17 05:00 RBC 4.15 X 10^6uL (4.20-6.10) L 01/31/17 05:00 Hgb 12.5 g/dL (14.0-18.0) L 01/31/17 05:00 Hct 36.3 % (42.0-54.0) L 01/31/17 05:00 MCV 87.4 fL (80.0-100.0) 01/31/17 05:00 MCH 30.0 pg (29.0-35.0) 01/31/17 05:00 MCHC 34.4 g/dL (32.0-36.0) 01/31/17 05:00 RDW 14.2 % (11.5-14.5) 01/31/17 05:00 Plt Count 307 X 10^3uL (130-440) 01/31/17 05:00 MPV 8.3 fL (7.4-10.4) 01/31/17 05:00 Neutrophils % 86.1 % (54.0-75.0) H 01/31/17 05:00 Lymphocytes % 7.1 % (20.0-40.0) L 01/31/17 05:00 Eosinophils % 0.7 % (0.0-6.0) 01/31/17 05:00 Basophils % 0.2 % (0.0-2.0) 01/31/17 05:00 Neutrophils # 11.1 X 10^3uL (2.6-6.7) H 01/31/17 05:00 Lymphocytes # 0.9 X 10^3uL (0.8-3.8) 01/31/17 05:00 Monocytes 5.9 % (2.0-10.0) 01/31/17 05:00 Monocytes # 0.8 X 10^3uL (0.2-1.0) 01/31/17 05:00 Eosinophils # 0.1 X 10^3uL (0.0-0.4) 01/31/17 05:00 Basophils # 0.0 X 10^3uL (0.0-0.1) 01/31/17 05:00 Sodium 139 mmol/L (137-145) 02/02/17 05:15 Potassium 3.7 mmol/L (3.5-5.1) 02/02/17 05:15 Chloride 100 mmol/L (98-107) 02/02/17 05:15 Carbon Dioxide 25 mmol/L (22-30) 02/02/17 05:15 BUN 57 mg/dL (9-20) H 02/02/17 05:15 Creatinine 1.4 mg/dL (0.7-1.3) H 02/02/17 05:15 GFR Calculation Not Reportable 02/02/17 05:15 Glucose 130 mg/dL (70-100) H 02/02/17 05:15 Calcium 9.7 mg/dL (8.4-10.2) 02/02/17 05:15 Transferrin 127 mg/dL (206-381) L 02/02/17 05:15 Total Bilirubin 0.7 mg/dL (0.2-1.3) 01/29/17 05:40 Direct Bilirubin 0.1 mg/dL (0.0-0.4) 01/29/17 05:40 AST 36 U/L (17-59) 01/29/17 05:40 ALT 44 U/L (21-72) 01/29/17 05:40 Alkaline Phosphatase 169 U/L (38-126) H 01/29/17 05:40 C-Reactive Protein 175.1 mg/L (<10.0) H 02/02/17 05:00 Total Protein 7.4 g/dL (6.3-8.2) 01/29/17 05:40 Albumin 3.2 g/dL (3.5-5.0) L 01/29/17 05:40 Prealbumin 14.3 mg/dL (17.6-36.0) L 02/02/17 05:15 Urine Color Yellow 01/29/17 10:45 Urine Appearance Slightly cloudy 01/29/17 10:45 Urine pH 7.0 (5-7) 01/29/17 10:45 Ur Specific [place] 1.015 (0.001-1.035) 01/29/17 10:45 Urine Protein 30mg/dl (1+) (NEG - TRACE) A 01/29/17 10:45 Urine Ketones Negative (NEGATIVE) 01/29/17 10:45 Urine Blood 50 aleksander/ul (2+) (NEGATIVE) A 01/29/17 10:45 Urine Nitrate Negative (NEGATIVE) 01/29/17 10:45 Urine Bilirubin Negative (NEGATIVE) 01/29/17 10:45 Urine Urobilinogen 0.2mg/dl (normal) (NEG-1mg/dL) 01/29/17 10:45 Ur Leukocyte Esterase Negative (NEGATIVE) 01/29/17 10:45 Urine RBC None seen (0-5/hpf) 01/29/17 10:45 Urine WBC 0-4/hpf (0-4/hpf) 01/29/17 10:45 Ur Squamous Epith Cells None seen (<= 15/hpf) 01/29/17 10:45 Urine Bacteria None seen (<10/hpf) 01/29/17 10:45 Urine Mucus None seen (Up to 25%) 01/29/17 10:45 Urine Sperm None seen 01/29/17 10:45 Urine Glucose Normal (NEGATIVE) 01/29/17 10:45 (6) Non-healing surgical wound Qualifiers: Encounter type: sequela Qualified Code(s): T81.89XS - Other complications of procedures, not elsewhere classified, sequela (8) Anemia Qualifiers: Anemia type: other cause Other causes of anemia: acute posthemorrhagic Qualified Code(s): D62 - Acute posthemorrhagic anemia
[2017-02-02] MEDS: APIXABAN 2.5 MG TABLET PO SCH ×2 (08:41→21:01)
[2017-02-02] MEDS: LISINOPRIL 20 MG TABLET PO SCH (08:41)
[2017-02-02] MEDS: FINASTERIDE 5 MG TABLET PO SCH (08:41)
[2017-02-02] MEDS: CYANOCOBALAMIN 1,000 MCG TABLET PO SCH (08:41)
[2017-02-02] MEDS: AMLODIPINE BESYLATE 5 MG TABLET PO SCH (08:42)
[2017-02-02] MEDS: CHOLECALCIFEROL 1,000 UNIT CAPSULE PO SCH (08:42)
[2017-02-02] MEDS: ASCORBIC ACID 500 MG TABLET PO SCH ×2 (08:42→21:00)
[2017-02-02] MEDS: HYDROCHLOROTHIAZIDE 25 MG TABLET PO SCH (08:42)
[2017-02-02] MEDS: FLUCONAZOLE 100 MG CAPSULE PO SCH (08:43)
[2017-02-02] MEDS: DRONABINOL 2.5 MG CAPSULE PO SCH ×2 (08:43→21:00)
[2017-02-02] MEDS: INSULIN GLARGINE,HUM.REC.ANLOG 100 UNITS/ML ML SUBCUT SCH (08:43)
[2017-02-02] MEDS: ACETAMINOPHEN 325 MG TABLET PO PRN (08:43)
[2017-02-02 11:55] LABS: HEMOGLOBIN 11.8 g/dL (14.0-18.0)
[2017-02-02 11:57] LABS: BASOPHIL# 0.1 X 10^3uL (0.0-0.1); BASOPHILS 0.4 % (0.0-2.0); EOSINOPHILS 0.4 % (0.0-6.0); EOSINOPHILS# 0.1 X 10^3uL (0.0-0.4); HEMATOCRIT 34.7 % (42.0-54.0); LYMPHOCYTES 3.6 % (20.0-40.0); LYMPHOCYTES# 0.6 X 10^3uL (0.8-3.8); MEAN CORPUSCULAR HEMOGLOBIN 29.9 pg (29.0-35.0); MEAN PLATELET VOLUME 8.7 fL (7.4-10.4); MONOCYTES 5.4 % (2.0-10.0); MONOCYTES# 0.9 X 10^3uL (0.2-1.0); NEUTROPHILS# 14.5 X 10^3uL (2.6-6.7); RED BLOOD COUNT 3.94 X 10^6uL (4.20-6.10); RED CELL DISTRIBUTION WIDTH 14.4 % (11.5-14.5); WHITE BLOOD COUNT 16.2 X 10^3uL (3.9-10.7)
[2017-02-02 12:25] LABS: NEUTROPHILS 90.2 % (54.0-75.0)
[2017-02-02] MEDS: LEVOFLOXACIN 250 MG TABLET PO SCH (15:59)
[2017-02-02 16:16] LABS: URINE MUCUS NONE SEEN (Up to 25%); URINE RBC NONE SEEN (0-5/hpf); URINE SQUAMOUS EPITHELIAL CELL NONE SEEN (<= 15/hpf)
[2017-02-02 16:29] LABS: URINE APPEARANCE CLOUDY; URINE COLOR YELLOW; URINE LEUKOCYTE ESTERASE 500 WBC/uL (3+) (NEGATIVE); URINE NITRITE POSITIVE (NEGATIVE); URINE PH 5.5 (5-7); URINE SPECIFIC GRAVITY 1.015 (0.001-1.035)
[2017-02-02 16:30] LABS: URINE BILIRUBIN NEGATIVE (NEGATIVE); URINE BLOOD 50 Ery/uL (2+) (NEGATIVE); URINE GLUCOSE NORMAL (NEGATIVE); URINE KETONE NEGATIVE (NEGATIVE); URINE PROTEIN 100mg/dL (2+) (NEG - TRACE); URINE UROBILINOGEN 0.2mg/dL (Normal) (NEG-1mg/dL)
[2017-02-02 16:31] LABS: URINE BACTERIA >50 ORGANISMS/hpf (<10/hpf); URINE SPERM NONE SEEN
--- NOTE | 2017-02-02 19:06 | RADIOLOGY REPORT ---
A single view of the chest is compared with a prior film dated 01/17/2017. The heart and vessels are stable. There has been interval significant clearing of both lung bases. Minimal scarring and/or atelectasis remains at both lung bases. No infiltrate, fluid or pneumothorax is seen. Views of the abdomen demonstrate post surgical changes. Bowel gas pattern is unremarkable. No pathologic calcifications or free air are identified. IMPRESSION: Significant partial clearing of both lung bases. No acute abnormality is identified within the chest or abdomen. MTDD
[2017-02-02] MEDS: TAMSULOSIN HCL 0.4 MG CAPSULE PO SCH (21:00)
[2017-02-02] MEDS: ATORVASTATIN CALCIUM 10 MG TABLET PO SCH (21:01)
[2017-02-03 05:58] LABS: BASOPHILS 0.3 % (0.0-2.0); EOSINOPHILS 0.2 % (0.0-6.0); HEMOGLOBIN 10.8 g/dL (14.0-18.0); LYMPHOCYTES# 0.7 X 10^3uL (0.8-3.8); MEAN CORPUS. HGB CONCENTRATION 32.8 g/dL (32.0-36.0); MEAN CORPUSCULAR HEMOGLOBIN 28.6 pg (29.0-35.0); MEAN PLATELET VOLUME 8.3 fL (7.4-10.4); MONOCYTES 7.2 % (2.0-10.0); NEUTROPHILS 87.3 % (54.0-75.0); NEUTROPHILS# 12.8 X 10^3uL (2.6-6.7); PLATELET COUNT 279 X 10^3uL (130-440); WHITE BLOOD COUNT 14.5 X 10^3uL (3.9-10.7)
[2017-02-03 06:15] LABS: BLOOD UREA NITROGEN 65 mg/dL (9-20); CALCIUM 9.8 mg/dL (8.4-10.2); CHLORIDE 100 mmol/L (98-107); CREATININE 1.5 mg/dL (0.7-1.3); GLUCOSE 109 mg/dL (70-100); POTASSIUM 3.8 mmol/L (3.5-5.1); SODIUM 138 mmol/L (137-145)
[2017-02-03] MEDS: INSULIN LISPRO 100 UNIT/ML ML SUBCUT SCH ×4 (06:29→21:02)
[2017-02-03] MEDS ORDERED: MAGNESIUM HYDROXIDE 30 ML UDC PO PRN (06:30)
[2017-02-03] MEDS: DRONABINOL 2.5 MG CAPSULE PO SCH ×2 (08:31→20:58)
[2017-02-03] MEDS: AMLODIPINE BESYLATE 5 MG TABLET PO SCH (08:31)
[2017-02-03] MEDS: FINASTERIDE 5 MG TABLET PO SCH (08:31)
[2017-02-03] MEDS: APIXABAN 2.5 MG TABLET PO SCH ×2 (08:31→20:55)
[2017-02-03] MEDS: FLUCONAZOLE 100 MG CAPSULE PO SCH (08:31)
[2017-02-03] MEDS: CYANOCOBALAMIN 1,000 MCG TABLET PO SCH (08:32)
[2017-02-03] MEDS: LEVOFLOXACIN 250 MG TABLET PO SCH (08:32)
[2017-02-03] MEDS: CHOLECALCIFEROL 1,000 UNIT CAPSULE PO SCH (08:33)
[2017-02-03] MEDS: HYDROCHLOROTHIAZIDE 25 MG TABLET PO SCH (08:33)
[2017-02-03] MEDS: LISINOPRIL 20 MG TABLET PO SCH (08:33)
[2017-02-03] MEDS: ASCORBIC ACID 500 MG TABLET PO SCH ×2 (08:34→20:58)
--- NOTE | 2017-02-03 08:38 | PROGRESS NOTE: IM APSO ---
Assessment and Plan - Date of Encounter Date of Encounter: 02/03/17 (1) Physical deconditioning Status: Acute Assessment and plan: Markedly improving, still need some therapy and if DC'd to home will need HHC with RN for medication management, teach and monitor of I&O cath, cardiopulm assessments as well PT/OT for gait training/strengthening and functional mobility as well ?assess for DME; may DC to [facility]riti sister Amanda to [place] Tuesday. Current Visit: Yes (2) Protein-calorie malnutrition, moderate Status: Chronic Assessment and plan: improving and refeeding syndrome now attenuating, continue to monitor but less frequently and replace lytes as indicated. Prealbumin now almost 15 Current Visit: No (3) Urinary retention due to benign prostatic hyperplasia Status: Chronic Assessment and plan: will need I&O cath, if unable to perform safely/sterile fashion by self may need dorman (silver impregnated) and f/u urology for consideration of TURP as he continues to improve from such a protracted and complicated hospital course. Already takes flomax and finasteride. Does seem to be gaining proficiency with I&O cath. Has UTI, prefers I&O over indwelling dorman, will treat current UTI and then start prophylaxis. Will need f/u [address] Esteves and I as well Dr. Hernandez. Will start macrodantin after completes Levaquin 7D Current Visit: No (4) Electrolyte disorder Status: Acute Assessment and plan: improving and partly post obstructive diuresis and refeeding syndrome. Current Visit: No (5) Hyperglycemia Status: Acute Assessment and plan: improving and may be able to DC lantus, will start metformin low doses with recent renal issues and soft stools, if this improves glycemic control, will wean lantus Current Visit: No (6) Non-healing surgical wound Status: Acute Assessment and plan: improving, continue nutrition and wound care/dressings. 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 Current Visit: No (11) Hypercholesterolemia Status: Chronic Current Visit: No (12) Hypertension, benign Status: Chronic Current Visit: No (13) Acute renal failure (ARF) Status: Acute Assessment and plan: gassy, watery diarrhea and queasy, increased bun/creatine coincides with starting low dose metformin, will DC metformin and plan for home with insulin, recheck labs in morning Current Visit: Yes (14) Urinary tract infection Status: Acute Assessment and plan: GNB Levaquin for 7 days and thern Macrodantin Current Visit: Yes - Time Spent With Patient Total time spent with greater than 50% in coordination of care (as documented) at patient's floor/unit and/or counseling patient: Greater than 35 minutes IM: PN Subjective General: good appetite (he has persistently poor appetite but eating some and drinking ensure, prealbumin up to almost 15. Notes some nausea this morning, some queasy in tummy and watery stool without tenesum/pain/blood/mucus), no fatigue, no anxiety, no depression, no confusion, no fever, no chills Cardiovascular: no chest pain, no chest pressure, no palpitations Respiratory: no cough, no sputum Gastrointestinal: diarrhea (No cramping/pain with BM, semiformed with some urgency ), no abdominal pain, no nausea, no vomiting Genitourinary: other (he did self cath last few days, does have GNB UTI, did have prostate surgery past with Dr. Mueller, spoke about dorman verses I&O cath and treatment UTI then prophylactic Abx, he would prefer I&O cath and prophylacitc Abx) Musculoskeletal: no pain, no swelling Integumentary: no rashes Neurological: other (feels stronger) IM: PN Objective Exam - I&O/Vital Signs I&O: Intake & Output 02/02/17 02/03/17 02/03/17 21:59 05:59 13:59 Intake Total 898 200 Output Total 840 0 Balance 58 200 Weight 75.5 kg Intake: Oral 898 200 Output: Urine 840 0 Straight 320 Other: Urine Color Straight Dark Jackie Dark Red Voiding Method Self-Catheterization # Bowel Movements 1 0 Vital Signs: Last Vital Signs Temp 36.2 C L 02/03/17 06:00 Pulse 65 02/03/17 06:00 Resp 22 02/03/17 06:00 BP 118/58 02/03/17 06:00 Pulse Ox 90 02/03/17 06:00 Oxygen Delivery Method Room Air - Constitutional General appearance: Present: cooperative, obese - Head Head exam: Present: atraumatic, normal inspection - Eye Eye exam: Present: normal appearance - ENT ENT exam: Present: mucous membranes moist - Neck Neck exam: Present: full ROM - Respiratory Respiratory exam: Present: CTAB (left side good air entry to base, right markedly improved though diminished at base) - Cardiovascular Cardiovascular exam: Present: RRR - GI/Abdominal GI/Abdominal exam: Present: hyperactive bowel sounds, soft, tenderness (right upper quad), other (dressing removed, marked improvement lapartomy scar, all granulation and wound cleaning.) - Extremities Exam Extremities exam: Present: edema (trace at sacrum a leg but markedly improved). Absent: calf tenderness - Psychiatric Psychiatric exam: Present: normal mood - Allied Health Notes Allied health notes reviewed: nursing - Lab Labs: Laboratory Last Values WBC 14.5 X 10^3uL (3.9-10.7) H 02/03/17 05:25 RBC 3.80 X 10^6uL (4.20-6.10) L 02/03/17 05:25 Hgb 10.8 g/dL (14.0-18.0) L 02/03/17 05:25 Hct 33.0 % (42.0-54.0) L 02/03/17 05:25 MCV 87.0 fL (80.0-100.0) 02/03/17 05:25 MCH 28.6 pg (29.0-35.0) L 02/03/17 05:25 MCHC 32.8 g/dL (32.0-36.0) 02/03/17 05:25 RDW 14.0 % (11.5-14.5) 02/03/17 05:25 Plt Count 279 X 10^3uL (130-440) 02/03/17 05:25 MPV 8.3 fL (7.4-10.4) 02/03/17 05:25 Neutrophils % 87.3 % (54.0-75.0) H 02/03/17 05:25 Lymphocytes % 5.0 % (20.0-40.0) L 02/03/17 05:25 Eosinophils % 0.2 % (0.0-6.0) 02/03/17 05:25 Basophils % 0.3 % (0.0-2.0) 02/03/17 05:25 Neutrophils # 12.8 X 10^3uL (2.6-6.7) H 02/03/17 05:25 Lymphocytes # 0.7 X 10^3uL (0.8-3.8) L 02/03/17 05:25 Monocytes 7.2 % (2.0-10.0) 02/03/17 05:25 Monocytes # 1.0 X 10^3uL (0.2-1.0) 02/03/17 05:25 Eosinophils # 0.0 X 10^3uL (0.0-0.4) 02/03/17 05:25 Basophils # 0.0 X 10^3uL (0.0-0.1) 02/03/17 05:25 Sodium 138 mmol/L (137-145) 02/03/17 05:25 Potassium 3.8 mmol/L (3.5-5.1) 02/03/17 05:25 Chloride 100 mmol/L (98-107) 02/03/17 05:25 Carbon Dioxide 25 mmol/L (22-30) 02/03/17 05:25 BUN 65 mg/dL (9-20) H 02/03/17 05:25 Creatinine 1.5 mg/dL (0.7-1.3) H 02/03/17 05:25 GFR Calculation Not Reportable 02/03/17 05:25 Glucose 109 mg/dL (70-100) H 02/03/17 05:25 Hemoglobin A1c 6.3 % 02/02/17 05:00 Calcium 9.8 mg/dL (8.4-10.2) 02/03/17 05:25 Transferrin 127 mg/dL (206-381) L 02/02/17 05:15 Total Bilirubin 0.7 mg/dL (0.2-1.3) 01/29/17 05:40 Direct Bilirubin 0.1 mg/dL (0.0-0.4) 01/29/17 05:40 AST 36 U/L (17-59) 01/29/17 05:40 ALT 44 U/L (21-72) 01/29/17 05:40 Alkaline Phosphatase 169 U/L (38-126) H 01/29/17 05:40 C-Reactive Protein 175.1 mg/L (<10.0) H 02/02/17 05:00 Total Protein 7.4 g/dL (6.3-8.2) 01/29/17 05:40 Albumin 3.2 g/dL (3.5-5.0) L 01/29/17 05:40 Prealbumin 14.3 mg/dL (17.6-36.0) L 02/02/17 05:15 Urine Color Yellow 02/02/17 14:04 Urine Appearance Cloudy A 02/02/17 14:04 Urine pH 5.5 (5-7) 02/02/17 14:04 Ur Specific [place] 1.015 (0.001-1.035) 02/02/17 14:04 Urine Protein 100mg/dl (2+) (NEG - TRACE) A 02/02/17 14:04 Urine Ketones Negative (NEGATIVE) 02/02/17 14:04 Urine Blood 50 aleksander/ul (2+) (NEGATIVE) A 02/02/17 14:04 Urine Nitrate Positive (NEGATIVE) A 02/02/17 14:04 Urine Bilirubin Negative (NEGATIVE) 02/02/17 14:04 Urine Urobilinogen 0.2mg/dl (normal) (NEG-1mg/dL) 02/02/17 14:04 Ur Leukocyte Esterase 500 wbc/ul (3+) (NEGATIVE) A 02/02/17 14:04 Urine RBC None seen (0-5/hpf) 02/02/17 14:04 Urine WBC >100/hpf (0-4/hpf) 02/02/17 14:04 Ur Squamous Epith Cells None seen (<= 15/hpf) 02/02/17 14:04 Urine Bacteria >50 organisms/hpf (<10/hpf) 02/02/17 14:04 Urine Mucus None seen (Up to 25%) 02/02/17 14:04 Urine Sperm None seen 02/02/17 14:04 Urine Glucose Normal (NEGATIVE) 02/02/17 14:04 (6) Non-healing surgical wound Qualifiers: Encounter type: sequela Qualified Code(s): T81.89XS - Other complications of procedures, not elsewhere classified, sequela (8) Anemia Qualifiers: Anemia type: other cause Other causes of anemia: acute posthemorrhagic Qualified Code(s): D62 - Acute posthemorrhagic anemia
[2017-02-03] MEDS: INSULIN GLARGINE,HUM.REC.ANLOG 100 UNITS/ML ML SUBCUT SCH (08:41)
--- NOTE | 2017-02-03 08:58 | DC SUMMARY: IM Note ---
Discharge Summary: IM/Peds Provider: Date of Admission: 01/28/17 Admitting Provider: ARLETTE CAO Attending Provider: ARLETTE CAO Discharging Provider: ARLETTE CAO Primary Care Provider: Discharge Date: 02/03/17 Consults: 01/28/17 08:59 Nutrition/Dietary Consult [CONS] Routine Reason: Swingbed Admission Protocol - Diagnosis (1) Physical deconditioning Status: Acute (2) Protein-calorie malnutrition, moderate Status: Chronic (3) Urinary retention due to benign prostatic hyperplasia Status: Chronic (4) Electrolyte disorder Status: Acute (5) Hyperglycemia Status: Acute (6) Non-healing surgical wound Status: Acute Qualifiers: Encounter type: sequela Qualified Code(s): T81.89XS - Other complications of procedures, not elsewhere classified, sequela (7) Urinary retention Status: Acute (8) Anemia Status: Chronic Qualifiers: Anemia type: other cause Other causes of anemia: acute posthemorrhagic Qualified Code(s): D62 - Acute posthemorrhagic anemia (9) CAD in [place] artery Status: Chronic (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 Head in [place] on February 21 @ 10am ) MANPREET HOLLY MD [ACTIVE (Staff Physician)] - 02/17/17 10:00 am Overall discharge status: patient is progressing back to baseline Home Medications: Sulfamethoxazole/Tmp 800/160Mg [Bactrim Ds*] 1 ea PO DAILY #30 tablet Levofloxacin [Levaquin*] 500 mg PO DAILY #5 tablet Orders: CAT SCAN; ABD/PEL W/WO [id number] [CT] Time Frame: 2 Weeks, Location: Determined By Patient C-REACTIVE PROTEIN [CHEM] Time Frame: 2 Weeks, Location: Determined By Patient CBC AUTO DIF, MDIF/RMOR IF IND [HEM] Time Frame: 2 Weeks, Location: Determined By Patient COMPREHENSIVE METABOLIC PANEL [CHEM] Time Frame: 2 Weeks, Location: Determined By Patient PREALBUMIN [CHEM] Time Frame: 2 Weeks, Location: Determined By Patient TRANSFERRIN [CHEM] Time Frame: 2 Weeks, Location: Determined By Patient Disposition: HOME HEALTH CARE Discharge Summary Data - Medication History Medication History: Home Medications Finasteride [Finasteride*] 5 mg PO DAILY 12/14/16 Apixaban [Eliquis] 2.5 mg PO BID 01/11/17 Dronabinol [Marinol] 2.5 mg PO BID 01/11/17 Insulin Glargine,Hum.rec.anlog [Lantus*] 8 unit SUBCUT DAILY 01/11/17 Insulin Lispro [Humalog*] 0 unit SUBCUT ACHS 01/11/17 metoprolol TARTRATE [Metoprolol Tartrate*] 25 mg PO BID 01/11/17 Acetaminophen [Tylenol*] 650 mg PO Q6H PRN 01/17/17 Amlodipine Besylate [Norvasc*] 2.5 mg PO DAILY 01/17/17 Ascorbic Acid [Vitamin C*] 500 mg PO BID 01/17/17 Cholecalciferol [Vitamin D*] 2,000 unit PO DAILY 01/17/17 Cyanocobalamin [VITAMIN B-12*] 1,000 mcg PO DAILY 01/17/17 Fluconazole [Diflucan] 400 mg PO DAILY 01/17/17 Lisinopril [Prinivil*] 20 mg PO DAILY 01/17/17 Atorvastatin Calcium [Lipitor*] 20 mg PO HS 01/27/17 Dextrose 50 % in Water [Dextrose 50%-Water Syringe] 50 ml IV PRN PRN 01/27/17 Famotidine [Pepcid] 20 mg PO Q12H PRN 01/27/17 Hydrochlorothiazide [Hydrodiuril*] 25 mg PO DAILY 01/27/17 Tamsulosin HCl [Flomax*] 0.4 mg PO HS 01/27/17 aspirin EC [Aspirin EC*] 81 mg PO DAILY 01/27/17 proMETHazine HCL [Phenergan Inj*] 12.5 mg IV Q6H PRN 01/27/17 Acetaminophen [Tylenol*] 650 mg PO Q6H PRN #0 tablet 01/28/17 Apixaban [Eliquis] 2.5 mg PO BID tablet 01/28/17 Atorvastatin Calcium [Lipitor*] 20 mg PO HS tablet 01/28/17 Dextrose 50% Water [D50%*] 50 gm IV PRN PRN #0 syr 01/28/17 Dronabinol [Marinol] 2.5 mg PO BID capsule 01/28/17 Famotidine [Pepcid] 20 mg PO Q12H PRN #0 tablet 01/28/17 Finasteride [Finasteride*] 5 mg PO DAILY tablet 01/28/17 Fluconazole [Fluconazole*] 400 mg PO DAILY capsule 01/28/17 Hydrochlorothiazide [Hydrodiuril*] 25 mg PO DAILY tablet 01/28/17 Insulin Glargine,Hum.rec.anlog [Lantus*] 8 units SUBCUT DAILY ml 01/28/17 Insulin Lispro [Humalog*] 0 unit SUBCUT ACHS ml 01/28/17 Lisinopril [Prinivil*] 20 mg PO DAILY tablet 01/28/17 Potassium Chloride [KCl Oral Nae*] 80 meq PO ONCE@0900 udc 01/28/17 Tamsulosin HCl [Flomax*] 0.4 mg PO HS cap 01/28/17 aspirin EC [Aspirin EC*] 81 mg PO DAILY tablet 01/28/17 metoprolol TARTRATE [Metoprolol Tartrate*] 25 mg PO BID tablet 01/28/17 proMETHazine HCL [Phenergan Inj*] 12.5 mg IV Q6H PRN #0 vial 01/28/17 Inpatient Medications 01/28/17 09:05 Acetaminophen [Tylenol] 650 mg PO Q6H PRN Dextrose 50% Water [D50%] 50 gm IV PRN PRN Famotidine [Pepcid] 20 mg PO Q12H PRN proMETHazine HCL [Phenergan Inj] 12.5 mg IV Q6H PRN 01/28/17 11:30 Insulin Lispro [HumaLOG] See Protocol SUBCUT ACHS 01/28/17 12:50 Fluconazole [Diflucan] 400 mg PO DAILY 01/28/17 21:00 Ascorbic Acid [Vitamin C] 500 mg PO BID Atorvastatin Calcium [Lipitor] 20 mg PO HS Tamsulosin HCl [Flomax] 0.4 mg PO HS metoprolol TARTRATE [Lopressor] 25 mg PO BID 01/29/17 09:00 Amlodipine Besylate [Norvasc] 2.5 mg PO DAILY Apixaban [Eliquis] 2.5 mg PO BID Cholecalciferol [Vitamin D3] 2,000 unit PO DAILY Cyanocobalamin [Vitamin B12] 1,000 mcg PO DAILY Dronabinol [Marinol] 2.5 mg PO BID Finasteride [Proscar] 5 mg PO DAILY Insulin Glargine,Hum.rec.anlog [Lantus] 8 units SUBCUT DAILY Lisinopril [Prinivil] 20 mg PO DAILY aspirin EC [Ecotrin 81 mg] 81 mg PO DAILY 01/29/17 11:00 Hydrochlorothiazide [Hydrodiuril] 12.5 mg PO DAILY 02/02/17 15:00 Levofloxacin [Levaquin] 500 mg PO DAILY 02/03/17 06:30 Magnesium Hydroxide [Milk of Magnesia] 30 ml PO PRN PRN 02/03/17 09:00 Nitrofurantoin Macrocrystal [Macrobid] 100 mg PO DAILY Procedures and tests throughout hospitalization: Completed Lab Orders 01/28/17 09:00 UA W/ MICRO -CULTURE IF IND [URINE] Routine 01/29/17 05:40 BASIC METABOLIC PANEL [CHEM] AMDRAW CBC AUTO DIF, MDIF/RMOR IF IND [HEM] AMDRAW HEPATIC PANEL [CHEM] AMDRAW 01/31/17 05:00 BMP [BASIC METABOLIC PANEL] [CHEM] AMDRAW CBC AUTO DIF, MDIF/RMOR IF IND [HEM] AMDRAW 02/02/17 05:00 Hemoglobin A1c [GLYCOSYLATED HGB] [CHEM] AMDRAW crp [C-REACTIVE PROTEIN] [CHEM] AMDRAW 02/02/17 05:15 BMP [BASIC METABOLIC PANEL] [CHEM] AMDRAW PREALBUMIN [CHEM] AMDRAW TRANSFERRIN [CHEM] AMDRAW 02/02/17 08:38 CBC AUTO DIF, MDIF/RMOR IF IND [HEM] Routine 02/02/17 14:04 UA W/ MICRO -CULTURE IF IND [URINE] Routine 02/03/17 05:25 BMP [BASIC METABOLIC PANEL] [CHEM] AMDRAW CBC AUTO DIF, MDIF/RMOR IF IND [HEM] AMDRAW Completed Imaging Orders 02/02/17 08:37 ABDOMEN; COMPLET W/CHEST [id number] [RAD] Routine Pending Orders 01/28/17 08:59 Admit: Swing Bed Routine Activity: Ambulate with Assist TID Cleanse minor skin tears w/NS PRN Obtain weight QSHIFT Resuscitation Status Routine Titrate Oxygen TITRATE TO >90% Vital Signs Q12H Wedge cushion for positioning PRN Service Now Developer Consult [CM] Routine Nutrition/Dietary Consult [CONS] Routine UA W/ MICRO -CULTURE IF IND [URINE] Routine 01/28/17 09:01 Cover minor skin tears with DAILYPRN 01/28/17 09:02 Beneprotein Supplement TID Ensure Plus Supplement TID Occupation Therapy Eval and Treat [OT] Routine 01/28/17 09:05 Acetaminophen [Tylenol] 650 mg PO Q6H PRN Dextrose 50% Water [D50%] 50 gm IV PRN PRN Famotidine [Pepcid] 20 mg PO Q12H PRN proMETHazine HCL [Phenergan Inj] 12.5 mg IV Q6H PRN 01/28/17 11:30 Insulin Lispro [HumaLOG] See Protocol SUBCUT ACHS 01/28/17 12:50 Fluconazole [Diflucan] 400 mg PO DAILY 01/28/17 15:51 Physical Therapy Plan of Care [PT] Routine 01/28/17 21:00 Ascorbic Acid [Vitamin C] 500 mg PO BID Atorvastatin Calcium [Lipitor] 20 mg PO HS Tamsulosin HCl [Flomax] 0.4 mg PO HS metoprolol TARTRATE [Lopressor] 25 mg PO BID 01/28/17 Breakfast Diabetic [DIET] 01/28/17 Lunch Cardiac [DIET] 01/29/17 09:00 Straight Cath Q12H Amlodipine Besylate [Norvasc] 2.5 mg PO DAILY Apixaban [Eliquis] 2.5 mg PO BID Cholecalciferol [Vitamin D3] 2,000 unit PO DAILY Cyanocobalamin [Vitamin B12] 1,000 mcg PO DAILY Dronabinol [Marinol] 2.5 mg PO BID Finasteride [Proscar] 5 mg PO DAILY Insulin Glargine,Hum.rec.anlog [Lantus] 8 units SUBCUT DAILY Lisinopril [Prinivil] 20 mg PO DAILY aspirin EC [Ecotrin 81 mg] 81 mg PO DAILY 01/29/17 11:00 Hydrochlorothiazide [Hydrodiuril] 12.5 mg PO DAILY 01/31/17 07:34 Occupational Therapy Plan of Care [OT] Routine 02/02/17 08:38 CDIFF [C DIFFICILE BY PCR] [RM] Routine FECAL LEUKS (LACTOFERRIN) [RM] Routine STOOL CULTURE PANEL [RM] Routine 02/02/17 14:04 BLOOD CULTURE [BC] Routine URINE CULTURE [RM] Routine 02/02/17 15:00 Levofloxacin [Levaquin] 500 mg PO DAILY 02/03/17 06:30 Magnesium Hydroxide [Milk of Magnesia] 30 ml PO PRN PRN 02/03/17 09:00 Nitrofurantoin Macrocrystal [Macrobid] 100 mg PO DAILY Labs on day of discharge: Labs from last 24 hours 02/03/17 02/02/17 02/02/17 05:25 14:04 08:38 WBC 14.5 H 16.2 H RBC 3.80 L 3.94 L Hgb 10.8 L 11.8 L Hct 33.0 L 34.7 L MCV 87.0 88.0 MCH 28.6 L 29.9 MCHC 32.8 34.0 RDW 14.0 14.4 Plt Count 279 292 MPV 8.3 8.7 Neutrophils % 87.3 H 90.2 H Lymphocytes % 5.0 L 3.6 L Eosinophils % 0.2 0.4 Basophils % 0.3 0.4 Neutrophils # 12.8 H 14.5 H Lymphocytes # 0.7 L 0.6 L Monocytes 7.2 5.4 Monocytes # 1.0 0.9 Eosinophils # 0.0 0.1 Basophils # 0.0 0.1 Sodium 138 Potassium 3.8 Chloride 100 Carbon Dioxide 25 BUN 65 H Creatinine 1.5 H GFR Calculation Not Reportable Glucose 109 H Hemoglobin A1c Calcium 9.8 Urine Color Yellow Urine Appearance Cloudy A Urine pH 5.5 Ur Specific [place] 1.015 Urine Protein 100mg/dl (2+) A Urine Ketones Negative Urine Blood 50 ale[place]/ul (2+) A Urine Nitrate Positive A Urine Bilirubin Negative Urine Urobilinogen 0.2mg/dl (normal) Ur Leukocyte Esterase 500 wbc/ul (3+) A Urine RBC None seen Urine WBC >100/hpf Ur Squamous Epith Cells None seen Urine Bacteria >50 organisms/hpf Urine Mucus None seen Urine Sperm None seen Urine Glucose Normal 02/02/17 05:00 WBC RBC Hgb Hct MCV MCH MCHC RDW Plt Count MPV Neutrophils % Lymphocytes % Eosinophils % Basophils % Neutrophils # Lymphocytes # Monocytes Monocytes # Eosinophils # Basophils # Sodium Potassium Chloride Carbon Dioxide BUN Creatinine GFR Calculation Glucose Hemoglobin A1c 6.3 Calcium Urine Color Urine Appearance Urine pH Ur Specific [place] Urine Protein Urine Ketones Urine Blood Urine Nitrate Urine Bilirubin Urine Urobilinogen Ur Leukocyte Esterase Urine RBC Urine WBC Ur Squamous Epith Cells Urine Bacteria Urine Mucus Urine Sperm Urine Glucose Preliminary micro results at discharge 02/02/17 14:04 Urine Culture - Preliminary Urine,Catheterized Gram Negative Bacillus IM: Discharge Physical Exam - I&O/Vital Signs I&O: Intake & Output 02/02/17 02/03/17 02/03/17 21:59 05:59 13:59 Intake Total 898 200 Output Total 840 0 Balance 58 200 Weight 75.5 kg Intake: Oral 898 200 Output: Urine 840 0 Straight 320 Other: Urine Color Straight Dark Jackie Dark Red Voiding Method Self-Catheterization # Bowel Movements 1 0 Vital Signs: Last Vital Signs Temp 36.2 C L 02/03/17 06:00 Pulse 65 02/03/17 06:00 Resp 22 02/03/17 06:00 BP 118/58 02/03/17 06:00 Pulse Ox 90 02/03/17 06:00 Oxygen Delivery Method Room Air - Constitutional General appearance: Present: cooperative, obese - Head Head exam: Present: atraumatic, normal inspection - Eye Eye exam: Present: normal appearance - ENT ENT exam: Present: mucous membranes moist - Neck Neck exam: Present: full ROM - Respiratory Respiratory exam: Present: CTAB (left side good air entry to base, right markedly improved though diminished at base) - Cardiovascular Cardiovascular exam: Present: RRR - GI/Abdominal GI/Abdominal exam: Present: hyperactive bowel sounds, soft, tenderness (right upper quad), other (dressing removed, marked improvement lapartomy scar, all granulation and wound cleaning.) - Extremities Exam Extremities exam: Present: edema (trace at sacrum a leg but markedly improved). Absent: calf tenderness - Psychiatric Psychiatric exam: Present: normal mood - Allied Health Notes Allied health notes reviewed: nursing
[2017-02-03] MEDS ORDERED: NITROFURANTOIN MACROCRYSTAL 100 MG CAPSULE PO SCH (09:00)
[2017-02-03] MEDS: SULFAMETHOXAZOLE/TMP 800/160MG 1 EA TABLET PO SCH (14:45)
[2017-02-03] MEDS: TAMSULOSIN HCL 0.4 MG CAPSULE PO SCH (20:55)
[2017-02-03] MEDS: ATORVASTATIN CALCIUM 10 MG TABLET PO SCH (20:57)
[2017-02-04] MEDS: INSULIN LISPRO 100 UNIT/ML ML SUBCUT SCH ×4 (07:40→21:10)
--- NOTE | 2017-02-04 08:45 | PROGRESS NOTE: IM APSO ---
Assessment and Plan - Date of Encounter Date of Encounter: 02/04/17 (1) Physical deconditioning Status: Acute Assessment and plan: Had been improving (significantly) but now set back likely related to UTI, still need some therapy and if DC'd to home will need HHC with RN for medication management, teach and monitor of I&O cath, cardiopulm assessments as well PT/OT for gait training/strengthening and functional mobility as well ? assess for DME; plan had been to stay with sister Amanda for 5 days in [place] then Rafaela in [place] for another week before returning home and f/u labs/ CT and surgery in 2 weeks.. Current Visit: Yes (2) Protein-calorie malnutrition, moderate Status: Chronic Assessment and plan: improving and refeeding syndrome now attenuating, continue to monitor but less frequently and replace lytes as indicated. Prealbumin now almost 15 Current Visit: No (3) Urinary retention due to benign prostatic hyperplasia Status: Chronic Assessment and plan: will need I&O cath, if unable to perform safely/sterile fashion by self may need dorman (silver impregnated) and f/u urology for consideration of TURP as he continues to improve from such a protracted and complicated hospital course. Already takes flomax and finasteride. Does seem to be gaining proficiency with I&O cath. Has UTI, prefers I&O over indwelling dorman, will treat current UTI and then start prophylaxis. Will need f/u [address] Esteves and I as well Dr. Hernandez. Will start bactrim after completes Levaquin 7D Current Visit: Yes (4) Electrolyte disorder Status: Acute Assessment and plan: improving and partly post obstructive diuresis and refeeding syndrome. Current Visit: Yes (5) Hyperglycemia Status: Acute Assessment and plan: improving and may be able to DC lantus, will start metformin low doses with recent renal issues and soft stools, if this improves glycemic control, will wean lantus Current Visit: Yes (6) Non-healing surgical wound Status: Acute Assessment and plan: improving, continue nutrition and wound care/dressings. 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 Current Visit: Yes (11) Hypercholesterolemia Status: Chronic Current Visit: Yes (12) Hypertension, benign Status: Chronic Current Visit: Yes (13) Acute renal failure (ARF) Status: Acute Assessment and plan: gassy, watery diarrhea and queasy, increased bun/creatine coincides with starting low dose metformin, will DC metformin and plan for home with insulin, recheck labs in morning Current Visit: Yes (14) Urinary tract infection Status: Acute Assessment and plan: GNB Levaquin for 7 days and thern Bactrim Current Visit: Yes - Time Spent With Patient Total time spent with greater than 50% in coordination of care (as documented) at patient's floor/unit and/or counseling patient: Greater than 35 minutes (Hold planned DC today, labs, remove PICC and consider Ba or gastrografin uppreGI verses CT with oral contrast) IM: PN Subjective General: fatigue (worse today), good appetite (more nausea and some dry heaves this morning, no fever/chills, some abdominal discomfort, soft semiformed stools ), no anxiety, no depression, no confusion, no fever, no chills Cardiovascular: no chest pain, no chest pressure, no palpitations Respiratory: no cough, no sputum Gastrointestinal: diarrhea (No cramping/pain with BM, semiformed with some urgency ), no abdominal pain, no nausea, no vomiting Genitourinary: other (indwelling dorman) Musculoskeletal: no pain, no swelling Integumentary: no rashes Neurological: other (had been feeling stronger but now more weak and a bit discouraged) IM: PN Objective Exam - I&O/Vital Signs I&O: Intake & Output 02/03/17 02/04/17 02/04/17 21:59 05:59 13:59 Intake Total 550 100 Output Total 500 Balance 550 -400 Weight 74.5 kg Intake: Oral 550 100 Output: Urine 500 Straight 200 Other: Urine Appearance Cloudy Clear Clots Urine Color Yellow Straight Yellow Yellow Voiding Method Self-Catheterization Indwelling Catheter # Bowel Movements 0 Vital Signs: Last Vital Signs Temp 37.0 C 02/04/17 06:15 Pulse 72 02/04/17 06:15 Resp 23 02/04/17 06:15 BP 102/50 02/04/17 06:15 Pulse Ox 92 02/04/17 06:15 Oxygen Delivery Method Room Air - Constitutional General appearance: Present: cooperative, obese - Head Head exam: Present: atraumatic, normal inspection - Eye Eye exam: Present: normal appearance - ENT ENT exam: Present: mucous membranes moist - Neck Neck exam: Present: full ROM - Respiratory Respiratory exam: Present: CTAB (both sides seem improved) - Cardiovascular Cardiovascular exam: Present: RRR - GI/Abdominal GI/Abdominal exam: Present: hyperactive bowel sounds, soft, tenderness (right upper quad), other (dressing removed, marked improvement lapartomy scar, all granulation and wound cleaning.) - Extremities Exam Extremities exam: Present: edema (trace at sacrum a leg but markedly improved). Absent: calf tenderness - Psychiatric Psychiatric exam: Present: normal mood - Allied Health Notes Allied health notes reviewed: nursing - Lab Labs: Laboratory Last Values WBC 14.5 X 10^3uL (3.9-10.7) H 02/03/17 05:25 RBC 3.80 X 10^6uL (4.20-6.10) L 02/03/17 05:25 Hgb 10.8 g/dL (14.0-18.0) L 02/03/17 05:25 Hct 33.0 % (42.0-54.0) L 02/03/17 05:25 MCV 87.0 fL (80.0-100.0) 02/03/17 05:25 MCH 28.6 pg (29.0-35.0) L 02/03/17 05:25 MCHC 32.8 g/dL (32.0-36.0) 02/03/17 05:25 RDW 14.0 % (11.5-14.5) 02/03/17 05:25 Plt Count 279 X 10^3uL (130-440) 02/03/17 05:25 MPV 8.3 fL (7.4-10.4) 02/03/17 05:25 Neutrophils % 87.3 % (54.0-75.0) H 02/03/17 05:25 Lymphocytes % 5.0 % (20.0-40.0) L 02/03/17 05:25 Eosinophils % 0.2 % (0.0-6.0) 02/03/17 05:25 Basophils % 0.3 % (0.0-2.0) 02/03/17 05:25 Neutrophils # 12.8 X 10^3uL (2.6-6.7) H 02/03/17 05:25 Lymphocytes # 0.7 X 10^3uL (0.8-3.8) L 02/03/17 05:25 Monocytes 7.2 % (2.0-10.0) 02/03/17 05:25 Monocytes # 1.0 X 10^3uL (0.2-1.0) 02/03/17 05:25 Eosinophils # 0.0 X 10^3uL (0.0-0.4) 02/03/17 05:25 Basophils # 0.0 X 10^3uL (0.0-0.1) 02/03/17 05:25 Sodium 138 mmol/L (137-145) 02/03/17 05:25 Potassium 3.8 mmol/L (3.5-5.1) 02/03/17 05:25 Chloride 100 mmol/L (98-107) 02/03/17 05:25 Carbon Dioxide 25 mmol/L (22-30) 02/03/17 05:25 BUN 65 mg/dL (9-20) H 02/03/17 05:25 Creatinine 1.5 mg/dL (0.7-1.3) H 02/03/17 05:25 GFR Calculation Not Reportable 02/03/17 05:25 Glucose 109 mg/dL (70-100) H 02/03/17 05:25 Hemoglobin A1c 6.3 % 02/02/17 05:00 Calcium 9.8 mg/dL (8.4-10.2) 02/03/17 05:25 Transferrin 127 mg/dL (206-381) L 02/02/17 05:15 Total Bilirubin 0.7 mg/dL (0.2-1.3) 01/29/17 05:40 Direct Bilirubin 0.1 mg/dL (0.0-0.4) 01/29/17 05:40 AST 36 U/L (17-59) 01/29/17 05:40 ALT 44 U/L (21-72) 01/29/17 05:40 Alkaline Phosphatase 169 U/L (38-126) H 01/29/17 05:40 C-Reactive Protein 175.1 mg/L (<10.0) H 02/02/17 05:00 Total Protein 7.4 g/dL (6.3-8.2) 01/29/17 05:40 Albumin 3.2 g/dL (3.5-5.0) L 01/29/17 05:40 Prealbumin 14.3 mg/dL (17.6-36.0) L 02/02/17 05:15 Urine Color Yellow 02/02/17 14:04 Urine Appearance Cloudy A 02/02/17 14:04 Urine pH 5.5 (5-7) 02/02/17 14:04 Ur Specific [place] 1.015 (0.001-1.035) 02/02/17 14:04 Urine Protein 100mg/dl (2+) (NEG - TRACE) A 02/02/17 14:04 Urine Ketones Negative (NEGATIVE) 02/02/17 14:04 Urine Blood 50 ale[place]ander/ul (2+) (NEGATIVE) A 02/02/17 14:04 Urine Nitrate Positive (NEGATIVE) A 02/02/17 14:04 Urine Bilirubin Negative (NEGATIVE) 02/02/17 14:04 Urine Urobilinogen 0.2mg/dl (normal) (NEG-1mg/dL) 02/02/17 14:04 Ur Leukocyte Esterase 500 wbc/ul (3+) (NEGATIVE) A 02/02/17 14:04 Urine RBC None seen (0-5/hpf) 02/02/17 14:04 Urine WBC >100/hpf (0-4/hpf) 02/02/17 14:04 Ur Squamous Epith Cells None seen (<= 15/hpf) 02/02/17 14:04 Urine Bacteria >50 organisms/hpf (<10/hpf) 02/02/17 14:04 Urine Mucus None seen (Up to 25%) 02/02/17 14:04 Urine Sperm None seen 02/02/17 14:04 Urine Glucose Normal (NEGATIVE) 02/02/17 14:04 (6) Non-healing surgical wound Qualifiers: Encounter type: sequela Qualified Code(s): T81.89XS - Other complications of procedures, not elsewhere classified, sequela (8) Anemia Qualifiers: Anemia type: other cause Other causes of anemia: acute posthemorrhagic Qualified Code(s): D62 - Acute posthemorrhagic anemia
[2017-02-04] MEDS: CHOLECALCIFEROL 1,000 UNIT CAPSULE PO SCH (08:46)
[2017-02-04] MEDS: DRONABINOL 2.5 MG CAPSULE PO SCH ×2 (08:46→20:44)
[2017-02-04] MEDS: FLUCONAZOLE 100 MG CAPSULE PO SCH (08:46)
[2017-02-04] MEDS: FINASTERIDE 5 MG TABLET PO SCH (08:47)
[2017-02-04] MEDS: AMLODIPINE BESYLATE 5 MG TABLET PO SCH ×2 (08:47→11:20)
[2017-02-04] MEDS: SULFAMETHOXAZOLE/TMP 800/160MG 1 EA TABLET PO SCH ×2 (08:49→20:43)
[2017-02-04] MEDS: LISINOPRIL 20 MG TABLET PO SCH ×2 (08:49→11:20)
[2017-02-04] MEDS: CYANOCOBALAMIN 1,000 MCG TABLET PO SCH (08:49)
[2017-02-04] MEDS: HYDROCHLOROTHIAZIDE 25 MG TABLET PO SCH (08:49)
[2017-02-04] MEDS: LEVOFLOXACIN 250 MG TABLET PO SCH (08:49)
[2017-02-04] MEDS: ASCORBIC ACID 500 MG TABLET PO SCH ×2 (08:53→20:44)
[2017-02-04] MEDS: INSULIN GLARGINE,HUM.REC.ANLOG 100 UNITS/ML ML SUBCUT SCH (08:53)
[2017-02-04] MEDS: APIXABAN 2.5 MG TABLET PO SCH ×2 (08:53→20:44)
[2017-02-04] MEDS ORDERED: ALBUMIN HUMAN 12.5 GM/50 ML VIAL IV ONE (10:55)
[2017-02-04 11:11] LABS: A/G RATIO 0.8; ALBUMIN 3.6 g/dL (3.5-5.0); ALKALINE PHOSPHATASE 158 U/L (38-126); ALT 34 U/L (21-72); AST 35 U/L (17-59); BILIRUBIN, TOTAL 0.6 mg/dL (0.2-1.3); CHLORIDE 98 mmol/L (98-107); CREATININE 2.3 mg/dL (0.7-1.3); GLUCOSE 163 mg/dL (70-100); LIPASE 88 U/L (23-300); POTASSIUM 4.2 mmol/L (3.5-5.1); SODIUM 138 mmol/L (137-145)
[2017-02-04 11:19] LABS: BLOOD UREA NITROGEN 78 mg/dL (9-20)
[2017-02-04 11:28] LABS: BASOPHILS 0.2 % (0.0-2.0); EOSINOPHILS 0.1 % (0.0-6.0); HEMATOCRIT 33.8 % (42.0-54.0); HEMOGLOBIN 11.7 g/dL (14.0-18.0); LYMPHOCYTES 4.6 % (20.0-40.0); LYMPHOCYTES# 0.7 X 10^3uL (0.8-3.8); MEAN CORPUS. HGB CONCENTRATION 34.7 g/dL (32.0-36.0); MEAN CORPUSCULAR HEMOGLOBIN 30.1 pg (29.0-35.0); MEAN PLATELET VOLUME 8.4 fL (7.4-10.4); MONOCYTES# 0.9 X 10^3uL (0.2-1.0); NEUTROPHILS# 13.1 X 10^3uL (2.6-6.7); PLATELET COUNT 320 X 10^3uL (130-440); RED BLOOD COUNT 3.88 X 10^6uL (4.20-6.10); RED CELL DISTRIBUTION WIDTH 14.3 % (11.5-14.5); WHITE BLOOD COUNT 14.7 X 10^3uL (3.9-10.7)
[2017-02-04 11:30] LABS: NEUTROPHILS 89.1 % (54.0-75.0)
[2017-02-04] MEDS ORDERED: NORMAL SALINE 500 ML IV ONE (11:35)
[2017-02-04] MEDS ORDERED: FLUCONAZOLE 100 MG CAPSULE PO SCH (11:38)
--- NOTE | 2017-02-04 15:04 | CT REPORT ---
HISTORY: Recurrent nausea and dry heaves. Evaluate for worsening abscess or recurrent bowel obstruction. COMPARISON: 01/27/2017 TECHNIQUE: This examination was performed using automated exposure control, adjustment of mA or kV according to patient size, and/or use of iterative reconstruction technique. Axial contiguous images of the abdome n and pelvis were obtained without oral or IV contrast, coronal reformat images also performed. FINDINGS: A right pleural effusion has decreased from moderate to small in size. Bibasal atelectasis has decrea sed. A small left pleural effusion has resolved. The heart remains moderately enlarged. Coronary isabela ry calcifications are again demonstrated. There is no pericardial effusion. An oval hypodensity in the posterior right lobe liver is stable and has internal density consistent w ith simple fluid (hepatic cyst). Pneumobilia is again demonstrated within the left lobe of liver. The spleen and adrenal glands remain normal. Moderate pancreatic atrophy is unchanged. No pancreatic mas s or adjacent inflammation is developed. The right kidney shows an unchanged 2 mm calcification in th e lower pole. Right renal hilar calcifications are vascular. Right hydronephrosis and right ureteral dilatation have resolved. A 2 mm parenchymal calcification in the upper pole the left kidney is uncha nged. Remainder the left kidney is unremarkable. The abdominal aorta remains normal in caliber. Fat stranding is again demonstrated posterior to the ascending colon and lateral to the second portio n of the duodenum. Focal fluid at that site previously measured 1.9 x 1.6 cm and now measures 2.0 x 1 .2 cm. There has been an increase in number of gas bubbles within this loculation of fluid. No new fl uid collections have developed. Trace free fluid is again demonstrated along the liver. There is no f ree air. A 6 mm calcification is present within the posterior right aspect of the urinary bladder or at the [facility] ureterovesical junction. The position appears similar to the prior study. The bladder is decompre ssed by Schneider catheter. The prostate gland remains moderately enlarged. The bowel appears normal and without obstruction. There is no pneumatosis. No portal venous gas is de monstrated. No fracture or suspicious bony lesion is demonstrated. Degenerative disc disease is severe at L4-5 an d L5-S1 and moderate at L3-4. Bones are diffusely demineralized. IMPRESSION: 1. No bowel obstruction or perforation. 2. 2.0 x 1.2 cm loculation of fluid and gas bubbles in the right lateral abdomen, posterior to the as cending colon and lateral to the second portion of the duodenum. This is probably a small abscess, th ough the size would likely not warranting percutaneous drainage. 3. Resolved right hydroureteronephrosis. Unchanged 6 mm calculus in the posterior right aspect of the urinary bladder. 4. Marked decrease in right pleural effusion and resolved left pleural effusion. Mild bibasal atelect asis. Final Electronic Signature: This report was electronically signed by Butch Goode MD on 02/04/2017 3:02 PM. jose manuel /
[2017-02-04] MEDS: ATORVASTATIN CALCIUM 10 MG TABLET PO SCH (20:44)
[2017-02-04] MEDS: TAMSULOSIN HCL 0.4 MG CAPSULE PO SCH (20:44)
[2017-02-05] MEDS: INSULIN LISPRO 100 UNIT/ML ML SUBCUT SCH ×4 (06:48→20:44)
--- NOTE | 2017-02-05 08:03 | PROGRESS NOTE: IM APSO ---
Assessment and Plan - Date of Encounter Date of Encounter: 02/05/17 (1) Urinary tract infection Status: Acute Assessment and plan: sensitive to Bactrim. We will continu Current Visit: Yes (2) Physical deconditioning Status: Acute Assessment and plan: He is still very weak. Continue physical and occupational t Current Visit: Yes (3) Malnutrition Status: Acute Assessment and plan: gradually improving. Unfortunately he still has a poor appet. Current Visit: No (4) Hypoalbuminemia Status: Chronic Assessment and plan: Related to the malnutrition Current Visit: No (5) Generalized edema Status: Chronic Assessment and plan: This has resolved from his extremities and his pleural effusions are much better. He still has ascites. All of this should continue to improve if he can improve his nutrition. Current Visit: No (6) Acute renal failure (ARF) Status: Acute Assessment and plan: his creatinine was up yesterday likely related to dehydration, HCTZ use, and possibly his UTI. HCTZ was discontinued yesterday. I encouraged increased oral fluids. Recheck tomorrow Current Visit: Yes (7) Urinary retention Status: Acute Assessment and plan: this occurred with his UTI. Currently he prefers having a Dorman catheter rather than intermittent catheterization. I hope to removed that on Tuesday morning 02/07/17. Current Visit: Yes (8) Non-healing surgical wound Status: Acute Assessment and plan: Gradually improving. On his CT on 02/04/17, he had a possible right posterior lateral abdominal abscess measuring 2 cm. If his leukocytosis and abdominal symptoms don't resolve, this should be followed up. For now will continue Bactrim alone. He just completed a Levaquin course. Current Visit: Yes (9) Leukocytosis Status: Chronic Assessment and plan: chronic, exact etiology unclear. Most recently it could be related to his , but the leukocytosis preceded that. I will recheck this tomorrow. Current Visit: No - Time Spent With Patient Total time spent with greater than 50% in coordination of care (as documented) at patient's floor/unit and/or counseling patient: IM: PN Subjective General: fatigue (worse today), no anxiety, no depression, no confusion, no good appetite (mild nausea. No vomiting.), no fever, no chills Cardiovascular: no chest pain, no chest pressure, no palpitations Respiratory: no cough, no sputum Gastrointestinal: no abdominal pain, no nausea, no vomiting, no diarrhea Genitourinary: other (indwelling dorman) Musculoskeletal: weakness (generalized), no pain, no swelling Integumentary: wound (slight drainage from abd wound), no rashes IM: PN Objective Exam - I&O/Vital Signs I&O: Intake & Output 02/04/17 02/05/17 02/05/17 21:59 05:59 13:59 Intake Total 895 300 Output Total 525 575 Balance 370 -275 Weight 74 kg Intake: IV 200 Right Upper arm 200 Oral 445 300 Oral Supplement 250 Output: Urine 525 575 Other: Urine Appearance Clear Urine Color Yellow Yellow Straight Yellow Yellow Voiding Method Indwelling Catheter Indwelling Catheter # Bowel Movements 0 Vital Signs: Last Vital Signs Temp 36.8 C 02/05/17 06:30 Pulse 60 02/05/17 06:30 Resp 20 02/05/17 06:30 BP 104/45 02/05/17 06:30 Pulse Ox 91 02/05/17 06:30 Oxygen Delivery Method Room Air - Constitutional General appearance: Present: cooperative, obese - Head Head exam: Present: normal inspection - ENT ENT exam: Present: mucous membranes moist - Respiratory Respiratory exam: Present: decreased breath sounds (R base), CTAB - Cardiovascular Cardiovascular exam: Present: RRR - GI/Abdominal GI/Abdominal exam: Present: hyperactive bowel sounds, soft, other (slight drainage from laparotomy scar). Absent: tenderness - Extremities Exam Extremities exam: Absent: calf tenderness, edema - Psychiatric Psychiatric exam: Present: flat affect - Allied Health Notes Allied health notes reviewed: nursing, OT, PT - Lab Labs: Laboratory Last Values WBC 14.7 X 10^3uL (3.9-10.7) H 02/04/17 08:49 RBC 3.88 X 10^6uL (4.20-6.10) L 02/04/17 08:49 Hgb 11.7 g/dL (14.0-18.0) L 02/04/17 08:49 Hct 33.8 % (42.0-54.0) L 02/04/17 08:49 MCV 87.0 fL (80.0-100.0) 02/04/17 08:49 MCH 30.1 pg (29.0-35.0) 02/04/17 08:49 MCHC 34.7 g/dL (32.0-36.0) 02/04/17 08:49 RDW 14.3 % (11.5-14.5) 02/04/17 08:49 Plt Count 320 X 10^3uL (130-440) 02/04/17 08:49 MPV 8.4 fL (7.4-10.4) 02/04/17 08:49 Neutrophils % 89.1 % (54.0-75.0) H 02/04/17 08:49 Lymphocytes % 4.6 % (20.0-40.0) L 02/04/17 08:49 Eosinophils % 0.1 % (0.0-6.0) 02/04/17 08:49 Basophils % 0.2 % (0.0-2.0) 02/04/17 08:49 Neutrophils # 13.1 X 10^3uL (2.6-6.7) H 02/04/17 08:49 Lymphocytes # 0.7 X 10^3uL (0.8-3.8) L 02/04/17 08:49 Monocytes 6.0 % (2.0-10.0) 02/04/17 08:49 Monocytes # 0.9 X 10^3uL (0.2-1.0) 02/04/17 08:49 Eosinophils # 0.0 X 10^3uL (0.0-0.4) 02/04/17 08:49 Basophils # 0.0 X 10^3uL (0.0-0.1) 02/04/17 08:49 Sodium 138 mmol/L (137-145) 02/04/17 08:49 Potassium 4.2 mmol/L (3.5-5.1) 02/04/17 08:49 Chloride 98 mmol/L (98-107) 02/04/17 08:49 Carbon Dioxide 24 mmol/L (22-30) 02/04/17 08:49 BUN 78 mg/dL (9-20) H* 02/04/17 08:49 Creatinine 2.3 mg/dL (0.7-1.3) H D 02/04/17 08:49 GFR Calculation Not Reportable 02/04/17 08:49 Glucose 163 mg/dL (70-100) H 02/04/17 08:49 Hemoglobin A1c 6.3 % 02/02/17 05:00 Calcium 10.0 mg/dL (8.4-10.2) 02/04/17 08:49 Transferrin 127 mg/dL (206-381) L 02/02/17 05:15 Total Bilirubin 0.6 mg/dL (0.2-1.3) 02/04/17 08:49 Direct Bilirubin 0.1 mg/dL (0.0-0.4) 01/29/17 05:40 AST 35 U/L (17-59) 02/04/17 08:49 ALT 34 U/L (21-72) 02/04/17 08:49 Alkaline Phosphatase 158 U/L (38-126) H 02/04/17 08:49 C-Reactive Protein 175.1 mg/L (<10.0) H 02/02/17 05:00 Total Protein 8.0 g/dL (6.3-8.2) 02/04/17 08:49 Albumin 3.6 g/dL (3.5-5.0) 02/04/17 08:49 Albumin/Globulin Ratio 0.8 02/04/17 08:49 Prealbumin 14.3 mg/dL (17.6-36.0) L 02/02/17 05:15 Lipase 88 U/L (23-300) 02/04/17 08:49 Urine Color Yellow 02/02/17 14:04 Urine Appearance Cloudy A 02/02/17 14:04 Urine pH 5.5 (5-7) 02/02/17 14:04 Ur Specific [place] 1.015 (0.001-1.035) 02/02/17 14:04 Urine Protein 100mg/dl (2+) (NEG - TRACE) A 02/02/17 14:04 Urine Ketones Negative (NEGATIVE) 02/02/17 14:04 Urine Blood 50 ale[place]ander/ul (2+) (NEGATIVE) A 02/02/17 14:04 Urine Nitrate Positive (NEGATIVE) A 02/02/17 14:04 Urine Bilirubin Negative (NEGATIVE) 02/02/17 14:04 Urine Urobilinogen 0.2mg/dl (normal) (NEG-1mg/dL) 02/02/17 14:04 Ur Leukocyte Esterase 500 wbc/ul (3+) (NEGATIVE) A 02/02/17 14:04 Urine RBC None seen (0-5/hpf) 02/02/17 14:04 Urine WBC >100/hpf (0-4/hpf) 02/02/17 14:04 Ur Squamous Epith Cells None seen (<= 15/hpf) 02/02/17 14:04 Urine Bacteria >50 organisms/hpf (<10/hpf) 02/02/17 14:04 Urine Mucus None seen (Up to 25%) 02/02/17 14:04 Urine Sperm None seen 02/02/17 14:04 Urine Glucose Normal (NEGATIVE) 02/02/17 14:04 (8) Non-healing surgical wound Qualifiers: Encounter type: sequela Qualified Code(s): T81.89XS - Other complications of procedures, not elsewhere classified, sequela
[2017-02-05] MEDS: CHOLECALCIFEROL 1,000 UNIT CAPSULE PO SCH (08:49)
[2017-02-05] MEDS: CYANOCOBALAMIN 1,000 MCG TABLET PO SCH (08:50)
[2017-02-05] MEDS: SULFAMETHOXAZOLE/TMP 800/160MG 1 EA TABLET PO SCH ×2 (08:50→20:44)
[2017-02-05] MEDS: FINASTERIDE 5 MG TABLET PO SCH (08:51)
[2017-02-05] MEDS: ASCORBIC ACID 500 MG TABLET PO SCH ×2 (08:51→20:45)
[2017-02-05] MEDS: DRONABINOL 2.5 MG CAPSULE PO SCH ×2 (08:51→20:45)
[2017-02-05] MEDS: AMLODIPINE BESYLATE 5 MG TABLET PO SCH (08:51)
[2017-02-05] MEDS: APIXABAN 2.5 MG TABLET PO SCH ×2 (08:52→20:44)
[2017-02-05] MEDS: LISINOPRIL 20 MG TABLET PO SCH (08:52)
[2017-02-05] MEDS: INSULIN GLARGINE,HUM.REC.ANLOG 100 UNITS/ML ML SUBCUT SCH (08:55)
[2017-02-05] MEDS ORDERED: LIDOCAINE HCL/PF 4% 5 ML AMP TOPICAL ONE (13:35)
[2017-02-05] MEDS: ATORVASTATIN CALCIUM 10 MG TABLET PO SCH (20:45)
[2017-02-05] MEDS: TAMSULOSIN HCL 0.4 MG CAPSULE PO SCH (20:46)
[2017-02-06 06:04] LABS: BASOPHIL# 0.1 X 10^3uL (0.0-0.1); BASOPHILS 0.7 % (0.0-2.0); EOSINOPHILS 0.6 % (0.0-6.0); EOSINOPHILS# 0.1 X 10^3uL (0.0-0.4); HEMATOCRIT 34.3 % (42.0-54.0); HEMOGLOBIN 11.3 g/dL (14.0-18.0); LYMPHOCYTES# 0.8 X 10^3uL (0.8-3.8); MEAN CORPUSCULAR HEMOGLOBIN 28.7 pg (29.0-35.0); MEAN PLATELET VOLUME 8.1 fL (7.4-10.4); MONOCYTES 6.7 % (2.0-10.0); MONOCYTES# 0.8 X 10^3uL (0.2-1.0); NEUTROPHILS# 9.6 X 10^3uL (2.6-6.7); PLATELET COUNT 259 X 10^3uL (130-440); RED BLOOD COUNT 3.94 X 10^6uL (4.20-6.10); RED CELL DISTRIBUTION WIDTH 14.4 % (11.5-14.5); WHITE BLOOD COUNT 11.4 X 10^3uL (3.9-10.7)
[2017-02-06 06:16] LABS: CHLORIDE 103 mmol/L (98-107); CREATININE 2.7 mg/dL (0.7-1.3); GLUCOSE 114 mg/dL (70-100); POTASSIUM 4.2 mmol/L (3.5-5.1); SODIUM 139 mmol/L (137-145)
[2017-02-06 06:25] LABS: BLOOD UREA NITROGEN 91 mg/dL (9-20)
[2017-02-06] MEDS: INSULIN LISPRO 100 UNIT/ML ML SUBCUT SCH ×4 (07:22→21:11)
[2017-02-06] MEDS: CYANOCOBALAMIN 1,000 MCG TABLET PO SCH (08:53)
[2017-02-06] MEDS: AMLODIPINE BESYLATE 5 MG TABLET PO SCH (08:53)
[2017-02-06] MEDS: CHOLECALCIFEROL 1,000 UNIT CAPSULE PO SCH (08:53)
[2017-02-06] MEDS: FINASTERIDE 5 MG TABLET PO SCH (08:55)
[2017-02-06] MEDS: LISINOPRIL 20 MG TABLET PO SCH (08:55)
[2017-02-06] MEDS: ASCORBIC ACID 500 MG TABLET PO SCH ×2 (08:56→21:03)
[2017-02-06] MEDS: DRONABINOL 2.5 MG CAPSULE PO SCH ×2 (08:56→21:02)
[2017-02-06] MEDS: FLUCONAZOLE 100 MG CAPSULE PO SCH (08:56)
--- NOTE | 2017-02-06 08:56 | PROGRESS NOTE: IM APSO ---
Assessment and Plan - Date of Encounter Date of Encounter: 02/06/17 (1) Urinary tract infection Status: Acute Assessment and plan: sensitive to Bactrim. We will continue but decrease the dose d/t eGFR decrease to 23. Current Visit: Yes (2) Physical deconditioning Status: Acute Assessment and plan: Better. Walked 100 ft yesterday. Continue physical and occupational therapy. Current Visit: Yes (3) Malnutrition Status: Acute Assessment and plan: gradually improving. Unfortunately he still has a poor appetite. Encouraged to eat/drink more. Current Visit: No (4) Hypoalbuminemia Status: Chronic Assessment and plan: Related to the malnutrition Current Visit: No (5) Generalized edema Status: Chronic Assessment and plan: This has resolved from his extremities and his pleural effusions are much better. His ascites is likely better. His weight has dropped to 3 kg in the last 4 days. All of this should continue to improve if he can improve his nutrition. Current Visit: No (6) Acute renal failure (ARF) Status: Acute Assessment and plan: his creatinine was up again, from 1.4 on admission to 2.3 two days ago and now 2.7. eGFR decreased to 23. This is likely related to dehydration and possibly his UTI. PVR bladder scan 0 today with dorman in. HCTZ was discontinued 02/04. I encouraged increased oral fluids and I decreased the dose of diflucan and Bacrim. Recheck BMP tomorrow. If better, consider discharge. Current Visit: Yes (7) Urinary retention Status: Acute Assessment and plan: this occurred with his UTI. Currently he prefers having a Dorman catheter rather than intermittent catheterization. I plan to removed that on Tuesday morning 02/07/17 early, in anticipation of discharge later in the day. Current Visit: Yes (8) Non-healing surgical wound Status: Acute Assessment and plan: Gradually improving. On his CT on 02/04/17, he had a possible right posterior lateral abdominal abscess measuring 2 cm. His leukocytosis is resolving. For now will continue Bactrim alone. He completed a Levaquin course several days ago. Current Visit: Yes (9) Leukocytosis Status: Chronic Current Visit: No - Time Spent With Patient Total time spent with greater than 50% in coordination of care (as documented) at patient's floor/unit and/or counseling patient: IM: PN Subjective General: fatigue (worse today), no anxiety, no depression, no confusion, no good appetite (mild nausea. No vomiting.), no fever, no chills Cardiovascular: no chest pain, no chest pressure, no palpitations Respiratory: no cough, no sputum Gastrointestinal: no abdominal pain, no nausea, no vomiting, no diarrhea Genitourinary: other (indwelling dorman) Musculoskeletal: weakness (generalized - improving), no pain, no swelling Integumentary: wound (slight drainage from abd wound - better), no rashes IM: PN Objective Exam - I&O/Vital Signs I&O: Intake & Output 02/05/17 02/06/17 02/06/17 21:59 05:59 13:59 Intake Total 650 375 Output Total 300 300 Balance 350 75 Weight 72.5 kg Intake: Oral 650 375 Output: Urine 300 300 Other: Urine Appearance Clear Clear Clear Urine Color Yellow Yellow Yellow Straight Yellow Yellow Pale Yellow Voiding Method Indwelling Catheter Indwelling Catheter Indwelling Catheter # Bowel Movements 0 Vital Signs: Last Vital Signs Temp 36.9 C 02/06/17 06:00 Pulse 61 02/06/17 06:00 Resp 22 02/06/17 06:00 BP 104/49 02/06/17 06:00 Pulse Ox 90 02/06/17 06:00 Oxygen Delivery Method Room Air - Constitutional General appearance: Present: cooperative, obese - Head Head exam: Present: normal inspection - Eye Eye exam: Present: normal appearance - ENT ENT exam: Present: mucous membranes dry, mucous membranes moist - Neck Neck exam: Present: full ROM - Respiratory Respiratory exam: Present: decreased breath sounds (R base), CTAB - Cardiovascular Cardiovascular exam: Present: RRR - GI/Abdominal GI/Abdominal exam: Present: normal bowel sounds, soft, other (slight drainage from laparotomy scar). Absent: tenderness - Extremities Exam Extremities exam: Absent: calf tenderness, edema - Psychiatric Psychiatric exam: Present: flat affect, normal affect - Allied Health Notes Allied health notes reviewed: nursing - Lab Labs: Laboratory Last Values WBC 11.4 X 10^3uL (3.9-10.7) H 02/06/17 05:55 RBC 3.94 X 10^6uL (4.20-6.10) L 02/06/17 05:55 Hgb 11.3 g/dL (14.0-18.0) L 02/06/17 05:55 Hct 34.3 % (42.0-54.0) L 02/06/17 05:55 MCV 87.0 fL (80.0-100.0) 02/06/17 05:55 MCH 28.7 pg (29.0-35.0) L 02/06/17 05:55 MCHC 33.0 g/dL (32.0-36.0) 02/06/17 05:55 RDW 14.4 % (11.5-14.5) 02/06/17 05:55 Plt Count 259 X 10^3uL (130-440) 02/06/17 05:55 MPV 8.1 fL (7.4-10.4) 02/06/17 05:55 Neutrophils % 85.0 % (54.0-75.0) H 02/06/17 05:55 Lymphocytes % 7.0 % (20.0-40.0) L 02/06/17 05:55 Eosinophils % 0.6 % (0.0-6.0) 02/06/17 05:55 Basophils % 0.7 % (0.0-2.0) 02/06/17 05:55 Neutrophils # 9.6 X 10^3uL (2.6-6.7) H 02/06/17 05:55 Lymphocytes # 0.8 X 10^3uL (0.8-3.8) 02/06/17 05:55 Monocytes 6.7 % (2.0-10.0) 02/06/17 05:55 Monocytes # 0.8 X 10^3uL (0.2-1.0) 02/06/17 05:55 Eosinophils # 0.1 X 10^3uL (0.0-0.4) 02/06/17 05:55 Basophils # 0.1 X 10^3uL (0.0-0.1) 02/06/17 05:55 Sodium 139 mmol/L (137-145) 02/06/17 05:55 Potassium 4.2 mmol/L (3.5-5.1) 02/06/17 05:55 Chloride 103 mmol/L (98-107) 02/06/17 05:55 Carbon Dioxide 22 mmol/L (22-30) 02/06/17 05:55 BUN 91 mg/dL (9-20) H* 02/06/17 05:55 Creatinine 2.7 mg/dL (0.7-1.3) H 02/06/17 05:55 GFR Calculation Not Reportable 02/06/17 05:55 Glucose 114 mg/dL (70-100) H 02/06/17 05:55 Hemoglobin A1c 6.3 % 02/02/17 05:00 Calcium 10.0 mg/dL (8.4-10.2) 02/06/17 05:55 Transferrin 127 mg/dL (206-381) L 02/02/17 05:15 Total Bilirubin 0.6 mg/dL (0.2-1.3) 02/04/17 08:49 Direct Bilirubin 0.1 mg/dL (0.0-0.4) 01/29/17 05:40 AST 35 U/L (17-59) 02/04/17 08:49 ALT 34 U/L (21-72) 02/04/17 08:49 Alkaline Phosphatase 158 U/L (38-126) H 02/04/17 08:49 C-Reactive Protein 175.1 mg/L (<10.0) H 02/02/17 05:00 Total Protein 8.0 g/dL (6.3-8.2) 02/04/17 08:49 Albumin 3.6 g/dL (3.5-5.0) 02/04/17 08:49 Albumin/Globulin Ratio 0.8 02/04/17 08:49 Prealbumin 14.3 mg/dL (17.6-36.0) L 02/02/17 05:15 Lipase 88 U/L (23-300) 02/04/17 08:49 Urine Color Yellow 02/02/17 14:04 Urine Appearance Cloudy A 02/02/17 14:04 Urine pH 5.5 (5-7) 02/02/17 14:04 Ur Specific [place] 1.015 (0.001-1.035) 02/02/17 14:04 Urine Protein 100mg/dl (2+) (NEG - TRACE) A 02/02/17 14:04 Urine Ketones Negative (NEGATIVE) 02/02/17 14:04 Urine Blood 50 [place]/ul (2+) (NEGATIVE) A 02/02/17 14:04 Urine Nitrate Positive (NEGATIVE) A 02/02/17 14:04 Urine Bilirubin Negative (NEGATIVE) 02/02/17 14:04 Urine Urobilinogen 0.2mg/dl (normal) (NEG-1mg/dL) 02/02/17 14:04 Ur Leukocyte Esterase 500 wbc/ul (3+) (NEGATIVE) A 02/02/17 14:04 Urine RBC None seen (0-5/hpf) 02/02/17 14:04 Urine WBC >100/hpf (0-4/hpf) 02/02/17 14:04 Ur Squamous Epith Cells None seen (<= 15/hpf) 02/02/17 14:04 Urine Bacteria >50 organisms/hpf (<10/hpf) 02/02/17 14:04 Urine Mucus None seen (Up to 25%) 02/02/17 14:04 Urine Sperm None seen 02/02/17 14:04 Urine Glucose Normal (NEGATIVE) 02/02/17 14:04 (8) Non-healing surgical wound Qualifiers: Encounter type: sequela Qualified Code(s): T81.89XS - Other complications of procedures, not elsewhere classified, sequela
[2017-02-06] MEDS: APIXABAN 2.5 MG TABLET PO SCH ×2 (08:57→21:04)
[2017-02-06] MEDS: INSULIN GLARGINE,HUM.REC.ANLOG 100 UNITS/ML ML SUBCUT SCH (08:57)
[2017-02-06] MEDS: ATORVASTATIN CALCIUM 10 MG TABLET PO SCH (20:59)
[2017-02-06] MEDS: TAMSULOSIN HCL 0.4 MG CAPSULE PO SCH (21:03)
[2017-02-06] MEDS: SULFAMETHOXAZOLE/TMP 800/160MG 1 EA TABLET PO SCH (21:03)
[2017-02-07 06:32] LABS: BASOPHILS 0.4 % (0.0-2.0); EOSINOPHILS 0.9 % (0.0-6.0); EOSINOPHILS# 0.1 X 10^3uL (0.0-0.4); HEMATOCRIT 37.2 % (42.0-54.0); HEMOGLOBIN 12.4 g/dL (14.0-18.0); LYMPHOCYTES 6.7 % (20.0-40.0); LYMPHOCYTES# 0.8 X 10^3uL (0.8-3.8); MEAN CORPUS. HGB CONCENTRATION 33.5 g/dL (32.0-36.0); MEAN CORPUSCULAR HEMOGLOBIN 29.1 pg (29.0-35.0); MEAN PLATELET VOLUME 8.6 fL (7.4-10.4); MONOCYTES 5.8 % (2.0-10.0); MONOCYTES# 0.7 X 10^3uL (0.2-1.0); NEUTROPHILS# 9.9 X 10^3uL (2.6-6.7); PLATELET COUNT 313 X 10^3uL (130-440); RED BLOOD COUNT 4.28 X 10^6uL (4.20-6.10); RED CELL DISTRIBUTION WIDTH 14.4 % (11.5-14.5); WHITE BLOOD COUNT 11.5 X 10^3uL (3.9-10.7)
[2017-02-07 06:39] LABS: NEUTROPHILS 86.2 % (54.0-75.0)
[2017-02-07 06:53] LABS: CALCIUM 10.3 mg/dL (8.4-10.2); CHLORIDE 104 mmol/L (98-107); CREATININE 2.4 mg/dL (0.7-1.3); GLUCOSE 151 mg/dL (70-100); POTASSIUM 4.4 mmol/L (3.5-5.1); SODIUM 141 mmol/L (137-145)
[2017-02-07 07:04] LABS: BLOOD UREA NITROGEN 93 mg/dL (9-20)
[2017-02-07] MEDS: INSULIN GLARGINE,HUM.REC.ANLOG 100 UNITS/ML ML SUBCUT SCH (08:09)
[2017-02-07] MEDS: INSULIN LISPRO 100 UNIT/ML ML SUBCUT SCH ×4 (08:09→20:30)
[2017-02-07] MEDS: ACETAMINOPHEN 325 MG TABLET PO PRN (08:10)
[2017-02-07] MEDS: APIXABAN 2.5 MG TABLET PO SCH ×2 (08:10→20:13)
[2017-02-07] MEDS: ASCORBIC ACID 500 MG TABLET PO SCH ×2 (08:11→20:13)
[2017-02-07] MEDS: CHOLECALCIFEROL 1,000 UNIT CAPSULE PO SCH (08:11)
[2017-02-07] MEDS: LISINOPRIL 20 MG TABLET PO SCH ×2 (08:11→08:21)
[2017-02-07] MEDS: AMLODIPINE BESYLATE 5 MG TABLET PO SCH ×2 (08:11→08:21)
[2017-02-07] MEDS: FLUCONAZOLE 100 MG CAPSULE PO SCH (08:12)
[2017-02-07] MEDS: CYANOCOBALAMIN 1,000 MCG TABLET PO SCH (08:12)
[2017-02-07] MEDS: DRONABINOL 2.5 MG CAPSULE PO SCH ×2 (08:12→20:14)
[2017-02-07] MEDS: FINASTERIDE 5 MG TABLET PO SCH (08:12)
--- NOTE | 2017-02-07 08:47 | PROGRESS NOTE: IM APSO ---
Assessment and Plan - Date of Encounter Date of Encounter: 02/07/17 (1) Physical deconditioning Status: Acute Assessment and plan: Had been improving (significantly) but now set back likely related to UTI and viral URI, still need some therapy and if DC'd to home will need HHC with RN for medication management, teach and monitor of I&O cath, cardiopulm assessments as well PT/OT for gait training/strengthening and functional mobility as well ?assess for DME; plan had been to stay with sister Amanda for 5 days in [place] then Rafaela in [place] for another week before returning home and f/u labs/CT and surgery in 2 weeks but now likely with Amanda for 1.5 weeks before returning home to [facility] and f/u as arranged with Urology/G Surgery/Me Current Visit: Yes (2) Protein-calorie malnutrition, moderate Status: Chronic Assessment and plan: improving and refeeding syndrome now no longer issue, continue to monitor but less frequently and replace lytes as indicated. Prealbumin now almost 15 Current Visit: No (3) Urinary retention due to benign prostatic hyperplasia Status: Chronic Assessment and plan: Unable to perform I& O cath consistenly with good technique and resulted in UTI , will plan for indwelling dorman until at least f/u with Urology, likely will need TURP Current Visit: Yes (4) Electrolyte disorder Status: Acute Assessment and plan: improved until current issue with ARF, as ARF improves, may need to monitor lytes Current Visit: Yes (5) Hyperglycemia Status: Acute Assessment and plan: improving and may be able to DC lantus, tried metformin but ARF coincides with its use. Will continue lantus for now and really hasn't required SSI dosing Current Visit: Yes (6) Non-healing surgical wound Status: Acute Assessment and plan: improving, continue nutrition and wound care/dressings. 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 Was aggressively diureses, did not calculate FeNa. Improved since dorman place, encouraging some oral fluids and holding the HCTZ Current Visit: Yes (14) Urinary tract infection Status: Acute Assessment and plan: Cirtrobacter, on Bactrim therapeutic dosing and will change to prophylactic dosing with dorman until Urology f/u Current Visit: Yes - Time Spent With Patient Total time spent with greater than 50% in coordination of care (as documented) at patient's floor/unit and/or counseling patient: Greater than 35 minutes Estimated anticipated discharge: 2 days IM: PN Subjective General: fatigue ("cruddy" over weekend, muscles sore, cough and ear fullness, today a little better, no fever, congestion unchanged. Walked this morning already.), no anxiety, no depression, no confusion, no good appetite (mild nausea. No vomiting.), no fever, no chills Cardiovascular: no chest pain, no chest pressure, no palpitations Respiratory: cough, no sputum Gastrointestinal: no abdominal pain, no nausea, no vomiting, no diarrhea Genitourinary: other (indwelling dorman) Musculoskeletal: weakness (generalized - improving), no pain, no swelling Integumentary: wound (slight drainage from abd wound - better), no rashes IM: PN Objective Exam - I&O/Vital Signs I&O: Intake & Output 02/06/17 02/07/17 02/07/17 21:59 05:59 13:59 Intake Total 1620 225 Output Total 425 225 Balance 1195 0 Weight 78 kg Intake: Oral 1620 225 Output: Urine 425 225 Other: Urine Appearance Clear Clear Urine Color Yellow Yellow Straight Pale Pale Yellow Yellow Voiding Method Indwelling Catheter Indwelling Catheter # Bowel Movements 0 Vital Signs: Last Vital Signs Temp 36.5 C 02/07/17 05:50 Pulse 62 02/07/17 08:19 Resp 16 02/07/17 08:19 BP 92/43 02/07/17 08:19 Pulse Ox 96 02/07/17 08:19 Oxygen Flow Rate 2 Oxygen Delivery Method Room Air - Constitutional General appearance: Present: cooperative, obese - Head Head exam: Present: normal inspection - Eye Eye exam: Present: normal appearance - ENT ENT exam: Present: mucous membranes dry, mucous membranes moist, other Additional comments: left ear effused, opaque TM - Neck Neck exam: Present: full ROM - Respiratory Respiratory exam: Present: decreased breath sounds (R base persists but no adventitial sounds), CTAB - Cardiovascular Cardiovascular exam: Present: RRR - GI/Abdominal GI/Abdominal exam: Present: normal bowel sounds, soft, other (slight drainage from laparotomy scar). Absent: tenderness - Extremities Exam Extremities exam: Absent: calf tenderness, edema - Psychiatric Psychiatric exam: Present: normal affect - Allied Health Notes Allied health notes reviewed: nursing - Lab Labs: Laboratory Last Values WBC 11.5 X 10^3uL (3.9-10.7) H 02/07/17 05:50 RBC 4.28 X 10^6uL (4.20-6.10) 02/07/17 05:50 Hgb 12.4 g/dL (14.0-18.0) L 02/07/17 05:50 Hct 37.2 % (42.0-54.0) L 02/07/17 05:50 MCV 87.0 fL (80.0-100.0) 02/07/17 05:50 MCH 29.1 pg (29.0-35.0) 02/07/17 05:50 MCHC 33.5 g/dL (32.0-36.0) 02/07/17 05:50 RDW 14.4 % (11.5-14.5) 02/07/17 05:50 Plt Count 313 X 10^3uL (130-440) 02/07/17 05:50 MPV 8.6 fL (7.4-10.4) 02/07/17 05:50 Neutrophils % 86.2 % (54.0-75.0) H 02/07/17 05:50 Lymphocytes % 6.7 % (20.0-40.0) L 02/07/17 05:50 Eosinophils % 0.9 % (0.0-6.0) 02/07/17 05:50 Basophils % 0.4 % (0.0-2.0) 02/07/17 05:50 Neutrophils # 9.9 X 10^3uL (2.6-6.7) H 02/07/17 05:50 Lymphocytes # 0.8 X 10^3uL (0.8-3.8) 02/07/17 05:50 Monocytes 5.8 % (2.0-10.0) 02/07/17 05:50 Monocytes # 0.7 X 10^3uL (0.2-1.0) 02/07/17 05:50 Eosinophils # 0.1 X 10^3uL (0.0-0.4) 02/07/17 05:50 Basophils # 0.0 X 10^3uL (0.0-0.1) 02/07/17 05:50 Sodium 141 mmol/L (137-145) 02/07/17 05:50 Potassium 4.4 mmol/L (3.5-5.1) 02/07/17 05:50 Chloride 104 mmol/L (98-107) 02/07/17 05:50 Carbon Dioxide 22 mmol/L (22-30) 02/07/17 05:50 BUN 93 mg/dL (9-20) H* 02/07/17 05:50 Creatinine 2.4 mg/dL (0.7-1.3) H 02/07/17 05:50 GFR Calculation Not Reportable 02/07/17 05:50 Glucose 151 mg/dL (70-100) H 02/07/17 05:50 Hemoglobin A1c 6.3 % 02/02/17 05:00 Calcium 10.3 mg/dL (8.4-10.2) H 02/07/17 05:50 Transferrin 127 mg/dL (206-381) L 02/02/17 05:15 Total Bilirubin 0.6 mg/dL (0.2-1.3) 02/04/17 08:49 Direct Bilirubin 0.1 mg/dL (0.0-0.4) 01/29/17 05:40 AST 35 U/L (17-59) 02/04/17 08:49 ALT 34 U/L (21-72) 02/04/17 08:49 Alkaline Phosphatase 158 U/L (38-126) H 02/04/17 08:49 C-Reactive Protein 175.1 mg/L (<10.0) H 02/02/17 05:00 Total Protein 8.0 g/dL (6.3-8.2) 02/04/17 08:49 Albumin 3.6 g/dL (3.5-5.0) 02/04/17 08:49 Albumin/Globulin Ratio 0.8 02/04/17 08:49 Prealbumin 14.3 mg/dL (17.6-36.0) L 02/02/17 05:15 Lipase 88 U/L (23-300) 02/04/17 08:49 Urine Color Yellow 02/02/17 14:04 Urine Appearance Cloudy A 02/02/17 14:04 Urine pH 5.5 (5-7) 02/02/17 14:04 Ur Specific [place] 1.015 (0.001-1.035) 02/02/17 14:04 Urine Protein 100mg/dl (2+) (NEG - TRACE) A 02/02/17 14:04 Urine Ketones Negative (NEGATIVE) 02/02/17 14:04 Urine Blood 50 [place]/ul (2+) (NEGATIVE) A 02/02/17 14:04 Urine Nitrate Positive (NEGATIVE) A 02/02/17 14:04 Urine Bilirubin Negative (NEGATIVE) 02/02/17 14:04 Urine Urobilinogen 0.2mg/dl (normal) (NEG-1mg/dL) 02/02/17 14:04 Ur Leukocyte Esterase 500 wbc/ul (3+) (NEGATIVE) A 02/02/17 14:04 Urine RBC None seen (0-5/hpf) 02/02/17 14:04 Urine WBC >100/hpf (0-4/hpf) 02/02/17 14:04 Ur Squamous Epith Cells None seen (<= 15/hpf) 02/02/17 14:04 Urine Bacteria >50 organisms/hpf (<10/hpf) 02/02/17 14:04 Urine Mucus None seen (Up to 25%) 02/02/17 14:04 Urine Sperm None seen 02/02/17 14:04 Urine Glucose Normal (NEGATIVE) 02/02/17 14:04 (6) Non-healing surgical wound Qualifiers: Encounter type: sequela Qualified Code(s): T81.89XS - Other complications of procedures, not elsewhere classified, sequela (8) Anemia Qualifiers: Anemia type: other cause Other causes of anemia: acute posthemorrhagic Qualified Code(s): D62 - Acute posthemorrhagic anemia
[2017-02-07] MEDS ORDERED: SIMETHICONE CHEW 80 MG TABLET PO PRN (10:24)
[2017-02-07] MEDS: ATORVASTATIN CALCIUM 10 MG TABLET PO SCH (20:11)
[2017-02-07] MEDS: SULFAMETHOXAZOLE/TMP 800/160MG 1 EA TABLET PO SCH (20:14)
[2017-02-07] MEDS: TAMSULOSIN HCL 0.4 MG CAPSULE PO SCH (20:14)
[2017-02-08 05:58] LABS: BASOPHIL# 0.1 X 10^3uL (0.0-0.1); BASOPHILS 0.6 % (0.0-2.0); EOSINOPHILS 1.4 % (0.0-6.0); EOSINOPHILS# 0.2 X 10^3uL (0.0-0.4); HEMATOCRIT 36.5 % (42.0-54.0); HEMOGLOBIN 12.2 g/dL (14.0-18.0); LYMPHOCYTES 7.1 % (20.0-40.0); LYMPHOCYTES# 0.8 X 10^3uL (0.8-3.8); MEAN CELL VOLUME 87.1 fL (80.0-100.0); MEAN CORPUS. HGB CONCENTRATION 33.5 g/dL (32.0-36.0); MEAN CORPUSCULAR HEMOGLOBIN 29.2 pg (29.0-35.0); MEAN PLATELET VOLUME 8.2 fL (7.4-10.4); MONOCYTES 6.9 % (2.0-10.0); MONOCYTES# 0.8 X 10^3uL (0.2-1.0); NEUTROPHILS# 9.2 X 10^3uL (2.6-6.7); PLATELET COUNT 311 X 10^3uL (130-440); WHITE BLOOD COUNT 11.1 X 10^3uL (3.9-10.7)
[2017-02-08 06:06] LABS: C-REACTIVE PROTEIN 85.9 mg/L (<10.0); CALCIUM 10.1 mg/dL (8.4-10.2); CHLORIDE 107 mmol/L (98-107); CREATININE 2.3 mg/dL (0.7-1.3); GLUCOSE 94 mg/dL (70-100); PHOSPHORUS 4.8 mg/dL (2.5-4.5); POTASSIUM 4.6 mmol/L (3.5-5.1); SODIUM 143 mmol/L (137-145)
[2017-02-08 06:23] LABS: BLOOD UREA NITROGEN 88 mg/dL (9-20)
[2017-02-08] MEDS: INSULIN LISPRO 100 UNIT/ML ML SUBCUT SCH ×4 (06:27→21:03)
[2017-02-08] MEDS: CYANOCOBALAMIN 1,000 MCG TABLET PO SCH (08:39)
[2017-02-08] MEDS: APIXABAN 2.5 MG TABLET PO SCH ×2 (08:39→20:18)
[2017-02-08] MEDS: DRONABINOL 2.5 MG CAPSULE PO SCH ×2 (08:39→20:18)
[2017-02-08] MEDS: LISINOPRIL 20 MG TABLET PO SCH (08:40)
[2017-02-08] MEDS: FINASTERIDE 5 MG TABLET PO SCH (08:40)
[2017-02-08] MEDS: FLUCONAZOLE 100 MG CAPSULE PO SCH (08:40)
[2017-02-08] MEDS: CHOLECALCIFEROL 1,000 UNIT CAPSULE PO SCH (08:40)
[2017-02-08] MEDS: ASCORBIC ACID 500 MG TABLET PO SCH ×2 (08:40→20:19)
[2017-02-08] MEDS: AMLODIPINE BESYLATE 5 MG TABLET PO SCH (08:41)
[2017-02-08] MEDS: INSULIN GLARGINE,HUM.REC.ANLOG 100 UNITS/ML ML SUBCUT SCH (08:44)
[2017-02-08] MEDS: TAMSULOSIN HCL 0.4 MG CAPSULE PO SCH (20:17)
[2017-02-08] MEDS: ATORVASTATIN CALCIUM 10 MG TABLET PO SCH (20:18)
[2017-02-08] MEDS: SULFAMETHOXAZOLE/TMP 800/160MG 1 EA TABLET PO SCH (20:19)
[2017-02-09] MEDS: INSULIN LISPRO 100 UNIT/ML ML SUBCUT SCH ×4 (07:26→20:50)
[2017-02-09] MEDS: CHOLECALCIFEROL 1,000 UNIT CAPSULE PO SCH (08:07)
[2017-02-09] MEDS: ASCORBIC ACID 500 MG TABLET PO SCH ×2 (08:07→20:45)
[2017-02-09] MEDS: APIXABAN 2.5 MG TABLET PO SCH ×2 (08:07→20:45)
[2017-02-09] MEDS: FINASTERIDE 5 MG TABLET PO SCH (08:07)
[2017-02-09] MEDS: DRONABINOL 2.5 MG CAPSULE PO SCH ×2 (08:07→20:45)
[2017-02-09] MEDS: FLUCONAZOLE 100 MG CAPSULE PO SCH (08:07)
[2017-02-09] MEDS: CYANOCOBALAMIN 1,000 MCG TABLET PO SCH (08:07)
[2017-02-09] MEDS: INSULIN GLARGINE,HUM.REC.ANLOG 100 UNITS/ML ML SUBCUT SCH (08:10)
[2017-02-09] MEDS: AMLODIPINE BESYLATE 5 MG TABLET PO SCH (08:11)
[2017-02-09] MEDS: LISINOPRIL 20 MG TABLET PO SCH (08:11)
[2017-02-09] MEDS: TAMSULOSIN HCL 0.4 MG CAPSULE PO SCH (20:45)
[2017-02-09] MEDS: SULFAMETHOXAZOLE/TMP 800/160MG 1 EA TABLET PO SCH (20:45)
[2017-02-09] MEDS: ATORVASTATIN CALCIUM 10 MG TABLET PO SCH (20:45)
[2017-02-10] MEDS: INSULIN LISPRO 100 UNIT/ML ML SUBCUT SCH ×4 (06:34→21:06)
[2017-02-10] MEDS: APIXABAN 2.5 MG TABLET PO SCH ×2 (08:18→20:58)
[2017-02-10] MEDS: ASCORBIC ACID 500 MG TABLET PO SCH ×2 (08:18→20:57)
[2017-02-10] MEDS: FLUCONAZOLE 100 MG CAPSULE PO SCH (08:18)
[2017-02-10] MEDS: LISINOPRIL 20 MG TABLET PO SCH (08:18)
[2017-02-10] MEDS: DRONABINOL 2.5 MG CAPSULE PO SCH ×2 (08:18→20:57)
[2017-02-10] MEDS: CHOLECALCIFEROL 1,000 UNIT CAPSULE PO SCH (08:18)
[2017-02-10] MEDS: AMLODIPINE BESYLATE 5 MG TABLET PO SCH (08:18)
[2017-02-10] MEDS: FINASTERIDE 5 MG TABLET PO SCH (08:18)
[2017-02-10] MEDS: CYANOCOBALAMIN 1,000 MCG TABLET PO SCH (08:18)
[2017-02-10] MEDS: INSULIN GLARGINE,HUM.REC.ANLOG 100 UNITS/ML ML SUBCUT SCH (08:19)
[2017-02-10] MEDS: ACETAMINOPHEN 325 MG TABLET PO PRN (11:58)
[2017-02-10 20:53] VITALS: PULSE 69
[2017-02-10] MEDS: SULFAMETHOXAZOLE/TMP 800/160MG 1 EA TABLET PO SCH (20:57)
[2017-02-10] MEDS: TAMSULOSIN HCL 0.4 MG CAPSULE PO SCH (20:57)
[2017-02-10] MEDS: ATORVASTATIN CALCIUM 10 MG TABLET PO SCH (20:57)
[2017-02-11 06:41] VITALS: BP 121/45; RESP 21; TEMP 98.7; O2SAT 93
--- NOTE | 2017-02-11 08:47 | PROGRESS NOTE: IM APSO ---
Assessment and Plan - Date of Encounter Date of Encounter: 02/11/17 (1) Physical deconditioning Status: Acute Assessment and plan: Had been improving (significantly) still need some therapy and if DC'd to home will need HHC with RN for medication management, teach and monitor of I&O cath, cardiopulm assessments as well PT/OT for gait training/strengthening and functional mobility as well ?assess for DME; Home with APS referral (Maria Dolores Carl) Current Visit: Yes (2) Protein-calorie malnutrition, moderate Status: Chronic Assessment and plan: Labs improving ad tolerating liquids with Ensure and Whey Protein, difficulty with solids stil, will continue Ensure, fluids,supplemental protein and solids as tolerated Current Visit: No (3) Urinary retention due to benign prostatic hyperplasia Status: Chronic Assessment and plan: Unable to perform I& O cath consistenly with good technique and resulted in UTI , will plan for indwelling dorman until at least f/u with Urology, likely will need TURP Current Visit: Yes (4) Electrolyte disorder Status: Resolved Current Visit: Yes (5) Hyperglycemia Status: Chronic Current Visit: Yes (6) Non-healing surgical wound Status: Acute Assessment and plan: improving, continue nutrition and wound care/dressings. 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 Current Visit: Yes (11) Hypercholesterolemia Status: Chronic Current Visit: Yes (12) Hypertension, benign Status: Chronic Assessment and plan: no hypotensive with prior iteration of mds, hctz stopped, lisinopril decreased, metoprolol continued Current Visit: Yes (13) Acute renal failure (ARF) Status: Acute Assessment and plan: Improving, likely metformin/obst related and dehydration Current Visit: Yes (14) Urinary tract infection Status: Acute Assessment and plan: Cirtrobacter, on Bactrim therapeutic dosing and will change to prophylactic dosing with dorman until Urology f/u Current Visit: Yes - Time Spent With Patient Total time spent with greater than 50% in coordination of care (as documented) at patient's floor/unit and/or counseling patient: Greater than 35 minutes Estimated anticipated discharge: today IM: PN Subjective General: fatigue (feel stronger), no anxiety, no depression, no confusion, no good appetite (mild nausea. No vomiting.), no fever, no chills Cardiovascular: no chest pain, no chest pressure, no palpitations Respiratory: no cough, no sputum Gastrointestinal: no abdominal pain, no nausea, no vomiting, no diarrhea Musculoskeletal: weakness (generalized - improving), no pain, no swelling Integumentary: wound (no drainage), no rashes Neurological: other (Spoke with patient/Grace and Maria Dolores from [facility] and Social Work, reviewed possible DC to home, PPLC and family. Issues with finances, family (Rafaela owes him money but won't allow its use for PPLC), family who could care for him unable to committ to consistant care. He is taking Ensure and drinking tea/coffee but solid food makes him nauseated/ill. No fever/cough, No CP. No diarrhea/AP, is managing dorman and has f/u with urology to replace and if feasible schedule TURP) IM: PN Objective Exam - I&O/Vital Signs I&O: Intake & Output 02/10/17 02/11/17 02/11/17 21:59 05:59 13:59 Intake Total 825 600 Output Total 450 700 Balance 375 -100 Weight 71.5 kg Intake: Oral 825 600 Output: Urine 450 700 Other: Urine Appearance Clear Urine Color Straw Straight Yellow Yellow Voiding Method Indwelling Catheter Indwelling Catheter # Voids 2 # Bowel Movements 1 Vital Signs: Last Vital Signs Temp 37.1 C 02/11/17 06:00 Pulse 69 02/11/17 06:00 Resp 21 02/11/17 06:00 BP 121/45 02/11/17 06:00 Pulse Ox 93 02/11/17 06:00 Oxygen Flow Rate 2 Oxygen Delivery Method Room Air - Constitutional General appearance: Present: cooperative, obese - Head Head exam: Present: normal inspection - Eye Eye exam: Present: normal appearance - ENT ENT exam: Present: mucous membranes moist, other - Neck Neck exam: Present: full ROM - Respiratory Respiratory exam: Present: decreased breath sounds (R base persists but no adventitial sounds), CTAB - Cardiovascular Cardiovascular exam: Present: RRR - GI/Abdominal GI/Abdominal exam: Present: normal bowel sounds, soft, other (slight drainage from laparotomy scar). Absent: tenderness - Extremities Exam Extremities exam: Absent: calf tenderness, edema - Psychiatric Psychiatric exam: Present: normal affect - Allied Health Notes Allied health notes reviewed: case management, nursing, social work - Lab Labs: Laboratory Last Values WBC 11.1 X 10^3uL (3.9-10.7) H 02/08/17 05:35 RBC 4.20 X 10^6uL (4.20-6.10) 02/08/17 05:35 Hgb 12.2 g/dL (14.0-18.0) L 02/08/17 05:35 Hct 36.5 % (42.0-54.0) L 02/08/17 05:35 MCV 87.1 fL (80.0-100.0) 02/08/17 05:35 MCH 29.2 pg (29.0-35.0) 02/08/17 05:35 MCHC 33.5 g/dL (32.0-36.0) 02/08/17 05:35 RDW 14.0 % (11.5-14.5) 02/08/17 05:35 Plt Count 311 X 10^3uL (130-440) 02/08/17 05:35 MPV 8.2 fL (7.4-10.4) 02/08/17 05:35 Neutrophils % 84.0 % (54.0-75.0) H 02/08/17 05:35 Lymphocytes % 7.1 % (20.0-40.0) L 02/08/17 05:35 Eosinophils % 1.4 % (0.0-6.0) 02/08/17 05:35 Basophils % 0.6 % (0.0-2.0) 02/08/17 05:35 Neutrophils # 9.2 X 10^3uL (2.6-6.7) H 02/08/17 05:35 Lymphocytes # 0.8 X 10^3uL (0.8-3.8) 02/08/17 05:35 Monocytes 6.9 % (2.0-10.0) 02/08/17 05:35 Monocytes # 0.8 X 10^3uL (0.2-1.0) 02/08/17 05:35 Eosinophils # 0.2 X 10^3uL (0.0-0.4) 02/08/17 05:35 Basophils # 0.1 X 10^3uL (0.0-0.1) 02/08/17 05:35 Sodium 143 mmol/L (137-145) 02/08/17 05:35 Potassium 4.6 mmol/L (3.5-5.1) 02/08/17 05:35 Chloride 107 mmol/L (98-107) 02/08/17 05:35 Carbon Dioxide 22 mmol/L (22-30) 02/08/17 05:35 BUN 88 mg/dL (9-20) H* 02/08/17 05:35 Creatinine 2.3 mg/dL (0.7-1.3) H 02/08/17 05:35 GFR Calculation Not Reportable 02/08/17 05:35 Glucose 94 mg/dL (70-100) 02/08/17 05:35 Hemoglobin A1c 6.3 % 02/02/17 05:00 Calcium 10.1 mg/dL (8.4-10.2) 02/08/17 05:35 Phosphorus 4.8 mg/dL (2.5-4.5) H 02/08/17 05:35 Transferrin 127 mg/dL (206-381) L 02/02/17 05:15 Total Bilirubin 0.6 mg/dL (0.2-1.3) 02/04/17 08:49 Direct Bilirubin 0.1 mg/dL (0.0-0.4) 01/29/17 05:40 AST 35 U/L (17-59) 02/04/17 08:49 ALT 34 U/L (21-72) 02/04/17 08:49 Alkaline Phosphatase 158 U/L (38-126) H 02/04/17 08:49 C-Reactive Protein 85.9 mg/L (<10.0) H 02/08/17 05:35 Total Protein 8.0 g/dL (6.3-8.2) 02/04/17 08:49 Albumin 3.6 g/dL (3.5-5.0) 02/04/17 08:49 Albumin/Globulin Ratio 0.8 02/04/17 08:49 Prealbumin 18.6 mg/dL (17.6-36.0) 02/08/17 05:35 Lipase 88 U/L (23-300) 02/04/17 08:49 Urine Color Yellow 02/02/17 14:04 Urine Appearance Cloudy A 02/02/17 14:04 Urine pH 5.5 (5-7) 02/02/17 14:04 Ur Specific [place] 1.015 (0.001-1.035) 02/02/17 14:04 Urine Protein 100mg/dl (2+) (NEG - TRACE) A 02/02/17 14:04 Urine Ketones Negative (NEGATIVE) 02/02/17 14:04 Urine Blood 50 aleksander/ul (2+) (NEGATIVE) A 02/02/17 14:04 Urine Nitrate Positive (NEGATIVE) A 02/02/17 14:04 Urine Bilirubin Negative (NEGATIVE) 02/02/17 14:04 Urine Urobilinogen 0.2mg/dl (normal) (NEG-1mg/dL) 02/02/17 14:04 Ur Leukocyte Esterase 500 wbc/ul (3+) (NEGATIVE) A 02/02/17 14:04 Urine RBC None seen (0-5/hpf) 02/02/17 14:04 Urine WBC >100/hpf (0-4/hpf) 02/02/17 14:04 Ur Squamous Epith Cells None seen (<= 15/hpf) 02/02/17 14:04 Urine Bacteria >50 organisms/hpf (<10/hpf) 02/02/17 14:04 Urine Mucus None seen (Up to 25%) 02/02/17 14:04 Urine Sperm None seen 02/02/17 14:04 Urine Glucose Normal (NEGATIVE) 02/02/17 14:04 (6) Non-healing surgical wound Qualifiers: Encounter type: sequela Qualified Code(s): T81.89XS - Other complications of procedures, not elsewhere classified, sequela (8) Anemia Qualifiers: Anemia type: other cause Other causes of anemia: acute posthemorrhagic Qualified Code(s): D62 - Acute posthemorrhagic anemia
--- NOTE | 2017-02-11 08:58 | DC SUMMARY: IM Note ---
Discharge Summary: IM/Peds Provider: Date of Admission: 01/28/17 Admitting Provider: ARLETTE CAO Attending Provider: ARLETTE CAO Discharging Provider: ARLETTE CAO Primary Care Provider: Discharge Date: 02/11/17 Consults: 01/28/17 08:59 Nutrition/Dietary Consult [CONS] Routine Reason: Swingbed Admission Protocol - Diagnosis (1) Physical deconditioning Status: Acute (2) Protein-calorie malnutrition, moderate Status: Chronic (3) Urinary retention due to benign prostatic hyperplasia Status: Chronic (4) Electrolyte disorder Status: Resolved (5) Hyperglycemia Status: Chronic (6) Non-healing surgical wound Status: Acute Qualifiers: Encounter type: sequela Qualified Code(s): T81.89XS - Other complications of procedures, not elsewhere classified, sequela (7) Urinary retention Status: Chronic (8) Anemia Status: Chronic Qualifiers: Anemia type: other cause Other causes of anemia: acute posthemorrhagic Qualified Code(s): D62 - Acute posthemorrhagic anemia (9) 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 Follow up: ARLETTE CAO MD [Primary Care Provider] - 02/16/17 9:30 am DARCY GARSIA MD [MD] - 02/21/17 10:00 am (appt will be with Dr. Head in [place] on February 21 @ 10am ) MANPREET HOLLY MD [ACTIVE (Staff Physician)] - 02/17/17 10:00 am Overall discharge status: patient is progressing back to baseline Home Medications: Sulfamethoxazole/Tmp 800/160Mg [Bactrim Ds*] 1 ea PO HS #30 tablet Sulfamethoxazole/Tmp 800/160Mg [Bactrim Ds*] 1 ea PO DAILY #30 tablet Fluconazole [Fluconazole*] 100 mg PO DAILY #30 capsule Fluconazole [Fluconazole*] 200 mg PO DAILY #60 capsule Orders: CAT SCAN; ABD/PEL W/WO [id number] [CT] Time Frame: 2 Weeks, Location: Determined By Patient C-REACTIVE PROTEIN [CHEM] Time Frame: 2 Weeks, Location: Determined By Patient CBC AUTO DIF, MDIF/RMOR IF IND [HEM] Time Frame: 2 Weeks, Location: Determined By Patient COMPREHENSIVE METABOLIC PANEL [CHEM] Time Frame: 2 Weeks, Location: Determined By Patient PREALBUMIN [CHEM] Time Frame: 2 Weeks, Location: Determined By Patient TRANSFERRIN [CHEM] Time Frame: 2 Weeks, Location: Determined By Patient Certified Genetic Counselor Location: Determined By Patient Care Plan Goals: Discussed with Mitzi for wound care to go to Home Health, HH orders sent, reviewed with Social Work and Maria Dolores Carl will consult and f/u Tuesday. Disposition: HOME HEALTH CARE Discharge Summary Data - Medication History Medication History: Home Medications Finasteride [Finasteride*] 5 mg PO DAILY 12/14/16 Apixaban [Eliquis] 2.5 mg PO BID 01/11/17 Dronabinol [Marinol] 2.5 mg PO BID 01/11/17 Insulin Glargine,Hum.rec.anlog [Lantus*] 8 unit SUBCUT DAILY 01/11/17 Insulin Lispro [Humalog*] 0 unit SUBCUT ACHS 01/11/17 metoprolol TARTRATE [Metoprolol Tartrate*] 25 mg PO BID 01/11/17 Acetaminophen [Tylenol*] 650 mg PO Q6H PRN 01/17/17 Amlodipine Besylate [Norvasc*] 2.5 mg PO DAILY 01/17/17 Ascorbic Acid [Vitamin C*] 500 mg PO BID 01/17/17 Cholecalciferol [Vitamin D*] 2,000 unit PO DAILY 01/17/17 Cyanocobalamin [VITAMIN B-12*] 1,000 mcg PO DAILY 01/17/17 Fluconazole [Diflucan] 400 mg PO DAILY 01/17/17 Lisinopril [Prinivil*] 20 mg PO DAILY 01/17/17 Atorvastatin Calcium [Lipitor*] 20 mg PO HS 01/27/17 Dextrose 50 % in Water [Dextrose 50%-Water Syringe] 50 ml IV PRN PRN 01/27/17 Famotidine [Pepcid] 20 mg PO Q12H PRN 01/27/17 Hydrochlorothiazide [Hydrodiuril*] 25 mg PO DAILY 01/27/17 Tamsulosin HCl [Flomax*] 0.4 mg PO HS 01/27/17 aspirin EC [Aspirin EC*] 81 mg PO DAILY 01/27/17 proMETHazine HCL [Phenergan Inj*] 12.5 mg IV Q6H PRN 01/27/17 Hydrochlorothiazide [Hydrodiuril*] 25 mg PO DAILY tablet 01/28/17 Fluconazole [Fluconazole*] 400 mg PO DAILY capsule 02/03/17 Levofloxacin [Levaquin*] 500 mg PO DAILY #5 tablet 02/03/17 Magnesium Hydroxide [Milk of Magnesia*] 30 ml PO PRN PRN #0 udc 02/03/17 Sulfamethoxazole/Tmp 800/160Mg [Bactrim Ds*] 1 ea PO DAILY #30 tablet 02/03/17 Inpatient Medications 01/28/17 09:05 Acetaminophen [Tylenol] 650 mg PO Q6H PRN Dextrose 50% Water [D50%] 50 gm IV PRN PRN Famotidine [Pepcid] 20 mg PO Q12H PRN proMETHazine HCL [Phenergan Inj] 12.5 mg IV Q6H PRN 01/28/17 11:30 Insulin Lispro [HumaLOG] See Protocol SUBCUT ACHS 01/28/17 21:00 Ascorbic Acid [Vitamin C] 500 mg PO BID Atorvastatin Calcium [Lipitor] 20 mg PO HS Tamsulosin HCl [Flomax] 0.4 mg PO HS metoprolol TARTRATE [Lopressor] 25 mg PO BID 01/29/17 09:00 Amlodipine Besylate [Norvasc] 2.5 mg PO DAILY Apixaban [Eliquis] 2.5 mg PO BID Cholecalciferol [Vitamin D3] 2,000 unit PO DAILY Cyanocobalamin [Vitamin B12] 1,000 mcg PO DAILY Dronabinol [Marinol] 2.5 mg PO BID Finasteride [Proscar] 5 mg PO DAILY Insulin Glargine,Hum.rec.anlog [Lantus] 8 units SUBCUT DAILY aspirin EC [Ecotrin 81 mg] 81 mg PO DAILY 02/03/17 06:30 Magnesium Hydroxide [Milk of Magnesia] 30 ml PO PRN PRN 02/06/17 09:00 Fluconazole [Diflucan] 100 mg PO DAILY 02/06/17 21:00 Sulfamethoxazole/Tmp 800/160Mg [Bactrim Ds] 1 ea PO HS 02/07/17 10:24 Simethicone Chew [Mylicon] 80 mg PO Q4H PRN 02/08/17 09:00 Lisinopril [Prinivil] 10 mg PO DAILY Procedures and tests throughout hospitalization: Completed Lab Orders 01/28/17 09:00 UA W/ MICRO -CULTURE IF IND [URINE] Routine 01/29/17 05:40 BASIC METABOLIC PANEL [CHEM] AMDRAW CBC AUTO DIF, MDIF/RMOR IF IND [HEM] AMDRAW HEPATIC PANEL [CHEM] AMDRAW 01/31/17 05:00 BMP [BASIC METABOLIC PANEL] [CHEM] AMDRAW CBC AUTO DIF, MDIF/RMOR IF IND [HEM] AMDRAW 02/02/17 05:00 Hemoglobin A1c [GLYCOSYLATED HGB] [CHEM] AMDRAW crp [C-REACTIVE PROTEIN] [CHEM] AMDRAW 02/02/17 05:15 BMP [BASIC METABOLIC PANEL] [CHEM] AMDRAW PREALBUMIN [CHEM] AMDRAW TRANSFERRIN [CHEM] AMDRAW 02/02/17 08:38 CBC AUTO DIF, MDIF/RMOR IF IND [HEM] Routine 02/02/17 14:04 UA W/ MICRO -CULTURE IF IND [URINE] Routine 02/03/17 05:25 BMP [BASIC METABOLIC PANEL] [CHEM] AMDRAW CBC AUTO DIF, MDIF/RMOR IF IND [HEM] AMDRAW 02/04/17 08:49 CBC AUTO DIF, MDIF/RMOR IF IND [HEM] Urgent COMPREHENSIVE METABOLIC PANEL [CHEM] Urgent LIPASE [CHEM] Urgent 02/06/17 05:55 BMP [BASIC METABOLIC PANEL] [CHEM] AMDRAW CBC AUTO DIF, MDIF/RMOR IF IND [HEM] AMDRAW 02/07/17 05:50 BMP [BASIC METABOLIC PANEL] [CHEM] AMDRAW CBC AUTO DIF, MDIF/RMOR IF IND [HEM] AMDRAW 02/08/17 05:35 BASIC METABOLIC PANEL [CHEM] AMDRAW CBC AUTO DIF, MDIF/RMOR IF IND [HEM] AMDRAW PHOSPHORUS [CHEM] AMDRAW PREALBUMIN [CHEM] AMDRAW crp [C-REACTIVE PROTEIN] [CHEM] AMDRAW Completed Imaging Orders 02/02/17 08:37 ABDOMEN; COMPLET W/CHEST [id number] [RAD] Routine 02/04/17 08:49 CAT SCAN; [place]BD/[place] [id number] [CT] Stat Completed Microbiology Orders 02/02/17 14:04 BLOOD CULTURE [BC] Routine URINE CULTURE [RM] Routine 02/07/17 18:00 CDIFF [C DIFFICILE BY PCR] [RM] Routine FECAL LEUKS (LACTOFERRIN) [RM] Routine STOOL CULTURE PANEL [RM] Routine Pending Orders 01/28/17 08:59 Admit: Swing Bed Routine Activity: Ambulate with Assist TID Cleanse minor skin tears w/NS PRN Obtain weight QSHIFT Resuscitation Status Routine Titrate Oxygen TITRATE TO >90% Vital Signs Q12H [employer] Consult [CM] Routine Nutrition/Dietary Consult [CONS] Routine 01/28/17 09:01 Cover minor skin tears with DAILYPRN 01/28/17 09:02 Beneprotein Supplement TID Ensure Plus Supplement TID Occupation Therapy Eval and Treat [OT] Routine 01/28/17 09:05 Acetaminophen [Tylenol] 650 mg PO Q6H PRN Dextrose 50% Water [D50%] 50 gm IV PRN PRN Famotidine [Pepcid] 20 mg PO Q12H PRN proMETHazine HCL [Phenergan Inj] 12.5 mg IV Q6H PRN 01/28/17 11:30 Insulin Lispro [HumaLOG] See Protocol SUBCUT ACHS 01/28/17 15:51 Physical Therapy Plan of Care [PT] Routine 01/28/17 21:00 Ascorbic Acid [Vitamin C] 500 mg PO BID Atorvastatin Calcium [Lipitor] 20 mg PO HS Tamsulosin HCl [Flomax] 0.4 mg PO HS metoprolol TARTRATE [Lopressor] 25 mg PO BID 01/28/17 Breakfast Diabetic [DIET] 01/28/17 Lunch Cardiac [DIET] 01/29/17 09:00 Amlodipine Besylate [Norvasc] 2.5 mg PO DAILY Apixaban [Eliquis] 2.5 mg PO BID Cholecalciferol [Vitamin D3] 2,000 unit PO DAILY Cyanocobalamin [Vitamin B12] 1,000 mcg PO DAILY Dronabinol [Marinol] 2.5 mg PO BID Finasteride [Proscar] 5 mg PO DAILY Insulin Glargine,Hum.rec.anlog [Lantus] 8 units SUBCUT DAILY aspirin EC [Ecotrin 81 mg] 81 mg PO DAILY 01/31/17 07:34 Occupational Therapy Plan of Care [OT] Routine 02/03/17 06:30 Magnesium Hydroxide [Milk of Magnesia] 30 ml PO PRN PRN 02/06/17 08:38 Bladder Scan/ PVR . 02/06/17 09:00 Fluconazole [Diflucan] 100 mg PO DAILY 02/06/17 21:00 Sulfamethoxazole/Tmp 800/160Mg [Bactrim Ds] 1 ea PO HS 02/07/17 10:24 Simethicone Chew [Mylicon] 80 mg PO Q4H PRN 02/08/17 09:00 Lisinopril [Prinivil] 10 mg PO DAILY - Impressions Complicated ACS with angio non obstructive dz, noted cholecystitis, complicated lap armando with leak, required stenting then ischemic bowel required resection, malnutrition and then anasarca with kwashiorkor. Overall better nutrition improved, BPH with retention, unable to I&O cath from hygiene standpoint and developed UTI, treated UTI, has dorman with leg bag and on supressive ABx pending f/u Dr. Garsia. Wounds healing. Conditioning improving. IM: Discharge Physical Exam - I&O/Vital Signs I&O: Intake & Output 02/10/17 02/11/17 02/11/17 21:59 05:59 13:59 Intake Total 825 600 Output Total 450 700 Balance 375 -100 Weight 71.5 kg Intake: Oral 825 600 Output: Urine 450 700 Other: Urine Appearance Clear Urine Color Straw Straight Yellow Yellow Voiding Method Indwelling Catheter Indwelling Catheter # Voids 2 # Bowel Movements 1 Vital Signs: Last Vital Signs Temp 37.1 C 02/11/17 06:00 Pulse 69 02/11/17 06:00 Resp 21 02/11/17 06:00 BP 121/45 02/11/17 06:00 Pulse Ox 93 02/11/17 06:00 Oxygen Flow Rate 2 Oxygen Delivery Method Room Air - Constitutional General appearance: Present: cooperative, obese - Head Head exam: Present: normal inspection - Eye Eye exam: Present: normal appearance - ENT ENT exam: Present: mucous membranes moist, other - Neck Neck exam: Present: full ROM - Respiratory Respiratory exam: Present: decreased breath sounds (R base persists but no adventitial sounds), CTAB - Cardiovascular Cardiovascular exam: Present: RRR - GI/Abdominal GI/Abdominal exam: Present: normal bowel sounds, soft, other (slight drainage from laparotomy scar). Absent: tenderness - Extremities Exam Extremities exam: Absent: calf tenderness, edema - Psychiatric Psychiatric exam: Present: normal affect - Allied Health Notes Allied health notes reviewed: case management, nursing, social work
[2017-02-11] MEDS: INSULIN LISPRO 100 UNIT/ML ML SUBCUT SCH (09:40)
[2017-02-11] MEDS: APIXABAN 2.5 MG TABLET PO SCH (09:47)
[2017-02-11] MEDS: CYANOCOBALAMIN 1,000 MCG TABLET PO SCH (09:48)
[2017-02-11] MEDS: ASCORBIC ACID 500 MG TABLET PO SCH (09:49)
[2017-02-11] MEDS: AMLODIPINE BESYLATE 5 MG TABLET PO SCH (09:49)
[2017-02-11] MEDS: DRONABINOL 2.5 MG CAPSULE PO SCH (09:49)
[2017-02-11] MEDS: FLUCONAZOLE 100 MG CAPSULE PO SCH (09:51)
[2017-02-11] MEDS: LISINOPRIL 20 MG TABLET PO SCH (09:51)
[2017-02-11] MEDS: FINASTERIDE 5 MG TABLET PO SCH (09:52)
[2017-02-11] MEDS: CHOLECALCIFEROL 1,000 UNIT CAPSULE PO SCH (09:52)
[2017-02-11] MEDS: INSULIN GLARGINE,HUM.REC.ANLOG 100 UNITS/ML ML SUBCUT SCH (09:53)
== END 2017-02-11 09:01 | disposition home health service (06) | DRG 948 ==
LOC: IN 10:47
PROVIDERS: ADMIT Hospitalist; ATTEND Hospitalist
DX: R53.81 Other malaise (principal); C18.9 Malignant neoplasm of colon, unspecified; B37.89 Other sites of candidiasis; E44.0 Moderate protein-calorie malnutrition; T81.89XS Other complications of procedures, not elsewhere classified, sequela; N17.9 Acute kidney failure, unspecified; N39.0 Urinary tract infection, site not specified; I48.2 Chronic atrial fibrillation; I25.10 Atherosclerotic heart disease of native coronary artery without angina pectoris; D50.0 Iron deficiency anemia secondary to blood loss (chronic); R73.9 Hyperglycemia, unspecified; E88.09 Other disorders of plasma-protein metabolism, not elsewhere classified; N20.0 Calculus of kidney; N40.1 Benign prostatic hyperplasia with lower urinary tract symptoms; E87.8 Other disorders of electrolyte and fluid balance, not elsewhere classified; D72.829 Elevated white blood cell count, unspecified; R33.8 Other retention of urine; I12.9 Hypertensive chronic kidney disease with stage 1 through stage 4 chronic kidney disease, or unspecified chronic kidney disease; Z95.5 Presence of coronary angioplasty implant and graft; G47.30 Sleep apnea, unspecified; Z79.82 Long term (current) use of aspirin; Z79.01 Long term (current) use of anticoagulants; Z79.899 Other long term (current) drug therapy
CPT/HCPCS: 36415; 74022; 74176; 80048; 80053; 80076; 81001; 83036; 83630; 83690; 84100; 84134; 84466; 85025; 86140; 87040; 87077; 87086; 87186; 87188; 87493; 87899; J1815; J7040; P9047